=== PATIENT | female | born 1985 | race Caucasian/White ===

== ENCOUNTER 2023-04-11 11:58 | Outpatient (OUT) | payer MEDICAID, SELFPAY ==
[2023-04-11 13:29] LABS: Uric Acid 4.5 mg/dL (2.6-6.0)
[2023-04-12 11:08] LABS: PTH, Intact 21 pg/mL (15-65)
== END 2023-04-11 11:59 | disposition home or self-care (01) ==
LOC: LAB 12:01
PROVIDERS: PCP Family Medicine; Visit Provider Urology
DX: N20.0 Calculus of kidney (principal)
CPT/HCPCS: 36415; 83970; 84550

== ENCOUNTER 2023-04-11 12:04 | Outpatient (OUT) | payer MEDICAID, SELFPAY | END 2023-04-11 12:05 | disposition home or self-care (01) | LOC: LAB 12:05 | PROVIDERS: PCP Family Medicine; Visit Provider Family Medicine | DX: E55.9 Vitamin D deficiency, unspecified (principal); N20.0 Calculus of kidney | CPT/HCPCS: 36415; 82306; 83970; 84550 ==

== ENCOUNTER 2023-08-31 12:12 | Outpatient (OUT) | payer MEDICAID, SELFPAY ==
--- NOTE | 2023-08-31 12:53 | XR_ITS ---
[address] [address] Patient Name: AINSLEY JOHNS MRN: [id number] date: 1985 Sex: F Assigned Patient Location: [facility] Current Patient Location: LAB Accession/Order Number: [id number] Exam Date: 08/31/2023 13:02 Report Date: 08/31/2023 13:55 At the request of: MILY ACEVES Procedure: XR chest 2V EXAM: XR chest 2V HISTORY: Preop exam COMPARISON: None. TECHNIQUE: PA and lateral views of the chest. FINDINGS: The cardiomediastinal silhouette is normal. No focal consolidation is identified. There is no pneumothorax. No pleural effusion is noted. The osseous structures are intact. XR/XR chest 2V IMPRESSION: No acute cardiopulmonary process. Electronically authenticated by: HENRRY SALMERON Date: 08/31/2023 13:55
[2023-08-31 13:08] LABS: Basophils Absolute Auto 0.1 10^3/uL (0.0-0.1); Basophils Percent Auto 0.5 % (0.2-2.0); Eosinophils Absolute Auto 0.1 10^3/uL (0.0-0.7); Eosinophils Percent Auto 0.9 % (0.9-7.0); Hematocrit 42.8 % (36.0-48.0); Immature Granulocytes Abs Auto 0.03 10^3/uL (0.00-0.03); Immature Granulocytes Pct Auto 0.3 % (0.0-0.5); Lymphocytes Absolute Auto 1.8 10^3/uL (1.2-3.8); Lymphocytes Percent Auto 17.5 % (20.5-60.0); Mean Corpuscular HGB Conc 32.7 g/dL (29.9-35.2); Mean Corpuscular Hemoglobin 30.8 pg (26.7-34.0); Mean Corpuscular Volume 94.3 fL (81.0-99.0); Mean Platelet Volume 12.3 fL (9.5-13.5); Monocytes Absolute Auto 0.5 10^3/uL (0.3-0.8); Monocytes Percent Auto 5.2 % (1.7-12.0); Neutrophils Absolute Auto 7.6 10^3/uL (1.4-6.5); Neutrophils Percent Auto 75.6 % (43.0-75.0); Platelet Count 228 10^3/uL (150-450); Red Blood Count 4.54 10^6/uL (4.20-5.40); Red Cell Distribution Width 13.1 % (11.0-15.0)
[2023-08-31 14:28] LABS: INR 0.98; Prothrombin Time 10.4 sec (9.0-11.6)
[2023-08-31 14:30] LABS: Alanine Aminotransferase 14 U/L (14-59); Albumin Level 3.7 g/dL (3.4-5.0); Alkaline Phosphatase 68 U/L (46-116); Anion Gap 13.4; Aspartate Amino Transferase 9 U/L (15-37); BUN Creatinine Ratio 6.5; Bilirubin Direct 0.2 mg/dL (0.0-0.2); Bilirubin Total 0.9 mg/dL (0.2-1.0); Calcium 8.8 mg/dL (8.5-10.1); Carbon Dioxide 27.2 mmol/L (21.0-32.0); Chloride 105 mmol/L (98-107); Estimated GFR (African America >60 (>=60); Estimated GFR (Non-African Ame 57 (>=60); Globulin 3.8 g/dL; Glucose 79 mg/dL (74-106); Potassium 3.6 mmol/L (3.5-5.1); Sodium 142 mmol/L (136-145); Total Protein 7.5 g/dL (6.4-8.2)
== END 2023-08-31 12:13 | disposition home or self-care (01) ==
LOC: PST 12:13
PROVIDERS: PCP Family Medicine; Visit Provider Obstetrics & Gynecology
DX: Z01.812 Encounter for preprocedural laboratory examination (principal); N92.0 Excessive and frequent menstruation with regular cycle; R10.2 Pelvic and perineal pain; N94.6 Dysmenorrhea, unspecified
CPT/HCPCS: 36415; 71046; 80048; 80076; 85025; 85610; 85730

== ENCOUNTER 2023-09-12 11:45 | Outpatient (OUT) | payer MEDICAID, SELFPAY ==
--- OUTSIDE RECORDS SUMMARY | 2023-09-12 11:51 | XMS_ITS | CCD ---
Author Name Unknown Address [address] [place] [address] Organization [facility] Care Team Providers Care Paramedic Rn Name Role Phone Linda Leon Unavailable Rumschlag, Sania Unavailable Sherine Renee Unavailable RUMSCHLAG, SANIA K Primary Care Physician Rumschlag, Sania Unavailable MD Martina Stephenson Attending Provider DO Deirdre Sania Primary Care Provider Martina Stephenson Admitting Unavailable Rumschlag, Sania Primary Care Unavailable Lue, Martina M Attending Unavailable Linda Leon Attending Unavailable Linda Leon Admitting Unavailable NO FAMILY, PHYSICIAN Primary Care Unavailable JOANNA, DR EMILY Kohli Consulting Unavailable MISC, DR DOMINGUEZ Primary Care Unavailable LUE ., MARTINA M Attending Unavailable LUE ., MARTINA M Admitting Unavailable LUE ., MARTINA M Consulting Unavailable LUE ., MARTINA M Consulting Unavailable [facility] Primary Care Unava ilable LUE ., MARTINA M Attending Unavailable LUE ., MARTINA M Admitting Unavailable MISC, DR DOMINGUEZ Consulting Unavailable [facility] Primary Care Unava ilable MISC, DR DOMINGUEZ Attending Unavailable MISC, DR DOMINGUEZ Admitting Unavailable DR PASQUALE WILKES Consulting Unavailable RUMSCHLAG, SANIA Primary Care Unavailable LUE ., MARTINA M Attending Unavailable LUE ., MARTINA M Admitting Unavailable LUE ., MARTINA M Consulting Unavailable RUMSCHLAG, SANIA Consulting Unavailable RUMSCHLAG, SANIA Primary Care Unavailable IFTIKHARLAG, SANIA Attending Unavailable IFTIKHARLAG, SANIA Admitting Unavailable MISC, DR DOMINGUEZ Primary Care Unavailable KETAN ., DR MINOR Attending Unavailable KETAN ., DR MINOR Admitting Unavailable KETAN ., DR MINOR Consulting Unavailable RUMSCHLAG, SANIA Primary Care Unavailable KETAN ., DR MINOR Attending Unavailable KETAN ., DR MINOR Admitting Unavailable REGLA II, ESTRADA Consulting Unavailable FILUTZE, LEAH Consulting Unavailable RUMSCHLAG, SANIA Primary Care Unavailable KETAN ., DR MINOR Consulting Unavailable KETAN ., DR MINOR Attending Unavailable KETAN ., DR MINOR Admitting Unavailable HENRRY SALMERON Consulting Unavailable YAROSH ., RAMAN Consulting Unavailable GONZALEZ, DR HENRRY Castanon Attending Unavailable GONZALEZ, DR HENRRY Castanon Admitting Unavailable [facility] Primary Care Unava ilable RUMSCHLAG, SANIA Primary Care Unavailable KETAN ., DR MINOR Consulting Unavailable KETAN ., DR MINOR Attending Unavailable KETAN ., DR MINOR Admitting Unavailable EMILY CANDELARIA Consulting Unavailable JOANNA, DR EMILY Kohli Consulting Unavailable [facility] Primary Care Unava ilable [facility] Attending Unava ilable [facility] Admitting Unava ilable LUE ., MARTINA M Consulting Unavailable WEST, DR EMILY Kohli Consulting Unavailable [facility] Primary Care Unava ilable LUE ., MARTINA M Attending Unavailable LUE ., MARTINA M Admitting Unavailable LUE ., MARTINA M Consulting Unavailable WEST, DR EMILY Kohli Consulting Unavailable TRINAC, DR DOMINGUEZ Primary Care Unavailable LUE ., MARTINA M Attending Unavailable LUE ., MARTINA M Admitting Unavailable LUE ., MARTINA M Consulting Unavailable KETAN ., DR MINOR Consulting Unavailable MISC, DR DOMINGUEZ Primary Care Unavailable KETAN ., DR MINOR Attending Unavailable KETAN ., DR MINOR Admitting Unavailable Lue, Martina M. Attending Unavailable RUMSCHLAG, SANIA Primary Care Unavailable RUMSCHLAG, SANIA Primary Care Unavailable Lue, Martina M. Attending Unavailable Lue, Martina M. Referring Unavailable Lue, Martina M. Admitting Unavailable RUMSCHLAG, SANIA Primary Care Unavailable Lue, Martina M. Attending Unavailable Lue, Martina M. Attending Unavailable RUMSCHLAG, SANIA Primary Care Unavailable RUMSCHLAG, SANIA Primary Care Unavailable Lue, Martina M. Attending Unavailable RUMSCHLAG, SANIA Primary Care Unavailable Martina Stephenson Attending Unavailable Martina Stephenson Referring Unavailable RUMMERLINLAWhit SANIA Primary Care Unavailable Martina Stephenson Attending Unavailable Martina Stephenson Referring Unavailable RUMSCHLAG SANIA Primary Care Unavailable Martina Stephenson Attending Unavailable Martina Stephenson Referring Unavailable Martina Stephenson Admitting Unavailable Rumdebrawhit Sania Unavailable Rumbreonna KRUGER Sania Unavailable PATTI VENCES Attending Unavailable Allergies Allergy Classification Reported Allergen(s) Allergy Type Date of Onset Reaction(s) Facility (7 sources) Dust; Translations: [DUST] Allergy to substance 2 Hives, Itching, Rash [facility] (7 sources) Feather; Translations: [FEATHERS] Drug Allergy 2 Itching [facility] (15 sources) lamoTRIgine; Translations: [lamotrigine] Drug Allergy 2 Hives, Itching, Rash, Eruption of skin (disorder) [facility] (7 sources) Mold Spores; Translations: [MOLD SPORES] Allergy to substance 2 Hives [facility] (6 sources) Seasonal allergy; Translations: [Seasonal] Drug allergy Weal (disorder) [facility] (1 source) lamoTRIgine Drug Allergy 2 [facility] (1 source) lamoTRIgine Drug Allergy 2 [facility] Medications Current Medications Medication Drug Class(es) Dates Sig (Normalized) Sig (Original) 24 hr buPROPion hydrochloride 300 mg extended release oral tablet (15 sources) Aminoketone Start: 04-14-2022 buPROPion 300 mg XL /24 hrs Refills(s) 0 Start Date: 04/14/22 Status: Ordered Start: 01-27-2022 buPROPion XL ( WELLBUTRIN XL) 300 mg 24 hr tablet 300 mg once daily. 0 01/27/2022 Active buPROPion HCl Ac tive Comment on above: 300 mg once daily. cephalexin 500 mg oral capsule (8 sources) Cephalosporin Antibacterial Start: 06-03-2022 Keflex 500 mg Cap See Instructions, Take 1 tablet 1 day prior to procedure, and then 1 tab day of procedure, # 2 tab(s), Refills(s) 0, Pharmacy: [facility]/pharmacy #[id number], 154, cm, 06/03/22 15:43:00 EDT, Height/Length Dosing, 88, kg, 05/12/22 8:09:00 EDT, Weight Dosing Start Date: 06/03/22 Status: Ordered Start: 06-02-2022 End: 06-02-2022 [facility] June 02, 2022 11:46am Start: 04-14-2022 Keflex 500 mg Cap See Instructions, Take 1 tablet 1 day prior to procedure, and then 1 tab day of procedure, # 2 tab(s), Refills(s) 0, [id number] 154, cm, 04/14/22 11:36:00 EDT, Height/Length Dosing, 88, kg, 04/14/22 11:36:00 EDT, Weight Dosing Start Date: 04/14/22 Status: Ordered ciprofloxacin 500 mg oral tablet (1 source) Quinolone Antimicrobial Start: 12-04-2021 take 1 tablet by mouth every twelve hours Cipro 500 MG 1 tablet Orally BID for 5 days Dec, Active [facility] 55MCG/AC SPR (4 sources) Start: 04-14-2022 [facility] 55MCG/AC SPR [facility] 55MCG/AC SPR Start Date: 04/14/22 Status: Ordered levothyroxine sodium 0.15 mg oral tablet (18 sources) l-Thyroxine Start: 01-05-2023 End: 04-14-2024 take 1 tablet by mouth once daily levothyroxine (SYNTHROID) 150 mcg tablet Indications: 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 90 tablet 3 03/10/2022 04/15/2023 Discontinued Levothyroxine So dium 200 MCG Oral for 30 Active End: 03-10-2022 take 2 tablets by mouth once daily levothyroxine (SYNTHROID) 112 mcg tablet 112 mcg once daily. Take 2 tablets by mouth every day 0 03/10/2022 Discontinued Comment on above: 112 mcg once daily. Take 2 tablets by mouth every day Take 1 tablet by rox th once daily. Take 1 tablet by rox th once daily. Except on Sundays (so total 6 days per week) nitrofurantoin, macrocrystals 25 mg / nitrofurantoin, monohydrate 75 mg oral capsule (2 sources) Nitrofuran Antibacterial Start: 12-03-19 take 1 capsule by mouth every twelve hours Macrobid 100 MG 1 cap(s) Orally bid for 5 day(s) Nov, Active oxybutynin chloride 5 mg oral tablet (2 sources) Cholinergic Muscarinic Antagonist Start: 06-02-20 take 5 mg by mouth three times daily Ditropan Ditropan, 5 mg, Oral, TID Start Date: 06/03/22 Status: Ordered phenazopyridine hydrochloride 100 mg oral tablet (4 sources) Start: 06-02-20 Pyridium 100 mg, Oral, TIDPC, PRN Urinary discomfort, Refills(s) 0 Start Date: 06/03/22 Status: Ordered Start: 12-02-2021 take 1 tablet by rox th every eight hours Pyridium 200 MG 1 tablet after meals Orally Three times a day for 2 day(s) Nov, Active tamsulosin hydrochloride 0.4 mg oral capsule (1 source) alpha-Adrenergic Kaz Start: 06-02-2022 take 0.4 mg by mouth once daily Tamsulosin Active 0.4 MG PO Daily June 02, 2022 12:00am triamcinolone acetonide 0.055 mg/actuat metered dose nasal spray (4 sources) Corticosteroid Start: 06-02-2022 Triamcinolone Acetonide (Nasal Allergy) 55 mcg aerosol,spray Active 55 MCG INTRANASAL As Directed June 02, 2022 12:00am Start: 11-27-2020 JAILYN regan g Nov, 40 mg Completed/Discontinued Medications Medication Drug Class(es) Dates Sig (Normalized) Sig (Original) [id number] 200 actuat albuterol 0.09 mg/actuat metered dose inhaler (3 sources) beta2-Adrenergic Agonist Start: 09-30-2019 take 2 puff(s) by inhalation every six hours as needed Albuterol Sulfate HFA 108 (90 Base) MCG/ACT 2 puffs as needed Inhalation every 6 hrs for 30 days Sep, Not-Taking amitriptyline hydrochloride 25 mg oral tablet (3 sources) Tricyclic Antidepressant Amitriptyline HCl 25 MG Oral for 30 Not-Taking cetirizine hydrochloride 10 mg oral tablet (3 sources) Histamine-1 Receptor Antagonist Start: 09-30-2019 take 1 tablet by mouth every twenty-four hours Cetirizine HCl 10 MG 1 tablet Orally Once a day for 30 day(s) Sep, Not-Taking dextromethorphan hydrobromide 30 mg / pyrilamine maleate 30 mg oral tablet (3 sources) Uncompetitive I-rlxfbi-C-aspartat e Receptor Antagonist, Sigma-1 Agonist Start: 09-30-2019 [place] DMT 30-30 MG 1 tablet Orally every 6-8 hours for 7 days Sep, Not-Taking fluticasone propionate 0.05 mg/actuat metered dose nasal spray (3 sources) Corticosteroid Start: 09-30-2019 take 1 spray(s) nasal route once daily Fluticasone Propionate 50 MCG/ACT 1 spray in each nostril Nasally Once a day for 30 day(s) Sep, Not-Taking methylPREDNISolone 4 mg oral tablet (3 sources) Corticosteroid Start: 11-27-2020 Medrol 4 MG as directed Orally for 6 days Nov, Not-Taking rosuvastatin calcium 5 mg oral tablet (13 sources) HMG-CoA Reductase Inhibitor Start: 02-23-2022 take 1 tablet by mouth once daily rosuvastatin (CRESTOR) 5 mg tablet TAKE 1 TABLET BY MOUTH EVERY DAY FOR 90 DAYS 0 02/23/2022 Active Rosuvastatin Paul cium Active Comment on above: TAKE 1 TABLET BY ROX TH EVERY DAY FOR 90 DAYS Problems Active Problems Problem Classification Problem Date Documented Date Episodic/Chronic Abdominal pain (1 source) Pelvic and perineal pain; Translations: [PELVIC AND PERINEAL PAIN] Onset: 12-01-2022 Episodic Asthma (5 sources) Asthma 04-14-2022 Chronic Calculus of urinary tract (16 sources) Ureteric stone; Translations: [Calculus of ureter] Onset: 05-12-2022 Episodic Diabetes mellitus without complication (1 source) Impaired fasting glycemia; Translations: [Impaired fasting glucose] Episodic Disorders of lipid metabolism (6 sources) Hypercholesterolemia; Translations: [Hyperlipidemia, unspecified] Onset: 01-07-2023 04-14-2022 Chronic Epilepsy; convulsions (5 sources) Seizure 04-14-2022 Episodic Fracture of upper limb (1 source) Fracture at wrist and/or hand level; Translations: [Hydronephrosis with renal and ureteral calculous obstruction] Onset: 06-02-2022 Episodic Genitourinary symptoms and ill-defined conditions (18 sources) Dysuria; Translations: [Hematuria, unspecified] Onset: 12-02-2021 Resolved: 12-02-2021 Episodic Menstrual disorders (9 sources) Excessive and frequent menstruation with regular cycle; Translations: [Excessive and frequent menstruation with irregular cycle] Onset: 09-23-2022 Chronic Nutritional deficiencies (1 source) Vitamin D deficiency, unspecified; Translations: [VITAMIN D DEFICIENCY UNSPECIFIED] Onset: 12-01-2022 Chronic Other ear and sense organ disorders (5 sources) Hearing loss 04-14-2022 Chronic Other ear and sense organ disorders (1 source) Unspecified hearing loss, unspecified ear; Translations: [UNS HEARING LOSS UNSPECIFIED EAR] Onset: 12-01-2022 Chronic Other female genital disorders (1 source) Abnormal uterine and vaginal bleeding, unspecified; Translations: [ABNORMAL UTERINE VAGINAL BLEED UNS] Onset: 12-01-2022 Chronic Other nutritional; endocrine; and metabolic disorders (1 source) Body mass index (BMI) 38.0-38.9, adult; Translations: [BODY MASS INDEX BMI 38.0-38.9 ADULT] Onset: 01-22-2022 Chronic Other upper respiratory disease (3 sources) Allergic rhinitis; Translations: [Allergic rhinitis, unspecified] Chronic Screening and history of mental health and substance abuse codes (7 sources) H/O: Disorder; Translations: [Personal history of nicotine dependence] Onset: 03-29-2022 Episodic Substance-related disorders (1 source) Nicotine dependence, other tobacco product, uncomplicated; Translations: [NICOTINE DEPEND OTH TOB PROD UNCOMP] Onset: 11-16-2022 Chronic Thyroid disorders (15 sources) 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; Translations: [Other specified hypothyroidism] Onset: 01-18-2022 Chronic Unclassified (1 source) R30.0 - Dysuria; Translations: [R30.0 - Dysuria] Onset: 12-02-2021 Unclassified (1 source) CONTACT W/AND (SUSP) EXPOS COVID-19; Translations: [CONTACT W/AND (SUSP) EXPOS COVID-19] Onset: 06-02-2022 Viral infection (5 sources) Herpes simplex 04-14-2022 Episodic Past or Other Problems Problem Classification Problem Date Documented Date Episodic/Chronic Immunizations and screening for infectious disease (2 sources) Contact with and (suspected) exposure to other viral communicable diseases; Translations: [Encounter for screening for human papillomavirus (HPV)] Onset: 03-15-2022 Resolved: 03-15-2022 Episodic Other aftercare (1 source) Other buttermaker (current) drug therapy; Translations: [OTH [facility] CURRENT DRUG THERAPY] Onset: 03-29-2022 Episodic Other diseases of kidney and ureters (1 source) Hydronephrosis with renal and ureteral calculous obstruction; Translations: [HYDRONPHROS RENL AND URETRL CALCUL OBST] Onset: 05-11-2022 Episodic Other screening for suspected conditions (not mental disorders or infectious disease) (4 sources) Encounter for screening for malignant neoplasm of cervix; Translations: [ENC SCREENING MALIG NEOPLASM CERV] Onset: 09-01-2022 Episodic Urinary tract infections (1 source) Urinary tract infection, site not specified Onset: 12-02-2021 Resolved: 12-02-2021 Episodic Viral infection (1 source) COVID-19 Onset: 03-15-2022 Resolved: 03-15-2022 Results Test Name Value Interpretation Reference Range Facility T4 Free SerPl-ncon 023 Free T4 [Mass/Vol] 1.2 ng/dL Normal 0.9-1.7 [facility] Comment on above: Order Comment: Speci men Type: BLOOD SPECIMEN Ordering Facility: [facility] Address: [address] [place] [address] Performed By: #### 3 016-3, 7 #### [facility] CLIA [id number] [address] [place] [address] [place] TSH SerPl-aCncon 08-04-2023 TSH Qn 40.500 m[IU]/L High 0.270-4.200 [facility] Comment on above: Order Comment: Speci men Type: BLOOD SPECIMEN Ordering Facility: [facility] Address: [address] [place] [address] Result Comment: If t he patient is , TSH reference range varies by gestational period: First Trimester (weeks 9-12): 0.180-2.990 mIU/L Second Trimester: 0.110-3.980 mIU/L Third Trimester: 0.480-4.710 mIU/L Turner Junior et al. A Practical Approach for the Verifications and Determination of Site- and Trimester-Specific Reference Intervals for Thyroid Function tests in . Thyroid, 2019:29:3:412-420. Tereso Tran, et al. 2017 Guidelines of the [place] Thyroid Association for the Diagnosis and Management of Thyroid Disease during and the . Thyroid, 2017:27:3:315-389. Performed By: #### 3 016-3, 7 #### [facility] CLIA [id number] [address] [place] [address] [place] Lab Reportson 04-13-2023 Lab Reports [id number] .[id number]:127 Normal [facility] Lab Reportson 04-12-2023 Lab Reports [id number] .[id number]:127 Normal [facility] T4 Free SerPl-mCncon 023 Free T4 [Mass/Vol] 1.6 ng/dL Normal 0.9-1.7 [facility] Comment on above: Order Comment: Speci men Type: BLOOD SPECIMEN Ordering Facility: [facility] Address: [address] [place] [address] Performed By: #### 3 016-3, 3024-7 #### [facility] CLIA [id number] [address] [place] [address] [place] TSH SerPl-aCncon 04-11-2023 TSH Qn 0.177 m[IU]/L Low 0.270-4.200 [facility] Comment on above: Order Comment: Speci men Type: BLOOD SPECIMEN Ordering Facility: [facility] Address: [address] [place] [address] Result Comment: If t he patient is , TSH reference range varies by gestational period: First Trimester (weeks 9-12): 0.180-2.990 mIU/L Second Trimester: 0.110-3.980 mIU/L Third Trimester: 0.480-4.710 mIU/L Turner Junior et al. A Practical Approach for the Verifications and Determination of Site- and Trimester-Specific Reference Intervals for Thyroid Function tests in . Thyroid, 2019:29:3:412-420. Tereso Tran, et al. 2017 Guidelines of the [place] Thyroid Association for the Diagnosis and Management of Thyroid Disease during and the . Thyroid, 2017:27:3:315-389. Performed By: #### 3 016-3, 3024-7 #### [facility] CLIA [id number] [address] [place] [address] [place] RAD - MISCon 01-22-2023 RAD - MISC [id number] .[id number]:127 Normal [facility] RAD - Ultrasound Reporton RAD - Ultrasound Report [id number] .[id number]:127 Normal [facility] Ambulatory Visit Summaryon 0 01-12-2023 Ambulatory Visit Summary AINSLEY PARRA :1985 Visit Date:01/12/2023 Ambulatory Visit Instructions Your Diagnosis Kidney stone Gross hematuria Former smoker Tests Performed Urnls Dip Stick Auto w/o Microscopy POC 22429 Your Care Team Attending Physician - Sachin PANTOJA, Martina Martinez Primary Care Physician - SANIA GILMORE DO This Is Your Medications List Contact prescribing physician if questions or concerns buPROPion (buPROPion 300 mg XL /24 hrs) levothyroxine (levothyroxine 137 mcg (0.137 mg) Tab) rosuvastatin (rosuvastatin 5 mg Tab) Procedures Performed Endometrial ablation (2022), Cystoscopic removal of ureteric stent (06/07/2022), Cystoscopy (06/02/2022), Cystoscopy (04/26/2022), Tubal ligation done. Discharge Vitals Heart Rate (Peripheral) 68 Respiratory Rate 16 Blood Pressure 128/74 Height 154 cm Height 61 in Weight 94 kg Weight 206.8 lb BMI 39.64 What to do next Scheduled Follow-Up Appointments Tuesday 8:00 AM EDT With: Sachin PANTOJA, Martina Martinez Where: [facility] Formson 01-12-2023 Forms [id number] .[id number]:127 [facility] Patient Educationon 01-13-20 23 Patient Education Nephrology Dietary Guidelines to Help Prevent Kidney Stones Kidney stones are deposits of minerals and salts that form inside your kidneys. Your risk of developing kidney stones may be greater depending on your diet, your lifestyle, the medicines you take, and whether you have certain medical conditions. Most people can lower their chances of developing kidney stones by following the instructions below. Your dietitian may give you more specific instructions depending on your overall health and the type of kidney stones you tend to develop. What are tips for following this plan? Reading food labels ? Choose foods with no salt added or low-salt labels. Limit your salt (sodium) intake to less than 1,500 mg a day. ? Choose foods with calcium for each meal and snack. Try to eat about 300 mg of calcium at each meal. Foods that contain 200?500 mg of calcium a serving include: ? 8 oz (237 mL) of milk, calcium-fortifiednon- dairy milk, and calcium-fortifiedfrui t juice. Calcium-fortified means that calcium has been added to these drinks. ? 8 oz (237 mL) of kefir, yogurt, and soy yogurt. ? 4 oz (114 g) of tofu. ? 1 oz (28 g) of cheese. ? 1 cup (150 g) of dried figs. ? 1 cup (91 g) of cooked broccoli. ? One 3 oz (85 g) can of sardines or mackerel. Most people need 1,000?1,500 mg of calcium a day. Talk to your dietitian about how much calcium is recommended for you. Shopping ? Buy plenty of fresh fruits and vegetables. Most people do not need to avoid fruits and vegetables, even if these foods contain nutrients that may contribute to kidney stones. ? When shopping for convenience foods, choose: ? Whole pieces of fruit. ? Pre-made salads with dressing on the side. ? Low-fat fruit and yogurt smoothies. ? Avoid buying frozen meals or prepared deli foods. These can be high in sodium. ? Look for foods with live cultures, such as yogurt and kefir. ? Choose high-fiber grains, such as whole-wheat breads, oat bran, and wheat cereals. Cooking ? Do not add salt to food when cooking. Place a salt shaker on the table and allow each person to add his or her own salt to taste. ? Use vegetable protein, such as beans, textured vegetable protein (TVP), or tofu, instead of meat in pasta, casseroles, and soups. Meal planning ? Eat less salt, if told by your dietitian. To do this: ? Avoid eating processed or pre-made food. ? Avoid eating fast food. ? Eat less animal protein, including cheese, meat, poultry, or fish, if told by your dietitian. To do this: ? Limit the number of times you have meat, poultry, fish, or cheese each week. Eat a diet free of meat at least 2 days a week. ? Eat only one serving each day of meat, poultry, fish, or seafood. ? When you prepare animal protein, cut pieces into small portion sizes. For most meat and fish, one serving is about the size of the palm of your hand. ? Eat at least five servings of fresh fruits and vegetables each day. To do this: ? Keep fruits and vegetables on hand for snacks. ? Eat one piece of fruit or a handful of berries with breakfast. ? Have a salad and fruit at lunch. ? Have two kinds of vegetables at dinner. ? Limit foods that are high in a substance called oxalate. These include: ? Spinach (cooked), rhubarb, beets, sweet potatoes, and Argentine chard. ? Peanuts. ? Potato chips, macedonian fries, and baked potatoes with skin on. ? Nuts and nut products. ? Chocolate. ? If you regularly take a diuretic medicine, make sure to eat at least 1 or 2 servings of fruits or vegetables that are high in potassium each day. These include: ? Avocado. ? Banana. ? [place], prune, carrot, or tomato juice. ? Baked potato. ? Cabbage. ? Beans and split peas. Lifestyle ? Drink enough fluid to keep your urine pale yellow. This is the most important thing you can do. Spread your fluid intake throughout the day. ? If you drink alcohol: ? Limit how much you use to: ? 0?1 drink a day for women who are not . ? 0?2 drinks a day for men. ? Be aware of how much alcohol is in your drink. In the [place] one drink equals one 12 oz bottle of beer (355 mL), one 5 oz glass of wine (148 mL), or one 1? oz glass of hard liquor (44 mL). ? Lose weight if told by your health care provider. Work with your dietitian to find an eating plan and weight loss strategies that work best for you. General information ? Talk to your health care provider and dietitian about taking daily supplements. You may be told the following depending on your health and the cause of your kidney stones: ? Not to take supplements with vitamin C. ? To take a calcium supplement. ? To take a daily probiotic supplement. ? To take other supplements such as magnesium, fish oil, or vitamin B6. ? Take [id number] and prescription medicines only as told by your health care provider. These include supplements. What foods should I limit? Limit your in (more content not included)... Normal [facility] Urology Office/Clinic Noteon 01-12-2023 Urology Office/Clinic Note Chief Complaint 6m LESA & KUB HPI Staff 6m LESA & KUB due to Ureteral Stone, Gross Hematuria & Kidney Stone. LESA & KUB done 01/03/23 Denies flank pain. Has been trying to drink more lemonade. Denies visible blood in urine. Denies all urinary concerns at this time. History of Present Illness Tests reviewed: reviewed UA, LESA, KUB, external labs I have reviewed the previous health record information and history for this patient from Dr. Stephenson. I have reviewed and verified the staff HPI to be accurate for this encounter. There have been no associated fever, chills, flank pain, or blood in the urine. Denies any urinary infections since last encounter. Review of Systems PHQ Score Initial Depression Screen Score: 0 ROS - Provider Constitutional: denies weight loss, denies hot flashes. Eyes: denies eye problems. Gastrointestinal: denies nausea, denies vomiting. Cardiovascular: denies chest pain or angina. Integumentary: no dryness Musculoskeletal: denies musculoskeletal symptoms. ENMT: denies otolaryngeal symptoms. Respiratory: no shortness of breath. Heme/Lymph: denies easy bleeding tendency, denies easy bruising tendency. Psychiatric: no confusion, no anxiety. Genitourinary: See HPI. Physical Exam Vitals & Measurements HR: 68(Peripheral) RR: 16 BP: 128/74 HT: 61 in HT: 154 cm WT: 94 kg WT: 206.8 lb BMI: 39.64 General Appearance: alert , no acute distress, well nourished, well developed female. Genitourinary: bladder nonpalpable, no flank pain. Assessment/Plan 1. Kidney stone (N20.0: Calculus of kidney) Stone analysis 06/02/22 - 100% Ca Ox di. LESA 07/09/22 [facility] - Possible left nonobstructing 4 mm stone. KUB 01/03/23 [facility] - A stone w/in the L kidney seen on US study performed on the same day is not visible on this abdominal radiograph; likely obscured by dense overlying bowel content. LESA 01/03/23 [facility] - 4 mm nonobstructing stone in LLP. 01/03/23 ([facility] blood work PCP) - Ca 8.7. TSH 19.6 H (on replacements). K 4. Crea 0.92. UA today shows moderate blood (see #2), neg for infection. Reviewed imaging with pt. USs can overestimate stone size and not very visible by XR due to stool burden. Stone size passable. Could consider ESWL if stone becomes larger in size ( 5 mm)/visible by XR given difficulty with stent. Discussed dietary modifications. Stressed the importance of volume (has not been doing this). Discussed metabolic workup including 24 hour urine and blood work for stone prevention. She would like to proceed. Follow up 3 mos with metabolic workup or sooner if needed. Pt understands and agrees with plan. -Sip throughout the day, increase fluids/citrate -Metabolic stone work up: Serum uric acid, PTH, 24 hr urine litholink to be mailed. 2. Gross hematuria (R31.0: Gross hematuria) S/p Cysto 04/26/22 negative. Cytol 04/14/22 - Neg. CTU neg for filling defects, R ureteral stone found. -Recent hematuria workup neg, cont monitoring. 3. Former smoker (Z87.891: Personal history of nicotine dependence) x 14 yrs. Risk for malignancy. Workup negative. Follow-up With When Contact Information Sachin PANTOJA, Martina Martinez, URL, URO Additional Instructions: 3 mos with met workup Patient Education Dietary Guidelines to Help Prevent Kidney Stones ISandra, personally scribed for Dr. Stephenson on 01/12/2023 09:07:56. . Documentation recorded by the scribe, Sandra Carmen, accurately reflects the services(s) I performed and decisions made by me. Authenticated by Dr. Stephenson on 01/12/2023 09:15:28. Problem List/Past Medical History Ongoing Asthma Deafness Former smoker Gross hematuria Herpes High cholesterol Hypothyroid Kidney stone Seizures Ureteral stone Historical No qualifying data Procedure/Surgical History Endometrial ablation (2022), Cystoscopic removal of ureteric stent (06/07/2022), Cystoscopy (06/02/2022), Cystoscopy (04/26/2022), Tubal ligation done. Medications buPROPion 300 mg XL /24 hrs, 300 mg= 1 tab(s), Oral, Daily levothyroxine 137 mcg (0.137 mg) Tab, 137 mcg= 1 tab(s), Oral, Daily rosuvastatin 5 mg Tab, 5 mg= 1 tab(s), Oral, Daily Allergies Seasonal (Hives) lamoTRIgine (Rash) Social History Tobacco Former smoker, quit more than 30 days ago Tobacco Use:. Cigarettes, Yes, 01/12/2023 Family History Alcoholism: Father and Sister. Arthritis: Mother. COPD: Mother. Heart disease: Mother. High blood pressure: Father. High cholesterol: Father. Kidney disease: Mother. Immunizations Vaccine Date Status Comments SARS-CoV-2 mRNA (tozinameran 5y-11y) vac - Not Given Postpone due to refusal diphtheria/pertussis, acel/tetanus adult 10/26/2021 Recorded Lab Results Ambulatory Point of Care Results Bilirubin Urine Dipstick: Negative (01/12/23 08:45:00) Blood Urine Dipstick: 2+ Moderate (01/12/23 08:45:00) Glucose Urine Dipstick: Negative (01/12/23 08:45:00) Ketones Urine Dipstick: Negative (more content not included)... Normal [facility] Comment on above: Result Comment: Elec tronically Signed By: Martina Stephenson MD\.br\Date and Time Signed: 01/12/23 09:15 EDT\.br\Electronically Co-Signed By: Sandra Carmen\.br\Date and Time Co-Signed: 01/12/23 09:08 EDT\.br\Electronically Co-Signed By: Sandra Carmen\.br\Date and Time Co-Signed: 01/12/23 09:13 EDT XR KUB 1 VIEWon 01-04-2023 XR KUB 1 VIEW EXAMINATION: XR KUB 1 VIEW HISTORY: Ureteric stone COMPARISON: XR KUB 07/05/2022, ultrasound kidneys 01/03/2023 FINDINGS: KIDNEY/URETER - RIGHT: No visible renal or ureteral calcifications. KIDNEY/URETER - LEFT: No visible renal or ureteral calcifications. PELVIS: No visible ureteral stones. Bilateral fallopian tube clips. BOWEL: No abnormal dilation or deviation. BONES: No acute abnormality. OTHER: Negative. No abnormal gaseous collections. IMPRESSION: 1. A stone within the left kidney seen on an ultrasound study performed on the same day is not visible on this abdominal radiograph; likely obscured by dense overlying bowel content. Electronically authenticated by: PASQUALE WILKES Date: 2023-01-04 06:57 Normal [facility] FREE T4on 01-03-2023 Free T4 [Mass/Vol] 0.83 ng/dL Normal 0.76-1.46 [facility] Comment on above: Performed By: #### P REGQNT #### [facility] [address] [address] [address] Gabo Perez LIPID PROFILEon 01-03-2023 CHOL-HDL RATIO NORM SEE BELOW Normal [facility] Comment on above: Result Comment: 3.3 - 4.4 LOW RISK 4.4 - 7.1 AVERAGE RISK 7.1 - 11.0 MODERATE RISK >11.0 HIGH RISK Performed By: #### P REGQNT #### [facility] [address] [address] [address] Gabo Perez Cholesterol [Mass/Vol] 161 mg/dL Normal <=200 [facility] Comment on above: Performed By: #### P REGQNT #### [facility] [address] [address] [address] Gabo Perez Cholesterol in HDL [Mass/Vol] 57 mg/dL Normal 40-60 [facility] Comment on above: Performed By: #### P REGQNT #### [facility] [address] [address] [address] Gabo Perez Cholesterol in LDL [Mass/Vol] 85.6 mg/dL Normal [facility] Comment on above: Performed By: #### P REGQNT #### [facility] [address] [address] [address] Gabo Perez Cholesterol.total/Ch olesterol in HDL [Mass ratio] 2.8 {ratio} Normal [facility] Comment on above: Performed By: #### P REGQNT #### [facility] [address] [address] [address] Gabo Perez HDL NORMAL > or = 60 mg/dl - LO W CARDIOVASCULAR RISK <40 mg/dl - HIGH CARDIOVASCULAR RISK Normal [facility] Comment on above: Performed By: #### P REGQNT #### [facility] [address] [address] [address] Gabo Perez LDL CALC NORMAL SEE BELOW Normal [facility] Comment on above: Result Comment: <100 mg/dl OPTIMAL 100 - 129 mg/dl NEAR OR ABOVE OPTIMAL 130 - 159 mg/dl BORDERLINE HIGH 160 - 189 mg/dl HIGH >190 mg/dl VERY HIGH Performed By: #### P REGQNT #### [facility] [address] [address] [address] Gabo Perez Triglyceride [Mass/Vol] 92 mg/dL Normal <=150 [facility] Comment on above: Performed By: #### P REGQNT #### [facility] [address] [address] [address] Gabo Perez VLDL CALC 18.4 mg/dL Normal [facility] Comment on above: Performed By: #### P REGQNT #### [facility] [address] [address] [address] Gabo Perez PROF 14(COMP METB)on 023 Albumin [Mass/Vol] 3.6 g/dL Normal 3.4-5.0 [facility] Comment on above: Performed By: #### P REGQNT #### [facility] [address] [address] [address] Gabo Perez Albumin/Globulin [Mass ratio] 0.9 {ratio} Normal [facility] Comment on above: Performed By: #### P REGQNT #### [facility] [address] [address] [address] Gabo Perez ALP [Catalytic activity/Vol] 71 U/L Normal 46-116 [facility] Comment on above: Performed By: #### P REGQNT #### [facility] [address] [address] [address] Gabo Perez ALT [Catalytic activity/Vol] 21 U/L Normal 14-59 [facility] Comment on above: Performed By: #### P REGQNT #### [facility] [address] [address] [address] Gabo Perez Anion gap [Moles/Vol] 9.4 mmol/L Normal [facility] Comment on above: Performed By: #### P REGQNT #### [facility] [address] [address] [address] Gabo Perez AST [Catalytic activity/Vol] 14 U/L Critically low 15-37 [facility] Comment on above: Performed By: #### P REGQNT #### [facility] [address] [address] [address] Gabo Perez Bilirubin [Mass/Vol] 0.7 mg/dL Normal 0.2-1.0 [facility] Comment on above: Performed By: #### P REGQNT #### [facility] [address] [address] [address] Gabo Perez Calcium [Mass/Vol] 8.7 mg/dL Normal 8.5-10.1 [facility] Comment on above: Performed By: #### P REGQNT #### [facility] [address] [address] [address] Gabo Perez Chloride [Moles/Vol] 109 mmol/L Critically high 98-107 [facility] Comment on above: Performed By: #### P REGQNT #### [facility] [address] [address] [address] Gabo Perez CO2 [Moles/Vol] 27.6 mmol/L Normal 21.0-32.0 [facility] Comment on above: Performed By: #### P REGQNT #### [facility] [address] [address] [address] Gabo Perez Creatinine [Mass/Vol] 0.92 mg/dL Normal 0.55-1.02 [facility] Comment on above: Performed By: #### P REGQNT #### [facility] [address] [address] [address] Gabo Perez EGFR-AF THAI >60 Normal >=60 [facility] Comment on above: Performed By: #### P REGQNT #### [facility] [address] [address] [address] Gabo Perez EGFR-NON AF THAI >60 Normal >=60 [facility] Comment on above: Performed By: #### P REGQNT #### [facility] [address] [address] [address] Gabo Perez Globulin (S) [Mass/Vol] 4.0 g/dL Normal [facility] Comment on above: Performed By: #### P REGQNT #### [facility] [address] [address] [address] Gabo Perez Glucose [Mass/Vol] 92 mg/dL Normal 74-106 [facility] Comment on above: Performed By: #### P REGQNT #### [facility] [address] [address] [address] Gabo Perez Potassium [Moles/Vol] 4.0 mmol/L Normal 3.5-5.1 [facility] Comment on above: Performed By: #### P REGQNT #### [facility] [address] [address] [address] Gabo Perez Protein [Mass/Vol] 7.6 g/dL Normal 6.4-8.2 [facility] Comment on above: Performed By: #### P REGQNT #### [facility] [address] [address] [address] Gabo Perez Sodium [Moles/Vol] 142 mmol/L Normal 136-145 [facility] Comment on above: Performed By: #### P REGQNT #### [facility] [address] [address] [address] Gabo Perez Urea nitrogen [Mass/Vol] 6.0 mg/dL Critically low 7.0-18.0 [facility] Comment on above: Performed By: #### P REGQNT #### [facility] [address] [address] [address] Gabo Perez Urea nitrogen/Creatinine [Mass ratio] 6.5 mg/mg Normal [facility] Comment on above: Performed By: #### P REGQNT #### [facility] [address] [address] [address] Gabo Perez TSHon 01-03-2023 TSH 19.588 uIU/mL Critically high 0.358-3.740 [facility] Comment on above: Performed By: #### P REGQNT #### [facility] [address] [place] [address] Dr. Gabo Perez US KIDNEYSon 01-03-2023 US KIDNEYS EXAMINATION: US KIDNEYS HISTORY: Ureteric stone ; history of kidney stones COMPARISON: Ultrasound kidneys 07/09/2022 TECHNIQUE: Ultrasound examination was performed of the kidneys and urinary bladder. FINDINGS: RIGHT KIDNEY: No evidence of pelvocaliectasis, mass, or calculi. Normal renal cortical parenchymal echogenicity. Color Doppler demonstrates blood flow within the kidney. Kidney: 9.8 x 4.1 x 3.6 cm LEFT KIDNEY: 4 mm nonobstructing stone within inferior pole. No appreciable mass or cortical thinning. Color Doppler demonstrates blood flow within the kidney. Kidney: 9.9 x 3.7 x 4.2 cm BLADDER: No visible wall thickening, mass, or calculi. IMPRESSION: 1. Nonobstructing left nephrolithiasis; not significantly changed. Electronically authenticated by: PASQUALE WILKES Date: 2023-01-03 15:32 Normal [facility] CBC AUTO DIFFon 11-26-2022 BASO # 0.0 103/ul Normal 0.0-0.1 [facility] Comment on above: Performed By: #### C BC #### [facility] [address] [place] [address] Dr. Gabo Perez Basophils/100 WBC (Bld) 0.4 % Normal 0.2-2.0 [facility] Comment on above: Performed By: #### C BC #### [facility] [address] [place] [address] Dr. Gabo Perez EO # 0.1 103/ul Normal 0.0-0.7 [facility] Comment on above: Performed By: #### C BC #### [facility] [address] [place] [address] Dr. Gabo Perez Eosinophils/100 WBC (Bld) 1.7 % Normal 0.9-7.0 [facility] Comment on above: Performed By: #### C BC #### [facility] [address] [place] [address] Dr. Gabo Perez Erythrocyte distribution width (RBC) [Ratio] 12.7 % Normal 11.0-15.0 [facility] Comment on above: Performed By: #### C BC #### [facility] [address] [place] [address] Dr. Gabo Perez Hematocrit (Bld) [Volume fraction] 43.6 % Normal 36.0-48.0 [facility] Comment on above: Performed By: #### C BC #### [facility] [address] [place] [address] Dr. Gabo Perez Hemoglobin (Bld) [Mass/Vol] 14.4 g/dL Normal 12.0-16.0 [facility] Comment on above: Performed By: #### C BC #### [facility] [address] [place] [address] Dr. Gabo Perez IG # 0.01 10e3/ul Normal 0.00-0.03 [facility] Comment on above: Performed By: #### C BC #### [facility] [address] [place] [address] Dr. Gabo Perez IG % 0.1 % Normal 0.0-0.5 [facility] Comment on above: Performed By: #### C BC #### [facility] [address] [place] [address] Dr. Gabo Perez LYMPH # 1.7 103/ul Normal 1.2-3.8 [facility] Comment on above: Performed By: #### C BC #### [facility] [address] [place] [address] Dr. Gabo Perez Lymphocytes/100 WBC (Bld) 22.3 % Normal 20.5-60.0 [facility] Comment on above: Performed By: #### C BC #### [facility] [address] [place] [address] Dr. Gabo Perez MANUAL DIFF REQ NO Normal [facility] Comment on above: Performed By: #### C BC #### [facility] [address] [place] [address] Dr. Gabo Perez MCH (RBC) [Entitic mass] 30.1 pg Normal 26.7-34.0 [facility] Comment on above: Performed By: #### C BC #### [facility] [address] [place] [address] Dr. Gabo Perez MCHC (RBC) [Mass/Vol] 33.0 g/dL Normal 29.9-35.2 [facility] Comment on above: Performed By: #### C BC #### [facility] [address] [place] [address] Dr. Gabo Perez MCV (RBC) [Entitic vol] 91.0 fL Normal 81.0-99.0 [facility] Comment on above: Performed By: #### C BC #### [facility] [address] [place] [address] Dr. Gabo Perez MONO # 0.5 103/ul Normal 0.3-0.8 [facility] Comment on above: Performed By: #### C BC #### [facility] [address] [place] [address] Dr. Gabo Perez Monocytes/100 WBC (Bld) 7.1 % Normal 1.7-12.0 [facility] Comment on above: Performed By: #### C BC #### [facility] [address] [place] [address] Dr. Gabo Perez NEUT # 5.2 103/ul Normal 1.4-6.5 [facility] Comment on above: Performed By: #### C BC #### [facility] [address] [place] [address] Dr. Gabo Perez Neutrophils/100 WBC (Bld) 68.4 % Normal 43.0-75.0 [facility] Comment on above: Performed By: #### C BC #### [facility] [address] [place] [address] Dr. Gabo Perez Platelet mean volume (Bld) [Entitic vol] 11.6 fL Normal 9.5-13.5 [facility] Comment on above: Performed By: #### C BC #### [facility] [address] [address] [address] Gabo Perez PLT 253 103/ul Normal 150-450 [facility] Comment on above: Performed By: #### C BC #### [facility] [address] [address] [address] Gabo Perez RBC 4.79 106/ul Normal 4.20-5.40 [facility] Comment on above: Performed By: #### C BC #### [facility] [address] [address] [address] Gabo Perez WBC 7.6 103/ul Normal 4.0-11.0 [facility] Comment on above: Performed By: #### C BC #### [facility] [address] [place] [address] Dr. Gabo Perez PREG QUANT HCGon 11-26-2022 HCG QUANT <1 Normal [facility] Comment on above: Performed By: #### P REGQNT #### [facility] [address] [place] [address] Dr. Gabo Perez HCG RANGE SEE BELOW Normal [facility] Comment on above: Result Comment: 5-50 0.2-1 WEEK 50-500 1-2 WEEKS 100-5,000 2-3 WEEKS 500-10,000 3-4 WEEKS 1,000-50,000 4-5 WEEKS 10,000-100,000 5-6 WEEKS 15,000-200,000 6-8 WEEKS 10,000-100,000 2-3 MONTHS Performed By: #### P REGQNT #### [facility] [address] [place] [address] Dr. Gabo Perez XR CHEST 2 Von 11-12-2022 XR CHEST 2 V EXAM: XR CHEST 2 V HISTORY: Electronic cigarette user COMPARISON: None. TECHNIQUE: PA and lateral views of the chest. FINDINGS: The cardiomediastinal silhouette is normal. No focal consolidation is identified. There is no pneumothorax. No pleural effusion is noted. The osseous structures are intact. IMPRESSION: No acute cardiopulmonary process. Electronically authenticated by: EHNRRY SALMERON Date: 2022-11-12 13:23 Normal [facility] Pre-Certification Formon Pre-Certification Form [id number]:[id number] Normal [facility] Pre-Certification Formon Pre-Certification Form [id number]:127 Normal [facility] US PELVIS AND TRANSVAGon US PELVIS AND TRANSVAG EXAM: Pelvic ultrasound HISTORY: . Excessive menstruation with irregular cycle . COMPARISON: None. TECHNIQUE: Transabdominal and transvaginal scanning was performed. FINDINGS: Scanning of the pelvis demonstrates an anteverted uterus. The uterus measures 10.2 x 5.8 x 4.5 cm. Endometrial complex measures 9 mm. There is a 10 hypoechoic stripe within the endocervical canal with a maximal AP dimension of 2 mm. Right ovary measures 2.6 x 2.9 x 1.6 cm. Color-flow is noted. No masses are noted. Left ovary measures 2.9 x 1.7 x 1.6 cm. Color-flow is noted. No masses are noted. No free fluid is noted within the pelvis. IMPRESSION: 1. Normal-appearing anteverted uterus. 2. Normal-appearing ovaries. 3. There is a thin hypoechoic stripe within the endocervical canal measuring 2 mm. This could represent fluid and/or blood. Electronically authenticated by: EMILY CANDELARIA Date: 2022-09-24 07:44 Normal [facility] PAP ACOG PANEL 2: 30 to 65on 09-10-2022 . . Normal [facility] Comment on above: Result Comment: Perf ormed at: BA Performed By: #### [id number] #### [facility] [address] [address] [address] Gabo Perez Age Gdln ACOG Testing 30-65 Normal [facility] Comment on above: Performed By: #### [id number] #### [facility] [address] [address] [address] Gaob Perez DIAGNOSIS: Comment Normal [facility] Comment on above: Result Comment: NEGA TIVE FOR INTRAEPITHELIAL LESION OR MALIGNANCY. Performed at: [facility] Performed By: #### [id number] #### [facility] [address] [place] [address] Dr. Gabo Perez HPV Aptima Negative Normal Negative [facility] Comment on above: Result Comment: This nucleic acid amplification test detects fourteen high-risk HPV types (16,18,31,33,35,39,45,51,52,56,58,59,66,68) without differentiation. Performed at: =G Performed By: #### [id number] #### [facility] [address] [address] [address] Gabo Perez HPV Genotype Reflex Comment Normal [facility] Comment on above: Result Comment: Crit eria not met, HPV Genotype not performed. Performed at: BA Performed By: #### [id number] #### [facility] [address] [place] [address] Dr. Gabo Perez Methodology: Comment Normal [facility] Comment on above: Result Comment: This liquid based ThinPrep(R) pap test was screened with the use of an image guided system. Performed at: WB Performed By: #### [id number] #### [facility] [address] [place] [address] Dr. Gabo Perez Note: Comment Normal [facility] Comment on above: Result Comment: The Pap smear is a screening test designed to aid in the detection of premalignant and malignant conditions of the uterine cervix. It is not a diagnostic procedure and should not be used as the sole means of detecting cervical cancer. Both false-positive and false-negative reports do occur. . Performed at: WB Performed By: #### [id number] #### [facility] [address] [address] [address] Gabo Perez Performed by: Comment Normal [facility] Comment on above: Result Comment: Rekha Henderson, Architecture Faculty Member (ASCP) Performed at: BA Performed By: #### [id number] #### [facility] [address] [place] [address] Dr. Gabo Perez Specimen adequacy: Comment Normal [facility] Comment on above: Result Comment: Sati sfactory for evaluation. No endocervical component is identified. Performed at: Performed By: #### [id number] #### [facility] [address] [place] [address] Dr. Gabo Perez Screenson 07-15-2022 Screens [id number]:127 [facility] Ambulatory Visit Summaryon 1 09-13-2021 Ambulatory Visit Summary AINSLEY PARRA :1985 Visit Date:07/14/2022 Ambulatory Visit Instructions Your Diagnosis Ureteral stone Gross hematuria Former smoker Kidney stone Tests Performed Urnls Dip Stick Auto w/o Microscopy POC 19592 US Renal -- Results Pending -- XR Abdomen 1 View -- Results Pending -- Please visit your patient portal for your results or contact your primary care physician. Your Care Team Attending Physician - Martina Stephenson MD Primary Care Physician - SANIA GILMORE DO Referring Physician - Martina Stephenson MD This Is Your Medications List Contact prescribing physician if questions or concerns Misc Prescription ([employer] NASAL ALLERGY SPRAY 55MCG/AC SPR) Non-Formulary Medication (Ditropan) buPROPion (buPROPion 300 mg XL /24 hrs) levothyroxine (levothyroxine 137 mcg (0.137 mg) Tab) rosuvastatin (rosuvastatin 5 mg Tab) Procedures Performed Cystoscopic removal of ureteric stent (06/07/2022), Cystoscopy (06/02/2022), Cystoscopy (04/26/2022), Tubal ligation done. Discharge Vitals Heart Rate (Peripheral) 73 Blood Pressure 103/67 Height 154 cm Height 61 in Weight 88 kg Weight 193.6 lb BMI 37.11 What to do next Scheduled Follow-Up Appointments Tuesday. 2022 8:30 AM EDT With: Martina Stephenson MD Where: [facility] Patient Educationon 07-14-20 Patient Education Urology Kidney Stones Kidney stones are rock-like masses that form inside of the kidneys. Kidneys are organs that make pee (urine). A kidney stone may move into other parts of the urinary tract, including: ? The tubes that connect the kidneys to the bladder (ureters). ? The bladder. ? The tube that carries urine out of the body (urethra). Kidney stones can cause very bad pain and can block the flow of pee. The stone usually leaves your body (passes) through your pee. You may need to have a doctor take out the stone. What are the causes? Kidney stones may be caused by: ? A condition in which certain glands make too much parathyroid hormone (primary hyperparathyroidism). ? A buildup of a type of crystals in the bladder made of a chemical called uric acid. The body makes uric acid when you eat certain foods. ? Narrowing (stricture) of one or both of the ureters. ? A kidney blockage that you were born with. ? Past surgery on the kidney or the ureters, such as gastric bypass surgery. What increases the risk? You are more likely to develop this condition if: ? You have had a kidney stone in the past. ? You have a family history of kidney stones. ? You do not drink enough water. ? You eat a diet that is high in protein, salt (sodium), or sugar. ? You are overweight or very overweight (obese). What are the signs or symptoms? Symptoms of a kidney stone may include: ? Pain in the side of the belly, right below the ribs (flank pain). Pain usually spreads (radiates) to the groin. ? Needing to pee often or right away (urgently). ? Pain when going pee (urinating). ? Blood in your pee (hematuria). ? Feeling like you may vomit (nauseous). ? Vomiting. ? Fever and chills. How is this treated? Treatment depends on the size, location, and makeup of the kidney stones. The stones will often pass out of the body through peeing. You may need to: ? Drink more fluid to help pass the stone. In some cases, you may be given fluids through an IV tube put into one of your veins at the hospital. ? Take medicine for pain. ? Make changes in your diet to help keep kidney stones from coming back. Sometimes, medical procedures are needed to remove a kidney stone. This may involve: ? A procedure to break up kidney stones using a beam of light (laser) or shock waves. ? Surgery to remove the kidney stones. Follow these instructions at home: Medicines ? Take hinm-uas-tigqhqi and prescription medicines only as told by your doctor. ? Ask your doctor if the medicine prescribed to you requires you to avoid driving or using heavy machinery. Eating and drinking ? Drink enough fluid to keep your pee pale yellow. You may be told to drink at least 8?10 glasses of water each day. This will help you pass the stone. ? If told by your doctor, change your diet. This may include: ? Limiting how much salt you eat. ? Eating more fruits and vegetables. ? Limiting how much meat, poultry, fish, and eggs you eat. ? Follow instructions from your doctor about eating or drinking restrictions. General instructions ? Collect pee samples as told by your doctor. You may need to collect a pee sample: ? 24 hours after a stone comes out. ? 8?12 weeks after a stone comes out, and every 6?12 months after that. ? Strain your pee every time you pee (urinate), for as long as told. Use the strainer that your doctor recommends. ? Do not throw out the stone. Keep it so that it can be tested by your doctor. ? Keep all follow-up visits as told by your doctor. This is important. You may need follow-up tests. How is this prevented? To prevent another kidney stone: ? Drink enough fluid to keep your pee pale yellow. This is the best way to prevent kidney stones. ? Eat healthy foods. ? Avoid certain foods as told by your doctor. You may be told to eat less protein. ? Stay at a healthy weight. Where to find more information ? National Kidney Foundation (NKF): www.kidney.org ? [employer] (UCF): www.urologyhealth.org Contact a doctor if: ? You have pain that gets worse or does not get better with medicine. Get help right away if: ? You have a fever or chills. ? You get very bad pain. ? You get new pain in your belly (abdomen). ? You pass out (faint). ? You cannot pee. Summary ? Kidney stones are rock-like masses that form inside of the kidneys. ? Kidney stones can cause very bad pain and can block the flow of pee. ? The stones will often pass out of the body through peeing. ? Drink enough fluid to keep your pee pale yellow. This information is not intended to replace advice given to you by your health care provider. Make sure you discuss any questions you have with your health care provider. Document Released: 02/07/2009 Document Revised: 01/08/2020 Document Reviewed: 01/08/2020 [employer] Patient Education ? 2019 [employer]. [facility] Urology Office/Clinic Noteon 07-14-2022 Urology Office/Clinic Note Chief Complaint Pt is here for 1 month follow up HPI Staff Ainsley is a 37 y.o. female here for 1 month follow up. Previous Dx: gross hematuria, ureteral stone. S/P cystoscopy done on 04/26/22, cysto/RG/laser/basket /stent done on 06/02/22, cysto/stent removal done on 06/07/22. Stone analysis done on 06/02/22 showed 100% calcium oxalate dihydrate. KUB done on 07/05/22 showed no urinary tract calculi. No renal US performed. Dysuria: denies Incomplete bladder emptying: denies Hematuria: denies Frequency: yes w/ increased water intake Urgency: mild Nocturia: denies Stream: steady stream Leaking: yes Post void dripping: denies Wearing pads/ Depends: denies Urge incontinence: mild Stress incontinence: yes coughing and sneezing Incontinence without Sensory Awareness: denies Abdominal pain: denies Flank pain: denies Sexual complaints: _ History of Present Illness Tests reviewed: reviewed UA, stone analysis, KUB. I have reviewed the previous health record information and history for this patient from Dr. Stephenson. I have reviewed and verified the staff HPI to be accurate for this encounter. There have been no associated fever, chills, flank pain, or blood in the urine. Denies any urinary infections since last encounter. Review of Systems PHQ Score Initial Depression Screen Score: 0 ROS - Provider Constitutional: denies weight loss, denies hot flashes. Eyes: denies eye problems. Gastrointestinal: denies nausea, denies vomiting. Cardiovascular: denies chest pain or angina. Integumentary: no dryness Musculoskeletal: denies musculoskeletal symptoms. ENMT: denies otolaryngeal symptoms. Respiratory: no shortness of breath. Heme/Lymph: denies easy bleeding tendency, denies easy bruising tendency. Psychiatric: no confusion, no anxiety. Genitourinary: See HPI. Physical Exam Vitals & Measurements HR: 73(Peripheral) BP: 103/67 HT: 61 in HT: 154 cm WT: 88 kg WT: 193.6 lb BMI: 37.11 General Appearance: alert , no acute distress, well nourished, well developed female. Genitourinary: bladder nonpalpable, no flank pain. Assessment/Plan ICIQ-SF 6. Declined further workup/tx at this time, PFPT education provided 1. Ureteral stone (N20.1: Calculus of ureter) CTU done 05/07/22 shows a 6.6 mm proximal right ureterolith with mild associated hydronephrosis. S/P cysto/Right URS, laser/basket/stent done on 06/02/22, cysto/stent removal done on 06/07/22. Stone analysis done on 06/02/22 showed 100% calcium oxalate dihydrate. KUB done on 07/05/22 showed no urinary tract calculi. Renal US 07/09/22 - neg hydro. Suspected L stone #4 2. Gross hematuria (R31.0: Gross hematuria) S/p Cysto 04/26/22 negative. Cytology done 04/14/22 negative. UA today shows MODERATE blood and TRACE ketones. Pt denies gross blood. CTU neg for filling defects, R ureteral stone found #1 -Recent hematuria workup neg, cont monitoring 3. Former smoker (Z87.891: Personal history of nicotine dependence) x 14 yrs. Risk for malignancy. Workup negative. 4. Kidney stone (N20.0: Calculus of kidney) LESA done 07/09/22 at [place] shows possible left nonobstructing 4mm stone. Pt denies any pain. Will continue to monitor. Pt understands and agrees with this plan. Recommended pt. to increase fluid 90oz a day; preferably water, clear pop, and sugar free lemonade. Discussed dietary modification including fluids, less salt, more citrus, more meals at home. -Discussed met w/up for stone etiology. Pt does not wish to proceed with w/up at this time. Dietary educational pamphlet provided. Follow up in 6 mos w/KUB & LESA. Follow-up With When Contact Information Martina Stephenson MD, URL, URO Additional Instructions: F/u 6 mos w/KUB, LESA Patient Education Kidney Stones, [id number] I, Sandra Carmen, personally scribed for Dr. Stephenson on 07/14/2022 10:02:42. . Documentation recorded by the scribe, Sandra Carmen, accurately reflects the services(s) I performed and decisions made by me. Authenticated by Dr. Stephenson on 07/14/2022 10:07:00. Problem List/Past Medical History Ongoing Asthma Deafness Former smoker Gross hematuria Herpes High cholesterol Hypothyroid Kidney stone Seizures Ureteral stone Historical No qualifying data Procedure/Surgical History Cystoscopic removal of ureteric stent (06/07/2022), Cystoscopy (06/02/2022), Cystoscopy (04/26/2022), Tubal ligation done. Medications buPROPion 300 mg XL /24 hrs, 300 mg= 1 tab(s), Oral, Daily [employer]S NASAL ALLERGY SPRAY 55MCG/AC SPR, 0 Ditropan, 5 mg, Oral, TID levothyroxine 137 mcg (0.137 mg) Tab, 137 mcg= 1 tab(s), Oral, Daily rosuvastatin 5 mg Tab, 5 mg= 1 tab(s), Oral, Daily Allergies Seasonal (Hives) lamoTRIgine (Rash) Social History Tobacco Former smoker, quit more than 30 days ago Tobacco Use:., 05/12/2022 Family History Alcoholism: Father and Sister. Arthritis: Mother. COPD: Mother. Heart disease: (more content not included)... [facility] Comment on above: Result Comment: Elec tronically Signed By: Martina Stephenson MD\.br\Date and Time Signed: 07/14/22 10:07 EST\.br\Electronically Co-Signed By: Sandra Carmen\.br\Date and Time Co-Signed: 07/14/22 10:02 EST RAD - MISCon 07-10-2022 RAD - MIS [id number] .00CD:127 [facility] KIDNEYSon 07-09-2022 US KIDNEYS EXAMINATION: US KIDNEYS HISTORY: Ureteric stone COMPARISON: No relevant comparison available. TECHNIQUE: Ultrasound examination was performed of the bladder. FINDINGS: Right Kidney: Normal in size, contour and echotexture. No solid cortical mass, hydronephrosis or obstructing nephrolithiasis. The cortex measures 1.0 cm Height: 4.4 cm Length: 10.0 cm Width: 3.9 cm Left Kidney: Normal in size, contour and echotexture. No solid cortical mass, hydronephrosis or obstructing nephrolithiasis. 4 mm nonobstructing stone. The cortex measures 0.8 cm Height: 3.9 cm Length: 10.6 cm Width: 3.5 cm Urinary bladder is normal in appearance IMPRESSION: 4 mm nonobstructing left nephrolith Electronically authenticated by: EMILY MARSHALL Date: 2022-07-09 17:11 [facility] XR KUB 1 VIEWon 07-05-2022 XR KUB 1 VIEW EXAMINATION: XR KUB 1 VIEW HISTORY: Ureteric stone COMPARISON: 05/12/2022 FINDINGS: KIDNEY/URETER - RIGHT: No visible renal or ureteral calcifications. KIDNEY/URETER - LEFT: No visible renal or ureteral calcifications. PELVIS: No visible ureteral calcifications. Any visible calcifications favor phleboliths. BOWEL: No abnormal dilation or deviation. BONES: No acute abnormality. OTHER: Bilateral tubal ligation clips. No abnormal gaseous collections. IMPRESSION: No definite urinary tract calculi Electronically authenticated by: EMILY MARSHALL Date: 2022-07-05 13:12 [facility] Lab Reportson 06-09-2022 Lab Reports [id number] .00CD:127 [facility] Coding Summary.on 06-08-2022 Coding Summary. CD:[id number] G h0bWw+PGhlYWQ+RQ7TIEC iG55huWOenH9BJ7gDPI6I AWNVYFJKMY4CRS5ayNV2N KviK3ZloxGw JozpxTSbWB96TWu5GSY7h DnsAIcyhP2awLUpL0e0Nu LpHC01wB96EJfbIMHaTcE 3LjZpbjsgbWFy A8mtLbIfoLNnJdc+PHRhY mxlIHdpZHRoPScxMDAlJy RxvXxqSK2lVw8bBUNhDIR vbGxhcHNlOiBj x8deCIEgINnuDO4omUzjU 4WdfDA2EVSey5a9Ws52rC I+QPCnWDU2fShtUHlak72 4TzZxk5qyJBY9 uHNwFAzjEUN2L23qo7Y1G ONaBEOoYHH7fVF5sZ6mvO doyzhqN8QwbIYaYnL9UBN 6yJYbfN6bsJll ccyflW9oVru+S32GFH8ET SXXLI7AXsn0E0DhAqkwfU I+QQ68AJYvHP14iSQghPV tz0sliUt9IqCe SWEnYSR3bBmlYDgwm0UwE SKyF26rhYWuj3L0YJHlnP tvhCVtXzGpgCB6bC7qRTv pawzbx3dapivi Osbdc9unza69dB55J28qX TpgQOPtFRL4DNYfWBXqbJ cbwk4aiN2fMo1+DSntj4l vo3wskZw6YsWi NEKawcUarBeuNAM6u0ReT g73J8AyaFtnj1CxLoj1hx 11dLKyi2Y5sPQ3CQdvECC glJ8yIFogZrP0 BDLjZlPkjF92eDZpQDinJ l0oiDnbsQlzIN8sGYCxoa vdYTWxiV8aAFCbwCPzzHf pWA2rBJSdluse w674RxVqFLK0YQYpdEMrK 1ShlY3mPcRhMNDkABXbC5 GqgPEuPDdqG863CFwjPeO 7FLMawfDsX7Ts QDWegKazQxE0o2J5Gu7Im 6IyeieiLHY4ZVdmBGKoHh O2SkYkWhZ4M7HyWtt2PDR rhMfyZH0yG8Sq DNKsruyxynejbOD6LVQkF QEsbR05yRPxFTkjRk2qb0 C1f431HMQuDOCecI08Vm9 udDogMTBwdCBU cZ9wwsdpn9pledceIxBcX FQjUZh2HSm1OXGfbBguYl KbAQP5EyV9VPI9wMBfoB8 zxBaltheuuH8r Oyc+D43rlG5yACF1HTS7i wydOIQcdmYgCJ87UG24M0 RyPjwvdGFibGU+PGRpdiB juJyiGK0gTgPc d5kfp8KdTNuaE3TfSMDrZ RrgBsk1OYNwXCN5nMI1cQ 2cRTZfNGyvh6V8iBQ8G1S zqxOgdp5pn4jm MSXsRUtdC04jfRGbf0B1K ESzlKV9VHEikBivRmQbwT 93Oyc+RKEtiFuro3YzHyj jl2blv6bpiLl4 IxOzNWXrcoOgoOazBOE7p 1LnZn63V41uGQhnPTNvGB DwQBCoNBUmyLqljd5mjD3 wIi8+PGNvbCB3 pYV9bK0zNGGcPzF4FQarD 670ZyMjuFLfGthpb5bdq6 wrbRv6BeMbNPZtkyQtiVz zCUR0f9TqUe08 Y56sBUedPDJkGHKdTPMlK RHfiHgnsm3rwW5dRb3+PC 1dr5mysr78yR24uOL+PHR tTQZ0xZrgFBzu KPGhjR3jUSzwViM7CKCiI dTrcL51kZAsOAsyLp6ksZ bwuJkbPN9xHMDpkxbax17 7QsQoa8gpQVRc wNHyVIzyZCJ3A69wd5R7X HYyECBjIHG3zYA0kE9bgN lnbjogbGVmdDsgdmVydGl sQPsoQPstP337 IHRvcDsnPlBhdGllbnQgT jXhFHi0G7YfIbb1KOIcrD mwRE8bmOGsCVyxZl0ewGj psNhdPA8jUFEh vemtg017JfDcn9alWXIoo IQwJVijWYI7F98wt2R8QE PrUIYhEKT2bBA6tM9cdWq nbjogbGVmdDsg gqYpyBlyEBkmYYiuR928U HRvcDsnPkJpcnRoIERhdG R1VO60LP56aMFqr7O7xQN 4B0QpIYBlstda mvdenNY5XNUzPJRbkA01L k5muTajBy8kGPOhRBJ6DR WkwXRrJ8HbqK0wOkTdPEC aIGMpQ9WazNRw IUcbF564EGcyIdJ1NPWsg qUxM5KaSAEbhFbgVcA4x4 J3Tn0XE4M7EM04FH38hDF dl8Z1aVX3F5Ao XFEsnclpogopmQP9LELkD HAfbD55Qu8ysLimUp3nOS GcWMD8FFZdgBVnT4VuiR6 yOiAjMDAwMDAw X0HzwVElVVhqX615NTitD vC1HFWxpcYuI0YwNOPmwI tqHcD6h6F7Mf4AZCo8YU7 6CJ69kKCtp9W2 xVA4R7VzWJXduigdtplpn UM9CXEiDCUvjK42Wu5uqV cyLy0dPQVsUXY6WGNdbMR cJ5RmyF1wOgGu RKBpDLIhV4MyfWIwLTxsI 760HHimZmJ6THPdrhBbD1 IhTFRfyQvpIaV3s1O9Gv1 DKEWvZZ84MFW6 lCN5TV72QY64A9HzDlykb GFibGU+PHRhYmxlIHdpZH RoPScxMDAlJyBzdHlsZT0 hVx0fVFJvADWy xOushLWcKxDhh0abIKWrA XzdGR0ntPimY7GxiDH7NH Jvo5w8Rg10D87lM5FgvKB +WNLrrHE3gOW2 yZ5mShLwZhB2PWtmH365B oUurPCuWunaq3jye8uwtI h6LuN8GVRkynQorRvaGNL 9n0GbKa77R47g IHdpZHRoPSIxNSUiIHZhb Yeosx5tnH8hMy1+PGNvbC Q6dMZ8fD2gUjZaHnW9AZa zL020JlEedYDt Nontw0zph4ccpGh4XuNiW UFpxiJagRguGIP9g3HmFu 29E4MytOifs4IxCqu9yq4 5xZFuv7E2vAA4 U3DtODYutlqerUWwlAvtG T4lORAnskwbLHQoyS0jQQ QbP5b8TtGgRyA5IRiaC0E uvlH3KWRqoUDn KQgqYBP6V03vx2D6NAMjA CYfHAL1fKX7kR6oqVmelw ogbGVmdDsgdmVydGljYWw cGZwyW454YROs dFpmBLHwmY0qPAOpvWJpb MjlXP8oKANslzmaQhiIWE RILCBLRUFSQTwvdGQ+PHR jBLK8aDwxOXgh GWRvlC8cVXWhV4h5KpHbN eV7CTstR4LyMYQryeezCi 12aI9sAyGgLwG8WZgdX0R yfbJ6SDZlgFVn QYerTKF9V85gz5D4HJRnU XOwQYX5fOM3dW6gzPewxp ogbGVmdDsgdmVydGljYWw sQRbsX116OAUr kAplMmK1KkI4TuK8EZB4Z 6GaTdb8KWJynXylMB3pdG IcAKdgGy0wuNqihZqjWO3 wNTBpbjtwYWRk yX2iTLCgjYRlvDfuPU0tS NNjbgqyf958AwTiYZP3AG LshVFpT4YuqP7zQoTxRYF tHWCaV7CutGOg HPcsZ917RLfbEhW3SHKmh nQcW9WbJVCgjIghEoM2a0 B9Jz8xAGDBUYWkknunnCK +SWLnWBW3cEnx JVbxUIAxiW6qOPXfI9b5T gRkPbR9VFqrO5MnACAglp ppJj20dG4eYfZgGvY6FPy yM5VeukH5HIOl rXYeYVrcISY6L74xz3T3D WAdNUHkKOK6iCL3aB3akM lnbjogbGVmdDsgdmVydGl yXWliOUpuU154 IHRvcDsnPkZlbWFsZTwvd GQ+FDCbXNW4dCeqEAnoCC ThtZ5pSYIbN9r7RxYzQxX 6GNncO5FyVLLl mxrvMg81cH1mBfRpNvR1X FidE6UgmxV5KOEswPXxVE lsWRG0S87hy9K2XQBgMOC uCYJ0sUQ5jE1g bGlnbjogbGVmdDsgdmVyd EmbYGwqPPomO849NDZmtD rvMk94pNZcgTbtzbH2E9F kPjwvdHI+PC90 KVLwEQ22eJJieEFxa6rep Ep9WuQnABGbMKU8cYwtYC axl8GjASMwF04jbWSbh2P 6IGNvbGxhcHNl DhHdrNB3xC6fYRhewxrmf 5kosdfzDjhvs4jktm38cF 62Q19lODjzNULzGEWzXMC gZUXhaJizdg8g mR3rRg9+YEExaTH4oTN9x Q5tRsXlFtG8PUokK687Vs EvnOPyYoqcz8mpn2przKr 9IjIwJSIgdmFs iVnwZFP3z8LiSo21W03gS HdpZHRoPSIyMCUiIHZhbG dznj6ikB6jNn8+OC1fu2v qqm87sV52oTS+ BBGgXNB9zSvjZSwkVQBjt Z7kBBsoZhU9SXCrSqUxwE 04uQUsYGqyAb0ygWcmyYs lDK9oMOSunqjs k150XvXwi7mdKZStjKQeG OqfISJ6D93by5N7DALpKY QmHSN5pOE3dY8xxLyumcv gbGVmdDsgdmVy tVpuWScbLLvpE125MMBqu NrrQcFcwGMnB7tionHGTQ 1lOjwvdGQ+XSXkSZE6oTg kYSnuGEFgcP2a CGBrW9q5LlEiAmH7CCybE 8UxcbZ2YMSymLRzYHZdcR HCkU2zeewbc0dnkdguVrY xCBWmAVu1MFe7 TDRqzKqsIuJhOER0GyT2E OK5pYMaaK8spWvaqcypxQ 9wOyc+RklOOjwvdGQ+PHR yQHD3dRlkIIci VQQrrD3xBZFwF1m2QwJwB iP8UWocZ5AmwwM1KACncA LfVNYlxBOOrE4rutqlo6f vcjogIzAwMDAw LHo9ZTx7MEZbjWdpAzMdI LT9FoY7EDH8oONlhA2kuC ixyiwzmL9yWap+TVJOOjw vdGQ+PHRkIHN0 nTrnZKqnCINfxO5uHRSrC 1l3YiKzEhZ3UIwnS5Pcii K4WKJiyYAiXCDnlDZQpB9 uecgbz6ebqekj FcZaEPSxXGz2DEm7DDHet NbyIsMiKCG3KbG5XSM5wG YshQ4prYkuowntrK3sRhg +KBT0PTL6RB16 WF46E2HiGmgpcYRhhIL+P HRhYmxlIHdpZHRoPScxMD FcOvJsnYkmQY6xTs6gMPI yLWNvbGxhcHNl OiBj (more content not included)... [facility] Consent for Procedure/Surger yon 06-07-2022 Consent for Procedure/Surgery [id number] .00CD:127 [facility] Consent for Treatmenton Consent for Treatment [id number] .00CD:127 [facility] Inpatient Patient Summaryon 06-07-2022 Inpatient Patient Summary [address] [address] Clinical Summary Person Information Name: AINSLEY PARRA Age: 37 Years : 1985 Sex: Female PCP: SANIA GILMORE DO Marital Status: Single Race: White Ethnicity: Non- or Language: Macedonian Visit Id: Visit Reason: URETERAL STONE Speciality: Acuity: Enc Type: Outpatient Med Service: Surgery Arrival: 06/07/2022 08:48:08 Discharge: Dispo Type: Address: [address] [place] [address] DR MARIA TERESA Hines [facility] [id number] Provider Notes: Diagnosis: Ureteral stone Problems Active Former smoker Ureteral stone Gross hematuria Hypothyroid Herpes High cholesterol Seizures Deafness Asthma Smoking Status: Functional Status: Sensory Deficits: History of Falls: Mobility Assistance Prior to Admission: ADLs: Current Level of Assistance for Self-Care/Mobility: Cognitive Status: Allergies lamoTRIgine (Rash) Seasonal (Hives) Laboratory or Other Results This Visit (last charted value for your 06/07/2022 visit) No Laboratory or Other Results This Visit Measurements: Height: 154.0 cm Weight: Blood Pressure: Not Valued / Not Valued BMI: Procedures No Procedures Documented Immunizations No Immunizations Documented This Visit Final Med List: buPROPion (buPROPion 300 mg XL /24 hrs) 1 Tablets By Mouth every day. cephalexin (Keflex 500 mg Cap) Take 1 tablet 1 day prior to procedure, and then 1 tab day of procedure. Refills: 0. levothyroxine (levothyroxine 137 mcg (0.137 mg) Tab) 1 Tablets By Mouth every day. Misc Prescription ([employer] NASAL ALLERGY SPRAY 55MCG/AC SPR) 0. Non-Formulary Medication (Ditropan) 5 Milligram By Mouth 3 times a day. phenazopyridine (Pyridium) 100 Milligram By Mouth after meals as needed Urinary discomfort. rosuvastatin (rosuvastatin 5 mg Tab) 1 Tablets By Mouth every day. Care Team Members: Attending Physician: Martina Stephenson MD Consulting Physician: Referring Physician: Martina Stephenson MD Follow up: With: Address: When: Martina Stephenson [address], [place] [address], [address] [address] [phone] Business (1) Comments: Call for followup appointment in 1 month with renal US and KUB With: Address: When: Martina Stephenson Patient Education Information: EU - Cystoscopy with Stent Removal Discharge Instructions (CUSTOM) [facility] IntraOperative Documentson 1 IntraOperative Documents [id number] .[id number]:127 [facility] Main OR Intraoperative Recor don 06-07-2022 Main OR Intraoperative Record IntraOp Document Type FTURO Summary Primary Physician: Martina Stephenson MD Finalized Date/Time: 06/07/22 09:18:28 Pt. Name: AINSLEY PARRA/Sex: 1985 Female Med Rec #: [id number] Physician: Martina Stephenson MD Financial #: [id number] Pt. Type: O Room/Bed: / Admit/Disch: 06/07/22 08:48:08 - Institution: Case Times FTURO Entry 1 Patient Times In Room 06/07/22 09:05:00 Out Room 06/07/22 09:23:00 Procedure Times Start 06/07/22 09:13:00 Stop 06/07/22 09:18:00 Anesthesia Times Last Modified By: Shoaib TIRADO, Liliana ALVARADO 06/07/22 09:16:32 Case Attendance FTURO Entry 1 Entry 2 Entry 3 Case Attendee Martina Stephenson MD, RN, CARLOS MANUELOR, Val ACUÑA, Juliana Ford Role Performed Surgeon - Primary Lead Java Developer Architect - Primary Scrub - Primary Time In 06/07/22 09:05:00 06/07/22 09:05:00 06/07/22 09:05:00 Time Out 06/07/22 09:23:00 06/07/22 09:23:00 06/07/22 09:23:00 Procedure CYSTOSCOPY LOCAL WITH CYSTOSCOPY LOCAL WITH CYSTOSCOPY LOCAL WITH STENT REMOVAL(Right) STENT REMOVAL(Right) STENT REMOVAL(Right) Comments Last Modified By: Shoaib ITRADO, CARLOS MANUELOR, CHRISTIANO Cramer RN, Shoaib TIRADO, CHRISTIANO, Liliana 06/07/22 Liliana 06/07/22 Liliana 06/07/22 09:16:34 09:16:34 09:16:34 Surgical Procedures FTURO Entry 1 Procedure Description Procedure CYSTOSCOPY LOCAL WITH Modifiers Right STENT REMOVAL Surgeon Description CYSTO RIGHT STENT REMOVAL Primary Procedure Yes Primary Surgeon Martina Stephenson MD Start 06/07/22 09:13:00 Stop 06/07/22 09:18:00 Anesthesia Type Local Surgical Service Urology Wound Class 2 - Clean-Contaminated Last Modified By: CHRISTIANO Cramer RN, Ruthann 06/07/22 09:16:35 General Case Data FTURO Pre-Care Text: Classifies surgical wound, implements aseptic technique, initiates traffic control Entry 1 Case Information OR URO 1 FT Case Level None Wound Class 2 - Clean-Contaminated Specialty Urology Preop Diagnosis URETRAL STONE with Postop Same As Preop Yes stent insertion Postop Diagnosis URETRAL STONE with Outcomes Met? Yes stent insertion Last Modified By: CHRISTIANO Cramer RN, Liliana 06/07/22 09:10:12 Post-Care Text: The patient is free from signs and symptoms of infection EU IntraOp - FTURO Pre-Care Text: Implements protective measures prior to operative or invasive procedure, confirms identity before the operative or invasive procedure, verifies operative procedure, surgical site, and laterality Entry 1 EU Perioperative Protocols Procedure(s) CYSTOSCOPY LOCAL WITH Patient Identity Birthday, ID Band STENT REMOVAL(Right) Verified (select at Check, Patient least 2): Participation Consents / H and P HandP, Surgery/Procedure Operative Site N/A Verified Consent Marking Verified Surgical Site Yes Laterality Verified n/a Verified Procedure Verified Yes Correct Patient Yes Position Verified Availability Equipment, Medication Time Out Martina Stephenson MD, Verified (If Participants CHRISTIANO Cramer RN, Applicable) Val Ford CST Juliana A Time Out Complete 06/07/22 09:11:00 Allergies Reviewed? Yes Allergies Reviewed Self/Patient With Body Position Frog Legged Prep Area perineal area Prep Agents Betadine Solution Skin. Condition Unable to Visualize Additional None Specimens Collected Vitals - EU Blood Pressure 142/77 Pulse 70 bpm Respirations 16 br/min SPO2 EBL 0 IandO - EU Total Intake 0 mL Total Output 0 mL Outcomes Met? Yes Last Modified By: CHRISTIANO Cramer RN, Ruthann 06/07/22 09:14:59 Post-Care Text: The patient is free from signs and symptoms of injury caused by extraneous objects Sign Out FTURO Entry 1 Before Patient Leaves OR Nurse verbally Yes Nurse verbally n/a confirms with the confirms with the team the name of team that the procedure(s) instrument, sponge, recorded and needle counts are correct (or N/A) Nurse verbally n/a Nurse verbally n/a confirms with the confirms with the team how the team whether there specimen is labeled are any equipment (including patient problems to be name), if applicable addressed Sign Out Complete 06/07/22 09:19:00 Last Modified By: CHRISTIANO Cramer RN, Ruthann 06/07/22 09:16:44 Case Comments Finalized By: CHRISTIANO Cramer RN, Ruthann Document Signatures Signed By: CHRISTIANO Cramer RN, Ruthann 06/07/22 09:16 CHRISTIANO Cramer RN, Ruthann 06/07/22 09:18 Normal [facility] Main OR Preoperative Recordo n 06-07-2022 Main OR Preoperative Record Holding Area Document Type FTURO Summary Primary Physician: Martina Stephenson MD Finalized Date/Time: 06/07/22 09:13:10 Pt. Name: AINSLEY PARRA/Sex: 1985 Female Med Rec #: [id number] Physician: Martina Stephenson MD Financial #: [id number] Pt. Type: O Room/Bed: / Admit/Disch: 06/07/22 08:48:08 - Institution: Case Times Holding FTURO Pre-Care Text: Verifies consent for planned procedure, identifies individual values and wishes concerning care, includes family members in perioperative teaching Secures patient's records' belongings, and valuables, maintains patient's dignity and privacy, and maintains patient confidentiality Entry 1 In Holding 06/07/22 08:52:00 Outcomes Met? Yes Last Modified By: Savannah Priest LPN 06/07/22 08:52:11 Post-Care Text: The patient participates in decisions affecting his or her perioperative plan of care The patient's right to privacy is maintained Surgery Checklist FTURO Entry 1 Patient Birthday, Patient Procedure Surgical Consent, With Identification: Participation Verification: Patient NPO after Midnight: n/a Personal Items: Glasses Personal Items glasses, purse Limitations: none Comment: Complaints of Pain: Yes Pain Comment: 03/14 right flank, bladder area Skin Integrity Intact, [place], Warm, & Dry Vitals - EU Blood Pressure 142/77 Pulse 70 bpm Respirations 16 br/min SPO2 98 % RN Reviewed Yes Last Modified By: CHRISTIANO Cramer RN, Ruthann 06/07/22 09:13:09 General Comments: Temp 36.4 Temporal Finalized By: CHRISTIANO Cramer RN, Ruthann Document Signatures Signed By: Savannah Priest LPN 06/07/22 08:58 CHRISTIANO Cramer RN, Ruthann 06/07/22 09:13 Normal [facility] Operative Reporton Operative Report Patient: AWAIS PARRA Age: 37 years Sex: Female : 1985 Associated Diagnoses: None Author: Martina Stephenson MD Procedure Operative Information Details: Date/ Time: 06/07/2022 09:20:00. Pre-Op Dx: Ureteral stone (VHH19-UC N20.1, Discharge, Medical), Foreign Body in Bladder - T19.1XXA. Post-Op Dx: Same. Anesthesia Type: Local. Procedure: Local Cystoscopy with Stent Removal. Complications: None. Risks/Benefits/Inform ed Consent: Surgical risks, benefits, details of the procedure have been explained to the patient, Full informed consent has been obtained. Intraoperative Information Prepped: The patient was placed in supine position, The patient was prepped with the Betadine solution. Anesthesia: 2% Xylocaine Jelly per urethra. Procedure: Cystoscopy and Right Stent Removal, The flexible Cystoscope was passed in retrograde fashion into the bladder without difficulty, The bladder was viewed in entirety and found to be without tumors or stones, Mild inflammation was seen surrounding the orifice with the stent seen protruding from it, The stent was then grasped and removed in its entirety. Specimens Removed: None. Devices Implanted: None. Small blood clot around stent. Postoperative Information Discharge: The patient tolerated the procedure well and was subsequently discharged home. Follow up in 1 month with KUB, renal US and to review stone analysis. Normal [facility] Comment on above: Result Comment: Elec tronically Signed By: Martina Stephenson MD\.br\Date and Time Signed: 06/07/22 09:21 EDT Outpatient Surgery Discharge Instructionon 06-07-2022 Outpatient Surgery Discharge Instruction [id number] .[id number]:127 Normal [facility] Outpatient Surgery Discharge Instruction [place] [id number] Patient Discharge Instructions PERSON INFORMATION Name: AINSLEY PARRA Date of : 1985 Current Date: 06/07/2022 09:19:52 PHYSICIANS Admitting Physician: Martina Stephenson MD Comment: Discharge Diagnosis: Ureteral stone AINSLEY PARRA has been given the following list of follow-up instructions, prescriptions, and patient education materials: IF UNABLE TO CONTACT YOUR PHYSICIAN AND YOU FEEL IT IS AN EMERGENCY, GO TO THE NEAREST EMERGENCY ROOM OR CALL 911 Follow up: With: Address: When: Martina Stephenson [address] [place] [address] [phone] [facility] (1) Comments: Call for followup appointment in 1 month with renal US and KUB With: Address: When: Martina Stephenson Comment: PATIENT EDUCATION INFORMATION Instructions: Cystoscopy with Stent Removal ? Voiding after the procedure: there may be some pain, burning, urgency, frequency and blood tinged urine following the procedure. These symptoms usually resolve within 2-5 days. Drink the amount of fluid it takes to keep the urine pink to yellow or clear in color. Drinking enough water and fluids will help to ease any discomfort after your procedure. ? If you are having problems that seem out of the ordinary, please call. ? If unable to contact your physician and you feel it is an emergency, go to the nearest emergency room or call 911 ? Diet ? you may resume your normal diet. ? Activity ? you may resume your normal activities ? Call if you have a fever over 100 degrees. ANDREAS Mckeon KEARA, have received the attached patient education materials/instruction s and have verbalized understanding: May we do a follow up call? Yes No I was present when discharge instructions were given Patient Signature Date Clinican/Nurse Signature Date You may receive a survey from Felipe Newman asking you to rate your care experience. Your feedback is important and will help us understand what we do well and how we can improve the quality of care we provide to you, your loved ones and our community. It?s an honor to serve you. Thank you for choosing [facility] Normal [facility] Pathology Noteon 06-04-2022 Pathology Note [id number] .[id number]:127 Normal [facility] Operative Reporton 2 Operative Report [id number] .00CD:127 Normal [facility] RAD - MISCon 06-03-2022 RAD - MISC [id number] .00CD:127 Normal [facility] Calculi, Urinaryon 2 Ca Oxalate Dihydrate 100 % Normal . [facility] Comment on above: Performed By: #### C ALCULI #### [facility] , Color (U) Mathur Normal . [facility] Comment on above: Performed By: #### C ALCULI #### [facility] , Comment2 Normal . [facility] Comment on above: Result Comment: Calc ulus received in liquid. Wet calculi must be dried before analysis, which delays reporting of results. Leaving calculi in liquid (such as water, saline, blood, urine) may lead to changes in composition. Performed By: #### C ALCULI #### [facility] , Comment: Normal . [facility] Comment on above: Result Comment: Giuliano zayas questions regarding Calculi Analysis contact [facility] at: [phone]. Performed By: #### C ALCULI #### [facility] , Composition Normal . [facility] Comment on above: Result Comment: Perc entage (Represents the % composition) Performed By: #### C ALCULI #### [facility] , Disclaimer: Normal . [facility] Comment on above: Result Comment: This test was developed and its performance characteristics determined by [employer]. It has not been cleared or approved by the Food and Drug Administration. Performed at: [facility] Stone Analysis [address] [place] [address] Dr Quintana [place], [place] [id number] [employer] Hand: Jarett Reynoso PhD, Phone: [phone] Performed By: #### C ALCULI #### [facility] , Note Normal . [facility] Comment on above: Result Comment: Calc danae report will follow via computer, mail or buttermaker delivery. PERFORMED BY: [place] [address] PATHOLOGIST CHESTNUT TANNER BARAK ARRIAZA M.D. Performed By: #### C ALCULI #### [facility] , Photo Normal . [facility] Comment on above: Result Comment: Phot ograph will follow under a separate cover Performed By: #### C ALCULI #### [facility] , Size 4x3 Normal . [facility] Comment on above: Result Comment: Mult iple pieces received. Dimensions of the largest piece reported. Performed By: #### C ALCULI #### [facility] , Source Normal . [facility] Comment on above: Result Comment: Righ t Ureter Performed By: #### C ALCULI #### [facility] , Weight 21.0 Normal . [facility] Comment on above: Performed By: #### C ALCULI #### [facility] , [place] urethrocystogram retroon 06-02-2022 [place] urethrocystogram retro [facility] [place] [address] Fluoroscopy Report Signed Patient: Ainsley Parra MR#: [id number] 1 : 1985 Acct:[id number] Age/Sex: 37 / F ADM Date: 06/02/22 Loc: [place] Room: Type: [facility] Attending Dr: Martina Stephenson MD Copies to: Martina Stephenson MD Ordering Provider: Martina Stephenson MD Date of Service: 06/02/22 [place] urethrocystogram retro: RT RETROGRADE URETEROSCOPY Fluoroscopic retrograde urethrogram 10 images. Total time 40 seconds. Contrast opacifies the renal collecting system and ureter. Proximal ureteral stone present. Wire guidance utilized. FL/[place] urethrocystogram retro IMPRESSION: RIGHT retrograde pyelogram. RIGHT ureteral stent. wire guidance. Impression dictated by: Artemio Greene M.D.06/02/2022 4:43 PM Dictation Location: [place] [address] Transcribed By: [facility] 06/02/221642 Dictated By: Artemio Greene DO 06/02/221635 Signed By: 06/02/221642 Normal [facility] HCG ( test) IA.rapi d Ql (U)Ordered By: EMILY LYNN on 06-02-2022 HCG ( test) Ql (U) Negative [facility] HCG,Urineon 06-02-2022 Beta HCG ( test) Ql (U) Negative Normal [facility] Comment on above: Result Comment: PERF ORMED BY: [place] [address] PATHOLOGIST CHESTNUT TANNER BARAK ARRIAZA M.D. Performed By: #### U HCG #### [address] 06-02-2022 L - -------- Specimen: [id number] Received: 06/03/22 Status: AXEL Edwards Num: [id number] Spec Type: Surgical Subm Dr: Martina Stephenson MD Tissues: A Urinary Calculus (RT URETERAL STONE) Procedures: Level 1 Gross -------- Age/ Patient Sex Location Account Attending Physician -------- Ainsley Parra 37/F [place] [id number] Martina Stephenson MD -------- SPEC NUM: [id number] RECD: 06/03/22 STATUS: AXEL EDWARDS NUM: [id number] MARCIA: 06/02/[address] [facility] [address]: Martina Stephenson MD ENTERED: 06/03/[address]: BOBBY TYPE: Surgical DEPT: S ORDERED: Level 1 Gross ORDERED: Level 1 Gross Pathological Diagnosis Right ureteral stone, extraction: - Consistent with urinary calculus, see Gross Description Clinical Information Ureteral stone Gross Description Received fresh labeled with the patient's name, number and right ureteral stone is one stone measuring 0.6 cm. Entirely submitted for chemical analysis. Gross examination only. CPT Codes 12877 -------- -------- Specimen: [id number] Received: 06/03/22 Status: AXEL Edwards Num: [id number] Spec Type: Surgical Subm Dr: Martina Stephenson MD Tissues: A Urinary Calculus (RT URETERAL STONE) Procedures: Level 1 Gross -------- Patient: Ainsley Parra [id number] (Continued) -------- Signed (signature on file) Gogo Bailey MD 06/03/22 1515 [facility] Lab Reportson 06-02-2022 Lab Reports [id number] .00CD:127 Normal [facility] Covid-19 PCR (CVDTBH)on 05-07 SARS-CoV-2 (COVID-19) RNA ANDREW+probe Ql (Unsp spec) Not detected Normal NOT DETECTED [facility] Comment on above: Result Comment: This test is not yet approved or cleared by the [place] FDA. When there are no FDA-approved or cleared tests available, and other criteria are met, FDA can make tests available under an emergency access mechanism called an Emergency Use Authorization (EUA). The EUA for this test is supported by the [place] of Health and Human Service's (HHS's) declaration that circumstances exist to justify the emergency use of in vitro diagnostics for the detection and/or diagnosis of the virus that causes COVID-19. This EUA will remain in effect (meaning this test can be used) for the duration of the COVID-19 declaration justifying emergency of IVDs, unless it is terminated or revoked by FDA (after which the test may no longer be used). When diagnostic testing is negative, the possibility of a false negative should be considered in the context of a patient's recent exposures and the presence of clinical signs and symptoms consistent with SARS-CoV-2. Performed By: #### C [facility] #### [facility] [address] [place] [address] Dr. Gabo Perez Consent for COVID Vaccineon 05-20-2022 SARS-CoV-2 (COVID-19) RNA ANDREW+probe Ql (Unsp spec) [id number] .00CD:127 Normal [facility] RAD - MISCon 05-19-2022 RAD - MISC [id number] .00CD:127 Normal [facility] RAD - MISC [id number] .00CD:127 Normal [facility] RAD - CT Reporton 05-17-2022 RAD - CT Report [id number] .00CD:127 Normal [facility] RAD - CT Report [id number] .00CD:127 Normal [facility] Ambulatory Visit Summaryon 0 05-12-2022 Ambulatory Visit Summary AINSLEY PARRA :1985 Visit Date:05/12/2022 Ambulatory Visit Instructions Your Diagnosis Gross hematuria Ureteral stone Former smoker Tests Performed Urnls Dip Stick Auto w/o Microscopy POC 95476 XR Abdomen 1 View -- Results Pending -- Please visit your patient portal for your results or contact your primary care physician. Your Care Team Attending Physician - Martina Stephenson MD Primary Care Physician - SANIA GILMORE DO Referring Physician - Martina Stephenson MD This Is Your Medications List Contact prescribing physician if questions or concerns Misc Prescription ([employer]ER[employer] SPRAY 55MCG/AC SPR) buPROPion (buPROPion 300 mg XL /24 hrs) cephalexin (Keflex 500 mg Cap) cephalexin (Keflex 500 mg Cap) levothyroxine (levothyroxine 137 mcg (0.137 mg) Tab) rosuvastatin (rosuvastatin 5 mg Tab) Procedures Performed Tubal ligation done. Discharge Vitals Heart Rate (Peripheral) 71 Respiratory Rate 16 Blood Pressure 108/65 Height 154.0 cm Height 154 cm Weight 88.0 kg Weight 88 kg BMI 37.11 What to do next You Need to Schedule the Following Appointments Follow Up with Sachin PANTOJA, Martina Martinez, URL, URO When: Where: Medications What How Much When Instructions Unchanged buPROPion (buPROPion 300 mg XL / 24 hrs) Contact prescribing physician if questions or concerns Unchanged cephalexin (Keflex 500 mg Cap) See instructions Take 1 tablet 1 day prior to procedure, and then 1 tab day of procedure Contact prescribing physician if questions or concerns Unchanged cephalexin (Keflex 500 mg Cap) See instructions Take 1 tablet 1 day prior to procedure, and then 1 tab day of procedure after procedure Contact prescribing physician if questions or concerns Unchanged levothyroxine (levothyroxine 137 mcg (0.137 mg) Tab) Contact prescribing physician if questions or concerns Unchanged Misc Prescription ([employer] NAS[employer] ALLERGY SPRAY 55MCG/ AC SPR) 0 Contact prescribing physician if questions or concerns Unchanged rosuvastatin (rosuvastatin 5 mg Tab) Contact prescribing physician if questions or concerns Test Results Urnls Dip Stick Auto w/o Microscopy POC 82897 (05/12/2022) Bilirubin Urine Dipstick - Negative Blood Urine Dipstick - Trace-lysed Glucose Urine Dipstick - Negative Ketones Urine Dipstick - Negative Leukocytes Urine Dipstick - Trace Nitrite Urine Dipstick - Negative Protein Urine Dipstick - Negative Specific [place] Urine Dipstick - 1.020 Urine Appearance Urine Dipstick - Clear Urine Color Urine Dipstick - Yellow Urobilinogen Urine Dipstick - Normal 0.2-1 EU/dl pH Urine Dipstick - 6 Medications and Immunizations Administered Not Given SARS-CoV-2 mRNA (tozinameran 5y-11y) vac, Postpone due to refusal Allergies Seasonal (Hives) lamoTRIgine (Rash) Problems Ongoing - Any problem that you are currently receiving treatment for. Asthma Deafness Former smoker Gross hematuria Herpes High cholesterol Hypothyroid Seizures Ureteral stone Education Materials Kidney Stones Kidney stones are rock-like masses that form inside of the kidneys. Kidneys are organs that make pee (urine). A kidney stone may move into other parts of the urinary tract, including: ? The tubes that connect the kidneys to the bladder (ureters). ? The bladder. ? The tube that carries urine out of the body (urethra). Kidney stones can cause very bad pain and can block the flow of pee. The stone usually leaves your body (passes) through your pee. You may need to have a doctor take out the stone. What are the causes? Kidney stones may be caused by: ? A condition in which certain glands make too much parathyroid hormone (primary hyperparathyroidism). ? A buildup of a type of crystals in the bladder made of a chemical called uric acid. The body makes uric acid when you eat certain foods. ? Narrowing (stricture) of one or both of the ureters. ? A kidney blockage that you were born with. ? Past surgery on the kidney or the ureters, such as gastric bypass surgery. What increases the risk? You are more likely to develop this condition if: ? You have had a kidney stone in the past. ? You have a family history of kidney stones. ? You do not drink enough water. ? You eat a diet that is high in protein, salt (sodium), or sugar. ? You are overweight or very overweight (obese). What are the signs or symptoms? Symptoms of a kidney stone may include: ? Pain in the side of the belly, right below the ribs (flank pain). Pain usually spreads (radiates) to the groin. ? Needing to pee often or right away (urgently). ? Pain when going pee (urinating). ? Blood in your pee (hematuria). ? Feeling like you may vomit (nauseous). ? Vomiting. ? Fever and chills. How is this treated? Treatment depends on the size, location, and makeup of the kidney stones. The stones will often pass (more content not included)... Normal [facility] Patient Educationon 05-12-20 Patient Education Urology Kidney Stones Kidney stones are rock-like masses that form inside of the kidneys. Kidneys are organs that make pee (urine). A kidney stone may move into other parts of the urinary tract, including: ? The tubes that connect the kidneys to the bladder (ureters). ? The bladder. ? The tube that carries urine out of the body (urethra). Kidney stones can cause very bad pain and can block the flow of pee. The stone usually leaves your body (passes) through your pee. You may need to have a doctor take out the stone. What are the causes? Kidney stones may be caused by: ? A condition in which certain glands make too much parathyroid hormone (primary hyperparathyroidism). ? A buildup of a type of crystals in the bladder made of a chemical called uric acid. The body makes uric acid when you eat certain foods. ? Narrowing (stricture) of one or both of the ureters. ? A kidney blockage that you were born with. ? Past surgery on the kidney or the ureters, such as gastric bypass surgery. What increases the risk? You are more likely to develop this condition if: ? You have had a kidney stone in the past. ? You have a family history of kidney stones. ? You do not drink enough water. ? You eat a diet that is high in protein, salt (sodium), or sugar. ? You are overweight or very overweight (obese). What are the signs or symptoms? Symptoms of a kidney stone may include: ? Pain in the side of the belly, right below the ribs (flank pain). Pain usually spreads (radiates) to the groin. ? Needing to pee often or right away (urgently). ? Pain when going pee (urinating). ? Blood in your pee (hematuria). ? Feeling like you may vomit (nauseous). ? Vomiting. ? Fever and chills. How is this treated? Treatment depends on the size, location, and makeup of the kidney stones. The stones will often pass out of the body through peeing. You may need to: ? Drink more fluid to help pass the stone. In some cases, you may be given fluids through an IV tube put into one of your veins at the hospital. ? Take medicine for pain. ? Make changes in your diet to help keep kidney stones from coming back. Sometimes, medical procedures are needed to remove a kidney stone. This may involve: ? A procedure to break up kidney stones using a beam of light (laser) or shock waves. ? Surgery to remove the kidney stones. Follow these instructions at home: Medicines ? Take krei-vbs-bcabtyz and prescription medicines only as told by your doctor. ? Ask your doctor if the medicine prescribed to you requires you to avoid driving or using heavy machinery. Eating and drinking ? Drink enough fluid to keep your pee pale yellow. You may be told to drink at least 8?10 glasses of water each day. This will help you pass the stone. ? If told by your doctor, change your diet. This may include: ? Limiting how much salt you eat. ? Eating more fruits and vegetables. ? Limiting how much meat, poultry, fish, and eggs you eat. ? Follow instructions from your doctor about eating or drinking restrictions. General instructions ? Collect pee samples as told by your doctor. You may need to collect a pee sample: ? 24 hours after a stone comes out. ? 8?12 weeks after a stone comes out, and every 6?12 months after that. ? Strain your pee every time you pee (urinate), for as long as told. Use the strainer that your doctor recommends. ? Do not throw out the stone. Keep it so that it can be tested by your doctor. ? Keep all follow-up visits as told by your doctor. This is important. You may need follow-up tests. How is this prevented? To prevent another kidney stone: ? Drink enough fluid to keep your pee pale yellow. This is the best way to prevent kidney stones. ? Eat healthy foods. ? Avoid certain foods as told by your doctor. You may be told to eat less protein. ? Stay at a healthy weight. Where to find more information ? National Kidney Foundation (NKF): www.kidney.org ? [employer] (UCF): www.urologyhealth.org Contact a doctor if: ? You have pain that gets worse or does not get better with medicine. Get help right away if: ? You have a fever or chills. ? You get very bad pain. ? You get new pain in your belly (abdomen). ? You pass out (faint). ? You cannot pee. Summary ? Kidney stones are rock-like masses that form inside of the kidneys. ? Kidney stones can cause very bad pain and can block the flow of pee. ? The stones will often pass out of the body through peeing. ? Drink enough fluid to keep your pee pale yellow. This information is not intended to replace advice given to you by your health care provider. Make sure you discuss any questions you have with your health care provider. Document Released: 02/07/2009 Document Revised: 01/08/2020 Document Reviewed: 01/08/2020 [employer]un[employer] Patient Education ? 2019 [employer]. [facility] Provider Letteron 05-12-2022 Provider Letter May 12, 2022 DENISE PARRAARA [address] [place] [address] DENISE PARRAARA 1985 To Whom It May Concern, Please excuse above patient from work. Date of Illness: From: 05/12/2022 May Return to Work On: 05/12/2022 Restrictions: Comments: Patient was seen in office for appointment and had further testing at hospital. Sincerely, Dr Martina Stephenson MD [facility] [address], [place] [address] [facility] Urology Office/Clinic Noteon 05-12-2022 Urology Office/Clinic Note Chief Complaint Follow up from cysto and CT HPI Staff Ainsley is a 37 y/o female here for a f/u to CT done 05/07/2022. Cysto done 04/26/2022. CT showed 6.6 x 4.8 mm proximal right ureterolith as seen on precontrast axial with mild associated hydronephrosis. Additional punctate right nephrolith. Normal left. Pt unable to give a urine sample. Dysuria: _denies Incomplete bladder emptying: _denies Hematuria: _denies Frequency: _denies Urgency: _denies Nocturia: _rare Stream: _steady Leaking: _denies Post void dripping: _denies Wearing pads/ Depends: _denies Urge incontinence: _denies Stress incontinence: _denies Incontinence without Sensory Awareness: _denies Abdominal pain: _denies Flank pain: _denies Sexual complaints: _ History of Present Illness Tests reviewed: reviewed UA & CTU. I have reviewed the previous health record information and history for this patient from Dr. Stephenson. I have reviewed and verified the staff HPI to be accurate for this encounter. There have been no associated fever, chills, flank pain, or blood in the urine. Denies any urinary infections since last encounter. Review of Systems PHQ Score Initial Depression Screen Score: 0 ROS - Provider Constitutional: denies weight loss, denies hot flashes. Eyes: denies eye problems. Gastrointestinal: denies nausea, denies vomiting. Cardiovascular: denies chest pain or angina. Integumentary: no dryness Musculoskeletal: denies musculoskeletal symptoms. ENMT: denies otolaryngeal symptoms. Respiratory: no shortness of breath. Heme/Lymph: denies easy bleeding tendency, denies easy bruising tendency. Psychiatric: no confusion, no anxiety. Genitourinary: See HPI. Physical Exam Vitals & Measurements HR: 71(Peripheral) RR: 16 BP: 108/65 HT: 154.0 cm HT: 154 cm WT: 88.0 kg WT: 88 kg BMI: 37.11 General Appearance: alert , no acute distress, well nourished, well developed female. Genitourinary: bladder nonpalpable, no flank pain. Assessment/Plan 1. Gross hematuria (R31.0: Gross hematuria) S/p Cysto 04/26/22 negative Cytology negative Urine today shows trace-lysed blood Pt was seen at the [facility] ER on 03/25/22 after an onset of dark red blood w/o pain that afternoon, pt states she had a similar occurrences beginning of the month. 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 The ER did a Micro UA showing > 100 RBC's, no culture indicated. Discussed differential including dehydration vs true gross hematuria. Pt states was Dr. Carol padilla but also red. GFR- 52, Creat 1.16 Pt did state she has had urinary infections in the past, usually after sexual intercourse, or when she doesn't properly wipe after urinating. Overall not frequent. Likely from asymptomatic ureteral stone. 2. Ureteral stone (N20.1: Calculus of ureter) CTU done 05/07/22 shows a 6.6 mm proximal right ureterolith with mild associated hydronephrosis. Has not been experiencing pain. First stone event. Unknown family hx. Main issue is dehydration, which she has now been improving Discussed surgical options including ESWL (less invasive, higher chance for multiple procedures) or ureteroscopy, laser, stone basket, possible stent placement. All risks/benefits discussed. -Adequate hydration -KUB prior to ESWL. Will schedule R ESWL if able to see on KUB. If not, will proceed with right ureteroscopy, laser lithotripsy/stone basket extraction, possible stent. The procedure risks, benefits, details and treatment alternatives have been discussed with the patient. These include blood in the urine, infection, bleeding around the kidney, kidney bruising, inability to break up the stone, need for blood transfusion, blockage from stone fragments, and need for additional procedures, among others. Full informed consent has been obtained. Will order General anesthesia. 3. Former smoker (Z87.891: Personal history of nicotine dependence) x 14 yrs. Risk for malignancy. Workup neg Follow-up With When Contact Information Sachin PANTOJA, Martina Martinez, URL, URO Additional Instructions: Rt. ESWL Patient Education Kidney Stones, Lddb-hv-Vips I, Loreto Herman, personally scribed for Dr. Stephenson on 05/12/2022 08:26:06. . Documentation recorded by the scribe, Jessica Herman, accurately reflects the services(s) I performed and decisions made by me. Authenticated by Dr. Stephenson on 05/12/2022 08:38:07. Problem List/Past Medical History Ongoing Asthma Deafness Former smoker Gross hematuria Herpes High cholesterol Hypothyroid Seizures Ureteral stone Historical No qualifying data Procedure/Surgical History Tubal ligation done. Medications buPROPion 300 mg XL /24 hrs [facility]S NASAL ALLERGY SPRAY 55MCG/AC SPR, 0 Keflex 500 mg Cap, See Instructions, Not taking Keflex 500 mg Cap, See Instructions, Not taking levothyroxine 137 mcg (0.137 mg) Tab rosuvastatin 5 mg Tab Allergies Seasonal (Hives (more content not included)... Normal [facility] Comment on above: Result Comment: Elec tronically Signed By: Martina Stephenson MD\.br\Date and Time Signed: 05/12/22 08:38 EDT\.br\Electronically Co-Signed By: Loreto Herman.[email or web address]\Date and Time Co-Signed: 05/12/22 08:26 EDT XR KUB 1 VIEWon 05-12-2022 XR KUB 1 VIEW EXAMINATION: XR KUB 1 VIEW HISTORY: Kidney stone COMPARISON: No relevant comparison available. FINDINGS: KIDNEY/URETER - RIGHT: No visible renal or ureteral calcifications. KIDNEY/URETER - LEFT: No visible renal or ureteral calcifications. PELVIS: No visible ureteral calcifications. Any visible calcifications favor phleboliths. BOWEL: No abnormal dilation or deviation. BONES: No acute abnormality. OTHER: Bilateral tubal ligation clips. No abnormal gaseous collections. IMPRESSION: No definite urinary tract calculi Electronically authenticated by: EMILY MARSHALL Date: 2022-05-12 18:37 [address] [facility] [address] ABD/PELV WO W CONon 05-07 CT ABD/PELV WO W CON EXAMINATION: CT ABD/PELV WO W CON, 05/07/2022 8:06 AM EDT HISTORY: Danilo hematuria COMPARISON: None. TECHNIQUE: CT scan of the abdomen and pelvis was performed without and with IV contrast. CT dose reduction technique was used, including Automated Exposure Control. FINDINGS: LUNG BASES: No visible pulmonary or pleural disease. LIVER: No enlargement, atrophy, abnormal density, or significant focal lesion. BILIARY: No dilatation or calcification. PANCREAS: No lesion, fluid collection, ductal dilatation, or atrophy. SPLEEN: No enlargement or focal lesion. ADRENALS: No mass or enlargement. KIDNEYS: 6.6 x 4.8 mm proximal right ureterolith as seen on precontrast axial image #[id number] with mild associated hydronephrosis. Additional punctate right nephrolith. Normal left. BOWEL/MESENTERY: No visible mass, obstruction, or bowel wall thickening. Normal appendix AORTA/VASCULAR: No aneurysm or dissection. RETROPERITONEUM: No mass or adenopathy. LYMPH NODES: No adenopathy. URINARY BLADDER: No visible focal wall thickening, lesion, or calculus. PELVIC ORGANS: No visible mass. Pelvic organs appropriate for patient age. ABDOMINAL WALL: No mass or hernia. BONES: No bony lesion or fracture. OTHER: Negative. IMPRESSION: 6.6 mm proximal right ureterolith with mild associated hydronephrosis Electronically authenticated by: EMILY MARSHALL Date: 2022-05-07 09:17 Normal [facility] Coding Summary.on 04-27-2022 Coding Summary. CD:[id number] G h0bWw+PGhlYWQ+UQ1ICMH lG75coNXewY3YI2pUVC4R COFWCJOHBE3WUS2ptWC1Z MzrS0ZytdIn YspgxAWfUS49KSk0IDZ5q NtvACliaE5npRLyO5d3Ho SyWX13lV44WVrcSKAtVpT 3LjZpbjsgbWFy Q5gvWtUmxIXwGfl+PHRhY mxlIHdpZHRoPScxMDAlJy UdfQyjXU3fGh3eKZPgAYV vbGxhcHNlOiBj z3eqXAJoIFbqMM8qzDgiI 8NvwYW8SLKsm6x3Tp71eC I+QEMcJWK3eWkrXYbcd66 5YpHqg3vaVCA7 wQDgUBcpDNS3R68od3J6H GVwYTGqGFY6jIS8uZ0ykJ jummdvZ4WpcZOiCgP1USM 7qZFszC6qsKdg eziblF3eWtt+C67ZVO4WH VSDIL7DKok1P7MvWuirfD I+XH32JOAiDU11wISbePK tt4ekaGp0NvVk BTNnHKU8zMeuKKfcf5AxT WXxD05oiXKyt1A3SAExjO opuTYbWoLgkIE7cR2bFJu vahoat9ybwgoh Pilkw3zowa34nT10P50jV EfrBEPxFEH2DAKvQFQtrA pcvv1qkR2sSy8+TKfff1w nd2iagOj7ZeTm KPUroyQykPrvMUN2k6InJ p57H9HycApau0QnIzw1bj 45iEPco1U1eGG9QWwlPSA jzI2wDEjpNzZ2 SHTjWyNmoQ50bRXaRZdaW o0asVkzqRjsKU9pEGPeoh nnHRBtgG2lQEOfnCHvyDo xSA2wAGRcpoze v057XrHvHPR5LCBsgHHxG 5SmeW5rPuHhNFUqCXDpR7 FftLHoXGlaO247MXecAtN 9WNImegPhC4Af IMRazVxeHcS6u7C3Ns1Mo 3LyzezsNFD9GDfmQFR7Wd BzKsHaDiY1D3BnPwp7KWA gpSszDP1hU2Hz FKKyotytxtlkoCT9HHJkO UMomT13jBToUQzzLo0cy1 K6v394VPKqGAIwwU94Se8 udDogMTBwdCBU kT6otxwoy6iuqrqmWhRqW RPsVAm3ELg7VLVwmPvxOr QnHVH1RlY5FWF3kSAgsY7 odWmdnhgraH7p Oyc+C36fgG9zSFF4XIH8a gzjMWRnifMoEG42NT26L6 RyPjwvdGFibGU+PGRpdiB ooFvuJF2cGwEb b9val0ZxESjxV8SoBOUbW OzzFfa5DRNsWST8vLX1nN 5wNSVbBUkkq7A7aDU6Q7I vcqRmsv2ds0yb OFBlXKxbF92cgPShl3A7V YTlbNZ0GNLffAihDyUbiC 93Oyc+FWHdvTdmq7SfJsz hk9dbb6fgxLt4 YxExSCQtspCnkRjbJTV7i 3XrGk03D71yKWtpQYSxFN OxSJZcOKGycNeoks6amT7 wIi8+PGNvbCB3 rBN7vI2bFKZsOoK5TSphG 343KhRjhWItNuxxy5aai8 htyZh2YsXbJYVhgpRtnXu kMOH8a7JpDy30 H42oDKigBYFaLXWaQYAuT IXnfHxins2etM4qCx4+PC 7vk3nhkb31wB26kDO+PHR oRGX5wVwkEMgf VNImcR0nMEatVeT9CZQhB ySzyJ36dOXiQCchFz0jdV rhaRnlYC7yNWIysberw37 4CzMqv7lgHDZm nHZzSNzwSDX0Y26ak5I0V UZfPNAsSHJ9yQM8tV5leI lnbjogbGVmdDsgdmVydGl fZYguQQukL321 IHRvcDsnPlBhdGllbnQgT wWgTLe8N1RiMgu0WNJgjJ mfUU7xeYTxDGodVp6qpQs vpUknDL7qDSGr bygbz048IoSlj2cgDYTmj YHxOXoqSXM6R97fs6Y2FE KgQUCyVWN8rJM9vT0wfTm nbjogbGVmdDsg fpZukKupJNjaCPtzO371Y HRvcDsnPkJpcnRoIERhdG Z4VB17VG57hFWvk9L8zRX 7E3WpXTGxmtzh qnjztPS0XNDvBWWmmA17V r8yiZpoMb9gHLPwYLH8FK HkzBLmJ2FuvT4wPcIlUGS xBDBgE4SfhHGs OOdpP899GZwwByE5ETTgc gLoM6UyGFFtpFqbQwZ8o4 Q5Ul8PE2C1MA89ZM14iSV pr6B6pCV6A2Du HMQaahfkmzbjbSP0FVXfL YBmkW28Qa3mePnqQh8tZW WmRCN7SOZhlFWhC3MmgN4 yOiAjMDAwMDAw O2EogFCfSTlvH865QAbrD jM8FLPsezDfB1QwEXGftI uvSwO9u0N5My8VCIb8DB1 9KA72tQZho3T9 dRT7F2AbWBDsqxeehciha ED3BUHrFXVxgB77Mn6luO rjYx5kGFRdZTW7ICFknMW wM1WgqS4ePcPb KDYeKYIqX9MwoNHvYTvxS 793IBoaBgA3GYLfgyVfA4 WdXBMzqFidTpL1o8J4Uv7 ALYJcRK98ZMG7 bSU4AB63FL47L8XbRhmfc GFibGU+PHRhYmxlIHdpZH RoPScxMDAlJyBzdHlsZT0 lNf4yJLTfYEQh tDzfaVJwXsDop1aiRWCnB ZtsCM1evRfxC4RqqUJ5GR Ene2x9Ab19T05wQ8IziQO +EOXdjXR1wDN8 mB7gEsVnNyH8MVhmC651J kQglCJeZosye5jhb7qgmX o2CrQ1WKZfvpMioQayDEI 8e5GjLs52X39q IHdpZHRoPSIxNSUiIHZhb Vjbss5lpE3nKa2+PGNvbC U9hCR1dL0jOuChIvD0OEw qY458VhFolFUo Gzdic1xuu1rqzCl3DjPcD DGjeoYzwYynXNB5p9KtRw 82E6QlcOxqh8BcQjt8rh2 7oVCax1T6zER4 X8OkKLZyjzqiaDTwwElkS Q0pZORywxdqOSJtgX5aIA OcG2x9MwPcXjS1YQhnC9W vrzR3NEJpiRGk GTpmHQP1D70ue0T9IWTfJ OBaNZY9rJW1wB1yvIgksf ogbGVmdDsgdmVydGljYWw fLSvbI055NQOi jBwaJAKgpS0tNPKxxVZbl UxaVO5eAISnhuxoAhhXBU RILCBLRUFSQTwvdGQ+PHR sISO7eCqgVMrh YDIiiH1qRHXcT6e9XxSgI aB2WEwmM5WcMWCugbxbFq 97xL2iPtPxQqQ1QFjzC2B zwnF9NWYreISs ELfnWMP9I19xz6V4YHEpX DFiVYA6mXF9tI0ikWstqk ogbGVmdDsgdmVydGljYWw uHPlpG998MNZr mJhxPoT3FmB0TcW6PPI4D 4KlMxi9TSXrcKwuOD6adS SsYXhkXu1lbEwkcLwuQD1 wNTBpbjtwYWRk cB9iEWZnrWDakUlxMA9sA WApbwxce294HsBeEDI6VL GwbYAzY1CnbK6uZxGgOZM zBTQkR4UtsPSw DRhtY506ZKcqNpL2SXNsp oGeS3MtIBHelXmxSbJ7d4 L2Qt4vNKJBQHSpjmaykEO +YFToVRR6eHae YFcfSYMawE2jYNDwP3u6V oFjQjT9DIgbQ7XnNXOxdf miMt52uJ9gJwOfFeB7AHb zS3TihgG2MNFr vTOkNZfzJFI5U27rp9C2C KAsCJDcNLM8eOT0tG5znT lnbjogbGVmdDsgdmVydGl pXRxiKEseK036 IHRvcDsnPkZlbWFsZTwvd GQ+JVOgPJA1nCcjASquMS OxmG3jJQBxN7b3GpYnToC 3MMhpZ4HmIUNj zkkcDp03fM1xUcVpRdQ5V JqrX4VjagV1UULrxHXhNA gjTXP9N78at6C5VDYoHPS iWNZ9uIM3kP2z bGlnbjogbGVmdDsgdmVyd SbnFXqfZNsoO503SVZdwA vlXn52gIKqhVxwqwW3G8G kPjwvdHI+PC90 LOArPA65oYNofCRht7eqz Pj2CeBwACTaKWI0aMxiQQ hih2LnIJMaX14eqQDkb6H 6IGNvbGxhcHNl IhXfoKS0xF1fRUfwqwrsq 4rbarghPrwwe5wavv60eP 22Q08mEZnrLTJkXAYeHQF hIRFcbYpkkn4g yA8jYe6+YSPllJT4qIU0b M5fIhAnYhK2RMmxU746Ql DzrCSyVbdkt0gyb2hirLg 9IjIwJSIgdmFs nBvtGTE1k9BbAm12J54iI HdpZHRoPSIyMCUiIHZhbG aehm6prJ3kEv3+UL5lg4e uix29gT85kLZ+ YKKyBXJ4kCozSQqyNIPfr B4lYRnxQsX0CQCuTzUvjH 28yBSrFNqpMp2efDusnFw pXB3aJASbxjqa j580PeMoi4wxIZFmwMVkE HvmNHD8Y82km0A5VILxCO ZlXRV6nOF2lG7ukHsehpb gbGVmdDsgdmVy mVroOPibXYyjU321NQJfu ZucToZlpVZnH5utyuGIIK 1lOjwvdGQ+VKXiRUD2tDb hQGonDFNltL8s MFRjK0s8TvPjBxO1RSpfO 9WshqR1HVMzlVQbKCGywR RXmT1epmjad6mqsatsMkD iDOEqHCk0OOa1 YRKpdGyfLzPnJEI2FiG5D BT2vNCtnY1gmFgjswvkgJ 9wOyc+RklOOjwvdGQ+PHR pSAA5lPreNXmu RHPhzB7xZEUwO7l2DnCjQ nJ2PVzsL8PutwB7ZXFxfF EpEAPphYNQbV2mbupmy7x vcjogIzAwMDAw JBb7NAp9USEsdVgeKsCoD TD1QzT9TFM5uKIiaO7tyR iohmexqZ0sQvt+TVJOOjw vdGQ+PHRkIHN0 kFoiYKndYTYaoF4jSZPsM 0v9MrWyWyV7ZQcoV4Qdnt W5VRBgtNObRVWeoEJSdO7 qyxelo8hxsgzq AfZgKQExUZe4KNi1LABbz FvkKvQvZBR2IzI5LFK1hV OfnC9zjHdfdweooT2yYld +VXG8ONU5NX33 BT55B9ZhRugbkOPobVB+P HRhYmxlIHdpZHRoPScxMD MjQkBuoHkjVY9uYl8gFZO yLWNvbGxhcHNl OiBj (more content not included)... Normal [facility] Consent for Procedure/Surger yon 04-26-2022 Consent for Procedure/Surgery [id number]# 1.00CD:127 Normal [facility] Consent for Treatmenton 04-06 Consent for Treatment [id number] .[id number]:127 Normal [facility] Inpatient Patient Summaryon 04-26-2022 Inpatient Patient Summary [place] [id number] Clinical Summary Person Information Name: AINSLEY PARRA Age: 37 Years : 1985 Sex: Female PCP: SANIA GILMORE DO Marital Status: Single Race: White Ethnicity: Non- or Language: Macedonian Visit Id: Visit Reason: GROSS HEMATURIA Speciality: Acuity: Enc Type: Outpatient Med Service: Surgery Arrival: 04/26/2022 08:23:40 Discharge: Dispo Type: Address: [address] [place] [address] [address] [place] [place] [id number] Provider Notes: Diagnosis: Gross hematuria Problems Active Hypothyroid Herpes High cholesterol Seizures Deafness Asthma Smoking Status: Functional Status: Sensory Deficits: History of Falls: Mobility Assistance Prior to Admission: ADLs: Current Level of Assistance for Self-Care/Mobility: Cognitive Status: Allergies lamoTRIgine (Rash) Seasonal (Hives) Laboratory or Other Results This Visit (last charted value for your 04/26/2022 visit) No Laboratory or Other Results This Visit Measurements: Height: Weight: Blood Pressure: Not Valued / Not Valued BMI: Procedures No Procedures Documented Immunizations No Immunizations Documented This Visit Final Med List: buPROPion (buPROPion 300 mg XL /24 hrs) cephalexin (Keflex 500 mg Cap) Take 1 tablet 1 day prior to procedure, and then 1 tab day of procedure. Refills: 0. cephalexin (Keflex 500 mg Cap) Take 1 tablet 1 day prior to procedure, and then 1 tab day of procedure after procedure. Refills: 0. levothyroxine (levothyroxine 137 mcg (0.137 mg) Tab) Misc Prescription ([employer] NASAL ALLERGY SPRAY 55MCG/AC SPR) 0. rosuvastatin (rosuvastatin 5 mg Tab) Care Team Members: Attending Physician: Martina Stephenson MD Consulting Physician: Referring Physician: Martina Stephenson MD Follow up: With: Address: When: Martina Stephenson [address] [place] [address], [place] [address], [place] [phone] [facility] (1) Comments: Call for followup appointment in [address] scan With: Address: When: Martina Stephenson Patient Education Information: EU - Cystoscopy Discharge Instructions (CUSTOM) [facility] IntraOperative Documentson 0 04-26-2022 IntraOperative Documents [id number]# 1.00CD:127 [facility] Main OR Intraoperative Recor don 04-26-2022 Main OR Intraoperative Record IntraOp Document Type FTURO Summary Primary Physician: Martina Stephenson MD Finalized Date/Time: 04/26/22 09:29:52 Pt. Name: AINSLEY PARRA/Sex: 1985 Female Med Rec #: [id number] Physician: Martina Stephenson MD Financial #: [id number] Pt. Type: O Room/Bed: / Admit/Disch: 04/26/22 08:23:40 - Institution: Case Times FTURO Entry 1 Patient Times In Room 04/26/22 09:20:00 Out Room 04/26/22 09:29:00 Procedure Times Start 04/26/22 09:23:00 Stop 04/26/22 09:28:00 Anesthesia Times Last Modified By: Juliana Hills RN 04/26/22 09:29:47 Case Attendance FTURO Entry 1 Entry 2 Entry 3 Case Attendee Sachin PANTOJA, Martina Neal ASBESTOS PIPE SUPERVISOR, Juliana Hills RN, Juliana Corrales Role Performed Surgeon - Primary Scrub - Primary Lead Java Developer Architect - Primary Time In 04/26/22 09:20:00 04/26/22 09:20:00 04/26/22 09:20:00 Time Out 04/26/22 09:29:00 04/26/22 09:29:00 04/26/22 09:29:00 Procedure CYSTOSCOPY LOCAL(.) CYSTOSCOPY LOCAL(.) CYSTOSCOPY LOCAL(.) Comments Last Modified By: Juliana Hills RN, RN, Juliana Vizcaino RN 04/26/22 09:29:48 04/26/22 09:29:48 04/26/22 09:29:48 Surgical Procedures FTURO Entry 1 Procedure Description Procedure CYSTOSCOPY LOCAL Modifiers . Surgeon Description CYSTOSCOPY LOCAL Primary Procedure Yes Primary Surgeon Sachin PANTOJA, Martina Kimbrough 04/26/22 09:23:00 Stop 04/26/22 09:28:00 Anesthesia Type Local Surgical Service Urology Wound Class 2 - Clean-Contaminated Last Modified By: Juliana Hills RN 04/26/22 09:28:18 General Case Data FTURO Pre-Care Text: Classifies surgical wound, implements aseptic technique, initiates traffic control Entry 1 Case Information OR URO 1 FT Case Level None Wound Class 2 - Clean-Contaminated Specialty Urology Preop Diagnosis GROSS HEMATURIA Postop Same As Preop Yes Postop Diagnosis GROSS HEMATURIA Outcomes Met? Yes Last Modified By: Juliana Hills RN 04/26/22 08:31:42 Post-Care Text: The patient is free from signs and symptoms of infection EU IntraOp - FTURO Pre-Care Text: Implements protective measures prior to operative or invasive procedure, confirms identity before the operative or invasive procedure, verifies operative procedure, surgical site, and laterality Entry 1 EU Perioperative Protocols Procedure(s) CYSTOSCOPY LOCAL(.) Patient Identity Birthday, ID Band Verified (select at Check, Patient least 2): Participation Consents / H and P HandP, Surgery/Procedure Operative Site N/A Verified Consent Marking Verified Surgical Site Yes Laterality Verified Yes Verified Procedure Verified Yes Correct Patient Yes Position Verified Availability Equipment, Medication Time Out Martina Stephenson MD, Verified (If Participants Juliana Neal CST Applicable) Reinier Ahumada RN, Kimberly Y Time Out Complete 04/26/22 09:21:00 Allergies Reviewed? Yes Allergies Reviewed Self/Patient With Body Position Supine Prep Area PERINEUM Prep Agents Betadine Solution Skin. Condition Dry, Warm, Unable to Description UNABLE TO VISUALIZE DUE Visualize TO PATIENT PARTIALLY CLOTHED Additional None Specimens Collected Vitals - EU Blood Pressure 101/69 Pulse 76 bpm Respirations 16 br/min SPO2 98 % EBL 0 IandO - EU Total Intake 0 mL Total Output 0 mL Outcomes Met? Yes Last Modified By: Juliana Hills RN 04/26/22 09:21:53 Post-Care Text: The patient is free from signs and symptoms of injury caused by extraneous objects Sign Out FTURO Entry 1 Before Patient Leaves OR Nurse verbally Yes Nurse verbally Yes confirms with the confirms with the team the name of team that the procedure(s) instrument, sponge, recorded and needle counts are correct (or N/A) Nurse verbally n/a Nurse verbally Yes confirms with the confirms with the team how the team whether there specimen is labeled are any equipment (including patient problems to be name), if applicable addressed Sign Out Complete 04/26/22 09:28:00 Last Modified By: Juliana Hills RN 04/26/22 09:28:17 Case Comments Finalized By: Juliana Hills RN Document Signatures Signed By: Juliana Hills RN 04/26/22 09:29 Normal [facility] Main OR Preoperative Recordo n 04-26-2022 Main OR Preoperative Record Holding Area Document Type FTURO Summary Primary Physician: Martina Stephenson MD Finalized Date/Time: 04/26/22 08:49:24 Pt. Name: AINSLEY PARRA/Sex: 1985 Female Med Rec #: [id number] Physician: Martina Stephenson MD Financial #: [id number] Pt. Type: O Room/Bed: / Admit/Disch: 04/26/22 08:23:40 - Institution: Case Times Holding FTURO Pre-Care Text: Verifies consent for planned procedure, identifies individual values and wishes concerning care, includes family members in perioperative teaching Secures patient's records' belongings, and valuables, maintains patient's dignity and privacy, and maintains patient confidentiality Entry 1 In Holding 04/26/22 08:47:00 Outcomes Met? Yes Last Modified By: CHRISTIANO Cramer RN, Ruthann 04/26/22 08:47:52 Post-Care Text: The patient participates in decisions affecting his or her perioperative plan of care The patient's right to privacy is maintained Surgery Checklist FTURO Entry 1 Patient Birthday, ID Band Procedure History and Physical, Identification: Check, Patient Verification: Surgical Consent, With Participation Patient NPO after Midnight: n/a Personal Items: Glasses Personal Items glasses Limitations: none Comment: Complaints of Pain: No Skin Integrity Intact Vitals - EU Blood Pressure 101/69 Pulse 76 bpm Respirations 16 br/min SPO2 98 % Additional None RN Reviewed Yes Specimens Collected Last Modified By: CHRISTIANO Cramer RN, Ruthann 04/26/22 08:49:22 Finalized By: CHRISTIANO Cramer RN, Ruthann Document Signatures Signed By: CHRISTIANO Cramer RN, Ruthann 04/26/22 08:49 Normal [facility] Operative Reporton Operative Report Patient: AWAIS PARRA Age: 37 years Sex: Female : 1985 Associated Diagnoses: None Author: Martina Stephenson MD Procedure Operative Information Details: Date/ Time: 04/26/2022 09:32:00. Pre-Op Dx: Gross hematuria ([id number] R31.0, Discharge, Medical). Post-Op Dx: Same. Anesthesia Type: Local. Procedure: Local Cystoscopy. Complications: None. Risks/Benefits/Inform ed Consent: Surgical risks, benefits, details of the procedure have been explained to the patient, Full informed consent has been obtained. Intraoperative Information Prepped: Patient is brought back to the endoscopy suite, Patient is placed in modified dorso/lithotomy position, Patient prepped in the usual fashion with Betadine solution, 2% Xylocaine Jelly is placed per Urethra, After waiting several minutes the Cystoscope is introduced. The Urethra is: Normal. The Bladder is: Normal, Trabeculated None (0), No concerning bladder tumors, lesions or foreign bodies. External mass effect posterior bladder (history of angeled uterus). The ureteral orifices: Show efflux of clear urine. Devices Implanted: None. Removal: Cystoscope is removed, The patient tolerated it well. Vaginal examination: Vaginal mucosa: There is no vaginal atrophy The urethra is patent, orthotopic. There are no masses or lesions. There is no urethral hypermobility and MORRIS is not seen. She is unable to correctly identify her pelvic muscles. Stage 2 cystocele (-1) with valsalva, no apical or posterior prolapse. No masses, non tender . Postoperative Information Discharge: Patient is discharged home with antibiotic coverage, Follow up arranged. No evidence of malignancy on cystoscopy. Urine cytology negative. Will follow up after CTU completed (scheduled 05/07/22).. Normal [facility] Comment on above: Result Comment: Elec tronically Signed By: Martina Stephenson MD\.br\Date and Time Signed: 04/26/22 09:35 EDT Outpatient Surgery Discharge Instructionon 04-26-2022 Outpatient Surgery Discharge Instruction [place] [id number] Patient Discharge Instructions PERSON INFORMATION Name: AINSLEY PARRA Date of : 1985 Current Date: 04/26/2022 09:31:37 PHYSICIANS Admitting Physician: Martina Stephenson MD Comment: Discharge Diagnosis: Gross hematuria AINSLEY PARRA has been given the following list of follow-up instructions, prescriptions, and patient education materials: IF UNABLE TO CONTACT YOUR PHYSICIAN AND YOU FEEL IT IS AN EMERGENCY, GO TO THE NEAREST EMERGENCY ROOM OR CALL 911 Follow up: With: Address: When: Martina Stephenson [address] [place] [address] [phone] [facility] (1) Comments: Call for followup appointment in [address] scan With: Address: When: Martina Stephenson Comment: PATIENT EDUCATION INFORMATION Instructions: Cystoscopy ? Voiding after the procedure: there may be some pain, burning, urgency, frequency and blood tinged urine following the procedure. These symptoms usually resolve within 2-5 days. Drink the amount of fluid it takes to keep the urine pink to yellow or clear in color. Drinking enough water and fluids will help to ease any discomfort after your procedure. ? If you are having problems that seem out of the ordinary, please call. ? If unable to contact your physician and you feel it is an emergency, go to the nearest emergency room or call 911 ? Diet ? you may resume your normal diet. ? Activity ? you may resume your normal activities ? Call if you have a fever over 100 degrees. ANDREAS Mckeon KEARA, have received the attached patient education materials/instruction s and have verbalized understanding: May we do a follow up call? Yes No I was present when discharge instructions were given Patient Signature Date Clinican/Nurse Signature Date You may receive a survey from [employer] asking you to rate your care experience. Your feedback is important and will help us understand what we do well and how we can improve the quality of care we provide to you, your loved ones and our community. It?s an honor to serve you. Thank you for choosing [facility] Normal [facility] Formson 04-19-2022 Forms [phone] [id number] Normal [facility] Urine Cytology ([facility])on 0 04-19-2022 Urine Cytology Diagnosis Info Invalid Interpretation Code [facility] Comment on above: Result Comment: A:Ur ine,Urine:Voided Interpretation - Adequate cellularity for evaluation. MicroScopic Description - Adequacy - Adequate cellularity for evaluation. Gross Description Site ID:A color Yellow fixative Alcohol Specimen designated Urine received in alcohol preservative and labeled with the patient?s name, consists of 60ml slightly cloudy yellow fluid. One non-technical analyst cytology slide prepared. Electronically signed by : on: 04/19/2022 10:28:17 Performed By: #### 1 [id number] ####[facility] [id number] [place] [address] Patient Educationon 04-14-20 Patient Education Urology Hematuria, Adult Hematuria is blood in the urine. Blood may be visible in the urine, or it may be identified with a test. This condition can be caused by infections of the bladder, urethra, kidney, or prostate. Other possible causes include: ? Kidney stones. ? Cancer of the urinary tract. ? Too much calcium in the urine. ? Conditions that are passed from parent to child (inherited conditions). ? Exercise that requires a lot of energy. Infections can usually be treated with medicine, and a kidney stone usually will pass through your urine. If neither of these is the cause of your hematuria, more tests may be needed to identify the cause of your symptoms. It is very important to tell your health care provider about any blood in your urine, even if it is painless or the blood stops without treatment. Blood in the urine, when it happens and then stops and then happens again, can be a symptom of a very serious condition, including cancer. There is no pain in the initial stages of many urinary cancers. Follow these instructions at home: Medicines ? Take atnj-xyc-cxwxeuz and prescription medicines only as told by your health care provider. ? If you were prescribed an antibiotic medicine, take it as told by your health care provider. Do not stop taking the antibiotic even if you start to feel better. Eating and drinking ? Drink enough fluid to keep your urine clear or pale yellow. It is recommended that you drink 3?4 quarts (2.8?3.8 L) a day. If you have been diagnosed with an infection, it is recommended that you drink cranberry juice in addition to large amounts of water. ? Avoid caffeine, tea, and carbonated beverages. These tend to irritate the bladder. ? Avoid alcohol because it may irritate the prostate (men). General instructions ? If you have been diagnosed with a kidney stone, follow your health care provider's instructions about straining your urine to catch the stone. ? Empty your bladder often. Avoid holding urine for long periods of time. ? If you are female: ? After a bowel movement, wipe from front to back and use each piece of toilet paper only once. ? Empty your bladder before and after sex. ? Pay attention to any changes in your symptoms. Tell your health care provider about any changes or any new symptoms. ? It is your responsibility to get your test results. Ask your health care provider, or the department performing the test, when your results will be ready. ? Keep all follow-up visits as told by your health care provider. This is important. Contact a health care provider if: ? You develop back pain. ? You have a fever. ? You have nausea or vomiting. ? Your symptoms do not improve after 3 days. ? Your symptoms get worse. Get help right away if: ? You develop severe vomiting and are unable take medicine without vomiting. ? You develop severe pain in your back or abdomen even though you are taking medicine. ? You pass a large amount of blood in your urine. ? You pass blood clots in your urine. ? You feel very weak or like you might faint. ? You faint. Summary ? Hematuria is blood in the urine. It has many possible causes. ? It is very important that you tell your health care provider about any blood in your urine, even if it is painless or the blood stops without treatment. ? Take yfil-vdp-wwrwbrv and prescription medicines only as told by your health care provider. ? Drink enough fluid to keep your urine clear or pale yellow. This information is not intended to replace advice given to you by your health care provider. Make sure you discuss any questions you have with your health care provider. Document Released: 08/22/2006 Document Revised: 01/16/2020 Document Reviewed: 09/24/2017 Elsevier Patient Education ? 2019 [employer] Normal [facility] Urine Cytology ([facility])on 0 04-14-2022 Method of Extraction Voided Normal [facility] Comment on above: Performed By: #### 1 [id number] ####[facility] [id number] [address] Number of Jars 1 Invalid Interpretation Code [facility] Comment on above: Performed By: #### 1 [id number] ####[facility] [id number] [place] [address] Specimen Clean Catch Normal [facility] Comment on above: Performed By: #### 1 [id number] ####[facility] [id number] [place] [address] Type of Service Technical Only Normal [facility] Comment on above: Performed By: #### 1 [id number] ####[facility] [id number] [place] [address] Urology Office/Clinic Noteon 04-14-2022 Urology Office/Clinic Note Chief Complaint Follow up from [facility] ER HPI Staff Ainsley is here today as anew patient follow up from [facility] ER for hematuria. Pt was seen at the ER on 03/25/22 after an onset of dark blood that afternoon, pt states she had a similar occurrences beginning of the month. The ER did a Micro UA. Dysuria: _Denies Incomplete bladder emptying: _Denies Hematuria: _Denies visible blood, Frequency: _Denies Urgency: _varies Nocturia: _rare Stream: _steady Leaking: _Denies Post void dripping: _Denies Wearing pads/ Depends: _Denies Urge incontinence: _Denies Stress incontinence: _Denies Incontinence without Sensory Awareness: _Denies Abdominal pain: _Denies Flank pain: _Denies Sexual complaints: _ History of Present Illness Tests Reviewed: Reviewed UA, [facility] ER paperwork labs and external records I have reviewed and verified the staff HPI to be accurate for this encounter. There have been no associated fever, chills, flank pain, or blood in the urine. Denies any urinary infections since last encounter. Review of Systems PHQ Score Initial Depression Screen Score: 0 ROS - Provider Constitutional: denies weight loss, denies hot flashes. Eyes: denies eye problems. Gastrointestinal: denies nausea, denies vomiting. Cardiovascular: denies chest pain or angina. Integumentary: no dryness Musculoskeletal: denies musculoskeletal symptoms. ENMT: denies otolaryngeal symptoms. Respiratory: no shortness of breath. Heme/Lymph: denies easy bleeding tendency, denies easy bruising tendency. Psychiatric: no confusion, no anxiety. Genitourinary: see HPI Physical Exam Vitals & Measurements HR: 71(Peripheral) RR: 16 BP: 113/76 HT: 154.0 cm HT: 154 cm WT: 88.0 kg WT: 88 kg BMI: 37.11 General Appearance: alert , no acute distress, well nourished, well developed female. Head: normocephalic . Eyes: normal orbit and globe. ENMT: normal examination of external ears. Chest: symmetric chest rise, respirations non labored . Cardiovascular: regular rate and rhythm. Abdomen: soft, non distended, no tenderness Genitourinary: bladder nonpalpable, no flank tenderness. Skin: warm, dry, no bruising. Psychiatric: cooperative, affect appropriate for age, normal judgement, euthymic mood. Assessment/Plan 1. Gross hematuria (R31.0: Gross hematuria) Pt was seen at the [facility] ER on 03/25/22 after an onset of dark red blood w/o pain that afternoon, pt states she had a similar occurrences beginning of the month. 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 The ER did a Micro UA showing > 100 RBC's, no culture indicated. Discussed differential including dehydration vs true gross hematuria. Pt states was Dr. Carol padilla but also red. Pt did state she has had urinary infections in the past, usually after sexual intercourse, or when she doesn't properly wipe after urinating. Overall not frequent. GFR- 52, Creatinine 1.16 UA today shows trace intact blood today Discussed potential etiologies and implications of micro and gross hematuria including stones, infection, malignancy, renal dysfunction. 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 -Discussed appropriate hydration and behavioral modifications. - Discussed options. The patient is aware that a distinct etiology of the hematuria may not be clear upon conclusion of the workup. Will initiate hematuria workup to include upper urinary tract imaging, as well as evaluation of the urinary cells with urine cytology and possible a FISH test. A cystoscopy will be scheduled to rule out lower urinary tract pathology. The rationale for this workup has been discussed, and all questions have been answered. Informed consent will be obtained. -Schedule cystoscopy. Risks and benefits for cystoscopy have been discussed. The risks include bleeding, infection, and irritation of the bladder and urinary channel, among others. The patient, after being informed of procedural details and after questions have been answered, wishes to proceed. Full informed consent has been obtained. Will order Local anesthesia.Prophylact ic antibiotics will be given due to preDM, autoimmune disease hx -Urine cytology today -CT Urogram ordered for TBH 2. Former smoker (Z87.891: Personal history of nicotine dependence) x 14 yrs. The patient is aware of the higher incidence of bladder cancer because of being a former smoker. No contributory family hx. Recommend workup as above. Total time spent preparing the chart, conducting of the encounter with the patient and family and time spent documenting, reviewing, and ordering tests was 45 minutes Follow-up With When Contact Information Martina Stephenson MD, URL, URO Additional Instructions: Patient Education Hematuria, Adult I, Patsy Sheffield, personally scribed for Dr. Stephenson on 04/14/2022 12:08:48. . Documentation recorded by the scribe, Patsy Sheffield, accurately reflects the services(s) I performed and de (more content not included)... Normal [facility] Comment on above: Result Comment: Elec tronically Signed By: Martina Stephenson MD\.br\Date and Time Signed: 04/14/22 13:26 EDT\.br\Electronically Co-Signed By: Patsy Sheffield\.br\Date and Time Co-Signed: 04/14/22 12:09 EDT CBC AUTO DIFFon 03-25-2022 BASO # 0.0 103/ul Normal 0.0-0.1 [facility] Comment on above: Performed By: #### C #### [facility] [address] [place] [address] Dr. Gabo Perez Basophils/100 WBC (Bld) 0.4 % Normal 0.2-2.0 [facility] Comment on above: Performed By: #### C BC #### [facility] [address] [place] [address] Dr. Gabo Perez EO # 0.4 103/ul Normal 0.0-0.7 [facility] Comment on above: Performed By: #### C BC #### [facility] [address] [place] [address] Dr. Gabo Perez Eosinophils/100 WBC (Bld) 3.5 % Normal 0.9-7.0 [facility] Comment on above: Performed By: #### C BC #### [facility] [address] [place] [address] Dr. Gabo Perez Erythrocyte distribution width (RBC) [Ratio] 12.1 % Normal 11.0-15.0 [facility] Comment on above: Performed By: #### C BC #### [facility] [address] [place] [address] Dr. Gabo Perez Hematocrit (Bld) [Volume fraction] 39.0 % Normal 36.0-48.0 [facility] Comment on above: Performed By: #### C BC #### [facility] [address] [place] [address] Dr. Gabo Perez Hemoglobin (Bld) [Mass/Vol] 13.2 g/dL Normal 12.0-16.0 [facility] Comment on above: Performed By: #### C BC #### [facility] [address] [place] [address] Dr. Gabo Perez IG # 0.03 10e3/ul Normal 0.00-0.03 [facility] Comment on above: Performed By: #### C BC #### [facility] [address] [place] [address] Dr. Gabo Perez IG % 0.3 % Normal 0.0-0.5 [facility] Comment on above: Performed By: #### C BC #### [facility] [address] [place] [address] Dr. Gabo Perez LYMPH # 2.8 103/ul Normal 1.2-3.8 [facility] Comment on above: Performed By: #### C BC #### [facility] [address] [place] [address] Dr. Gabo Perez Lymphocytes/100 WBC (Bld) 24.3 % Normal 20.5-60.0 [facility] Comment on above: Performed By: #### C BC #### [facility] [address] [place] [address] Dr. Gabo Perez MANUAL DIFF REQ NO Normal [facility] Comment on above: Performed By: #### C BC #### [facility] [address] [place] [address] Dr. Gabo Perez MCH (RBC) [Entitic mass] 30.1 pg Normal 26.7-34.0 [facility] Comment on above: Performed By: #### C BC #### [facility] [address] [place] [address] Dr. Gabo Perez MCHC (RBC) [Mass/Vol] 33.8 g/dL Normal 29.9-35.2 [facility] Comment on above: Performed By: #### C BC #### [facility] [address] [place] [address] Dr. Gabo Perez MCV (RBC) [Entitic vol] 88.8 fL Normal 81.0-99.0 [facility] Comment on above: Performed By: #### C BC #### [facility] [address] [place] [address] Dr. Gabo Perez MONO # 0.8 103/ul Normal 0.3-0.8 [facility] Comment on above: Performed By: #### C BC #### [facility] [address] [place] [address] Dr. Gabo Perez Monocytes/100 WBC (Bld) 6.6 % Normal 1.7-12.0 [facility] Comment on above: Performed By: #### C BC #### [facility] [address] [place] [address] Dr. Gabo Perez NEUT # 7.4 103/ul Critically high 1.4-6.5 [facility] Comment on above: Performed By: #### C BC #### [facility] [address] [place] [address] Dr. Gabo Perez Neutrophils/100 WBC (Bld) 64.9 % Normal 43.0-75.0 [facility] Comment on above: Performed By: #### C BC #### [facility] [address] [place] [address] Dr. Gabo Perez Platelet mean volume (Bld) [Entitic vol] 12.0 fL Normal 9.5-13.5 [facility] Comment on above: Performed By: #### C BC #### [facility] [address] [place] [address] Dr. Gabo Perez PLT 229 103/ul Normal 150-450 [facility] Comment on above: Performed By: #### C BC #### [facility] [address] [place] [address] Dr. Gabo Perez RBC 4.39 106/ul Normal 4.20-5.40 [facility] Comment on above: Performed By: #### C BC #### [facility] [address] [place] [address] Dr. Gabo Perez WBC 11.4 103/ul Critically high 4.0-11.0 [facility] Comment on above: Performed By: #### C BC #### [facility] [address] [place] [address] Dr. Gabo Perez ER URINE PROFILEon 2 Bilirubin Ql (U) Negative Normal NEGATIVE [facility] Comment on above: Performed By: #### P REGQNT #### [facility] [address] [place] [address] Dr. Gabo Perez Clarity (U) CLEAR Normal CLEAR [facility] Comment on above: Performed By: #### P REGQNT #### [facility] [address] [place] [address] Dr. Gabo Perez Color (U) RED Abnormal YELLOW [facility] Comment on above: Performed By: #### P REGQNT #### [facility] [address] [address] [address] Gabo REED A micrscopic examination will be performed if indicated. Normal [facility] Comment on above: Performed By: #### P REGQNT #### [facility] [address] [address] [address] Gabo Perez Glucose Ql (U) Negative Normal NEGATIVE [facility] Comment on above: Performed By: #### P REGQNT #### [facility] [address] [address] [address] Gabo Perez Hemoglobin Ql (U) LARGE Abnormal NEGATIVE [facility] Comment on above: Performed By: #### P REGQNT #### [facility] [address] [place] [address] Dr. Gabo Perez Ketones Ql (U) TRACE Abnormal NEGATIVE [facility] Comment on above: Performed By: #### P REGQNT #### [facility] [address] [place] [address] Dr. Gabo Perez LEUKOCYTES TRACE Abnormal NEGATIVE [facility] Comment on above: Performed By: #### P REGQNT #### [facility] [address] [address] [address] Gabo Perez Nitrite Ql (U) Negative Normal NEGATIVE [facility] Comment on above: Performed By: #### P REGQNT #### [facility] [address] [address] [address] Gabo Perez pH (U) 8.0 [pH] Normal 5-9 [facility] Comment on above: Performed By: #### P REGQNT #### [facility] [address] [address] [address] Gabo Perez Protein (U) [Mass/Vol] 30 mg/dL Abnormal NEGATIVE/ TRACE [facility] Comment on above: Performed By: #### P REGQNT #### [facility] [address] [place] [address] Dr. Gabo Perez SPEC GRAVITY 1.015 Normal 1.005-<=1.02 5 [facility] Comment on above: Performed By: #### P REGQNT #### [facility] [address] [address] [address] Gabo Perez UR MICRO IND INDICATED Normal [facility] Comment on above: Performed By: #### P REGQNT #### [facility] [address] [address] [address] Gabo Perez Urobilinogen Qn (U) 1.0 {Lucas'U}/dL Normal 0.2 - 1. 0 [facility] Comment on above: Performed By: #### P REGQNT #### [facility] [address] [address] [address] Gabo Perez URon 03-25-2022 , QUAL Negative Normal NEGATIVE [facility] Comment on above: Performed By: #### P REGQNT #### [facility] [address] [place] [address] Dr. Gabo Perez PROF CHEM 8 (BAS METB)on Anion gap [Moles/Vol] 15.1 mmol/L Normal [facility] Comment on above: Performed By: #### B MP #### [facility] [address] [address] [address] Gabo Perez Calcium [Mass/Vol] 8.5 mg/dL Normal 8.5-10.1 [facility] Comment on above: Performed By: #### B MP #### [facility] [address] [address] [address] Gabo Perez Chloride [Moles/Vol] 106 mmol/L Normal 98-107 [facility] Comment on above: Performed By: #### B MP #### [facility] [address] [address] [address] Gabo Perez CO2 [Moles/Vol] 23.8 mmol/L Normal 21.0-32.0 [facility] Comment on above: Performed By: #### B MP #### [facility] [address] [address] [address] Gabo Perez Creatinine [Mass/Vol] 1.16 mg/dL Critically high 0.55-1.02 [facility] Comment on above: Performed By: #### B MP #### [facility] [address] [address] [address] Gabo Perez EGFR-AF THAI >60 Normal >=60 [facility] Comment on above: Performed By: #### B MP #### [facility] [address] [address] [address] Gabo Perez EGFR-NON AF THAI 52 mL/min/1.73m2 Critically low >=60 [facility] Comment on above: Performed By: #### B MP #### [facility] [address] [address] [address] Gabo Perez Glucose [Mass/Vol] 84 mg/dL Normal 74-106 [facility] Comment on above: Performed By: #### B MP #### [facility] [address] [address] [address] Gabo Perez Potassium [Moles/Vol] 3.9 mmol/L Normal 3.5-5.1 [facility] Comment on above: Performed By: #### B MP #### [facility] [address] [address] [address] Gabo Perez Sodium [Moles/Vol] 141 mmol/L Normal 136-145 [facility] Comment on above: Performed By: #### B MP #### [facility] [address] [address] [address] Gabo Perez Urea nitrogen [Mass/Vol] 15.0 mg/dL Normal 7.0-18.0 [facility] Comment on above: Performed By: #### B MP #### [facility] [address] [address] [address] Gabo Perez Urea nitrogen/Creatinine [Mass ratio] 12.9 mg/mg Normal [facility] Comment on above: Performed By: #### B MP #### [facility] [address] [address] [address] Gabo Perez URINE MICROSCOPIC ONLYon BACTERIA TRACE Abnormal NONE SEEN [facility] Comment on above: Performed By: #### P REGQNT #### [facility] [address] [place] [address] Dr. Gabo Perez Bacteria identified Cx Nom (U) NOT INDICATED Normal [facility] Comment on above: Performed By: #### P REGQNT #### [facility] [address] [place] [address] Dr. Gabo Perez CAST NONE SEEN Normal NONE SEEN [facility] Comment on above: Performed By: #### P REGQNT #### [facility] [address] [place] [address] Dr. Gabo Perez Crystals LM Nom (Urine sed) NONE SEEN Normal NONE SEEN [facility] Comment on above: Performed By: #### P REGQNT #### [facility] [address] [place] [address] Dr. Gabo Perez Epithelial cells LM Ql (Urine sed) RARE Normal NONE SEEN /RARE [facility] Comment on above: Performed By: #### P REGQNT #### [facility] [address] [place] [address] Dr. Gabo Perez MUCOUS NONE SEEN Normal NONE SEEN [facility] Comment on above: Performed By: #### P REGQNT #### [facility] [address] [place] [address] Dr. Gabo Perez RBC (U) [#/Vol] /uL Abnormal 0-2 [facility] Comment on above: Performed By: #### P REGQNT #### [facility] [address] [place] [address] Dr. Gabo Perez WBC 0-2 Abnormal NONE SEEN [facility] Comment on above: Performed By: #### P REGQNT #### [facility] [address] [place] [address] Dr. Gabo Perez COVID Quick Testingon 2021 Result Positive [facility] Other GLUCOSE, BLOOD (POC)on 03-09 Glucose [Mass/Vol] 108 mg/dL Abnormal 74 - 99 mg/dL [facility] FREE T4on 01-18-2022 Free T4 [Mass/Vol] 0.30 ng/dL Critically low 0.76-1.46 Th [facility] Comment on above: Performed By: #### P REGQNT #### [facility] [address] [address] [address] Gabo Perez LIPID PROFILEon 01-18-2022 CHOL-HDL RATIO NORM SEE BELOW Normal [facility] Comment on above: Result Comment: 3.3 - 4.4 LOW RISK 4.4 - 7.1 AVERAGE RISK 7.1 - 11.0 MODERATE RISK >11.0 HIGH RISK Performed By: #### C MP, LIPID, TSH #### [facility] [address] [address] [address] Gabo Perez Cholesterol [Mass/Vol] 238 mg/dL Critically high <=200 [facility] Comment on above: Performed By: #### C MP, LIPID, TSH #### [facility] [address] [address] [address] Gabo Perez Cholesterol in HDL [Mass/Vol] 61 mg/dL Critically high 40-60 [facility] Comment on above: Performed By: #### C MP, LIPID, TSH #### [facility] [address] [address] [address] Gabo Perez Cholesterol in LDL [Mass/Vol] 161.4 mg/dL Normal [facility] Comment on above: Performed By: #### C MP, LIPID, TSH #### [facility] [address] [address] [address] Gabo Perez Cholesterol.total/Ch olesterol in HDL [Mass ratio] 3.9 {ratio} Normal [facility] Comment on above: Performed By: #### C MP, LIPID, TSH #### [facility] [address] [address] [address] Gabo Perez HDL NORMAL > or = 60 mg/dl - LO W CARDIOVASCULAR RISK <40 mg/dl - HIGH CARDIOVASCULAR RISK Normal [facility] Comment on above: Performed By: #### C MP, LIPID, TSH #### [facility] [address] [address] [address] Gabo Perez LDL CALC NORMAL SEE BELOW Normal [facility] Comment on above: Result Comment: <100 mg/dl OPTIMAL 100 - 129 mg/dl NEAR OR ABOVE OPTIMAL 130 - 159 mg/dl BORDERLINE HIGH 160 - 189 mg/dl HIGH >190 mg/dl VERY HIGH Performed By: #### C MP, LIPID, TSH #### [facility] [address] [place] [address] Dr. Gabo Perez Triglyceride [Mass/Vol] 78 mg/dL Normal <=150 [facility] Comment on above: Performed By: #### C MP, LIPID, TSH #### [facility] [address] [place] [address] Dr. Gabo Perez VLDL CALC 15.6 mg/dL Normal [facility] Comment on above: Performed By: #### C MP, LIPID, TSH #### [facility] [address] [place] [address] Dr. Gabo Perez PROF 14(COMP METB)on 022 Albumin [Mass/Vol] 3.6 g/dL Normal 3.4-5.0 [facility] Comment on above: Performed By: #### C MP, LIPID, TSH #### [facility] [address] [place] [address] Dr. Gabo Perez Albumin/Globulin [Mass ratio] 1.0 {ratio} Normal [facility] Comment on above: Performed By: #### C MP, LIPID, TSH #### [facility] [address] [place] [address] Dr. Gabo Perez ALP [Catalytic activity/Vol] 56 U/L Normal 46-116 [facility] Comment on above: Performed By: #### C MP, LIPID, TSH #### [facility] [address] [place] [address] Dr. Gabo Perez ALT [Catalytic activity/Vol] 25 U/L Normal 14-59 [facility] Comment on above: Performed By: #### C MP, LIPID, TSH #### [facility] [address] [place] [address] Dr. Gabo Perez Anion gap [Moles/Vol] 11.3 mmol/L Normal [facility] Comment on above: Performed By: #### C MP, LIPID, TSH #### [facility] [address] [address] [address] Gabo Perez AST [Catalytic activity/Vol] 13 U/L Critically low 15-37 [facility] Comment on above: Performed By: #### C MP, LIPID, TSH #### [facility] [address] [address] [address] Gabo Perez Bilirubin [Mass/Vol] 0.5 mg/dL Normal 0.2-1.0 [facility] Comment on above: Performed By: #### C MP, LIPID, TSH #### [facility] [address] [address] [address] Gabo Perez Calcium [Mass/Vol] 8.7 mg/dL Normal 8.5-10.1 [facility] Comment on above: Performed By: #### C MP, LIPID, TSH #### [facility] [address] [address] [address] Gabo Perez Chloride [Moles/Vol] 103 mmol/L Normal 98-107 [facility] Comment on above: Performed By: #### C MP, LIPID, TSH #### [facility] [address] [address] [address] Gabo Perez CO2 [Moles/Vol] 28.8 mmol/L Normal 21.0-32.0 [facility] Comment on above: Performed By: #### C MP, LIPID, TSH #### [facility] [address] [address] [address] Gabo Perez Creatinine [Mass/Vol] 0.83 mg/dL Normal 0.55-1.02 [facility] Comment on above: Performed By: #### C MP, LIPID, TSH #### [facility] [address] [address] [address] Gabo Perez EGFR-AF THAI >60 Normal >=60 [facility] Comment on above: Performed By: #### C MP, LIPID, TSH #### [facility] [address] [address] [address] Gabo Perez EGFR-NON AF THAI >60 Normal >=60 [facility] Comment on above: Performed By: #### C MP, LIPID, TSH #### [facility] [address] [address] [address] Gabo Perez Globulin (S) [Mass/Vol] 3.6 g/dL Normal [facility] Comment on above: Performed By: #### C MP, LIPID, TSH #### [facility] [address] [address] [address] Gabo Perez Glucose [Mass/Vol] 95 mg/dL Normal 74-106 [facility] Comment on above: Performed By: #### C MP, LIPID, TSH #### [facility] [address] [place] [address] Dr. Gabo Perez Potassium [Moles/Vol] 4.1 mmol/L Normal 3.5-5.1 [facility] Comment on above: Performed By: #### C MP, LIPID, TSH #### [facility] [address] [place] [address] Dr. Gabo Perez Protein [Mass/Vol] 7.2 g/dL Normal 6.4-8.2 [facility] Comment on above: Performed By: #### C MP, LIPID, TSH #### [facility] [address] [address] [address] Gabo Perez Sodium [Moles/Vol] 139 mmol/L Normal 136-145 [facility] Comment on above: Performed By: #### C MP, LIPID, TSH #### [facility] [address] [place] [address] Dr. Gabo Perez Urea nitrogen [Mass/Vol] 9.0 mg/dL Normal 7.0-18.0 [facility] Comment on above: Performed By: #### C MP, LIPID, TSH #### [facility] [address] [place] [address] Dr. Gabo Perez Urea nitrogen/Creatinine [Mass ratio] 10.8 mg/mg Normal [facility] Comment on above: Performed By: #### C MP, LIPID, TSH #### [facility] [address] [place] [address] Dr. Gabo Perez TSHon 01-18-2022 TSH 111.464 uIU/mL Critically high 0.358-3.740 [facility] Comment on above: Result Comment: REPE ATED FOR VERIFICATION Performed By: #### C MP, LIPID, TSH #### [facility] [address] [place], [place] [address] Dr. Gabo ePrez TSH RANGE SEE BELOW Normal [facility] Comment on above: Result Comment: <0.3 4 UIU/ml HYPERTHYROID 0.34-5.60 UIU/ml EUTHYROID >5.60 UIU/ml HYPOTHYROID Performed By: #### C MP, LIPID, TSH #### [facility] [address] [place], [place] [address] Dr. Gabo Perez Urinalysis - AUTOMATEDon Appearance (U) cloudy [employer] Other Bilirubin Ql (U) Negative [employer] Other Color (U) dark yellow [facility] Other Glucose Ql (U) Negative [employer] Other Hemoglobin Ql (U) large [employer] Other Ketones Ql (U) trace [employer] Other Leukocyte esterase Test strip Ql (U) [employer] Other Nitrite Ql (U) Positive [employer] Other pH (U) 6.5 [pH] [facility] Other Protein Ql (U) 100 [employer] Other Specific gravity (U) [Rel density] >1.030 [facility] Other Urobilinogen (U) [Mass/Vol] 1.0 mg/dL [facility] Other Urinalysis - AUTOMATED [facility] Other Urine Cultureon 12-02-2021 Bacteria identified Cx Nom (U) Reason for Exam Dysuria Urine ORGANISM: Escherichia coli (O:ESCCOL) Michie Count >100,000 Aerobic CECE Charge (NUC86) ---- SUSCEPTIBILITY --- ORGANISM: O:ESCCOL ANTIBIOTIC INTERPRETATION CECE Amikacin S <16 Ampicillin R >16 Ampicillin/Sulbactam I 1616/8 Aztreonam S <4 Cefazolin S 4 Cefepime S <2 Ceftazidime S <1 Ceftazidime/Avibactam S <8 Ceftriaxone S <1 Ciprofloxacin S <1 Ertapenem S <0.5 Gentamicin S <4 Levofloxacin S <2 Meropenem S <1 Nitrofurantoin R >64 Piperacillin/Tazobact am S <16 Tetracycline S <4 Tigecycline S <2 Tobramycin S <4 Trimethoprim/Sulfamet hoxazole S <2/38 S = SUSCEPTIBLE I = INTERMEDIATE R = RESISTANT BLANK = DATA NOT AVAILABLE, OR DRUG NOT ADVISABLE OR TESTED R* = RESISTANCE DUE TO EXTENDED SPECTRUM BETA-LACTAMASES ESBL = EXTENDED SPECTRUM BETA-LACTAMASE TFG = THYMIDINE-DEPENDENT STRAIN GHISLAINE = BETA-LACTAMASE POSITIVE IB = INDUCIBLE BETA-LACTAMASE. APPEARS IN PLACE OF 'S' WITH SPECIES KNOWN TO POSSESS INDUCIBLE BETA-LACTAMASES. POTENTIALLY THEY MAY BECOME RESISTANT TO ALL B-LACTAM DRUGS. PERFORMED BY: [place] [address] PATHOLOGIST CHESTNUT TANNER BARAK ARRIAZA M.D. [facility] Comment on above: Performed By: #### C UU #### [address] Vital Signs Date Time Vital Sign Value Performing Clinician Facility 01-12-2023 08:46-0400 Blood Pressure Location Martina Stephenson [facility] 01-12-2023 08:46-0400 Diastolic blood pressure 74 mm[Hg] Martina Stephenson [facility] 01-12-2023 08:46-0400 Heart rate 68 /min Martina Lue [facility] 01-12-2023 08:46-0400 Respiratory rate 16 /min Martina Lue [facility] 01-12-2023 08:46-0400 Systolic blood pressure 128 mm[Hg] Martina Lue [facility] 06-02-2022 16:55-0400 Diastolic blood pressure 86 mm[Hg] DO Sania Rumschlag Work Phone: [facility] 06-02-2022 16:55-0400 Heart rate 73 /min DO Sania Rumschlag Work Phone: [facility] 06-02-2022 16:55-0400 Respiratory rate 16 /min DO Sania Rumschlag Work Phone: [facility] 06-02-2022 16:55-0400 SaO2% (BldA) [Mass fraction] 100 % DO Sania Rumschlag Work Phone: [facility] 06-02-2022 16:55-0400 Systolic blood pressure 114 mm[Hg] DO Sania Rumschlag Work Phone: [facility] 06-02-2022 16:10-0400 Inhaled oxygen flow rate 6 L/min DO Sania Rumschlag Work Phone: [facility] 06-02-2022 15:16-0400 Body mass index (BMI) [Ratio] 37.3 kg/m2 DO Sania Rumschlag Work Phone: [facility] 06-02-2022 13:55-0400 Body height 153.67 cm DO Sania Rumschlag Work Phone: [facility] 06-02-2022 13:55-0400 Body weight 87.99 kg DO Sania Rumschlag Work Phone: [facility] 06-02-2022 12:12-0400 Body temperature 97.9 [degF] DO Sania Rumschlag Work Phone: [facility] 05-12-2022 08:06-0400 Blood Pressure Location Martina Lue [facility] 05-12-2022 08:06-0400 Diastolic blood pressure 65 mm[Hg] Martina Lue [facility] 05-12-2022 08:06-0400 Heart rate 71 /min Martina Lue [facility] 05-12-2022 08:06-0400 Respiratory rate 16 /min Martina Lue [facility] 05-12-2022 08:06-0400 Systolic blood pressure 108 mm[Hg] Martina Lue [facility] 04-14-2022 11:31-0400 Blood Pressure Location Martina Lue [facility] 04-14-2022 11:31-0400 Diastolic blood pressure 76 mm[Hg] Martina Lue [facility] 04-14-2022 11:31-0400 Heart rate 71 /min Martina Lue [facility] 04-14-2022 11:31-0400 Respiratory rate 16 /min [facility]ue [facility] 04-14-2022 11:31-0400 Systolic blood pressure 113 mm[Hg] [facility] Stephen[facility] 03-15-2022 11:10-0400 Body height 153.67 cm Sherine Barrientosault Other [facility] Other 03-15-2022 11:10-0400 Body mass index (BMI) [Ratio] 37.26 kg/m2 Sherine Barrientosault Other [facility] Other 03-15-2022 11:10-0400 Body temperature 98 [degF] Sherine Barrientosault Other [facility] Other 03-15-2022 11:10-0400 Body weight 88 kg Sherine Barrientosault Other [facility] Other 03-15-2022 11:10-0400 Respiratory rate 18 /min Sherine Renee Other [facility] Other 03-15-2022 11:10-0400 SaO2% (BldA) [Mass fraction] 98 % Sherine Barrientosault Other [facility] Other 03-09-2022 10:49-0400 Body weight 88 kg Patti Vences MD Work Phone: [facility] 03-09-2022 10:49-0400 Diastolic blood pressure 68 mm[Hg] Patti Vences MD Work Phone: [facility] 03-09-2022 10:49-0400 Heart rate 76 /min Patti Vences MD Work Phone: [facility] 03-09-2022 10:49-0400 Systolic blood pressure 100 mm[Hg] Patti Vences MD Work Phone: [facility] 12-02-2021 17:00-0400 Body height 153.67 cm Linda Leon Other [facility] Other 12-02-2021 17:00-0400 Body mass index (BMI) [Ratio] 37.64 kg/m2 Linda Leon Other [facility] Other 12-02-2021 17:00-0400 Body temperature 97.9 [degF] Linda Leon Other [facility] Other 12-02-2021 17:00-0400 Body weight 88.91 kg Linda Leon Other [facility] Other 12-02-2021 17:00-0400 Diastolic blood pressure 85 mm[Hg] Linda Leon Other [facility] Other 12-02-2021 17:00-0400 Respiratory rate 18 /min Linda Leon Other [facility] Other 12-02-2021 17:00-0400 SaO2% (BldA) [Mass fraction] 99 % Linda Leon Other [facility] Other 12-02-2021 17:00-0400 Systolic blood pressure 120 mm[Hg] Linda Carolyn Other [facility] Other Encounters Encounter Date Encounter Type Care Provider Facility Start: 08-05-2023 ambulatory Patti clark MD Work Phone: Endocrinology Comment on above: labs Start: 08-05-2023 E-mail encounter fro m caregiver Patti Vences MD Work Phone: [facility] Start: 08-04-2023 End: 08-04-2023 ambulatory PATTI VENCES Facility: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 Start: 01-12-2023 End: 01-13-2023 ambulatory Martina Stephenson Facility:[facility] Start: 01-12-2023 End: 01-12-2023 Patient encounter procedure Martina Stephenson [facility] Start: 01-03-2023 End: 01-04-[address] PASQUALE WILKES Facility:[facility] Start: 01-03-2023 End: 01-04-2023 ambulatory SANIA GILMORE Facility:[facility] Start: 11-26-2022 End: 11-26-[address] VLADIMIR JOHNSON . Facility:[facility] Start: 11-16-2022 Encounter for preprocedural cardiovascular examination DR VLADIMIR JOHNSON . [facility] Start: 11-16-2022 Encounter for preprocedural respiratory examination DR VLADIMIR JOHNSON . [facility] Start: 11-12-2022 End: 11-13-2022 ambulatory SANIA GILMORE Facility:[facility] Start: 11-12-2022 End: 11-13-2022 Encounter for preprocedural cardiovascular examination SANIA GILMORE Facility:[facility] Start: 09-23-2022 End: 09-24-2022 ambulatory SANIA RUMSCHLAG Facility: Start: 09-20-[address] DOCTOR VILLAFUERTE Facility :[facility] Start: 09-01-2022 End: 09-01-[address] VLADIMIR JOHNSON . Facility:[facility] Start: 07-14-2022 End: 07-15-2022 ambulatory SANIA DEIRDRE Facility:[facility] Start: 07-09-2022 End: 07-10-[address] EMILY MARSHALL Facility:[facility] Start: 07-05-2022 End: 07-06-[address] EMILY MARSHALL Facility: Start: 06-07-2022 End: 06-08-2022 ambulatory SANIA RUMSCHBONG Facility:[facility] Start: 06-07-2022 End: 06-07-2022 Patient encounter procedure Martina Stephenson [facility] Start: 06-02-2022 Encounter for preprocedural laboratory examination MARTINA STEPHENSON . [facility] Start: 06-02-2022 End: 06-02-2022 ambulatory Martina Stephenson Facility:[facility] Start: 06-02-2022 End: 06-02-2022 Admission to same day surgery center DO Sania Rumschlag Work Phone: [facility] [place] Start: 06-02-2022 End: 06-03-2022 ambulatory DO Sania Rumschlag Work Phone: [facility] Work Phone: Start: 05-31-2022 End: 06-01-2022 ambulatory MARTINA STEPHENSON . Facility:[facility] Start: 05-31-2022 End: 06-01-2022 Encounter for preprocedural laboratory examination MARTINA STEPHENSON . Facility:[facility] Start: 05-12-2022 End: 05-13-[address] EMILY MARSHALL Facility:[facility] Start: 05-12-2022 End: 05-12-2022 Patient encounter procedure Martina Stephenson [facility] Start: 05-07-2022 End: 05-08-2022 ambulatory Patti Vences MD Work Phone: Endocrinology Comment on above: Labs Start: 04-26-2022 End: 04-27-2022 ambulatory SANIA RUMSCHLAG Facility:[facility] Start: 04-26-2022 End: 04-26-2022 Patient encounter procedure Martina MDemario Medelchelsea [facility] Start: 04-14-2022 End: 04-15-2022 ambulatory SANIA RUMSCHLAG Facility:[facility] Start: 04-14-2022 End: 04-14-2022 Patient encounter procedure Martina ReganDemario Medel[place] [facility] Start: 03-25-2022 End: 03-25-2022 ambulatory RAMAN DARLING . Facility: Start: 03-15-2022 End: 03-15-2022 ambulatory Sherine Renee Other [facility] Other Start: 03-15-2022 Office outpatient vi sit 15 minutes Sherine Renee [facility] Start: 03-10-2022 ambulatory Patti clark MD Work Phone: Endocrinology Comment on above: labs Start: 03-10-2022 E-mail encounter fro m caregiver Patti Vences MD Work Phone: [facility] Start: 03-09-2022 Telephone encounter Patti Vences MD Work Phone: Endocrinology Comment on above: Patient Update Start: 03-09-2022 End: 03-09-2022 Patient encounter procedure Patti Vences MD Work Phone: Endocrinology Comment on above: 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); Impaired fasting glucose Start: 01-18-2022 End: 01-19-[address] DOCTOR VILLAFUERTE Facility:[facility] Start: 12-04-2021 End: 12-04-2021 ambulatory Linda Leon Other [facility] Other Start: 12-04-2021 Telephone encounter Linda MARQUEZ [facility] Start: 12-02-2021 End: 12-02-2021 ambulatory Linda Leon [employer] Other Start: 12-02-2021 Office outpatient vi sit 25 minutes Linda Leon [facility] Procedures Date Procedure Procedure Detail Performing Clinician Start: 09-05-2022 Endometrial ablation Ka thy Lue Start: 06-07-2022 Cystoscopic removal of ureteric stent Martina Lue Start: 06-02-2022 Cystoscopy DO Snaia reynolds Work Phone: Start: 06-02-2022 Cystoscopy Martina Lue Start: 04-26-2022 Cystoscopy Martina Lue Start: 03-09-2022 Gluc bld gluc mntr d ev cleared fda spec home use Patti Vences MD Work Phone: Tubal ligation done Martina Lizy e Plan of Treatment Date Care Activity Detail Author Start: 10-26-2031 Urine microalbumin profile DTa P,Tdap,Td Vaccine (2 - Td or Tdap) [facility] Start: 09-16-2023 End: 02-01-2024 Thyrotropin [Units/volume] in Serum or Plasma TSH BLD Lab Routine 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 Expected: 09/16/2023, Expires: 02/01/2024 [facility] Work Phone: Comment on above: Expected: 09/16/2023 , Expires: 02/01/2024 Start: 09-16-2023 End: 12-16-2023 Thyroxine (T4) free [Mass/volume] in Serum or Plasma T4 FREE/FREE THYROX Lab Routine 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 Expected: 09/16/2023, Expires: 12/16/2023 [facility] Work Phone: Comment on above: Expected: 09/16/2023 , Expires: 12/16/2023 Start: 06-15-2023 End: 10-12-2023 Thyrotropin [Units/volume] in Serum or Plasma TSH BLD Lab Routine 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 Expected: 06/15/2023, Expires: 10/12/2023 [facility] Work Phone: Comment on above: Expected: 06/15/2023 , Expires: 10/12/2023 Start: 06-15-2023 End: 08-15-2023 Thyroxine (T4) free [Mass/volume] in Serum or Plasma T4 FREE/FREE THYROX Lab Routine 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 Expected: 06/15/2023, Expires: 08/15/2023 [facility] Work Phone: Comment on above: Expected: 06/15/2023 , Expires: 08/15/2023 Start: 05-06-2023 Influenza vaccination [facility] Start: 09-05-2022 DEPRESSION ASSESSMENT DEPRESSION ASS ESSMENT [facility] Start: 06-10-2022 End: 08-10-2022 Thyrotropin [Units/volume] in Serum or Plasma TSH BLD Lab Routine 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 Expected: 06/10/2022, Expires: 08/10/2022 [facility] Work Phone: Comment on above: Expected: 06/10/2022 , Expires: 08/10/2022 Start: 06-10-2022 End: 08-10-2022 Thyroxine (T4) free [Mass/volume] in Serum or Plasma T4 FREE/FREE THYROX Lab Routine 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 Expected: 06/10/2022, Expires: 08/10/2022 [facility] Work Phone: Comment on above: Expected: 06/10/2022 , Expires: 08/10/2022 Start: 06-02-2022 End: 06-02-2022 [facility] Start: 05-11-2022 End: 07-11-2022 Thyrotropin [Units/volume] in Serum or Plasma TSH BLD Lab Routine 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 Expected: 05/11/2022, Expires: 07/11/2022 [facility] Work Phone: Comment on above: Expected: 05/11/2022 , Expires: 07/11/2022 Start: 05-11-2022 End: 07-11-2022 Thyroxine (T4) free [Mass/volume] in Serum or Plasma T4 FREE/FREE THYROX Lab Routine 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 Expected: 05/11/2022, Expires: 07/11/2022 [facility] Work Phone: Comment on above: Expected: 05/11/2022 , Expires: 07/11/2022 Start: 05-06-2022 Influenza vaccination INFLUENZA (#1) [facility] Start: 03-09-2022 End: 05-09-2022 Thyrotropin [Units/volume] in Serum or Plasma [facility] Work Phone: Comment on above: Expected: 03/09/2022 , Expires: 05/09/2022 Start: 03-09-2022 End: 05-09-2022 Thyroxine (T4) free [Mass/volume] in Serum or Plasma [facility] Work Phone: Comment on above: Expected: 03/09/2022 , Expires: 05/09/2022 Start: 03-09-2022 End: 05-09-2022 Triiodothyronine (T3) Free [Mass/volume] in Serum or Plasma [facility] Work Phone: Comment on above: Expected: 03/09/2022 , Expires: 05/09/2022 Start: 02-08-2014 HPV TESTING HPV TESTING [facility] Start: 02-08-2005 PAP TESTING PAP TESTING [facility] Start: 02-08-2003 Urine microalbumin profile DTAP,TDAP ,TD (1 - Tdap) [facility] Start: 02-08-2002 ANNUAL PCP TEAM GUITAR REPAIRER JOSE MIGUEL DISEASE VISIT ANNUAL PCP TEAM CHRONIC DISEASE VISIT [facility] Start: 02-08-2002 HEPATITIS C SCREENING HEPATITIS C SC [facility] Start: 02-08-2002 HIV SCREENING HIV SCREENING [facility] Start: 1996 Adult depression scr eening assessment DEPRESSION SCREENING [facility] Start: 1984 COVID-19 VACCINE (#1) COVID-19 VACCI NE (#1) [facility] Start: 1984 HEPATITIS B (1 of 3 - 3-dose series) HEPATITIS B (1 of 3 - 3-dose series) [facility] Start: 1984 Hepatitis B Vaccine (1 of 3 - 3-dose series) Hepatitis B Vaccine (1 of 3 - 3-dose series) [facility] Patient Education Ureteroscopy U reteral Stent (DC) Kidney Stone Diet [facility] Work Phone: Patient referral [facility] Work Phone: Immunizations Immunization Date Immunization Notes Care Provider Marisol joyner 10-26-2021 tetanus toxoid, reduced diphtheria toxoid, and acellular pertussis vaccine, adsorbed Martina Stephenson [facility] NEGATED: Highlighted row has not occurred!05-12-2022 SARS-CoV-2 mRNA (tozinameran 5y-11y) vaccine Martina Stephenson [facility] Payers Date Payer Category Payer Medicaid [id number] 2022 Unknown [id number] 2021 Medicaid [employer]ICA[employer] [id number] 2021-Present [phone] [address] [place] [address] Medicaid [id number] 2021 Medicaid [id number] [id number] 1984 Unknown [id number] 2.16.840.1.571615.3.579.2.593 1984 Unknown [id number] 2.16.840.1.244089.3.579.2.593 1984 Unknown [id number] 2.16.840.1.682962.3.579.2.593 1984 Unknown [id number] 2.16.840.1.715217.3.579.2.593 1984 Unknown [id number] 2.16.840.1.642213.3.579.2.593 1984 Unknown [id number] 2.16.840.1.244660.3.579.2.593 1984 Unknown [id number] 2.16.840.1.240360.3.579.2.593 1984 Unknown [id number] 2.16.840.1.991923.3.579.2.593 1984 Unknown [id number] 2.16.840.1.333148.3.579.2.593 1984 Unknown [id number] 2.16.840.1.476877.3.579.2.593 1984 Unknown [id number] 2.16.840.1.520491.3.579.2.593 1984 Unknown [id number] 2.16.840.1.615878.3.579.2.593 1984 Unknown [id number] 2.16.840.1.479645.3.579.2.593 1984 Unknown [id number] 2.16.840.1.753907.3.579.2.593 1984 Unknown [id number] 2.16.840.1.931527.3.579.2.727 1984 Unknown [id number] 2.16.840.1.752437.3.579.2.727 1984 Unknown [id number] 2.16.840.1.702256.3.579.2.727 1984 Unknown [id number] 2.16.840.1.476702.3.579.2.727 1984 Unknown [id number] 2.16.840.1.604380.3.579.2.727 1984 Unknown [id number] 2.16.840.1.294314.3.579.2.727 1984 Unknown [id number] 2.16.840.1.933234.3.579.2.7 1984 Unknown [id number] 2.16.840.1.125303.3.579.2.727 1959 Self-pay [id number] 1959 Unknown [id number] 2.16.840.1.602888.19 Unknown [id number] 2.16.840.1.281909.3.579.2.531 Unknown [id number] 2.16.840.1.074212.3.579.2.531 Social History Date Type Detail Facility Unknown if ever smoked [facility] [employer] Other Start: 03-09-2022 End: 04-15-2023 Sex Assigned At [facility] Start: 03-09-2022 End: 01-12-2023 Tobacco smoking status NHIS Ex-smoker [facility] Start: 03-09-2022 Tobacco use and exposure Former smokeless tobacco user [facility] Start: 1984 Sex Assigned At Female [facility] Start: 02-27-2022 End: 05-07-2022 Exposure to SARS-CoV-2 (event) Not sure [facility] History of tobacco use Current smoker [facility] Start: 03-09-2022 End: 04-15-2023 History of Social function [facility] National Score (1-10 0), lower number is lower risk 74 [facility] Start: 03-02-2022 Gender identity Identifies as female gender (finding) [facility] Start: 03-02-2022 Sexual orientation Heterosexual (finding) [facility] Goals Date Patient Goal Desired Activity /State Functional Status Date Assessment Result Facility 01-12-2023 Functional Status N/A [facility] 06-03-2022 Functional Status N/A [facility] 05-12-2022 Functional Status N/A [facility] 04-14-2022 Functional Status N/A [facility] Clinical Notes 12-02-2021 to 08-05-2023 Addendum Note - Patti Vences MD - 08/05/2023 1:37 PM Patti Cook MD - 04/15/2023 11:53 AM EDTTelephone Encounter - Mohini Soto RN - 05/11/2022 8:06 AM EDT Note Date & Type Note Facility 08-05-2023 Miscellaneous Notes Addended by: PATTI VENCES on: 08/05/2023 01:37 PM Modules accepted: Orders documented in this encounter [facility] 04-15-2023 Note HNO ID: [id number] Author: Patti Vences MD Service: ? Author Type: Physician Type: Progress Notes Filed: 04/15/2023 12:08 PM Note Text: I have communicated my name and active licensure. The patient's identity and physical location were verified at the time of this visit. Either the patient or their legal ambulatory service representative has been informed of the risks and benefits of -- and alternatives to -- treatment through a remote evaluation and consents to proceed with the evaluation remotely. 38yo WF with hypothyroidism here for f/u On 01/04/23 increased LT4 to 150mcg daily (from 137mcg daily) Notes she is always tired, but PCP did just show her Vitamin D was slightly low. Also seeing psychiatrist who recently increased Wellbutrin. Takes LT4 inappropriately/inconsistently : maybe missed 2 doses this month, but takes 2 tablets the next morning Energy loss: Yes Wt change: No BM irregularities: No Temp intolerance:No Sweats: No Menses irregular: No Tremor: No Palpitations: No Exposure to contrast, kelp, supplements, MVI, Biotin: No All other Review of Systems reviewed and are negative. No past medical history on file. No family history on file. Social History Tobacco Use Smoking status: Former Smokeless tobacco: Former No outpatient medications have been marked as taking for the 04/15/23 encounter (Appointment) with Patti Vences MD. PE: LMP 03/05/2022 (Exact Date) Last 3 Encounter Wt Readings: Date: Wt: 03/09/2022 88 kg (194 lb) Gen - NAD, comfortable, pleasant Eyes - No exophthalmos, No renetta-orbital edema Neck - No visible goiter or nodules Skin - No visible skin dryness, no thinning or loss of lateral eyebrow hair Neuro - No visible hand tremor, alert/oriented and answering questions appropriately Component Latest Ref Rng AND Units 03/09/2022 05/07/2022 04/11/2023 Free T3 2.3 - 4.1 pg/mL 5.1 (H) TSH 0.270 - 4.200 mIU/L 0.054 (L) 0.010 (L) 0.177 (L) Free T4 0.9 - 1.7 ng/dL 3.3 (H) 1.4 1.6 OSH Labs 01/03/23 - TSH 19.588, FT4 0.83 01/18/22 - TSH 111.464, FT4 0.30 06/09/21 - TSH 2.67, FT4 0.67, FT3 1.79 04/15/21 - TSH 21.614, FT4 1.62, FT3 1.79 US Thyroid 04/21/21: RIGHT LOBE: Small lobe with heterogeneous echotexture. No nodules. Lobe size: 3.8 x 0.7 x 1.0 cm LEFT LOBE: Small lobe with heterogeneous echotexture. No nodules. Lobe size: 3.7 x 0.7 x 1.0 cm ISTHMUS: Heterogeneous echotexture. No nodules. Thickness: 3.5 mm IMPRESSION: 1. Small thyroid gland with heterogeneous echotexture; nonspecific. No nodules or increased vascularity. 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 Except on Sundays (so total 6 days per week) F/u 1 year The assessment and benefits/risks of the plan were discussed with the patient who expressed understanding and was agreeable to that which is noted above. All documentation from previous visit was copied and pasted, documentation has been reviewed and edited as necessary for today's visit. [facility] 04-15-2023 History of Presen t illness Narrative I have communicated my name and active licensure. The patient's identity and physical location were verified at the time of this visit. Either the patient or their legal ambulatory service representative has been informed of the risks and benefits of -- and alternatives to -- treatment through a remote evaluation and consents to proceed with the evaluation remotely. 38yo WF with hypothyroidism here for f/u On 01/04/23 increased LT4 to 150mcg daily (from 137mcg daily) Notes she is always tired, but PCP did just show her Vitamin D was slightly low. Also seeing psychiatrist who recently increased Wellbutrin. Takes LT4 inappropriately/inconsistently : maybe missed 2 doses this month, but takes 2 tablets the next morning Energy loss: Yes Wt change: No BM irregularities: No Temp intolerance:No Sweats: No Menses irregular: No Tremor: No Palpitations: No Exposure to contrast, kelp, supplements, MVI, Biotin: No All other Review of Systems reviewed and are negative. No past medical history on file. No family history on file. Social History Tobacco Use Smoking status: Former Smokeless tobacco: Former No outpatient medications have been marked as taking for the 04/15/23 encounter (Appointment) with Patti Vences MD. PE: LMP 03/05/2022 (Exact Date) Last 3 Encounter Wt Readings: Date: Wt: 03/09/2022 88 kg (194 lb) Gen - NAD, comfortable, pleasant Eyes - No exophthalmos, No renetta-orbital edema Neck - No visible goiter or nodules Skin - No visible skin dryness, no thinning or loss of lateral eyebrow hair Neuro - No visible hand tremor, alert/oriented and answering questions appropriately Component Latest Ref Rng & Units 03/09/2022 05/07/2022 04/11/2023 Free T3 2.3 - 4.1 pg/mL 5.1 (H) TSH 0.270 - 4.200 mIU/L 0.054 (L) 0.010 (L) 0.177 (L) Free T4 0.9 - 1.7 ng/dL 3.3 (H) 1.4 1.6 OSH Labs 01/03/23 - TSH 19.588, FT4 0.83 01/18/22 - TSH 111.464, FT4 0.30 06/09/21 - TSH 2.67, FT4 0.67, FT3 1.79 04/15/21 - TSH 21.614, FT4 1.62, FT3 1.79 US Thyroid 04/21/21: RIGHT LOBE: Small lobe with heterogeneous echotexture. No nodules. Lobe size: 3.8 x 0.7 x 1.0 cm LEFT LOBE: Small lobe with heterogeneous echotexture. No nodules. Lobe size: 3.7 x 0.7 x 1.0 cm ISTHMUS: Heterogeneous echotexture. No nodules. Thickness: 3.5 mm IMPRESSION: 1. Small thyroid gland with heterogeneous echotexture; nonspecific. No nodules or increased vascularity. 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 Except on Sundays (so total 6 days per week) F/u 1 year The assessment and benefits/risks of the plan were discussed with the patient who expressed understanding and was agreeable to that which is noted above. All documentation from previous visit was copied and pasted, documentation has been reviewed and edited as necessary for today's visit. documented in this encounter [facility] 01-12-2023 Hospital Discharg e instructions Patient Education 01/12/2023 08:54:05 Dietary Guidelines to Help Prevent Kidney Stones Dietary Guidelines to Help Prevent Kidney Stones Kidney stones are deposits of minerals and salts that form inside your kidneys. Your risk of developing kidney stones may be greater depending on your diet, your lifestyle, the medicines you take, and whether you have certain medical conditions. Most people can lower their chances of developing kidney stones by following the instructions below. Your dietitian may give you more specific instructions depending on your overall health and the type of kidney stones you tend to develop. What are tips for following this plan? Reading food labels Choose foods with no salt added or low-salt labels. Limit your salt (sodium) intake to less than 1,500 mg a day. Choose foods with calcium for each meal and snack. Try to eat about 300 mg of calcium at each meal. Foods that contain 200 500 mg of calcium a serving include: ?8 oz (237 mL) of milk, ljzdowr-hobtmllovdzu-pjoyq milk, and calcium-fortifiedfruit juice. Calcium-fortified means that calcium has been added to these drinks. ?8 oz (237 mL) of kefir, yogurt, and soy yogurt. ?4 oz (114 g) of tofu. ?1 oz (28 g) of cheese. ?1 cup (150 g) of dried figs. ?1 cup (91 g) of cooked broccoli. ?One 3 oz (85 g) can of sardines or mackerel. Most people need 1,000 1,500 mg of calcium a day. Talk to your dietitian about how much calcium is recommended for you. Shopping Buy plenty of fresh fruits and vegetables. Most people do not need to avoid fruits and vegetables, even if these foods contain nutrients that may contribute to kidney stones. When shopping for convenience foods, choose: ?Whole pieces of fruit. ?Pre-made salads with dressing on the side. ?Low-fat fruit and yogurt smoothies. Avoid buying frozen meals or prepared deli foods. These can be high in sodium. Look for foods with live cultures, such as yogurt and kefir. Choose high-fiber grains, such as whole-wheat breads, oat bran, and wheat cereals. Cooking Do not add salt to food when cooking. Place a salt shaker on the table and allow each person to add his or her own salt to taste. Use vegetable protein, such as beans, textured vegetable protein (TVP), or tofu, instead of meat in pasta, casseroles, and soups. Meal planning Eat less salt, if told by your dietitian. To do this: ?Avoid eating processed or pre-made food. ?Avoid eating fast food. Eat less animal protein, including cheese, meat, poultry, or fish, if told by your dietitian. To do this: ?Limit the number of times you have meat, poultry, fish, or cheese each week. Eat a diet free of meat at least 2 days a week. ?Eat only one serving each day of meat, poultry, fish, or seafood. ?When you prepare animal protein, cut pieces into small portion sizes. For most meat and fish, one serving is about the size of the palm of your hand. Eat at least five servings of fresh fruits and vegetables each day. To do this: ?Keep fruits and vegetables on hand for snacks. ?Eat one piece of fruit or a handful of berries with breakfast. ?Have a salad and fruit at lunch. ?Have two kinds of vegetables at dinner. Limit foods that are high in a substance called oxalate. These include: ?Spinach (cooked), rhubarb, beets, sweet potatoes, and Argentine chard. ?Peanuts. ?Potato chips, macedonian fries, and baked potatoes with skin on. ?Nuts and nut products. ?Chocolate. If you regularly take a diuretic medicine, make sure to eat at least 1 or 2 servings of fruits or vegetables that are high in potassium each day. These include: ?Avocado. ?Banana. ?[place], prune, carrot, or tomato juice. ?Baked potato. ?Cabbage. ?Beans and split peas. Lifestyle Drink enough fluid to keep your urine pale yellow. This is the most important thing you can do. Spread your fluid intake throughout the day. If you drink alcohol: ?Limit how much you use to: ?0 1 drink a day for women who are not . ?0 2 drinks a day for men. ?Be aware of how much alcohol is in your drink. In the [place] one drink equals one 12 oz bottle of beer (355 mL), one 5 oz glass of wine (148 mL), or one 1 oz glass of hard liquor (44 mL). Lose weight if told by your health care provider. Work with your dietitian to find an eating plan and weight loss strategies that work best for you. General information Talk to your health care provider and dietitian about taking daily supplements. You may be told the following depending on your health and the cause of your kidney stones: ?Not to take supplements with vitamin C. ?To take a calcium supplement. ?To take a daily probiotic supplement. ?To take other supplements such as magnesium, fish oil, or vitamin B6. Take urrk-vki-shftmmw and prescription medicines only as told by your health care provider. These include supplements. What foods should I limit? Limit your intake of the following foods, or eat them as told by your dietitian. Vegetables Spinach. Rhubarb. Beets. Canned vegetables. Pickles. Olives. Baked potatoes with skin. Grains Wheat bran. Baked goods. Salted crackers. Cereals high in sugar. Meats and other proteins Nuts. Nut butters. Large portions of meat, poultry, or fish. Salted, precooked, or cured meats, such as sausages, meat loaves, and hot dogs. Dairy Cheese. Beverages Regular soft drinks. Regular vegetable juice. Seasonings and condiments Seasoning blends with salt. Salad dressings. Soy sauce. Ketchup. Barbecue sauce. Other foods Canned soups. Canned pasta sauce. Casseroles. Pizza. Lasagna. Frozen meals. Potato chips. [place] Sor[place] fries. The items listed above may not be a complete list of foods and beverages you should limit. Contact a dietitian for more information. What foods should I avoid? Talk to your dietitian about specific foods you should avoid based on the type of kidney stones you have and your overall health. Fruits Grapefruit. The item listed above may not be a complete list of foods and beverages you should avoid. Contact a dietitian for more information. Summary Kidney stones are deposits of minerals and salts that form inside your kidneys. You can lower your risk of kidney stones by making changes to your diet. The most important thing you can do is drink enough fluid. Drink enough fluid to keep your urine pale yellow. Talk to your dietitian about how much calcium you should have each day, and eat less salt and animal protein as told by your dietitian. This information is not intended to replace advice given to you by your health care provider. Make sure you discuss any questions you have with your health care provider. Document Revised: 05/03/2022 Document Reviewed: 05/03/2022 [employer] Patient Education 2022 [employer]. Follow Up Care 07/14/2022 10:05:42 With:Sachin PANTOJA, MELLISSA Anand, URO Address: When: Unknown [facility] 11-26-2022 Note OPERATIVE NOTE OPERATION DATE: 11/26/2022 PROCEDURE: Yamileth endometrial ablation with hysteroscopy with endometrial biopsy. PREOPERATIVE DIAGNOSIS: Menorrhagia. POSTOPERATIVE DIAGNOSIS: Menorrhagia. ANESTHESIA: General. SURGEON: Vladimir Johnson D.O. WAREHOUSE RECEIVING SUPERVISOR: None. BLOOD LOSS: 5 mL URINE OUTPUT: Yellow and clear. FINDINGS: Both ostia seen. No gross evidence of polyps, fibroids or malignancy. SPECIMEN: Endometrial curettings. PROCEDURE: The patient was taken back to the OR where she was prepped and draped in the normal sterile fashion after being placed in the dorsal lithotomy position, after being placed under general anesthesia without difficulty. A weighted speculum was placed into the vagina. The anterior lip was grasped with a single tooth tenaculum. The patient was then sounded to approximated 10 cm. The patient's cervix was gently dilated using Hegar dilators. The hysteroscope was passed through the cervix into the uterus where both ostia were seen. No gross evidence of polyps, fibroids or malignancy. The cervical length was noted to be 5 cm. The total cavity length is 5 cm. The Yamileth ablation apparatus was set to approximately 5 cm in length. This was placed through the cervix and into the uterus. After the seal was tested, at that time the total ablation of 120 seconds was performed with the Yamileth without difficulty. All instruments were removed from the vagina. Excellent hemostasis noted. Sponge and lap count correct times 2. Patient taken to recovery in stable condition. Please note that prior to the procedure an endometrial pipette was used, after the cervix was identified, and endometrial curettings were obtained. [facility] 11-26-2022 Note OP Note OPERATION DATE: 11/26/2022 ADDENDUM: Please note that prior to the ablation that the endometrial pipette was used and endometrial biopsy was performed. [facility] 06-07-2022 Note [id number] [facility] 06-07-2022 Note Cystoscopy with Sten t Removal ? Voiding after the procedure: there may be some pain, burning, urgency, frequency and blood tinged urine following the procedure. These symptoms usually resolve within 2-5 days. Drink the amount of fluid it takes to keep the urine pink to yellow or clear in color. Drinking enough water and fluids will help to ease any discomfort after your procedure. ? If you are having problems that seem out of the ordinary, please call. ? If unable to contact your physician and you feel it is an emergency, go to the nearest emergency room or call 911 ? Diet ? you may resume your normal diet. ? Activity ? you may resume your normal activities ? Call if you have a fever over 100 degrees. [facility] 06-07-2022 Hospital Discharg e instructions Patient Education 06/07/2022 09:19:51 EU - Cystoscopy with Stent Removal Discharge Instructions (CUSTOM) Cystoscopy with Stent Removal Voiding after the procedure: there may be some pain, burning, urgency, frequency and blood tinged urine following the procedure. These symptoms usually resolve within 2-5 days. Drink the amount of fluid it takes to keep the urine pink to yellow or clear in color. Drinking enough water and fluids will help to ease any discomfort after your procedure. If you are having problems that seem out of the ordinary, please call. If unable to contact your physician and you feel it is an emergency, go to the nearest emergency room or call 911 Diet you may resume your normal diet. Activity you may resume your normal activities Call if you have a fever over 100 degrees. Follow Up Care 06/03/2022 14:45:09 With:Martina Stephenson Address: [address] [address]- [phone] Business (1) When: Unknown Comments:Call for followup appointment in 1 month with renal US and KUB With:Martina Stephenson Address:Unknown When: Unknown [facility] 05-12-2022 Hospital Discharg e instructions Patient Education 05/12/2022 08:19:09 Kidney Stones, Guba-km-Qyyp Kidney Stones Kidney stones are rock-like masses that form inside of the kidneys. Kidneys are organs that make pee (urine). A kidney stone may move into other parts of the urinary tract, including: The tubes that connect the kidneys to the bladder (ureters). The bladder. The tube that carries urine out of the body (urethra). Kidney stones can cause very bad pain and can block the flow of pee. The stone usually leaves your body (passes) through your pee. You may need to have a doctor take out the stone. What are the causes? Kidney stones may be caused by: A condition in which certain glands make too much parathyroid hormone (primary hyperparathyroidism). A buildup of a type of crystals in the bladder made of a chemical called uric acid. The body makes uric acid when you eat certain foods. Narrowing (stricture) of one or both of the ureters. A kidney blockage that you were born with. Past surgery on the kidney or the ureters, such as gastric bypass surgery. What increases the risk? You are more likely to develop this condition if: You have had a kidney stone in the past. You have a family history of kidney stones. You do not drink enough water. You eat a diet that is high in protein, salt (sodium), or sugar. You are overweight or very overweight (obese). What are the signs or symptoms? Symptoms of a kidney stone may include: Pain in the side of the belly, right below the ribs (flank pain). Pain usually spreads (radiates) to the groin. Needing to pee often or right away (urgently). Pain when going pee (urinating). Blood in your pee (hematuria). Feeling like you may vomit (nauseous). Vomiting. Fever and chills. How is this treated? Treatment depends on the size, location, and makeup of the kidney stones. The stones will often pass out of the body through peeing. You may need to: Drink more fluid to help pass the stone. In some cases, you may be given fluids through an IV tube put into one of your veins at the hospital. Take medicine for pain. Make changes in your diet to help keep kidney stones from coming back. Sometimes, medical procedures are needed to remove a kidney stone. This may involve: A procedure to break up kidney stones using a beam of light (laser) or shock waves. Surgery to remove the kidney stones. Follow these instructions at home: Medicines Take xgjs-bwj-swhlypf and prescription medicines only as told by your doctor. Ask your doctor if the medicine prescribed to you requires you to avoid driving or using heavy machinery. Eating and drinking Drink enough fluid to keep your pee pale yellow. You may be told to drink at least 8 10 glasses of water each day. This will help you pass the stone. If told by your doctor, change your diet. This may include: ?Limiting how much salt you eat. ?Eating more fruits and vegetables. ?Limiting how much meat, poultry, fish, and eggs you eat. Follow instructions from your doctor about eating or drinking restrictions. General instructions Collect pee samples as told by your doctor. You may need to collect a pee sample: ?24 hours after a stone comes out. ?8 12 weeks after a stone comes out, and every 6 12 months after that. Strain your pee every time you pee (urinate), for as long as told. Use the strainer that your doctor recommends. Do not throw out the stone. Keep it so that it can be tested by your doctor. Keep all follow-up visits as told by your doctor. This is important. You may need follow-up tests. How is this prevented? To prevent another kidney stone: Drink enough fluid to keep your pee pale yellow. This is the best way to prevent kidney stones. Eat healthy foods. Avoid certain foods as told by your doctor. You may be told to eat less protein. Stay at a healthy weight. Where to find more information National Kidney Foundation (NKF): www.kidney.org U[employer] Care Foundation (UCF): www.urologyhealth.org Contact a doctor if: You have pain that gets worse or does not get better with medicine. Get help right away if: You have a fever or chills. You get very bad pain. You get new pain in your belly (abdomen). You pass out (faint). You cannot pee. Summary Kidney stones are rock-like masses that form inside of the kidneys. Kidney stones can cause very bad pain and can block the flow of pee. The stones will often pass out of the body through peeing. Drink enough fluid to keep your pee pale yellow. This information is not intended to replace advice given to you by your health care provider. Make sure you discuss any questions you have with your health care provider. Document Released: 02/07/2009 Document Revised: 01/08/2020 Document Reviewed: 01/08/2020 [employer] Patient Education 2019 [employer]. Follow Up Care 04/26/2022 09:37:55 With:Sachin PANTOJA, MELLISSA Anand, URO Address: When: Unknown [facility] 05-11-2022 Miscellaneous Notes Formattin g of this note might be different from the original. Please see message and advise. documented in this encounter [facility] 04-26-2022 Note [id number]:[id number] [facility] 04-26-2022 Note Cystoscopy ? Voiding after the procedure: there may be some pain, burning, urgency, frequency and blood tinged urine following the procedure. These symptoms usually resolve within 2-5 days. Drink the amount of fluid it takes to keep the urine pink to yellow or clear in color. Drinking enough water and fluids will help to ease any discomfort after your procedure. ? If you are having problems that seem out of the ordinary, please call. ? If unable to contact your physician and you feel it is an emergency, go to the nearest emergency room or call 911 ? Diet ? you may resume your normal diet. ? Activity ? you may resume your normal activities ? Call if you have a fever over 100 degrees. [facility] 04-26-2022 Hospital Discharg e instructions Patient Education 04/26/2022 09:31:36 EU - Cystoscopy Discharge Instructions (CUSTOM) Cystoscopy Voiding after the procedure: there may be some pain, burning, urgency, frequency and blood tinged urine following the procedure. These symptoms usually resolve within 2-5 days. Drink the amount of fluid it takes to keep the urine pink to yellow or clear in color. Drinking enough water and fluids will help to ease any discomfort after your procedure. If you are having problems that seem out of the ordinary, please call. If unable to contact your physician and you feel it is an emergency, go to the nearest emergency room or call 911 Diet you may resume your normal diet. Activity you may resume your normal activities Call if you have a fever over 100 degrees. Follow Up Care 04/14/2022 14:07:08 With:Martina Stephenson Address: [address] [address] [phone] Business (1) When: Unknown Comments:Call for followup appointment in [address] scan With:Martina Stephenson Address:Unknown When: Unknown [facility] 04-14-2022 Hospital Discharg e instructions Patient Education 04/14/2022 11:51:31 Hematuria, Adult Hematuria, Adult Hematuria is blood in the urine. Blood may be visible in the urine, or it may be identified with a test. This condition can be caused by infections of the bladder, urethra, kidney, or prostate. Other possible causes include: Kidney stones. Cancer of the urinary tract. Too much calcium in the urine. Conditions that are passed from parent to child (inherited conditions). Exercise that requires a lot of energy. Infections can usually be treated with medicine, and a kidney stone usually will pass through your urine. If neither of these is the cause of your hematuria, more tests may be needed to identify the cause of your symptoms. It is very important to tell your health care provider about any blood in your urine, even if it is painless or the blood stops without treatment. Blood in the urine, when it happens and then stops and then happens again, can be a symptom of a very serious condition, including cancer. There is no pain in the initial stages of many urinary cancers. Follow these instructions at home: Medicines Take nxlv-fde-vqqdjad and prescription medicines only as told by your health care provider. If you were prescribed an antibiotic medicine, take it as told by your health care provider. Do not stop taking the antibiotic even if you start to feel better. Eating and drinking Drink enough fluid to keep your urine clear or pale yellow. It is recommended that you drink 3 4 quarts (2.8 3.8 L) a day. If you have been diagnosed with an infection, it is recommended that you drink cranberry juice in addition to large amounts of water. Avoid caffeine, tea, and carbonated beverages. These tend to irritate the bladder. Avoid alcohol because it may irritate the prostate (men). General instructions If you have been diagnosed with a kidney stone, follow your health care provider's instructions about straining your urine to catch the stone. Empty your bladder often. Avoid holding urine for long periods of time. If you are female: ?After a bowel movement, wipe from front to back and use each piece of toilet paper only once. ?Empty your bladder before and after sex. Pay attention to any changes in your symptoms. Tell your health care provider about any changes or any new symptoms. It is your responsibility to get your test results. Ask your health care provider, or the department performing the test, when your results will be ready. Keep all follow-up visits as told by your health care provider. This is important. Contact a health care provider if: You develop back pain. You have a fever. You have nausea or vomiting. Your symptoms do not improve after 3 days. Your symptoms get worse. Get help right away if: You develop severe vomiting and are unable take medicine without vomiting. You develop severe pain in your back or abdomen even though you are taking medicine. You pass a large amount of blood in your urine. You pass blood clots in your urine. You feel very weak or like you might faint. You faint. Summary Hematuria is blood in the urine. It has many possible causes. It is very important that you tell your health care provider about any blood in your urine, even if it is painless or the blood stops without treatment. Take rzhd-tsm-ipmmqro and prescription medicines only as told by your health care provider. Drink enough fluid to keep your urine clear or pale yellow. This information is not intended to replace advice given to you by your health care provider. Make sure you discuss any questions you have with your health care provider. Document Released: 08/22/2006 Document Revised: 01/16/2020 Document Reviewed: 09/24/2017 Elsevier Patient Education 2020 Elsevier Inc. Follow Up Care 03/29/2022 15:23:33 With:Sachin PANTOJA, MELLISSA Anand, URO Address: When: Unknown [facility] Evaluation note Encounter Date Diagnosis Assessment Notes Mar, Contact with and (suspected) exposure to other viral communicable diseases (ICD-10 - Z20.828) Mar, COVID-19 (ICD-10 - U07.1) Discharge Instructions for COVID-19 (Suspected or Confirmed ) material was printedsb Today you tested positive for the COVID virus. This mean you need to follow all CDC quarantine guidelines found at coronavirus.[place].gov. It is important to rest, increase fluids, and stay at home. Contact PCP and inform them of results. Medications like Mucinex, Cepacol, Tylenol, saline nasal spray are over the counter medications that can help with the symptoms. Current guidelines include staying home, having no fever above 100.4 for 24 hours without medication and having significant improvement of symptoms before you are allowed to stop your quarantine.. For full guidelines go to CDC. GOV. Contact primary care and ask for guidance is essential to follow up * EDUCATION HANDOUT GIVEN ON OTC TREATMENTS, FOLLOW UP AND WHEN TO SEEK EMERGENCY TREATMENT [place] Other [phone] Miscellaneous Notes* Telephone Encounter - Patti Vences MD - 03/10/2022 2:59 PM EDT TFTs hyperthyroid, will have her skip LT4 completely for 4 days and then resume at 137mcg daily, repeat labs in 2 months, sent Callystro message [facility] Miscellaneous Notes* Telephone Encounter - Aleksandar Sanders MA - 03/09/2022 11:39 AM EDT Referral notes from 03/09/[address] Sania Gilmore office at [phone]. Confirmation received. documented in [facility] Instructions* Patient Instructions* Patti Vences MD - 03/09/2022 11:11 AM EDT Try to avoid or limit carbohydrates such as bread, rice, pasta, potatoes, corn, crackers, chips, pretzels, popcorn, cookies, etc. Try to eat more protein like meat, fish, cheese, yogurt, nuts, beans,eggs, and veggies. If you eat fruit, avoid watermelon and grapes, eat berries which are lowest in carbs. If you eat an apple or pear, eat half with peanut butter or cheese Try low carb bread (will not say it s low carb usually, will typically say Light bread or 35-45 calories per slice Claire Mundo Delightful or Nature's Own Sugar- Free are some examples of low carb/light bread), or try low carb tortilla/wraps (such as [place] Carb Balance) Do not drink juice or regular pop or Gatorade. Stick to 0 calorie drinks like water, diet pop, Crystal Lite, Powerade Zero or Gatorade Zero, or [place] or Bubbly (or other brands of flavored carbonated water with 0 calories). For coffee, do not use regular sugar or flavored creamers use 0 calorie sweeteners like Stevia, Splenda, Equal, or Sweet-N-Low, use plain uacz-qn-iacb or a sugar- free flavored creamer, or just drink it black if you like it that way Please get blood test today documented in [facility]Gu[facility] History of Present illness Narrative* Patti Vences MD - 03/09/2022 10:43 AM EDT 37yo WF with hypothyroidism referred by Dr Sania Gilmore for hypothyroidism On LT4 224mcg daily (on this dose for the last year or so), PCP noted on 01/04/22 she was off it for a week prior. Notes she was only taking her LT4 maybe 3x/week but since 01/27/22 she has been taking it consistently, just missed yesterday. Takes LT4 inappropriately/inconsistently: Yes, also takes LT4 with her other pills, no food/coffee though for at least 45 minutes Energy loss: Yes but works all the time Sleep disturbances: No Appetite change: some days low, some days wants to eat a lot, recently craving sugar and had been drinking a lot of water. Had unsweetened green tea today, maybe 2oz, about 45 minutes ago, did also have a ayers Coke last night. POC BG in clinic today (fingerstick) = 108; has 2-3 regular pop per week, also eats a lot of candy but cut down Wt change: No BM irregularities: for the last 2 years has been constipated, can go a week without having a BM Temp intolerance: always cold, not new, but improved since taking her LT4 consistently Sweats: No Skin changes: No Hair changes: Yes, breaks horribly, not new but worse recently Menses irregular: No, has it monthly, usually lasts 3-4 days, but for last year just lasts a day ortwo Tremor: has h/o myclonic jerks where her whole body can twitch Palpitations: has anxiety at times Exposure to contrast, kelp, supplements, MVI, Biotin: was on Hair/Nail gummies for a month, ran outa month ago Neck pain/swelling: No Dysphagia: sometimes randomly chokes on air Dyspnea: No Voice change: No Radiation exposure to head/neck: No FamHx of thyroid disease: No All other Review of Systems reviewed and are negative. No past medical history on file. No family history on file. Social History Tobacco Use Smoking status: Former Smoker Smokeless tobacco: Former User Substance Use Topics Alcohol use: Not on file Drug use: Not on file levothyroxine (SYNTHROID) 112 mcg tablet, 112 mcg once daily. Take 2 tablets by mouth every day , Disp: , Rfl: buPROPion XL (WELLBUTRIN XL) 300 mg 24 hr tablet, 300 mg once daily. 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, quit smoking 5 years ago, rare EtOH PE: BP 100/68 Pulse 76 Wt 88 kg (194 lb) LMP 03/05/2022 (Exact Date) Last 3 Encounter Wt Readings: Date: Wt: 03/09/2022 88 kg (194 lb) Gen - NAD, comfortable, pleasant Eyes - No exophthalmos Neck - No visible goiter, No nodular, 20g CVS - RRR no murmurs Lung - CTAB, no rales Skin - normal texture, normal temperature MSK - 01/07 UE proximal muscle strength bilaterally Neuro - normal relaxation phase of bilateral UE reflexes, No hand tremor OSH Labs 01/18/22 - TSH 111.464, FT4 0.30 06/09/21 - TSH 2.67, FT4 0.67, FT3 1.79 04/15/21 - TSH 21.614, FT4 1.62, FT3 1.79 US Thyroid 04/21/21: RIGHT LOBE: Small lobe with heterogeneous echotexture. No nodules. Lobe size: 3.8 x 0.7 x 1.0 cm LEFT LOBE: Small lobe with heterogeneous echotexture. No nodules. Lobe size: 3.7 x 0.7 x 1.0 cm ISTHMUS: Heterogeneous echotexture. No nodules. Thickness: 3.5 mm IMPRESSION: 1. Small thyroid gland with heterogeneous echotexture; nonspecific. No nodules or increased vascularity. Ainsley was seen today for new patient. 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 -prior severe hypothyroidism due to LT4 non-compliance -clinically euthyroid vs mildly hyperthyroid, has been taking LT4 consistently for 6 weeks (though did miss dose yesterday) -check TFTs today to monitor control -given weight her LT4 dose is estimated to be at 137mcg or 150mcg daily, so will see if dose needs lowered given her newfound compliance -once TSH normal and stable, can have TSH monitored once yearly which can be done by PCP, along with future LT4 refills - TSH BLD; Future - T4 FREE/FREE THYROX; Future - T3 FREE BLD; Future Impaired fasting glucose -recommended she improve diet (cut out sugary drinks, decrease carb intake) and start regular exercise Other orders - GLUCOSE, BLOOD (POC) F/u prn The assessment and benefits/risks of the plan were discussed with the patient who expressed understanding and was agreeable to that which is noted above. This consult note is being shared with the referring provider via fax Medical Decision Making: Level: 4 - Moderate documented in this [facility]Gu[facility] Evaluation note* Encounter Date Diagnosis Assessment Notes Treatment Notes Treatment Clinical Notes Nov, Dysuria (ICD-10 - R30.0) Nov, Urinary tract infection, site not specified (ICD-10 - N39.0) Drink plenty fluids, get plenty of rest. Take the Pyridium and Macrobid as prescribed until gone. Follow-up with your family physician if no improvement in 2 to 3 days. Nov, Hematuria, unspecified (ICD-10 - R31.9) [facility] Other Evaluation + Plan note Future Appointments Appointment Date:04/19/2022 08:15:00 AM Scheduled Provider: Location:[facility] Appointment Type:Urology CALL PAT Appointment Date:04/26/2022 09:00:00 AM Scheduled Provider: Location:[facility] Appointment Type:Urology FT Diagnostic Tests Pending * Urine Cytology ([facility]) 04/14/22 [facility] evaluation + Plan note Future Appointments Appointment Date:05/12/2022 08:00:00 AM Scheduled Provider:Martina Stephenson MD Location:[facility] Future Appointments Appointment Date:07/14/2022 08:00:00 AM Scheduled Provider:Martina Stephenson MD Location:[facility] Future Appointments Appointment Date:04/20/2023 08:00:00 AM Scheduled Provider:Martina Stephenson MD Location:[facility] Appointment Type:URO Office Visit Diagnostic Tests Pending * PTH Intact 01/12/23 * Uric Acid 01/12/23 [facility] evaluation noteNo InformationNort Mochila Other Evaluation note* Diagnosis 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 Impaired fasting glucose [facility] Diagnosis 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 [facility] noteNo assessment information availableOur [facility] Work Phone: Evaluation note* Diagnosis 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 [facility]* Diagnosis 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 documented in this encounter [facility] general Narrative - Reported* Type Description Date Medical History Depression with anxiety Medical History Meniere disease Medical History Darrell's thyroiditis Surgical History tubal ligation Surgical History D&C Surgical History bone spur on left foot, 5th met atarsal Surgical History D&C with leep Hospitalization History see above [facility] Other Hospital course Narrative No data available for this section [facility] Hospital Discharge instructions Additional Instructions Take tylenol 650-1000 mg every 6 hours, alternate with ibuprofen 400-600mg every 6 hours in between for pain relief. Tamsulosin daily for stent discomfort. Take at night if you get dizzy or lightheaded, stop if unable to tolerate. Oxybutynin as needed for bladder spasms/stent pain. May cause dry mouth/eyes and constipation. Take stool softeners. You can buy AZO hgll-jze-bkdprxi (pyridium) and use as needed for burning with urination. This will make your urine orange. Drink plenty of water and fluids You must follow up to ensure your stent is removed. Failure to do so may result in recurrent infections and renal failure. Activity as tolerated. Limit heavy lifting > 15 lbs if you are developing hematuria or flank pain.[facility] Work Phone: Progress note No data available for this section [facility] Chief Complaint and Reason for Visit Chief Complaint Ureteral Stone Family History No Family History Records Found Relationship Condition Age at Onset Recorded Date/T libia father Alcohol abuse Unknown Not Specified Arthritis Unknown Advance Directives No Advanced Directives Records Found Advance Directive Response Recorded Date/ Time Advance Directives No July 8:54am Summary Purpose Additional Source Comments REASON FOR VISIT (unrecogniz ed section and content) Reason Comments New Patient Reason Comments Patient Update Reason Comments Thyroid Problem Source Comments (unrecognize d section and content) In the event this informatio n is protected by the Federal Confidentiality of Alcohol and Drug Abuse Patient Records regulations: The Federal rules restrict any use of the information to criminally investigate or prosecute any alcohol or drug abuse patient.[facility] Hospital[facility] the event this information is protected by the Federal Confidentiality of Alcohol and Drug Abuse Patient Records regulations: The Federal rules restrict any use of the information to criminally investigate or prosecute any alcohol or drug abuse patient.[facility] HospitalIn the event this information is protected by the Federal Confidentiality of Alcohol and Drug Abuse Patient Records regulations: The Federal rules restrict any use of the information to criminally investigate or prosecute any alcohol or drug abuse patient.[facility] HospitalIn the event this information is protected by the Federal Confidentiality of Alcohol and Drug Abuse Patient Records regulations: The Federal rules restrict any use of the information to criminally investigate or prosecute any alcohol or drug abuse patient.[facility] HospitalIn the event this information is protected by the Federal Confidentiality of Alcohol and Drug Abuse Patient Records regulations: The Federal rules restrict any use of the information to criminally investigate or prosecute any alcohol or drug abuse patient.[facility] HospitalIn the event this information is protected by the Federal Confidentiality of Alcohol and Drug Abuse Patient Records regulations: The Federal rules restrict any use of the information to criminally investigate or prosecute any alcohol or drug abuse patient.[facility] Care Teams (unrecognized sec tion and content) Paramedic Rn Relationship Specialty Start Date End Date Sania Gilmore [address] [place] [address] Referring Family Practice 01/06/22 Paramedic Rn Relationship Specialty Start Date End Date Sania Gilmore [address] [place] [address] Referring [facility] 01/06/22 Paramedic Rn Relationship Specialty Start Date End Date Sania Gilmore [address] [place] [address] Referring [facility] 01/06/22 Team Status: Inactive Member Role Status Dates Martina Stephenson MD Attending Provider Active Sania Gilmore , Primary Care Provider Active Team Status: Active Member Role Status Dates Sania Gilmore , Primary Care Provider Active Paramedic Rn Relationship Specialty Start Date End Date Sania Gilmore [address] [place] [address] Referring Family Medicine 01/06/22 Paramedic Rn Relationship Specialty Start Date End Date Sania Gilmore DO [address] [place] [address] Referring [facility] 01/06/22 INFORMATION SOURCE (unrecogn ized section and content) DATE CREATED AUTHOR 06/10/2022 [facility] DATE CREATED AUTHOR AUTHOR'S ORGANIZ ATION 01/08/2023 [facility] DATE CREATED AUTHOR AUTHOR'S ORGANIZ ATION 04/13/2023 [facility] DATE CREATED AUTHOR AUTHOR'S ORGANIZ ATION 08/07/2023 [facility] FOR RECORDS PERTAINING TO PATIENTS WHO ARE OR HAVE BEEN ENROLLED IN A CHEMICAL DEPENDENCY/SUBSTANCEABUSE PROGRAM, SOME INFORMATION MAY BE OMITTED. This clinical summary was aggregated from multiple sources. Caution should be exercised in using it in the provision of clinical care. This summary normalizes information from multiple sources, and as a consequence, information in this document may materially change the coding, format and clinical context of patient data. In addition, data may be omitted in some cases. CLINICAL DECISIONS SHOULD BE BASED ON THE PRIMARY CLINICAL RECORDS. [facility]. provides no warranty or guarantee of the accuracy or completeness of information in this document.
== END 2023-09-12 11:46 | disposition home or self-care (01) ==
LOC: LAB 11:46
PROVIDERS: PCP Family Medicine; Visit Provider Obstetrics & Gynecology
DX: Z01.419 Encounter for gynecological examination (general) (routine) without abnormal findings (principal); Z01.812 Encounter for preprocedural laboratory examination; N92.0 Excessive and frequent menstruation with regular cycle; R10.2 Pelvic and perineal pain; N94.6 Dysmenorrhea, unspecified
CPT/HCPCS: 36415; 86850; 86900; 86901; 87624; G0145

== ENCOUNTER 2023-09-12 22:09 | Outpatient (REF) | payer MEDICAID, SELFPAY ==
--- OUTSIDE RECORDS SUMMARY | 2023-09-12 22:15 | XMS_ITS | CCD ---
Author Name Unknown Address [address] [place] [address] Organization [facility] Care Team Providers Care Bridge Carpenter Name Role Phone Linda Leon Unavailable Rumschlag, [...] ., MARTINA M Consulting Unavailable [facility] Primary Care Unava ilable LUE ., MARTINA M Attending Unavailable LUE ., MARTINA M Admitting Unavailable MISC, DR DOMINGUEZ Consulting Unavailable [facility] Primary Care Unava ilable MISC, [...] DR HENRRY Castanon Admitting Unavailable [facility] Primary Care Unava ilable RUMSCHLAG, SANIA Primary Care Unavailable KETAN ., DR MINOR Consulting Unavailable KETAN ., DR MINOR Attending Unavailable KETAN ., DR MINOR Admitting Unavailable EMILY CANDELARIA Consulting Unavailable JOANNA, DR EMILY Kohli Consulting Unavailable [facility] Primary Care Unava ilable [facility] Attending Unava ilable [facility] Admitting Unava ilable LUE ., MARTINA M Consulting Unavailable WEST, DR EMILY Kohli Consulting Unavailable [facility] Primary Care Unava ilable LUE [...] Rumdebrawhit Sania Unavailable Rumbreonna KRUGER Sania Unavailable [phone] PATTI VENCES Attending Unavailable Allergies Allergy Classification Reported Allergen(s) Allergy Type Date of Onset Reaction(s) Facility (7 sources) Dust; Translations: [DUST] Allergy to substance 2 Hives, Itching, Rash [facility] (7 sources) Feather; Translations: [FEATHERS] Drug Allergy 2 Itching [facility] (15 sources) lamoTRIgine; Translations: [lamotrigine] Drug Allergy 2 Hives, Itching, Rash, Eruption of skin (disorder) [facility] (7 sources) Mold Spores; Translations: [MOLD SPORES] Allergy to substance 2 Hives [facility] (6 sources) Seasonal allergy; Translations: [Seasonal] Drug allergy Weal (disorder) [facility] (1 source) lamoTRIgine Drug Allergy 2 [facility] (1 source) lamoTRIgine Drug Allergy 2 [facility] Medications Current Medications Medication Drug Class(es) [...] procedure, # 2 tab(s), Refills(s) 0, Pharmacy: [facility]/pharmacy #[id number], 154, cm, 06/03/22 15:43:00 EDT, Height/Length Dosing, 88, kg, 05/12/22 8:09:00 EDT, Weight Dosing Start Date: 06/03/22 Status: Ordered Start: 06-02-2022 End: 06-02-2022 Cephalexin Discontinued [facility] 2021 12:00am June 02, 2022 11:46am Start: 04-14-2022 Keflex 500 mg Cap See Instructions, Take 1 tablet 1 day prior to procedure, and then 1 tab day of procedure, # 2 tab(s), Refills(s) 0, [id number] 154, cm, 04/14/22 11:36:00 EDT, Height/Length [...] Drug Class(es) Dates Sig (Normalized) Sig (Original) [id number] 200 actuat albuterol 0.09 mg/actuat metered dose [...] 30 mg oral tablet (3 sources) Uncompetitive E-odmgti-J-aspartat e Receptor Antagonist, Sigma-1 Agonist Start: 09-30-2019 [place] DMT 30-30 MG 1 tablet Orally every [...] 03-15-2022 Episodic Other aftercare (1 source) Other long term care phlebotomist (current) drug therapy; Translations: [OTH RETIREMENT CURRENT DRUG THERAPY] Onset: 03-29-2022 Episodic Other [...] Free T4 [Mass/Vol] 1.2 ng/dL Normal 0.9-1.7 [facility] Comment on above: Order Comment: Speci men Type: BLOOD SPECIMEN Ordering Facility: [facility] Address: [address] [place] [address] Performed By: #### 3 016-3, 7 #### [facility] CLIA [id number] [address] [place] [address] [place] TSH SerPl-aCncon 08-04-2023 TSH Qn 40.500 m[IU]/L High 0.270-4.200 [facility] Comment on above: Order Comment: Speci men Type: BLOOD SPECIMEN Ordering Facility: [facility] Address: [address] [place] [address] Result Comment: If t he patient is , TSH reference range varies by gestational period: First Trimester (weeks 9-12): 0.180-2.990 mIU/L Second Trimester: 0.110-3.980 mIU/L Third Trimester: 0.480-4.710 mIU/L Turner Junior et al. A Practical Approach for the Verifications and Determination of Site- and Trimester-Specific Reference Intervals for Thyroid Function tests in . Thyroid, 2019:29:3:412-420. Tereso Tran, et al. 2017 Guidelines of the [place] Thyroid Association for the Diagnosis and Management of Thyroid Disease during and the . Thyroid, 2017:27:3:315-389. Performed By: #### 3 016-3, 7 #### [facility] CLIA [id number] [address] [place] [address] [place] Lab Reportson 04-13-2023 Lab Reports [id number] .[id number]:127 Normal [facility] Reportson 04-12-2023 Lab Reports [id number] .00CD:127 Normal [facility] T4 Free SerPl-mCncon 023 Free T4 [Mass/Vol] 1.6 ng/dL Normal 0.9-1.7 [facility] Comment on above: Order Comment: Speci men Type: BLOOD SPECIMEN Ordering Facility: [facility] Address: [address] [place] [address] Performed By: #### 3 016-3, 3024-7 #### [facility] CLIA [id number] [address] [place] [address] [place] TSH SerPl-aCncon 04-11-2023 TSH Qn 0.177 m[IU]/L Low 0.270-4.200 [facility] Comment on above: Order Comment: Speci men Type: BLOOD SPECIMEN Ordering Facility: [facility] Address: [address] [place] [address] Result Comment: If t he patient is , TSH reference range varies by gestational period: First Trimester (weeks 9-12): 0.180-2.990 mIU/L Second Trimester: 0.110-3.980 mIU/L Third Trimester: 0.480-4.710 mIU/L Turner Junior et al. A Practical Approach for the Verifications and Determination of Site- and Trimester-Specific Reference Intervals for Thyroid Function tests in . Thyroid, 2019:29:3:412-420. Tereso Tran, et al. 2017 Guidelines of the [employer] Thyroid Association for the Diagnosis and Management of Thyroid Disease during and the . Thyroid, 2017:27:3:315-389. Performed By: #### 3 016-3, 3024-7 #### [facility] CLIA [id number] [address] [place] [address] [place] RAD - MISCon 01-22-2023 RAD - MISC [id number] .00CD:127 Normal [facility] RAD - Ultrasound Reporton RAD - Ultrasound Report [id number] .00CD:127 Normal [facility] Ambulatory Visit Summaryon 0 01-12-2023 Ambulatory Visit Summary AINSLEY PARRA :1985 Visit Date:01/12/2023 Ambulatory Visit Instructions Your Diagnosis Kidney stone Gross hematuria Former smoker Tests Performed Urnls Dip Stick Auto w/o Microscopy POC 30972 Your Care Team Attending Physician - Sachin [...] PANTOJA, Martina Martinez Where: [facility] Formson 01-12-2023 Forms [id number] .[id number]:127 [facility] Patient Educationon 01-13-20 23 Patient Education Nephrology [...] Spinach (cooked), rhubarb, beets, sweet potatoes, and Taiwanese chard. ? Peanuts. ? Potato chips, macanese fries, and baked potatoes with skin on. ? Nuts and nut products. ? Chocolate. ? If you regularly take a diuretic medicine, make sure to eat at least 1 or 2 servings of fruits or vegetables that are high in potassium each day. These include: ? Avocado. ? Banana. ? [place], prune, carrot, or tomato juice. ? Baked [...] fish oil, or vitamin B6. ? Take npjc-npu-gotcmgp and prescription medicines only as told by your health care provider. These include supplements. What foods should I limit? Limit your in (more content not included)... Normal [facility] Urology Office/Clinic Noteon 01-12-2023 Urology Office/Clinic [...] 4 mm nonobstructing stone in LLP. 01/03/23 ([facility] blood work PCP) - Ca 8.7. [...] Dipstick: Negative (more content not included)... Normal [facility] Comment on above: Result Comment: Elec tronically [...] by: PASQUALE WILKES Date: 2023-01-04 06:57 Normal [facility] FREE T4on 01-03-2023 Free T4 [Mass/Vol] 0.83 ng/dL Normal 0.76-1.46 [facility] Comment on above: Performed By: #### P REGQNT #### [facility] [address] [address] [address] Gabo Perez LIPID PROFILEon 01-03-2023 CHOL-HDL RATIO NORM SEE BELOW Normal [facility] Comment on above: Result Comment: 3.3 - 4.4 LOW RISK 4.4 - 7.1 AVERAGE RISK 7.1 - 11.0 MODERATE RISK >11.0 HIGH RISK Performed By: #### P REGQNT #### [facility] [address] [address] [address] Gabo Perez Cholesterol [Mass/Vol] 161 mg/dL Normal <=200 [facility] Comment on above: Performed By: #### P REGQNT #### [facility] [address] [address] [address] Gabo Perez Cholesterol in HDL [Mass/Vol] 57 mg/dL Normal 40-60 [facility] Comment on above: Performed By: #### P REGQNT #### [facility] [address] [address] [address] Gabo Perez Cholesterol in LDL [Mass/Vol] 85.6 mg/dL Normal [facility] Comment on above: Performed By: #### P REGQNT #### [facility] [address] [address] [address] Gabo Perez Cholesterol.total/Ch olesterol in HDL [Mass ratio] 2.8 {ratio} Normal [facility] Comment on above: Performed By: #### P REGQNT #### [facility] [address] [address] [address] Gabo Perez HDL NORMAL > or = 60 mg/dl - LO W CARDIOVASCULAR RISK <40 mg/dl - HIGH CARDIOVASCULAR RISK Normal [facility] Comment on above: Performed By: #### P REGQNT #### [facility] [address] [address] [address] Gabo Perez LDL CALC NORMAL SEE BELOW Normal [facility] Comment on above: Result Comment: <100 mg/dl OPTIMAL 100 - 129 mg/dl NEAR OR ABOVE OPTIMAL 130 - 159 mg/dl BORDERLINE HIGH 160 - 189 mg/dl HIGH >190 mg/dl VERY HIGH Performed By: #### P REGQNT #### [facility] [address] [address] [address] Gabo Perez Triglyceride [Mass/Vol] 92 mg/dL Normal <=150 [facility] Comment on above: Performed By: #### P REGQNT #### [facility] [address] [address] [address] Gabo Perez VLDL CALC 18.4 mg/dL Normal [facility] Comment on above: Performed By: #### P REGQNT #### [facility] [address] [address] [address] Gabo Perez PROF 14(COMP METB)on 023 Albumin [Mass/Vol] 3.6 g/dL Normal 3.4-5.0 [facility] Comment on above: Performed By: #### P REGQNT #### [facility] [address] [address] [address] Gabo Perez Albumin/Globulin [Mass ratio] 0.9 {ratio} Normal [facility] Comment on above: Performed By: #### P REGQNT #### [facility] [address] [address] [address] Gabo Perez ALP [Catalytic activity/Vol] 71 U/L Normal 46-116 [facility] Comment on above: Performed By: #### P REGQNT #### [facility] [address] [address] [address] Gabo Perez ALT [Catalytic activity/Vol] 21 U/L Normal 14-59 [facility] Comment on above: Performed By: #### P REGQNT #### [facility] [address] [address] [address] Gabo Perez Anion gap [Moles/Vol] 9.4 mmol/L Normal [facility] Comment on above: Performed By: #### P REGQNT #### [facility] [address] [address] [address] Gabo Perez AST [Catalytic activity/Vol] 14 U/L Critically low 15-37 [facility] Comment on above: Performed By: #### P REGQNT #### [facility] [address] [address] [address] Gabo Perez Bilirubin [Mass/Vol] 0.7 mg/dL Normal 0.2-1.0 [facility] Comment on above: Performed By: #### P REGQNT #### [facility] [address] [address] [address] Gabo Perez Calcium [Mass/Vol] 8.7 mg/dL Normal 8.5-10.1 [facility] Comment on above: Performed By: #### P REGQNT #### [facility] [address] [address] [address] Gabo Perez Chloride [Moles/Vol] 109 mmol/L Critically high 98-107 [facility] Comment on above: Performed By: #### P REGQNT #### [facility] [address] [address] [address] Gabo Perez CO2 [Moles/Vol] 27.6 mmol/L Normal 21.0-32.0 [facility] Comment on above: Performed By: #### P REGQNT #### [facility] [address] [address] [address] Gabo Perez Creatinine [Mass/Vol] 0.92 mg/dL Normal 0.55-1.02 [facility] Comment on above: Performed By: #### P REGQNT #### [facility] [address] [address] [address] Gabo Perez EGFR-AF NORTHER[place] IRISH >60 Normal >=60 [facility] Comment on above: Performed By: #### P REGQNT #### [facility] [address] [address] [address] Gabo Perez EGFR-NON AF NORTHER[place] IRISH >60 Normal >=60 [facility] Comment on above: Performed By: #### P REGQNT #### [facility] [address] [address] [address] Gabo Perez Globulin (S) [Mass/Vol] 4.0 g/dL Normal [facility] Comment on above: Performed By: #### P REGQNT #### [facility] [address] [address] [address] Gabo Perez Glucose [Mass/Vol] 92 mg/dL Normal 74-106 [facility] Comment on above: Performed By: #### P REGQNT #### [facility] [address] [address] [address] Gabo Perez Potassium [Moles/Vol] 4.0 mmol/L Normal 3.5-5.1 [facility] Comment on above: Performed By: #### P REGQNT #### [facility] [address] [address] [address] Gabo Perez Protein [Mass/Vol] 7.6 g/dL Normal 6.4-8.[address] [facility] Comment on above: Performed By: #### P REGQNT #### [facility] [address] [address] [address] Gabo Perez Sodium [Moles/Vol] 142 mmol/L Normal 136-[address] [facility] Comment on above: Performed By: #### P REGQNT #### [facility] [address] [address] [address] Gabo Perez Urea nitrogen [Mass/Vol] 6.0 mg/dL Critically low 7.0-18.0 [facility] Comment on above: Performed By: #### P REGQNT #### [facility] [address] [address] [address] Gabo Perez Urea nitrogen/Creatinine [Mass ratio] 6.5 mg/mg Normal [facility] Comment on above: Performed By: #### P REGQNT #### [facility] [address] [address] [address] Gabo Perez TSHon 01-03-2023 TSH 19.588 uIU/mL Critically high 0.358-3.740 [facility] Comment on above: Performed By: #### P REGQNT #### [facility] [address] [place] [address] Dr. Gabo Perez US KIDNEYSon 01-03-2023 US [...] by: PASQUALE WILKES Date: 2023-01-03 15:32 Normal [facility] CBC AUTO DIFFon 11-26-2022 BASO # 0.0 103/ul Normal 0.0-0.1 [facility] Comment on above: Performed By: #### C BC #### [facility] [address] [place] [address] Dr. Gabo Perez Basophils/100 WBC (Bld) 0.4 % Normal 0.2-2.0 [facility] Comment on above: Performed By: #### C BC #### [facility] [address] [place] [address] Dr. Gabo Perez EO # 0.1 103/ul Normal 0.0-0.7 [facility] Comment on above: Performed By: #### C BC #### [facility] [address] [place] [address] Dr. Gabo Perez Eosinophils/100 WBC (Bld) 1.7 % Normal 0.9-7.0 [facility] Comment on above: Performed By: #### C BC #### [facility] [address] [place] [address] Dr. Gabo Perez Erythrocyte distribution width (RBC) [Ratio] 12.7 % Normal 11.0-15.0 [facility] Comment on above: Performed By: #### C BC #### [facility] [address] [place] [address] Dr. Gabo Perez Hematocrit (Bld) [Volume fraction] 43.6 % Normal 36.0-48.0 [facility] Comment on above: Performed By: #### C BC #### [facility] [address] [place] [address] Dr. Gabo Perez Hemoglobin (Bld) [Mass/Vol] 14.4 g/dL Normal 12.0-16.0 [facility] Comment on above: Performed By: #### C BC #### [facility] [address] [place] [address] Dr. Gabo Perez IG # 0.01 10e3/ul Normal 0.00-0.03 [facility] Comment on above: Performed By: #### C BC #### [facility] [address] [place] [address] Dr. Gabo Perez IG % 0.1 % Normal 0.0-0.5 [facility] Comment on above: Performed By: #### C BC #### [facility] [address] [place] [address] Dr. Gabo Perez LYMPH # 1.7 103/ul Normal 1.2-3.8 [facility] Comment on above: Performed By: #### C BC #### [facility] [address] [place] [address] Dr. Gabo Perez Lymphocytes/100 WBC (Bld) 22.3 % Normal 20.5-60.0 [facility] Comment on above: Performed By: #### C BC #### [facility] [address] [place] [address] Dr. Gabo Perez MANUAL DIFF REQ NO Normal [facility] Comment on above: Performed By: #### C BC #### [facility] [address] [place] [address] Dr. Gabo Perez MCH (RBC) [Entitic mass] 30.1 pg Normal 26.7-34.0 [facility] Comment on above: Performed By: #### C BC #### [facility] [address] [place] [address] Dr. Gabo Perez MCHC (RBC) [Mass/Vol] 33.0 g/dL Normal 29.9-35.2 [facility] Comment on above: Performed By: #### C BC #### [facility] [address] [place] [address] Dr. Gabo Perez MCV (RBC) [Entitic vol] 91.0 fL Normal 81.0-99.0 [facility] Comment on above: Performed By: #### C BC #### [facility] [address] [place] [address] Dr. Gabo Perez MONO # 0.5 103/ul Normal 0.3-0.8 [facility] Comment on above: Performed By: #### C BC #### [facility] [address] [place] [address] Dr. Gabo Perez Monocytes/100 WBC (Bld) 7.1 % Normal 1.7-12.0 [facility] Comment on above: Performed By: #### C BC #### [facility] [address] [place] [address] Dr. Gabo Perez NEUT # 5.2 103/ul Normal 1.4-6.5 [facility] Comment on above: Performed By: #### C BC #### [facility] [address] [place] [address] Dr. Gabo Perez Neutrophils/100 WBC (Bld) 68.4 % Normal 43.0-75.0 [facility] Comment on above: Performed By: #### C BC #### [facility] [address] [place] [address] Dr. Gabo Perez Platelet mean volume (Bld) [Entitic vol] 11.6 fL Normal 9.5-13.5 [facility] Comment on above: Performed By: #### C BC #### [facility] [address] [address] [address] Gabo Perez PLT 253 103/ul Normal 150-450 [facility] Comment on above: Performed By: #### C BC #### [facility] [address] [address] [address] Gabo Perez RBC 4.79 106/ul Normal 4.20-5.40 [facility] Comment on above: Performed By: #### C BC #### [facility] [address] [address] [address] Gabo Perez WBC 7.6 103/ul Normal 4.0-11.0 [facility] Comment on above: Performed By: #### C BC #### [facility] [address] [place] [address] Dr. Gabo Perez PREG QUANT HCGon 11-26-2022 HCG QUANT <1 Normal [facility] Comment on above: Performed By: #### P REGQNT #### [facility] [address] [place] [address] Dr. Gabo Perez HCG RANGE SEE BELOW Normal [facility] Comment on above: Result Comment: 5-50 0.2-1 WEEK 50-500 1-2 WEEKS 100-5,000 2-3 WEEKS 500-10,000 3-4 WEEKS 1,000-50,000 4-5 WEEKS 10,000-100,000 5-6 WEEKS 15,000-200,000 6-8 WEEKS 10,000-100,000 2-3 MONTHS Performed By: #### P REGQNT #### [facility] [address] [place] [address] Dr. Gabo Perez XR CHEST 2 Von [...] No acute cardiopulmonary process. Electronically authenticated by: HENRRY SALMERON Date: 2022-11-12 13:23 Normal [facility] Pre-Certification Formon Pre-Certification Form [id number] .[id number]:127 Normal [facility] Pre-Certification Formon Pre-Certification Form [id number] #[id number]:127 Normal [facility] US PELVIS AND TRANSVAGon US PELVIS AND [...] by: EMILY CANDELARIA Date: 2022-09-24 07:44 Normal [facility] PAP ACOG PANEL 2: 30 to 65on 09-10-2022 . . Normal [facility] Comment on above: Result Comment: Perf ormed at: BA Performed By: #### 4 [id number] #### [facility] [address] [address] [address] Gabo Perez Age Gdln ACOG Testing 30-65 Normal [facility] Comment on above: Performed By: #### 4 [id number] #### [facility] [address] [address] [address] Gabo Perez DIAGNOSIS: Comment Normal [facility] Comment on above: Result Comment: NEGA TIVE FOR INTRAEPITHELIAL LESION OR MALIGNANCY. Performed at: BA Performed By: #### 4 [id number] #### [facility] [address] [place] [address] Dr. Gabo Perez HPV Aptima Negative Normal Negative [facility] Comment on above: Result Comment: This nucleic acid amplification test detects fourteen high-risk HPV types (16,18,31,33,35,39,45,51,52,56,58,59,66,68) without differentiation. Performed at: =G Performed By: #### 4 [id number] #### [facility] [address] [address] [address] Gabo Perez HPV Genotype Reflex Comment Normal [facility] Comment on above: Result Comment: Crit eria not met, HPV Genotype not performed. Performed at: BA Performed By: #### 4 [id number] #### [facility] [address] [place] [address] Dr. Gabo Perez Methodology: Comment Normal [facility] Comment on above: Result Comment: This liquid based ThinPrep(R) pap test was screened with the use of an image guided system. Performed at: WB Performed By: #### 4 [id number] #### [facility] [address] [place] [address] Dr. Gabo Perez Note: Comment Normal [facility] Comment on above: Result Comment: The Pap smear is a screening test designed to aid in the detection of premalignant and malignant conditions of the uterine cervix. It is not a diagnostic procedure and should not be used as the sole means of detecting cervical cancer. Both false-positive and false-negative reports do occur. . Performed at: WB Performed By: #### 4 [id number] #### [facility] [address] [address] [address] Gabo Perez Performed by: Comment Normal [facility] Comment on above: Result Comment: Rekha Henderson, Salad Chef (ASCP) Performed at: BA Performed By: #### 4 [id number] #### [facility] [address] [place] [address] Dr. Gabo Perez Specimen adequacy: Comment Normal [facility] Comment on above: Result Comment: Sati sfactory for evaluation. No endocervical component is identified. Performed at: Performed By: #### 4 [id number] #### [facility] [address] [place] [address] Dr. Gabo Perez Screenson 07-15-2022 Screens [id number] .[id number]:127 Normal [facility] Ambulatory Visit Summaryon 1 09-13-2021 Ambulatory Visit Summary AINSLEY PARRA :1985 Visit Date:07/14/2022 Ambulatory Visit Instructions Your Diagnosis Ureteral stone Gross hematuria Former smoker Kidney stone Tests Performed Urnls Dip Stick Auto w/o Microscopy POC 67588 US Renal -- Results Pending -- XR [...] Martina Stephenson MD Where: [facility] Normal [facility] Patient Educationon 07-14-20 Patient Education Urology Kidney [...] these instructions at home: Medicines ? Take qcsk-wqq-jiryxjl and prescription medicines only as told by [...] 02/07/2009 Document Revised: 01/08/2020 Document Reviewed: 01/08/2020 [email or web address] Patient Education ? 2019 [employer]. Normal [facility] Urology Office/Clinic Noteon 07-14-2022 Urology Office/Clinic [...] Calculus of kidney) LESA done 07/09/22 at [place] shows possible left nonobstructing 4mm stone. Pt [...] mos w/KUB, LESA Patient Education Kidney Stones, Kcdu-nl-Tqvw I, Sandra Carmen, personally scribed for Dr. [...] Heart disease: (more content not included)... Normal [facility] Comment on above: Result Comment: Elec tronically Signed By: Martina Stephenson MD\.br\Date and Time Signed: 07/14/22 10:07 EST\.br\Electronically Co-Signed By: Sandra Carmen\.br\Date and Time Co-Signed: 07/14/22 10:02 EST RAD - MISCon 07-10-2022 RAD - MIS [id number]#1 .00CD:127 Normal [facility] KIDNEYSon 07-09-2022 US KIDNEYS EXAMINATION: US KIDNEYS [...] by: EMILY MARSHALL Date: 2022-07-09 17:11 Normal [facility] XR KUB 1 VIEWon 07-05-2022 XR KUB [...] by: EMILY MARSHALL Date: 2022-07-05 13:12 Normal [facility] Lab Reportson 06-09-2022 Lab Reports [id number] .00CD:127 Normal [facility] Coding Summary.on 06-08-2022 Coding Summary. CD:[id number] G h0bWw+PGhlYWQ+GM1QBQV sV67rmRVafZ6HF3hNUS7Y VYCZALIKAY3BBF6jvJT9V EitB1SkelMy IvtbbJEiNP15WTm4PYM0t AvuGZrpwM1iuDEhB5w9Vz HyIL31eJ03XEstIWQtZxH 3LjZpbjsgbWFy Y6fjIqUrhKOfSfa+PHRhY mxlIHdpZHRoPScxMDAlJy KosMwaGH1yBp9wQVJvEXB vbGxhcHNlOiBj y2xuNRIjOJvxWB6ivUniW 9WquTS8JVWbc2f5Lo56bG I+JWEiGBV0dAoqCHkzj31 5PcVib3yaFJQ7 xXIbNGfgGTH8F79tv0A8K FUmZDYiOHJ2xNC8zD5gmC jluxdqW0SeqJXfUyM6FAE 2kCSnvA9wqYbx hffgjR1cXwf+V61PSD5BW FTKET9FLix5N3FiIozxzB I+WZ18WQOkYH45pVQlpEQ mg9ejyLf8QfMv GKKeAOU5tJdyHYhyy1PvJ MVnJ27pbTEad4Q5QILooR ockCRhSvYosMU1bR6yBUz pzanxv3bjzlnx Fuods2rcqt21cJ57T43wZ QaaLBRuJTW0SMAiFMKceK bfvi8xyR7hTl3+ERfyb1u ks1hauJp4AkFo KDEdiyMdrMrtBXA4e4CsR o45M6AwiMzls9YjDtg7ws 56uDYmr1D4rPE3CHzrLIA wuO9xZQuuEjS3 WWOqUvYbzE25mWAgNYwsL t3rmMdsvDbgUP3zAOUtgv wwDENidL4oCSGhdYKweQk lGM8wRRXebzvl o109HuCeRNJ9KASyrJElB 9DenC0cZaZrFEUmGSJzA1 DhhXPhIAkiN070YNrpXsA 1KLPvgvVeB2Ep CBVugYtqJjP9b3L0Zl8Zp 1LkjehdXCP9QGxyKILzSa S5QhWhKgZ3B1IuRre6UGL xxZrpZV4fD5Ad XXKwfwsqeryoqJH1MFVlO WGqgB03xKDkHKtgSm9nx8 J2l368LXEoFEZerN22Dr0 udDogMTBwdCBU cW5piwnan9kckihaOyIsB GOvXLg1BTi0MCMfyUscPz QbWWP4AfK4FJA5tGRsuF3 nhNsxtoqmdY5o Oyc+O56khX4nMPL2LLL3z cixYZYxxbZwLO66HV01E4 RyPjwvdGFibGU+PGRpdiB gwMzoGY0oQkXj w3qek0PdYMvkF9XoLDTrE IizGho2ZMHmFDO6pFM4iP 0oKJRzKDqnp9C6xZW5N3F kguYvox1su9ts BSFmHUbwV12qlBAll3B3A VTjeTD3PKFuwMkiOoOwaF 93Oyc+BYDggUhlk2WmYxa ha6ckf1hqxGm8 TtArVRKfvbSynAlgGML3h 7XeRg49X31rEHhbPXAmGR EjHWMkCLMwsFuxdn4sdZ7 wIi8+PGNvbCB3 cHS2wK6wHZPbQyS9YIseU 276RhLmpSRuGvjhk6bff3 bvoGd0RwAjNFGjhwXdwEn kMHS4c8UtLj77 D46hXAwrIYUjHPJcVIEuG WQmyXkzlo5ksZ8hVr6+PC 9gb0enjk26uZ92fIM+PHR xYOV1oByvQPef YPVllA6uETxfLaF0GJZrE qWedU88xRXqEQpvGa4phK phvXaeTU4tNWMzkzgrn08 3SiZjg8nhQMMt jZSvYTssPZE3C11ex9S7M ECpZVWpYFK9lMS6jW9kzY lnbjogbGVmdDsgdmVydGl fPUagGEkpF369 IHRvcDsnPlBhdGllbnQgT cUqZDf0W0FyVva2ZXUluE avYE0isULiYVleUv2dxDq aqJgmNT1rLYLd kitso777KvVwq6paKKIqc GOkTUxiHKS4S62pn4R6MQ JwYADsODA0pBT3xZ4ukQe nbjogbGVmdDsg vgTylZljUJomZOnpN868H HRvcDsnPkJpcnRoIERhdG M7IE71BI84pISzj1V2nET 1L5IlCDFbquzn xwowuLN1OIObBXNauY79J y7xgYrhJa2kDKVxALK1SX GuuDNyW5ZjlB8jPyQxMEA tYCNmU6CwkMUy BZudJ170XOxyOkH3LWLuq qAlO0XdJMVelUhaYcC4p4 Q6Nk9HV0K7PD52ZG90kWN yq6S3iQB3S3Bw ODJepzrqaimmgNX1UIKgA RWmpK07Za1lcVdvXx7oUH ZmHKF0ZSLlgWFdL4TynX6 yOiAjMDAwMDAw B0FvsBOiHYqzS647LYgdW sJ6XWMldqFoP3MwEHZjmU iwHuG7f6S2Tr8ZXRn1LO6 5YO49vQPlf7G0 vDZ4Y3FwKGWwukxsiplyl NW6LMBhILFtmO82Gr5jtD zgHd9zDAOyHQA2WKTcaJK oI1YwwH0jCeCp CEIrJQVpO0TwsPAkNZagZ 174UWovOqI5RDBanvKtJ9 TcFBUibRcjHrG6a4Q2Oi6 AAPKqYT52VYG0 lCG4ML42FC74W6XzHgfok GFibGU+PHRhYmxlIHdpZH RoPScxMDAlJyBzdHlsZT0 gKl2hZWQyZHBb rFqjzBDsTiOup5niYCKeT NrtLW7ypHovY1AnpBT9UK Qxg2g5Vf64K28vY7RfaQB +JIDvcKV0hSU3 rD6dMuBsFgV8ZIlzN531F dAuvXYzOxzbj4ijl0txlW c6CfH8ZVVftzZyxThtUHJ 1z1GzUa96D81o IHdpZHRoPSIxNSUiIHZhb Esgze5noR4kIb0+PGNvbC E2tCU7zR4dEpJiNjH9MWq zJ015EdWboCLs Iztkq7dnv6scwBb8KaFeJ CUmebXntCtxUWH9r0FwAz 65U8TesVuci6JhLfd6hn7 3bOMxg1O5kWB0 E4KtOVAwloucbOYisHjbO K8dFQJcktoyWVAueA4rGX PgF4y3AdMwXkP2ESwdZ4R payM5ZZYxnDTb OHqvKUQ7R72on5Y4BCUeJ SHaUMG5hZT9zB0coWkpzd ogbGVmdDsgdmVydGljYWw aJWpzX944OYOm yGrcIOVfmO6aSVCsfUShe NwaKM1pXKIpsuvcOqmFCN RILCBLRUFSQTwvdGQ+PHR kXFU7wFknKKys QRQjcZ2fMZFgD1x3XeSkX nC5YEvpN2FrMRFwgrwiDe 65bM8yHiWvWzO3BTiyV8T sepF0DFBrzWLs LXrkRXI4B23dc8D1OJWrM VWqBJJ9wMR2pE9osDjhzo ogbGVmdDsgdmVydGljYWw dUVvjU331TBLf yTqlYbS1WtW9ZaY7DFN9L 3FuBge7UFQmnQipVJ4miI JtCKrpOn5ooAhjiKpfWF4 wNTBpbjtwYWRk zS2nTIRrhVUzfEquWQ3eM UVjuezhk383KnSyPUP3VV RxdCSqO9SzkY0oCrEvDXY kMKHoJ7EspGEb HBtpO007EWbwBpN5BGFal bSyF4EfEERqtYobJbD4i3 U6Pi1zLCREVKWhpwlqdVF +DJOzQAY6tNlc UQyzKLZyiF1mVOQdS0k7O tQdYxD5LJzjK5NbSENjgf tbTa03cQ0cHyXrGnH5BFl nM7PsmxX1JTCh sOGwDLpeRRE2M31yk2D0W FObOWIyVOG7lPO1dL3gvY lnbjogbGVmdDsgdmVydGl qAEkhBFgnS973 IHRvcDsnPkZlbWFsZTwvd GQ+VPXrMDX8jOxoAZimPD UwgS8rYQLuO8s6KoYzJiJ 3EXlqL6AxODSv dmggCp52nA8bMjWmBeN9O XmnF9GenaE4VMAaqQMdUT orNRZ4B79uc7V3NXFzVJB tJBT1jOQ0uE7d bGlnbjogbGVmdDsgdmVyd IwxABwsEUwjA750CVBnbT ydDw50fQPdzJdicyB9M6R kPjwvdHI+PC90 FSBfXG59zCTusQMuu7sxy Kt1XaUjWRTwUIA2mJrlUY mki1AgLDVdA82wuSRjb3Y 6IGNvbGxhcHNl TnXwhON7hP2oYMeclntbf 2mythumFqnfg6jgbn74iI 06Y64jSLkePPQlHYNhQTD zOOUucTeqpw1e rJ3tTi4+EACiwMT6jTE4f Y8kLlVwUfT2YNzxP720Dg OokTFyAfqvt0foh5ojaVz 9IjIwJSIgdmFs nAiaHWN7x5GfIi28W23kP HdpZHRoPSIyMCUiIHZhbG epkb3emP1yXm0+QY4fg7l udl38eL85oIT+ ALViEAO9eAjaLKgqOZRre U5qGTshYpS1GCIoPfMkkJ 37mINqKVtePd3zzVetqDb eVS8wJLUospxw r670TqXme9voADIhsTYaW NgcMHR7V95sb3E9STScOJ NnDLK7cUQ7bF6gqLymjgh gbGVmdDsgdmVy uHdfPNssEYbrP230EVLdt TviEwSkdXGlY0pqsnPFLJ 1lOjwvdGQ+TPMuPQS7nZz dIVirPEFbsE2c NKNlF7b6FlLfQzU2JQygS 5PhlpA6INMvwGGtEGApcD YLuN1mgpayw7iqwcuhBrO xSHNpZUq5NFp7 SOLolNhwQeBaEYV2HmO8Y TW2pNKsfK6qnGygggtzvI 9wOyc+RklOOjwvdGQ+PHR xJOV2sSmxNMcs UJBkgT6iWKQrG8c0LaZpV oI3NFxxW4LkqgX0FWVylT LhONGokSOBpF5qjoubr8u vcjogIzAwMDAw CVx2MBh5EGWhqFbsMgMrP ZT5AwK7OUL3mUMvdB7jsQ yznsrhyM5vCaw+TVJOOjw vdGQ+PHRkIHN0 qXqeOFccMHCsaL3pLJPxU 6g9WeDoVrY3QEnxP0Iamu O9IDQajKYaRZCtgWBIqA7 iymslh7axkjyb KqBgDFRhBJg3PYu3JQLwo OpaPzFlBBV1HiS2SRJ5aG BawA8fvAgreecfyC3qCph +LRJ9SXS3DB91 YW25E5DpDxwfsGWlaOF+P HRhYmxlIHdpZHRoPScxMD ZmVlYrpXneQE3gSy9qMQX yLWNvbGxhcHNl OiBj (more content not included)... Normal [facility] Consent for Procedure/Surger yon 06-07-2022 Consent for Procedure/Surgery [id number]#1 .00CD:127 Normal [facility] Consent for Treatmenton Consent for Treatment [id number]#1 .00CD:127 Normal [facility] Inpatient Patient Summaryon 06-07-2022 Inpatient Patient Summary [address] [address] Clinical Summary Person Information Name: AINSLEY PARRA Age: 37 Years : 1985 Sex: Female PCP: SANIA GILMORE DO Marital Status: Single Race: White Ethnicity: Non- or Language: Paraguayan Visit Id: Visit Reason: URETERAL STONE Speciality: Acuity: Enc Type: Outpatient Med Service: Surgery Arrival: 06/07/2022 08:48:08 Discharge: Dispo Type: Address: [address] [place] [address] DR MARIA TERESA Hines [facility] [phone] Provider Notes: Diagnosis: Ureteral stone Problems Active [...] up: With: Address: When: Martina Stephenson [address], [place] [address], [address] [address] [phone] Business (1) Comments: Call for followup appointment in 1 month with renal US and KUB With: Address: When: Martina Stephenson Patient Education Information: EU - Cystoscopy with Stent Removal Discharge Instructions (CUSTOM) [facility] IntraOperative Documentson 1 IntraOperative Documents [id number] .00CD:127 [facility] Main OR Intraoperative Recor don 06-07-2022 Main OR Intraoperative Record IntraOp Document Type FTURO Summary Primary Physician: Martina Stephenson MD Finalized Date/Time: 06/07/22 09:18:28 Pt. Name: AINSLEY PARRA/Sex: 1985 Female Med Rec #: [id number] Physician: Martina Stephenson MD Financial #: [id number] Pt. Type: O Room/Bed: / Admit/Disch: 06/07/22 [...] Juliana Ford Role Performed Surgeon - Primary City Administrator - Primary Scrub - Primary Time In 06/07/22 09:05:00 06/07/22 09:05:00 06/07/22 09:05:00 Time Out 06/07/22 09:23:00 06/07/22 09:23:00 06/07/22 09:23:00 Procedure CYSTOSCOPY LOCAL WITH CYSTOSCOPY LOCAL WITH CYSTOSCOPY LOCAL WITH STENT REMOVAL(Right) STENT REMOVAL(Right) STENT REMOVAL(Right) Comments Last Modified By: Shoaib TIRADO, CARLOS MANUELOR, CHRISTIANO Cramer RN, Shoaib TIRADO, [...] CHRISTIANO Cramer RN, Ruthann 06/07/22 09:18 Normal [facility] Main OR Preoperative Recordo n 06-07-2022 Main OR Preoperative Record Holding Area Document Type FTURO Summary Primary Physician: Martina Stephenson MD Finalized Date/Time: 06/07/22 09:13:10 Pt. Name: AINSLEY PARRA/Sex: 1985 Female Med Rec #: [id number] Physician: Martina Stephenson MD Financial #: [id number] Pt. Type: O Room/Bed: / Admit/Disch: 06/07/22 [...] right flank, bladder area Skin Integrity Intact, [place], Warm, & Dry Vitals - EU Blood Pressure 142/77 Pulse 70 bpm Respirations 16 br/min SPO2 98 % RN Reviewed Yes Last Modified By: CHRISTIANO Cramer RN, Ruthann 06/07/22 09:13:09 General Comments: Temp 36.4 Temporal Finalized By: CHRISTIANO Cramer RN, Ruthann Document Signatures Signed By: Savannah Priest LPN 06/07/22 08:58 CHRISTIANO Craemr RN, Ruthann 06/07/22 09:13 Normal [facility] Operative Reporton Operative Report Patient: AWAIS PARRA Age: 37 years Sex: Female : 1985 Associated Diagnoses: None Author: Martina Stephenson MD Procedure Operative Information Details: Date/ Time: 06/07/2022 09:20:00. Pre-Op Dx: Ureteral stone (RYQ78-SO N20.1, Discharge, Medical), Foreign Body in Bladder [...] US and to review stone analysis. Normal [facility] Comment on above: Result Comment: Elec tronically Signed By: Martina Stephenson MD\.br\Date and Time Signed: 06/07/22 09:21 EDT Outpatient Surgery Discharge Instructionon 06-07-2022 Outpatient Surgery Discharge Instruction [id number] .00CD:127 Normal [facility] Outpatient Surgery Discharge Instruction [place] [id number] Patient Discharge Instructions PERSON INFORMATION Name: AINSELY PARRA Date of : 1985 Current Date: [...] 911 Follow up: With: Address: When: Martina Stepehnson [address] [place] [address] [phone] [facility] (1) Comments: Call for followup appointment in [...] to serve you. Thank you for choosing [facility] Normal [facility] Pathology Noteon 06-04-2022 Pathology Note [id number]#1 .00CD:127 Normal [facility] Operative Reporton 2 Operative Report [id number] .00CD:127 Normal [facility] RAD - MISCon 06-03-2022 RAD - MISC [id number]#1 .00CD:127 Normal [facility] Calculi, Urinaryon 2 Ca Oxalate Dihydrate 100 % Normal . [facility] Comment on above: Performed By: #### C ALCULI #### [facility] , Color (U) Mathur Normal . [facility] Comment on above: Performed By: #### C ALCULI #### [facility] , Comment2 Normal . [facility] Comment on above: Result Comment: Calc ulus received in liquid. Wet calculi must be dried before analysis, which delays reporting of results. Leaving calculi in liquid (such as water, saline, blood, urine) may lead to changes in composition. Performed By: #### C ALCULI #### [facility] , Comment: Normal . [facility] Comment on above: Result Comment: Giuliano zayas questions regarding Calculi Analysis contact [facility] at: [phone]. Performed By: #### C ALCULI #### [facility] , Composition Normal . [facility] Comment on above: Result Comment: Perc entage (Represents the % composition) Performed By: #### C ALCULI #### [facility] , Disclaimer: Normal . [facility] Comment on above: Result Comment: This test was developed and its performance characteristics determined by [employer]. It has not been cleared or approved by the Food and Drug Administration. Performed at: [facility] Stone Analysis [address] [place] [address] Dr [place], [place] [id number] [employer] Team Leader: Jarett Reynoso PhD, Phone: [phone] Performed By: #### C ALCULI #### [facility] , Note Normal . [facility] Comment on above: Result Comment: Calc danae report will follow via computer, mail or extrusion manager delivery. PERFORMED BY: [place] [address] PATHOLOGIST LOT BOSS BARAK ARRIAZA M.D. Performed By: #### C ALCULI #### [facility] , Photo Normal . [facility] Comment on above: Result Comment: Phot ograph will follow under a separate cover Performed By: #### C ALCULI #### [facility] , Size 4x3 Normal . [facility] Comment on above: Result Comment: Mult iple pieces received. Dimensions of the largest piece reported. Performed By: #### C ALCULI #### [facility] , Source Normal . [facility] Comment on above: Result Comment: Righ t Ureter Performed By: #### C ALCULI #### [facility] , Weight 21.0 Normal . [facility] Comment on above: Performed By: #### C ALCULI #### [facility] , [place] urethrocystogram retroon 06-02-2022 [place] urethrocystogram retro [facility] [place] [address] Fluoroscopy Report Signed Patient: Ainsley Parra MR#: [id number] 1 : 1985 Acct:[id number] Age/Sex: 37 / F ADM Date: 06/02/22 Loc: [place] Room: Type: [facility] Attending Dr: Martina Stephenson MD Copies to: [...] Artemio Greene M.D.06/02/2022 4:43 PM Dictation Location: [place] [address] Transcribed By: [facility] 06/02/221642 Dictated By: Artemio Greene DO 06/02/221635 Signed By: 06/02/221642 Normal [facility] HCG ( test) IA.rapi d Ql (U)Ordered By: EMILY LYNN on 06-02-2022 HCG ( test) Ql (U) Negative [facility] HCG,Urineon 06-02-2022 Beta HCG ( test) Ql (U) Negative Normal [facility] Comment on above: Result Comment: PERF ORMED BY: [place] [address] PATHOLOGIST LOT BOSS BARAK ARRIAZA M.D. Performed By: #### U HCG #### [address] 06-02-2022 L - -------- Specimen: [id number] Received: 06/03/22 Status: AXEL Edwards Num: [id number] Spec Type: Surgical Subm Dr: Martina Stephenson MD Tissues: A Urinary Calculus (RT URETERAL STONE) Procedures: Level 1 Gross -------- Age/ Patient Sex Location Account Attending Physician -------- Ainsley Parra 37/F [place] [id number] Martina Stephenson MD -------- SPEC NUM: [id number] RECD: 06/03/22 STATUS: AXEL EDWARDS NUM: [id number] MARCIA: 06/02/[address] [facility] [address]: Martina Stephenson MD ENTERED: 06/03/22 SEGUNDO [...] chemical analysis. Gross examination only. CPT Codes 60467 -------- -------- Specimen: [id number] Received: 06/03/22 Status: AXEL Edwards Num: [id number] Spec Type: Surgical Subm Dr: Martina Stephenson MD Tissues: A Urinary Calculus (RT URETERAL STONE) Procedures: Level 1 Gross -------- Patient: Ainsley Parra [id number] (Continued) -------- Signed (signature on file) Gogo Bailey MD 06/03/22 1515 [facility] Lab Reportson 06-02-2022 Lab Reports [id number]#1 .00CD:127 Normal [facility] Covid-19 PCR (CVDTBH)on 05-07 SARS-CoV-2 (COVID-19) RNA ANDREW+probe Ql (Unsp spec) Not detected Normal NOT DETECTED [facility] Comment on above: Result Comment: This test is not yet approved or cleared by the [place] FDA. When there are no FDA-approved or cleared tests available, and other criteria are met, FDA can make tests available under an emergency access mechanism called an Emergency Use Authorization (EUA). The EUA for this test is supported by the [place] of Health and Human Service's (HHS's) declaration [...] consistent with SARS-CoV-2. Performed By: #### C [facility] #### [facility] [address] [place] [address] Dr. Gabo Perez Consent for COVID Vaccineon 05-20-2022 SARS-CoV-2 (COVID-19) RNA ANDREW+probe Ql (Unsp spec) [id number] .00CD:127 Normal [facility] RAD - MISCon 05-19-2022 RAD - MISC [id number]#1 .00CD:127 Normal [facility] RAD - MISC [id number]#1 .00CD:127 Normal [facility] RAD - CT Reporton 05-17-2022 RAD - CT Report [id number]#1 .00CD:127 Normal [facility] RAD - CT Report [id number]#1 .00CD:127 Normal [facility] Ambulatory Visit Summaryon 0 05-12-2022 Ambulatory Visit Summary AINSLEY PARRA :1985 Visit Date:05/12/2022 Ambulatory Visit Instructions Your Diagnosis Gross hematuria Ureteral stone Former smoker Tests Performed Urnls Dip Stick Auto w/o Microscopy POC 46427 XR Abdomen 1 View -- Results Pending [...] Urnls Dip Stick Auto w/o Microscopy POC 12499 (05/12/2022) Bilirubin Urine Dipstick - Negative Blood Urine Dipstick - Trace-lysed Glucose Urine Dipstick - Negative Ketones Urine Dipstick - Negative Leukocytes Urine Dipstick - Trace Nitrite Urine Dipstick - Negative Protein Urine Dipstick - Negative Specific [place] Urine Dipstick - 1.020 Urine Appearance Urine [...] pass (more content not included)... Normal [facility] Patient Educationon 05-12-20 Patient Education Urology [...] these instructions at home: Medicines ? Take vbzq-qcm-tjeemlz and prescription medicines only as told by [...] 02/07/2009 Document Revised: 01/08/2020 Document Reviewed: 01/08/2020 [email or web address] Patient Education ? 2019 [employer]. [facility] Provider Letteron 05-12-2022 Provider Letter May 12, 2022 [address] [facility] [place] [address] DENISE PARRAARA 1985 To Whom It May Concern, Please excuse above patient from work. Date of Illness: From: 05/12/2022 May Return to Work On: 05/12/2022 Restrictions: Comments: Patient was seen in office for appointment and had further testing at hospital. Sincerely, Dr Martina Stephenson MD [facility] [address], [place] [address] [facility] Urology Office/Clinic Noteon 05-12-2022 Urology Office/Clinic Note [...] trace-lysed blood Pt was seen at the [facility] ER on 03/25/22 after an onset [...] Instructions: Rt. ESWL Patient Education Kidney Stones, Igpe-tk-Iaff I, Loreto Herman, personally scribed for Dr. [...] Seasonal (Hives (more content not included)... Normal [facility] Comment on above: Result Comment: Elec tronically [...] by: EMILY MARSHALL Date: 2022-05-12 18:37 Normal [facility] CT ABD/PELV WO W CONon 05-07 CT [...] EMILY MARSHALL Date: 2022-05-07 09:17 Normal [facility] Coding Summary.on 04-27-2022 Coding Summary. CD:[id number]:[id number] G h0bWw+PGhlYWQ+UZ6NFPR kQ59psJJyrB1XF0sFMX2G XMWZIEWQIS5URA6niYK8Q YzfJ4ResjSm ViqlgVZtUC09PLy5JWP3f MgaXZyooE3aaVEpW2o7Wn ZlXS36rY15ORyrHZLtYeK 3LjZpbjsgbWFy R3soYmPtzMHpGgm+PHRhY mxlIHdpZHRoPScxMDAlJy TqwLqaLC3nQk9tLYJlBHU vbGxhcHNlOiBj o5yxBSGfQYmbQO0eiYxfZ 5VucLK1TKUui5h7Bp03iV I+PFOxIZE0pYlcBQdvo62 0ElKin8btBBX4 zFRyYJkrJCQ1W73kp8B0Q HCfSTOmHEM8sMJ2iG0tpF asrmsbI9EmyGEkFlB9CJO 5vIUhvT4wmHkb fctaqV1lJsa+X34PGF0MV MXLHP8XWak4T7WiKbqlaI I+LK77MCQvOC28yVDwxSK oe7xupYc2SyBb XLUqZYK9jZhiOEotx1OcL VWhH40odMHbk3F5KKTpxT pvmMGkCnBhvXO3qE3ePFu nvafop0rcorji Amrhv8bwbc93fY25G80fM PvxHAKmLAM2OPWoIKQesC mhcr3zbN5rWj9+HVpqb0r bg7pljSf9PuPr UFLgeuPodXfyPAC5o8SwM t32P0FcdWipz9PhJuq9nh 70kUGrh7W9qHT1GLpnQVA ffD2xPNhaGeR7 KXEqGhEjcM24yBBvBOliX u4ngAgfvXysFP2nWEVozs bqQQDtiU3jYTOiiGEpwEu rCR1qDCWkvjbf v272ClAlZOY2LCFcuPVgY 1ZvcH9xHnQgQBYjONKtH4 WklMKgNGknN186QCslEuI 7UZVtnaZaM0Tk XRPwfOrrWfE9h9V1Zm7Ks 1BjlutrZLZ0QBkoYFA1Ma UhUsLkQvA3L9HgPdr5ORX msGfpFH8wJ5Ma EMFarmsvdcqovEU9PAEzL YNkrR11jJThBIubSb3da9 C8z648DNNfDQSfxR97Jx9 udDogMTBwdCBU wO5mshfou6dwsplkAsOzG GSkYGx9FJq8IGHbuQweSt EdUIO0NtQ5MXX5fTSqeQ7 qyJkvhqzjpW2c Oyc+J72zwF3zPJA9DWQ6z kahPFPbtsYqPA45RP18O2 RyPjwvdGFibGU+PGRpdiB pwRrxBY7hHpRq n5ozo8WwIGknI9UkKNIeX YxfSqc4ZEJmRCU5aDW8gU 5nYSNzXBixy0T3sDV8F9K ayqHner4fi7qr VEUyIMstE36ezINxq3V5M IJlrBE1BKFylEhuLaWfjA 93Oyc+ZAHpfJamr0IjOsu jm9yre0arvTy7 NjKjYTKzjxRzrManQST2l 0KlIh16H42wIFcuSYDqLP PwTGZsMNHveMysal4uzW2 wIi8+PGNvbCB3 nWP0wZ1yNTOvFnG5JPokC 597XjOmbPCrJwhqf5abd7 awgGk7SbRlGHLfgmGufDk xFFI7e2DvCx71 O01fYTlrYRZjGSQjNEGxG SUpfQwtnv5goJ4eAm3+PC 8fg0rqae53gN60bGB+PHR lFPE9bOnnOLsy BNKhsA8xXCbeSmZ1FMQgE cHrmR09uTXgVFgfBw1qiU yubJyiYU8hJDXugjenm08 8EaDhp8tzVDVu nECsXGqnKJW2B74uj2V5N CBsKJZvKRI1pGC5xQ3dyW lnbjogbGVmdDsgdmVydGl gPZcwUKpgZ016 IHRvcDsnPlBhdGllbnQgT nMeGVx9O4EvXjw6PXLyvW eqKZ5rvMIyADivDb8qzGy fjCasED4hHYDz sflmv358QeNrh4qgRFNoq EHmXUquUEK6C78ph0M2EH DeTILgJPV6mXP8yY2sdMy nbjogbGVmdDsg hxNlaLxiSIebCWfyQ175S HRvcDsnPkJpcnRoIERhdG S0RN50XX83pSDut0B1tFZ 4T8CbKRKvlnod cqvjiIS6OPAgIXEbbZ33P m4ztSniEn7gEPXjNGZ5BZ ZemGUiK2WoiC3rEkHoCEB qFVNuO8TvvTVa XAhjQ402JThlQwY8VZEcc cWqE6HfEJKppSeaArJ8c5 C8Ze5RI5Y1RO83SB67vEM gs6W9tRK6P5Jm YPFsanvftqnjkIR1VNJlU TBycP78Gk3juSslVc5hWD PmXPP5AYOmyUWeK9GreP8 yOiAjMDAwMDAw F5VbkSZuHLogX061EJmqN uL3YCCgylVoG7JxHCImcM cxIsT4u0F7Zb8CMZh3QH1 9QV02vQGoj9S9 kWD8T0RdYSQklvjunaubc TW8NDSgKPSrwS81Ec9viO npEv3lFGSeMKT3XAKphJL hJ3EfiU0xRxBm LFEyPKUgS6FmjHRxVBrjD 558WCscCuA7GURxlcHfA2 LaPOJmjJiqNjU1u6W8Sc9 NQKOyLO17LGO8 sLX1YL25RN83J2TzWbiiu GFibGU+PHRhYmxlIHdpZH RoPScxMDAlJyBzdHlsZT0 hDu8mAMGxLHZr aLowcTBmDyTxn7zrDYOmD YjeFJ1kmJpzO3RpcRU2ID Aqx1l2Pv49J46fQ9DzmSJ +PTBjwJN9dYY8 zZ3hDoCqBrO3HTkuF750K uEnpTCbUnivq1hhr4mrwK a7BvF1EKHlsfApcFinFFR 6y5QrWd17U66c IHdpZHRoPSIxNSUiIHZhb Bhsnb9bgV7qIy6+PGNvbC C0bRJ1xD1dMmNyOlN6ZCb pJ417ZpDvrFWm Ilpnq2mif8nlrGh5FkQjL FNosaKnmHkvEJZ4u7EiVn 15A7DoqVyee6RpYai1sf0 0tMCdg1L9oIQ1 E2UvZQExzgzspXKufMpxN F1kIFSaspalZBScxX1dGV WxJ7h8QsSgKzA2WNhqV0T rncE5MXKvzVMn AVagUXH6D90dr6B9GTExO LWfFZC0gMJ9vI3qdXcuql ogbGVmdDsgdmVydGljYWw nWXapE265YUZq wJxkJSXazL1sNSGqhVXth FcoDU8eNSWgpopvLkpIWB RILCBLRUFSQTwvdGQ+PHR eNWV0xGhnGLwl LBCaoY2tKVPsQ8r9AnRvN aZ2OCknS8MsCKHpzrbsUu 01bG2qHoZrNvO0GQpkO1L gkkY4LIDdqCJi BYutHFG9Q54xc7X3AJUxH RLiLXV7iLX6gE8uoKurmx ogbGVmdDsgdmVydGljYWw iXRhfL064JEPp mYbmGjH0LlE3GiS7BQP2N 2FxEzq5BWOivYcpTV6eqQ RbEKfeHj4ocNarzZniRQ2 wNTBpbjtwYWRk kO0cYSYwyMRuhJvoKR7kT SRramrvp169KgOoMUM2AN PhoBNxR4ZhzM1eAuAaGAA gMEOhP3XrbIJn ADtjD829RNhvPaV6FHRre uSkF6VlMHSpcVqjCsB3y3 K9Dx0rBKGZWYKncfhfdRQ +TYJoDYW8uSzd CIhzNZPgkL8dVMCyR7x9S nQzFoE0HGegS3AwWXFwvm ujWv95bA7oDoQmQaW4JVr uA0MusgE6AUOt iBYgZTgsRGX6T38ez9D6U SVuKKPrJNN8vEU0sT5msI lnbjogbGVmdDsgdmVydGl vODkgSOmqG697 IHRvcDsnPkZlbWFsZTwvd GQ+YLPqUFF8pMyxCVxiJP TohH3oXHLfM7r4VnIbJlS 2DNqbJ2KdHKXf nyilZw98mM8nSiBdGkK5D OmgQ3DljiZ2TMEwlHGsLG xmVBF1N36ug4R5VYLeHBL kNFK6wRE0hX0s bGlnbjogbGVmdDsgdmVyd VwaVClbQIryG947SCZjzP uuJq19hHWvxAmojlT9D2V kPjwvdHI+PC90 HZBqXG81tXDisETka0fab Ky9TfQrCQYkHJP9gYxeIE ttq6RfQOHeH67hgBJkw2V 6IGNvbGxhcHNl ErIsaEW1iV9xRKfznfwzv 6urcagkRstao7idri99tQ 96K45xGPepPGZhNRIgFQU sMWFldLkkzb7z uS8rAs7+ARFssLY1ePA4o P0xPtUrSoV4FZxbM452Hi YgmERyYagdy4hkv3uiyIq 9IjIwJSIgdmFs wGdmPFM9i2IbXl22N01sH HdpZHRoPSIyMCUiIHZhbG nndf8yoD1eRt2+ID8oh9q oiq06qD35fMN+ UGBsJAN0bSdzKJcqPJLhd R3wMPcqIjW5DJWyYoJenN 49oSPaNPlvBs7foWhcvUz wKM5gYDFrafqv m441AkCyl1ntTCLmxUIgQ MpgFUR2B17qq6E4IYNlNH YfWBR8lWG4fL7vkBsonqn gbGVmdDsgdmVy vFflXKzfOFxmZ392CHXbv ArwTzIuhQVhJ1pwawIUXO 1lOjwvdGQ+BTLjSNM3fFr qSIizJVAynY2t QCTqI0i8PbVxRzW3YUswS 9JfhtB1IQGmpEArOHDobV VVcI8bywlug3iczzlrHeG pCNXoIEg7ENs5 GITdrOzmFxJyWLO8KeG5H VC2yRBwdP7eaEzyfbwjuT 9wOyc+RklOOjwvdGQ+PHR oWRJ5gBahEHac DUPjeY2gBQXlQ0r6ZjAwY jI3ERgxY6SimtS0UJWwfV PeSAWrtGARyJ6tcwmhc1x vcjogIzAwMDAw CJw2LHv7VQPqgBlsVyZkN JD0AxH7WRI6vYNqdJ3kfB ibvbhfyC1mZjw+TVJOOjw vdGQ+PHRkIHN0 rKvqAIkyTCZnyX6nCBRxK 9f5ZyVfFmJ4ZMpsC6Onyx M6AZVccMRhHRHpbUZEiJ0 ylnudo7slbqkg XiSfWUIyMAj7UKd4EQXyw RrxSoJoNDU4VyM2IFN8iK SnkL4ihOycwxudhQ7uSww +HCF7TZP6SM15 LK33Y9AoUiqjhPAktIF+P HRhYmxlIHdpZHRoPScxMD FeVoVbyBtsMH0oQk3vZSU yLWNvbGxhcHNl OiBj (more content not included)... Normal [facility] Consent for Procedure/Surger yon 04-26-2022 Consent for Procedure/Surgery [id number]# 1.00CD:127 Normal [facility] Consent for Treatmenton 04-06 Consent for Treatment [id number]#1 .00CD:127 Normal [facility] Inpatient Patient Summaryon 04-26-2022 Inpatient Patient Summary [place] [id number] Clinical Summary Person Information Name: AINSLEY PARRA Age: 37 Years : 1985 Sex: Female PCP: SANIA GILMORE DO Marital Status: Single Race: White Ethnicity: Non- or Language: Paraguayan Visit Id: Visit Reason: GROSS HEMATURIA Speciality: Acuity: Enc Type: Outpatient Med Service: Surgery Arrival: 04/26/2022 08:23:40 Discharge: Dispo Type: Address: [address] [place] [address] DR MARIA TERESA KATZ [place] [id number] Provider Notes: Diagnosis: Gross hematuria Problems Active [...] Follow up: With: Address: When: Martina Stephenson [address] [place] [address], [place] [address], [place] [phone] [facility] (1) Comments: Call for followup appointment in [address] scan With: Address: When: Martina Stephenson Patient Education Information: EU - Cystoscopy Discharge Instructions (CUSTOM) [facility] IntraOperative Documentson 0 04-26-2022 IntraOperative Documents [id number]# 1.00CD:127 [facility] Main OR Intraoperative Recor don 04-26-2022 Main OR Intraoperative Record IntraOp Document Type FTURO Summary Primary Physician: Martina Stephenson MD Finalized Date/Time: 04/26/22 09:29:52 Pt. Name: AINSLEY PARRA/Sex: 1985 Female Med Rec #: [id number] Physician: Martina Stephenson MD Financial #: [id number] Pt. Type: O Room/Bed: / Admit/Disch: 04/26/22 08:23:40 - Institution: Case Times FTURO Entry 1 Patient Times In Room 04/26/22 09:20:00 Out Room 04/26/22 09:29:00 Procedure Times Start 04/26/22 09:23:00 Stop 04/26/22 09:28:00 Anesthesia Times Last Modified By: Juliana Hills RN 04/26/22 09:29:47 Case Attendance FTURO Entry 1 Entry 2 Entry 3 Case Attendee Sachin PANTOJA, Martina Neal LIMOUSINE RENTAL CLERK, Juliana Hills RN, Juliana Corrales Role Performed Surgeon - Primary Scrub - Primary City Administrator - Primary Time In 04/26/22 09:20:00 04/26/22 [...] By: Juliana Hills RN 04/26/22 09:29 Normal [facility] Main OR Preoperative Recordo n 04-26-2022 Main OR Preoperative Record Holding Area Document Type FTURO Summary Primary Physician: Martina Stephenson MD Finalized Date/Time: 04/26/22 08:49:24 Pt. Name: AINSLEY PARRA/Sex: 1985 Female Med Rec #: [id number] Physician: Martina Stephenson MD Financial #: [id number] Pt. Type: O Room/Bed: / Admit/Disch: 04/26/22 [...] CHRISTIANO Cramer RN, Ruthann 04/26/22 08:49 Normal [facility] Operative Reporton Operative Report Patient: AWAIS PARRA Age: 37 years Sex: Female : 1985 Associated Diagnoses: None Author: Martina Stephenson MD Procedure Operative Information Details: Date/ Time: 04/26/2022 09:32:00. Pre-Op Dx: Gross hematuria (OBF70-CZ R31.0, Discharge, Medical). Post-Op Dx: Same. Anesthesia [...] up after CTU completed (scheduled 05/07/22).. Normal [facility] Comment on above: Result Comment: Elec tronically Signed By: Martina Stephenson MD\.br\Date and Time Signed: 04/26/22 09:35 EDT Outpatient Surgery Discharge Instructionon 04-26-2022 Outpatient Surgery Discharge Instruction [place] [id number] Patient Discharge Instructions PERSON INFORMATION Name: AINSLEY [...] Follow up: With: Address: When: Martina Stephenson [address] [place] [phone] [facility] (1) Comments: Call for followup appointment in [...] Date You may receive a survey from [employer] asking you to rate your care experience. Your feedback is important and will help us understand what we do well and how we can improve the quality of care we provide to you, your loved ones and our community. It?s an honor to serve you. Thank you for choosing [facility] Normal [facility] Formson 04-19-2022 Forms [id number] .00CD:127 Normal [facility] Urine Cytology ([facility])on 0 04-19-2022 Urine Cytology Diagnosis Info Invalid Interpretation Code [facility] Comment on above: Result Comment: A:Ur ine,Urine:Voided Interpretation - Adequate cellularity for evaluation. MicroScopic Description - Adequacy - Adequate cellularity for evaluation. Gross Description Site ID:A color Yellow fixative Alcohol Specimen designated Urine received in alcohol preservative and labeled with the patient?s name, consists of 60ml slightly cloudy yellow fluid. One non-soda dispenser cytology slide prepared. Electronically signed by : on: 04/19/2022 10:28:17 Performed By: #### 1 [id number] ####[facility] [address] [place] [address] Patient Educationon 04-14-20 Patient Education Urology Hematuria, [...] these instructions at home: Medicines ? Take whzr-qip-mmfduvy and prescription medicines only as told by [...] the blood stops without treatment. ? Take zcff-ufp-nblntkq and prescription medicines only as told by [...] Reviewed: 09/24/2017 Elsevier Patient Education ? 2019 [employer] Normal [facility] Urine Cytology ([facility])on 0 04-14-2022 Method of Extraction Voided Normal [facility] Comment on above: Performed By: #### 1 [id number] ####[facility] [address] [facility] [place] [address] Number of Jars 1 Invalid Interpretation Code [facility] Comment on above: Performed By: #### 1 [id number] ####[facility] [address] [place] [address] Specimen Clean Catch Normal [facility] Comment on above: Performed By: #### 1 [id number] ####[facility] [address] [place] [address] Type of Service Technical Only Normal [facility] Comment on above: Performed By: #### 1 [id number] ####[facility] [address] [place] [address] Urology Office/Clinic Noteon 04-14-2022 Urology Office/Clinic Note Chief Complaint Follow up from [facility] HPI Staff Ainsley is here today as anew patient follow up from [facility] for hematuria. Pt was seen [...] of Present Illness Tests Reviewed: Reviewed UA, [facility] paperwork labs and external records [...] Gross hematuria) Pt was seen at the [facility] on 03/25/22 after an onset [...] infection, malignancy, renal dysfunction. 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 -Discussed appropriate hydration and behavioral modifications. [...] and de (more content not included)... Normal [facility] Comment on above: Result Comment: Elec tronically Signed By: Martina Stephenson MD\.br\Date and Time Signed: 04/14/22 13:26 EDT\.br\Electronically Co-Signed By: Patsy Sheffield\.br\Date and Time Co-Signed: 04/14/22 12:09 EDT CBC AUTO DIFFon 03-25-2022 BASO # 0.0 103/ul Normal 0.0-0.1 [facility] Comment on above: Performed By: #### C #### [facility] [address] [place] [address] Dr. Gabo Perez Basophils/100 WBC (Bld) 0.4 % Normal 0.2-2.0 [facility] Comment on above: Performed By: #### C BC #### [facility] [address] [place] [address] Dr. Gabo Perez EO # 0.4 103/ul Normal 0.0-0.7 [facility] Comment on above: Performed By: #### C BC #### [facility] [address] [place] [address] Dr. Gabo Perez Eosinophils/100 WBC (Bld) 3.5 % Normal 0.9-7.0 [facility] Comment on above: Performed By: #### C BC #### [facility] [address] [place] [address] Dr. Gabo Perez Erythrocyte distribution width (RBC) [Ratio] 12.1 % Normal 11.0-15.0 [facility] Comment on above: Performed By: #### C BC #### [facility] [address] [place] [address] Dr. Gabo Perez Hematocrit (Bld) [Volume fraction] 39.0 % Normal 36.0-48.0 [facility] Comment on above: Performed By: #### C BC #### [facility] [address] [place] [address] Dr. Gabo Perez Hemoglobin (Bld) [Mass/Vol] 13.2 g/dL Normal 12.0-16.0 [facility] Comment on above: Performed By: #### C BC #### [facility] [address] [place] [address] Dr. Gabo Perez IG # 0.03 10e3/ul Normal 0.00-0.03 [facility] Comment on above: Performed By: #### C BC #### [facility] [address] [place] [address] Dr. Gabo Perez IG % 0.3 % Normal 0.0-0.5 [facility] Comment on above: Performed By: #### C BC #### [facility] [address] [place] [address] Dr. Gabo Perez LYMPH # 2.8 103/ul Normal 1.2-3.8 [facility] Comment on above: Performed By: #### C BC #### [facility] [address] [place] [address] Dr. Gabo Perez Lymphocytes/100 WBC (Bld) 24.3 % Normal 20.5-60.0 [facility] Comment on above: Performed By: #### C BC #### [facility] [address] [place] [address] Dr. Gabo Perez MANUAL DIFF REQ NO Normal [facility] Comment on above: Performed By: #### C BC #### [facility] [address] [place] [address] Dr. Gabo Perez MCH (RBC) [Entitic mass] 30.1 pg Normal 26.7-34.0 [facility] Comment on above: Performed By: #### C BC #### [facility] [address] [place] [address] Dr. Gabo Perez MCHC (RBC) [Mass/Vol] 33.8 g/dL Normal 29.9-35.2 [facility] Comment on above: Performed By: #### C BC #### [facility] [address] [place] [address] Dr. Gabo Perez MCV (RBC) [Entitic vol] 88.8 fL Normal 81.0-99.0 [facility] Comment on above: Performed By: #### C BC #### [facility] [address] [place] [address] Dr. Gabo Perez MONO # 0.8 103/ul Normal 0.3-0.8 [facility] Comment on above: Performed By: #### C BC #### [facility] [address] [place] [address] Dr. Gabo Perez Monocytes/100 WBC (Bld) 6.6 % Normal 1.7-12.0 [facility] Comment on above: Performed By: #### C BC #### [facility] [address] [place] [address] Dr. Gabo Perez NEUT # 7.4 103/ul Critically high 1.4-6.5 [facility] Comment on above: Performed By: #### C BC #### [facility] [address] [place] [address] Dr. Gabo Perez Neutrophils/100 WBC (Bld) 64.9 % Normal 43.0-75.0 [facility] Comment on above: Performed By: #### C BC #### [facility] [address] [place] [address] Dr. Gabo Perez Platelet mean volume (Bld) [Entitic vol] 12.0 fL Normal 9.5-13.5 [facility] Comment on above: Performed By: #### C BC #### [facility] [address] [place] [address] Dr. Gabo Perez PLT 229 103/ul Normal 150-450 [facility] Comment on above: Performed By: #### C BC #### [facility] [address] [place] [address] Dr. Gabo Perez RBC 4.39 106/ul Normal 4.20-5.40 [facility] Comment on above: Performed By: #### C BC #### [facility] [address] [place] [address] Dr. Gabo Perez WBC 11.4 103/ul Critically high 4.0-11.0 [facility] Comment on above: Performed By: #### C BC #### [facility] [address] [place] [address] Dr. aGbo Perez ER URINE PROFILEon 2 Bilirubin Ql (U) Negative Normal NEGATIVE [facility] Comment on above: Performed By: #### P REGQNT #### [facility] [address] [place] [address] Dr. Gabo Perez Clarity (U) CLEAR Normal CLEAR [facility] Comment on above: Performed By: #### P REGQNT #### [facility] [address] [place] [address] Dr. Gabo Perez Color (U) RED Abnormal YELLOW [facility] Comment on above: Performed By: #### P REGQNT #### [facility] [address] [place] [address] [address] Gabo REED A micrscopic examination will be performed if indicated. Normal [facility] Comment on above: Performed By: #### P REGQNT #### [facility] [address] [place] [address] [address] Gabo Perez Glucose Ql (U) Negative Normal NEGATIVE [facility] Comment on above: Performed By: #### P REGQNT #### [facility] [address] [place] [address] [address] Gabo Perez Hemoglobin Ql (U) LARGE Abnormal NEGATIVE [facility] Comment on above: Performed By: #### P REGQNT #### [facility] [address] [place] [address] Dr. Gabo Perez Ketones Ql (U) TRACE Abnormal NEGATIVE [facility] Comment on above: Performed By: #### P REGQNT #### [facility] [address] [place] [address] Dr. Gabo Perez LEUKOCYTES TRACE Abnormal NEGATIVE [facility] Comment on above: Performed By: #### P REGQNT #### [facility] [address] [place] [address] [address] Gabo Perez Nitrite Ql (U) Negative Normal NEGATIVE [facility] Comment on above: Performed By: #### P REGQNT #### [facility] [address] [place] [address] [address] Gabo Perez pH (U) 8.0 [pH] Normal 5-9 [facility] Comment on above: Performed By: #### P REGQNT #### [facility] [address] [place] [address] [address] Gabo Perez Protein (U) [Mass/Vol] 30 mg/dL Abnormal NEGATIVE/ TRACE [facility] Comment on above: Performed By: #### P REGQNT #### [facility] [address] [place] [address] Dr. Gabo Perez SPEC GRAVITY 1.015 Normal 1.005-<=1.02 5 [facility] Comment on above: Performed By: #### P REGQNT #### [facility] [address] [place] [address] [address] Gabo Perez UR MICRO IND INDICATED Normal [facility] Comment on above: Performed By: #### P REGQNT #### [facility] [address] [place] [address] [address] Gabo Perez Urobilinogen Qn (U) 1.0 {Lucas'U}/dL Normal 0.2 - 1. 0 [facility] Comment on above: Performed By: #### P REGQNT #### [facility] [address] [place] [address] [address] Gabo Perez URon 03-25-2022 , QUAL Negative Normal NEGATIVE [facility] Comment on above: Performed By: #### P REGQNT #### [facility] [address] [place] [address] Dr. Gabo Perez PROF CHEM 8 (BAS METB)on Anion gap [Moles/Vol] 15.1 mmol/L Normal [facility] Comment on above: Performed By: #### B MP #### [facility] [address] [place] [address] [address] Gabo Perez Calcium [Mass/Vol] 8.5 mg/dL Normal 8.5-10.1 [facility] Comment on above: Performed By: #### B MP #### [facility] [address] [place] [address] [address] Gabo Perez Chloride [Moles/Vol] 106 mmol/L Normal 98-107 [facility] Comment on above: Performed By: #### B MP #### [facility] [address] [place] [address] [address] Gabo Perez CO2 [Moles/Vol] 23.8 mmol/L Normal 21.0-32.0 [facility] Comment on above: Performed By: #### B MP #### [facility] [address] [place] [address] [address] Gabo Perez Creatinine [Mass/Vol] 1.16 mg/dL Critically high 0.55-1.02 [facility] Comment on above: Performed By: #### B MP #### [facility] [address] [place] [address] [address] Gabo Perez EGFR-AF [place] >60 Normal >=60 [facility] Comment on above: Performed By: #### B MP #### [facility] [address] [place] [address] [address] Gabo Perez EGFR-NON AF [place] 52 mL/min/1.73m2 Critically low >=60 [facility] Comment on above: Performed By: #### B MP #### [facility] [address] [place] [address] [address] Gabo Perez Glucose [Mass/Vol] 84 mg/dL Normal 74-106 [facility] Comment on above: Performed By: #### B MP #### [facility] [address] [place] [address] [address] Gabo Perez Potassium [Moles/Vol] 3.9 mmol/L Normal 3.5-5.1 [facility] Comment on above: Performed By: #### B MP #### [facility] [address] [place] [address] [address] Gabo Perez Sodium [Moles/Vol] 141 mmol/L Normal 136-[address] [facility] Comment on above: Performed By: #### B MP #### [facility] [address] [place] [address] [address] Gabo Perez Urea nitrogen [Mass/Vol] 15.0 mg/dL Normal 7.0-18.0 [facility] Comment on above: Performed By: #### B MP #### [facility] [address] [place] [address] [address] Gabo Perez Urea nitrogen/Creatinine [Mass ratio] 12.9 mg/mg Normal [facility] Comment on above: Performed By: #### B MP #### [facility] [address] [place] [address] [address] Gabo Perez URINE MICROSCOPIC ONLYon BACTERIA TRACE Abnormal NONE SEEN [facility] Comment on above: Performed By: #### P REGQNT #### [facility] [address] [place] [address] Dr. Gabo Perez Bacteria identified Cx Nom (U) NOT INDICATED Normal [facility] Comment on above: Performed By: #### P REGQNT #### [facility] [address] [place] [address] Dr. Gabo Perez CAST NONE SEEN Normal NONE SEEN [facility] Comment on above: Performed By: #### P REGQNT #### [facility] [address] [place] [address] Dr. Gabo Perez Crystals LM Nom (Urine sed) NONE SEEN Normal NONE SEEN [facility] Comment on above: Performed By: #### P REGQNT #### [facility] [address] [place] [address] Dr. Gabo Perez Epithelial cells LM Ql (Urine sed) RARE Normal NONE SEEN /RARE [facility] Comment on above: Performed By: #### P REGQNT #### [facility] [address] [place] [address] Dr. Gabo Perez MUCOUS NONE SEEN Normal NONE SEEN [facility] Comment on above: Performed By: #### P REGQNT #### [facility] [address] [place] [address] Dr. Gabo Perez RBC (U) [#/Vol] /uL Abnormal 0-2 [facility] Comment on above: Performed By: #### P REGQNT #### [facility] [address] [place] [address] Dr. Gabo Perez WBC 0-2 Abnormal NONE SEEN [facility] Comment on above: Performed By: #### P REGQNT #### [facility] [address] [place] [address] Dr. Gabo Perez COVID Quick Testingon 2021 Result Positive Disconnect Other GLUCOSE, BLOOD (POC)on 03-09 Glucose [Mass/Vol] 108 mg/dL Abnormal 74 - 99 mg/dL [facility] FREE T4on 01-18-2022 Free T4 [Mass/Vol] 0.30 ng/dL Critically low 0.76-1.46 [facility] Comment on above: Performed By: #### P REGQNT #### [facility] [address] [place] [address] [address] Gabo Perez LIPID PROFILEon 01-18-2022 CHOL-HDL RATIO NORM SEE BELOW Normal [facility] Comment on above: Result Comment: 3.3 - 4.4 LOW RISK 4.4 - 7.1 AVERAGE RISK 7.1 - 11.0 MODERATE RISK >11.0 HIGH RISK Performed By: #### C MP, LIPID, TSH #### [facility] [address] [place] [address] [address] Gabo Perez Cholesterol [Mass/Vol] 238 mg/dL Critically high <=200 [facility] Comment on above: Performed By: #### C MP, LIPID, TSH #### [facility] [address] [place] [address] [address] Gabo Perez Cholesterol in HDL [Mass/Vol] 61 mg/dL Critically high 40-60 [facility] Comment on above: Performed By: #### C MP, LIPID, TSH #### [facility] [address] [place] [address] [address] Gabo Perez Cholesterol in LDL [Mass/Vol] 161.4 mg/dL Normal [facility] Comment on above: Performed By: #### C MP, LIPID, TSH #### [facility] [address] [place] [address] [address] Gabo Perez Cholesterol.total/Ch olesterol in HDL [Mass ratio] 3.9 {ratio} Normal [facility] Comment on above: Performed By: #### C MP, LIPID, TSH #### [facility] [address] [place] [address] [address] Gabo Perez HDL NORMAL > or = 60 mg/dl - LO W CARDIOVASCULAR RISK <40 mg/dl - HIGH CARDIOVASCULAR RISK Normal [facility] Comment on above: Performed By: #### C MP, LIPID, TSH #### [facility] [address] [place] [address] [address] Gabo Perez LDL CALC NORMAL SEE BELOW Normal [facility] Comment on above: Result Comment: <100 mg/dl OPTIMAL 100 - 129 mg/dl NEAR OR ABOVE OPTIMAL 130 - 159 mg/dl BORDERLINE HIGH 160 - 189 mg/dl HIGH >190 mg/dl VERY HIGH Performed By: #### C MP, LIPID, TSH #### [facility] [address] [place] [address] Dr. Gabo Perez Triglyceride [Mass/Vol] 78 mg/dL Normal <=150 [facility] Comment on above: Performed By: #### C MP, LIPID, TSH #### [facility] [address] [place] [address] Dr. Gabo Perez VLDL CALC 15.6 mg/dL Normal [facility] Comment on above: Performed By: #### C MP, LIPID, TSH #### [facility] [address] [place] [address] Dr. Gabo Perez PROF 14(COMP METB)on 022 Albumin [Mass/Vol] 3.6 g/dL Normal 3.4-5.0 [facility] Comment on above: Performed By: #### C MP, LIPID, TSH #### [facility] [address] [place] [address] Dr. Gabo Perez Albumin/Globulin [Mass ratio] 1.0 {ratio} Normal [facility] Comment on above: Performed By: #### C MP, LIPID, TSH #### [facility] [address] [place] [address] Dr. Gabo Perez ALP [Catalytic activity/Vol] 56 U/L Normal 46-116 [facility] Comment on above: Performed By: #### C MP, LIPID, TSH #### [facility] [address] [place] [address] Dr. Gabo Perez ALT [Catalytic activity/Vol] 25 U/L Normal 14-59 [facility] Comment on above: Performed By: #### C MP, LIPID, TSH #### [facility] [address] [place] [address] Dr. Gabo Perez Anion gap [Moles/Vol] 11.3 mmol/L Normal [facility] Comment on above: Performed By: #### C MP, LIPID, TSH #### [facility] [address] [address] [address] Gabo Perez AST [Catalytic activity/Vol] 13 U/L Critically low 15-37 [facility] Comment on above: Performed By: #### C MP, LIPID, TSH #### [facility] [address] [address] [address] Gabo Perez Bilirubin [Mass/Vol] 0.5 mg/dL Normal 0.2-1.0 [facility] Comment on above: Performed By: #### C MP, LIPID, TSH #### [facility] [address] [address] [address] Gabo Perez Calcium [Mass/Vol] 8.7 mg/dL Normal 8.5-10.1 [facility] Comment on above: Performed By: #### C MP, LIPID, TSH #### [facility] [address] [address] [address] Gabo Perez Chloride [Moles/Vol] 103 mmol/L Normal 98-107 [facility] Comment on above: Performed By: #### C MP, LIPID, TSH #### [facility] [address] [address] [address] Gabo Perez CO2 [Moles/Vol] 28.8 mmol/L Normal 21.0-32.0 [facility] Comment on above: Performed By: #### C MP, LIPID, TSH #### [facility] [address] [address] [address] Gabo Perez Creatinine [Mass/Vol] 0.83 mg/dL Normal 0.55-1.02 [facility] Comment on above: Performed By: #### C MP, LIPID, TSH #### [facility] [address] [address] [address] Gabo Perez EGFR-AF NORTHERN IRISH >60 Normal >=60 [facility] Comment on above: Performed By: #### C MP, LIPID, TSH #### [facility] [address] [address] [address] Gabo Perez EGFR-NON AF NORTHERN IRISH >60 Normal >=60 [facility] Comment on above: Performed By: #### C MP, LIPID, TSH #### [facility] [address] [address] [address] Gabo Perez Globulin (S) [Mass/Vol] 3.6 g/dL Normal [facility] Comment on above: Performed By: #### C MP, LIPID, TSH #### [facility] [address] [address] [address] Gabo Perez Glucose [Mass/Vol] 95 mg/dL Normal 74-[address] [facility] Comment on above: Performed By: #### C MP, LIPID, TSH #### [facility] [address] [place] [address] Dr. Gabo Perez Potassium [Moles/Vol] 4.1 mmol/L Normal 3.5-5.1 [facility] Comment on above: Performed By: #### C MP, LIPID, TSH #### [facility] [address] [place] [address] Dr. Gabo Perez Protein [Mass/Vol] 7.2 g/dL Normal 6.4-8.[address] [facility] Comment on above: Performed By: #### C MP, LIPID, TSH #### [facility] [address] [address] [address] Gabo Perez Sodium [Moles/Vol] 139 mmol/L Normal 136-145 [facility] Comment on above: Performed By: #### C MP, LIPID, TSH #### [facility] [address] [place] [address] Dr. Gabo Perez Urea nitrogen [Mass/Vol] 9.0 mg/dL Normal 7.0-18.0 [facility] Comment on above: Performed By: #### C MP, LIPID, TSH #### [facility] [address] [place] [address] Dr. Gabo Perez Urea nitrogen/Creatinine [Mass ratio] 10.8 mg/mg Normal [facility] Comment on above: Performed By: #### C MP, LIPID, TSH #### [facility] [address] [place] [address] Dr. Gabo Perez TSHon 01-18-2022 TSH 111.464 uIU/mL Critically high 0.358-3.740 [facility] Comment on above: Result Comment: REPE ATED FOR VERIFICATION Performed By: #### C MP, LIPID, TSH #### [facility] [address] [place], [place] [address] Dr. Gabo Perez TSH RANGE SEE BELOW Normal [facility] Comment on above: Result Comment: <0.3 4 UIU/ml HYPERTHYROID 0.34-5.60 UIU/ml EUTHYROID >5.60 UIU/ml HYPOTHYROID Performed By: #### C MP, LIPID, TSH #### [facility] [address] [place], [place] [address] Dr. Gabo Perez Urinalysis - AUTOMATEDon Appearance (U) cloudy [employer] Other Bilirubin Ql (U) Negative 20/20 [employer] Other Color (U) dark yellow [facility] Other Glucose Ql (U) Negative [employer] Other Hemoglobin Ql (U) large Streak Other Ketones Ql (U) trace [employer] Other Leukocyte esterase Test strip Ql (U) [employer] Other Nitrite Ql (U) Positive [employer] Other pH (U) 6.5 [pH] [facility] Other Protein Ql (U) 100 [employer] Other Specific gravity (U) [Rel density] >1.030 [facility] Other Urobilinogen (U) [Mass/Vol] 1.0 mg/dL [facility] Other Urinalysis - AUTOMATED [facility] Other Urine Cultureon 12-02-2021 Bacteria identified Cx Nom (U) Reason for Exam Dysuria Urine ORGANISM: Escherichia coli (O:ESCCOL) [place] Count >100,000 Aerobic CECE Charge (NUC86) ---- [...] RESISTANT TO ALL B-LACTAM DRUGS. PERFORMED BY: [place] [address] PATHOLOGIST LOT BOSS BARAK ARRIAZA M.D. [facility] Comment on above: Performed By: #### C UU #### [address] Vital Signs Date Time Vital Sign Value Performing Clinician Facility 01-12-2023 08:46-0400 Blood Pressure Location Martina Stephenson [facility] 01-12-2023 08:46-0400 Diastolic blood pressure 74 mm[Hg] Martina Stephenson [facility] 01-12-2023 08:46-0400 Heart rate 68 /min Martina Lue [facility] 01-12-2023 08:46-0400 Respiratory rate 16 /min Martina Lue [facility] 01-12-2023 08:46-0400 Systolic blood pressure 128 mm[Hg] Martina Lue [facility] 06-02-2022 16:55-0400 Diastolic blood pressure 86 mm[Hg] DO Sania Rumschlag Work Phone: [facility] 06-02-2022 16:55-0400 Heart rate 73 /min DO Sania Rumschlag Work Phone: [facility] 06-02-2022 16:55-0400 Respiratory rate 16 /min DO Sania Rumschlag Work Phone: [facility] 06-02-2022 16:55-0400 SaO2% (BldA) [Mass fraction] 100 % DO Sania Rumschlag Work Phone: [facility] 06-02-2022 16:55-0400 Systolic blood pressure 114 mm[Hg] DO Sania Rumschlag Work Phone: [facility] 06-02-2022 16:10-0400 Inhaled oxygen flow rate 6 L/min DO Sania Rumschlag Work Phone: [facility] 06-02-2022 15:16-0400 Body mass index (BMI) [Ratio] 37.3 kg/m2 DO Sania Rumschlag Work Phone: [facility] 06-02-2022 13:55-0400 Body height 153.67 cm DO Sania Rumschlag Work Phone: [facility] 06-02-2022 13:55-0400 Body weight 87.99 kg DO Sania Rumschlag Work Phone: [facility] 06-02-2022 12:12-0400 Body temperature 97.9 [degF] DO Sania Rumschlag Work Phone: [facility] 05-12-2022 08:06-0400 Blood Pressure Location Martina Lue [facility] 05-12-2022 08:06-0400 Diastolic blood pressure 65 mm[Hg] Martina Lue [facility] 05-12-2022 08:06-0400 Heart rate 71 /min Martina Lue [facility] 05-12-2022 08:06-0400 Respiratory rate 16 /min Martina Lue [facility] 05-12-2022 08:06-0400 Systolic blood pressure 108 mm[Hg] Martina Lue [facility] 04-14-2022 11:31-0400 Blood Pressure Location Martina Lue [facility] 04-14-2022 11:31-0400 Diastolic blood pressure 76 mm[Hg] Martina Lue [facility] 04-14-2022 11:31-0400 Heart rate 71 /min Martina Lue [facility] 04-14-2022 11:31-0400 Respiratory rate 16 /min Mart[facility] Lue [facility] 04-14-2022 11:31-0400 Systolic blood pressure 113 mm[Hg] Martina Stephenson [facility] 03-15-2022 11:10-0400 Body height 153.67 cm Sherine Barrientosault Other [facility] Other 03-15-2022 11:10-0400 Body mass index (BMI) [Ratio] 37.26 kg/m2 Sherine Barrientosault Other [facility] Other 03-15-2022 11:10-0400 Body temperature 98 [degF] Sherine Barrientosault Other [facility] Other 03-15-2022 11:10-0400 Body weight 88 kg Sherine Barrientosault Other [facility] Other 03-15-2022 11:10-0400 Respiratory rate 18 /min Sherine Renee Other [facility] Other 03-15-2022 11:10-0400 SaO2% (BldA) [Mass fraction] 98 % Sherine Barrientosault Other [facility] Other 03-09-2022 10:49-0400 Body weight 88 kg Patti Vences MD Work Phone: [facility] 03-09-2022 10:49-0400 Diastolic blood pressure 68 mm[Hg] Patti Vences MD Work Phone: [facility] 03-09-2022 10:49-0400 Heart rate 76 /min Patti Vences MD Work Phone: [facility] 03-09-2022 10:49-0400 Systolic blood pressure 100 mm[Hg] Patti Vences MD Work Phone: [facility] 12-02-2021 17:00-0400 Body height 153.67 cm Linda Leon Other [facility] Other 12-02-2021 17:00-0400 Body mass index (BMI) [Ratio] 37.64 kg/m2 Linda Leon Other [facility] Other 12-02-2021 17:00-0400 Body temperature 97.9 [degF] Linda Leon Other [facility] Other 12-02-2021 17:00-0400 Body weight 88.91 kg Linda Leon Other [facility] Other 12-02-2021 17:00-0400 Diastolic blood pressure 85 mm[Hg] Linda Leon Other [facility] Other 12-02-2021 17:00-0400 Respiratory rate 18 /min Linda Leon Other [facility] Other 12-02-2021 17:00-0400 SaO2% (BldA) [Mass fraction] 99 % Linda Leon Other [facility] Other 12-02-2021 17:00-0400 Systolic blood pressure 120 mm[Hg] Linda Carolyn Other [facility] Other Encounters Encounter Date Encounter Type Care Provider Facility Start: 08-05-2023 ambulatory Patti calrk MD Work Phone: Endocrinology Comment on above: labs Start: 08-05-2023 E-mail encounter fro m caregiver Patti Vences MD Work Phone: [facility] Start: 08-04-2023 End: 08-04-2023 ambulatory PATTI VENCES Facility:[facility] Start: 04-20-2023 ambulatory Martina Stephenson Facility:[facility] [place] Start: 04-15-2023 End: 04-15-2023 ambulatory Patti Vences MD Work Phone: Endocrinology Comment on above: 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) Start: 04-15-2023 End: 04-15-2023 Telemedicine consultation with patient Patti Vences MD Work Phone: [facility] Start: 04-11-2023 End: 04-11-2023 ambulatory PATTI VENCES Facility:[facility] Start: 01-12-2023 End: 01-13-2023 ambulatory Martina Stephenson Facility:[facility] [place] Start: 01-12-2023 End: 01-12-2023 Patient encounter procedure Martina Stephenson [facility] Start: 01-03-2023 End: 01-04-[address] PASQUALE WILKES Facility:[facility] Start: 01-03-2023 End: 01-04-2023 ambulatory SANIA GILMORE Facility:[facility] Start: 11-26-2022 End: 11-26-[address] VLADIMIR JOHNSON . Facility:[facility] Start: 11-16-2022 Encounter for preprocedural cardiovascular examination DR VLADIMIR JOHNSON . [facility] Start: 11-16-2022 Encounter for preprocedural respiratory examination DR VLADIMIR JOHNSON . [facility] Start: 11-12-2022 End: 11-13-2022 ambulatory SANIA GILMORE Facility:[facility] Start: 11-12-2022 End: 11-13-2022 Encounter for preprocedural cardiovascular examination SANIA GILMORE Facility:[facility] Start: 09-23-2022 End: 09-24-2022 ambulatory SANIA RUMSCHLAG Facility: Start: 09-20-[address] DOCTOR VILLAFUERTE Facility :[facility] Start: 09-01-2022 End: 09-01-[address] VLADIMIR JOHNSON . Facility:[facility] Start: 07-14-2022 End: 07-15-2022 ambulatory SANIA DEIRDRE Facility:[facility] Start: 07-09-2022 End: 07-10-[address] EMILY MARSHALL Facility:[facility] Start: 07-05-2022 End: 07-06-[address] EMILY MARSHALL Facility: Start: 06-07-2022 End: 06-08-2022 ambulatory SANIA RUMSCHBONG [facility] Start: 06-07-2022 End: 06-07-2022 Patient encounter procedure Martina Stephenson [facility] Start: 06-02-2022 Encounter for preprocedural laboratory examination MARTINA STEPHENSON . [facility] Start: 06-02-2022 End: 06-02-2022 ambulatory Martina Stephenson Facility:[facility] Start: 06-02-2022 End: 06-02-2022 Admission to same day surgery center DO Sania Rumschlag Work Phone: [facility] Start: 06-02-2022 End: 06-03-2022 ambulatory DO Sania Rumschlag Work Phone: [facility] Work Phone: Start: 05-31-2022 End: 06-01-2022 ambulatory MARTINA STEPHENSON . Facility:[facility] Start: 05-31-2022 End: 06-01-2022 Encounter for preprocedural laboratory examination MARTINA STEPHENSON . Facility:[facility] Start: 05-12-2022 End: 05-13-[address] EMILY MARSHALL Facility:[facility] Start: 05-12-2022 End: 05-12-2022 Patient encounter procedure Martina Stephenson [facility] Start: 05-07-2022 End: 05-08-2022 ambulatory Patti Vences MD Work Phone: Endocrinology Comment on above: Labs Start: 04-26-2022 End: 04-27-2022 ambulatory SANIA RUMSCHLAG [place] Start: 04-26-2022 End: 04-26-2022 Patient encounter procedure Martina MDemario Medelchelsea [facility] Start: 04-14-2022 End: 04-15-2022 ambulatory SANIA RUMSCHLAG Facility:[facility] Start: 04-14-2022 End: 04-14-2022 Patient encounter procedure Martina ReganDemario [place]el[place] [facility] Start: 03-25-2022 End: 03-25-2022 ambulatory RAMAN DARLING . Facility: Start: 03-15-2022 End: 03-15-2022 ambulatory Sherine Renee Other [facility] Other Start: 03-15-2022 Office outpatient vi sit 15 minutes Sherine Renee [facility] Start: 03-10-2022 ambulatory Patti clark MD Work Phone: Endocrinology Comment on above: labs Start: 03-10-2022 E-mail encounter fro m caregiver Patti Vences MD Work Phone: [facility] Start: 03-09-2022 Telephone encounter Patti Vences MD Work Phone: Endocrinology Comment on above: Patient Update Start: 03-09-2022 End: 03-09-2022 Patient encounter procedure Patti Vences MD Work Phone: Endocrinology Comment on above: 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); Impaired fasting glucose Start: 01-18-2022 End: 01-19-[address] DOCTOR VILLAFUERTE Facility:[facility] Start: 12-04-2021 End: 12-04-2021 ambulatory Linda Leon Other [facility] Other Start: 12-04-2021 Telephone encounter Linda MAR[facility] Start: 12-02-2021 End: 12-02-2021 ambulatory Linda Leon [employer] Other Start: 12-02-2021 Office outpatient vi sit 25 minutes Linda Leon [facility] Procedures Date Procedure Procedure Detail Performing Clinician Start: 09-05-2022 Endometrial ablation Ka thy Lue Start: 06-07-2022 Cystoscopic removal of ureteric stent Martina Lue Start: 06-02-2022 Cystoscopy DO Sania reynolds Work Phone: Start: 06-02-2022 Cystoscopy Martina Lue Start: 04-26-2022 Cystoscopy Martina Lue Start: 03-09-2022 Gluc bld gluc mntr d ev cleared fda spec home use Patti Vences MD Work Phone: Tubal ligation done Martina Lizy e Plan of Treatment Date Care Activity Detail Author Start: 10-26-2031 Urine microalbumin profile DTa P,Tdap,Td Vaccine (2 - Td or Tdap) [facility] Start: 09-16-2023 End: 02-01-2024 Thyrotropin [Units/volume] in Serum or Plasma TSH BLD Lab Routine 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 Expected: 09/16/2023, Expires: 02/01/2024 [facility] Work Phone: Comment on above: Expected: 09/16/2023 , Expires: 02/01/2024 Start: 09-16-2023 End: 12-16-2023 Thyroxine (T4) free [Mass/volume] in Serum or Plasma T4 FREE/FREE THYROX Lab Routine 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 Expected: 09/16/2023, Expires: 12/16/2023 [facility] Work Phone: Comment on above: Expected: 09/16/2023 , Expires: 12/16/2023 Start: 06-15-2023 End: 10-12-2023 Thyrotropin [Units/volume] in Serum or Plasma TSH BLD Lab Routine 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 Expected: 06/15/2023, Expires: 10/12/2023 [facility] Work Phone: Comment on above: Expected: 06/15/2023 , Expires: 10/12/2023 Start: 06-15-2023 End: 08-15-2023 Thyroxine (T4) free [Mass/volume] in Serum or Plasma T4 FREE/FREE THYROX Lab Routine 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 Expected: 06/15/2023, Expires: 08/15/2023 [facility] Work Phone: Comment on above: Expected: 06/15/2023 , Expires: 08/15/2023 Start: 05-06-2023 Influenza vaccination [facility] Start: 09-05-2022 DEPRESSION ASSESSMENT DEPRESSION ASS ESSMENT [facility] Start: 06-10-2022 End: 08-10-2022 Thyrotropin [Units/volume] in Serum or Plasma TSH BLD Lab Routine 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 Expected: 06/10/2022, Expires: 08/10/2022 [facility] Work Phone: Comment on above: Expected: 06/10/2022 , Expires: 08/10/2022 Start: 06-10-2022 End: 08-10-2022 Thyroxine (T4) free [Mass/volume] in Serum or Plasma T4 FREE/FREE THYROX Lab Routine 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 Expected: 06/10/2022, Expires: 08/10/2022 [facility] Work Phone: Comment on above: Expected: 06/10/2022 , Expires: 08/10/2022 Start: 06-02-2022 End: 06-02-2022 [facility] Start: 05-11-2022 End: 07-11-2022 Thyrotropin [Units/volume] in Serum or Plasma TSH BLD Lab Routine 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 Expected: 05/11/2022, Expires: 07/11/2022 [facility] Work Phone: Comment on above: Expected: 05/11/2022 , Expires: 07/11/2022 Start: 05-11-2022 End: 07-11-2022 Thyroxine (T4) free [Mass/volume] in Serum or Plasma T4 FREE/FREE THYROX Lab Routine 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 Expected: 05/11/2022, Expires: 07/11/2022 [facility] Work Phone: Comment on above: Expected: 05/11/2022 , Expires: 07/11/2022 Start: 05-06-2022 Influenza vaccination INFLUENZA (#1) [facility] Start: 03-09-2022 End: 05-09-2022 Thyrotropin [Units/volume] in Serum or Plasma [facility] Work Phone: Comment on above: Expected: 03/09/2022 , Expires: 05/09/2022 Start: 03-09-2022 End: 05-09-2022 Thyroxine (T4) free [Mass/volume] in Serum or Plasma [facility] Work Phone: Comment on above: Expected: 03/09/2022 , Expires: 05/09/2022 Start: 03-09-2022 End: 05-09-2022 Triiodothyronine (T3) Free [Mass/volume] in Serum or Plasma [facility] Work Phone: Comment on above: Expected: 03/09/2022 , Expires: 05/09/2022 Start: 02-08-2014 HPV TESTING HPV TESTING [facility] Start: 02-08-2005 PAP TESTING PAP TESTING [facility] Start: 02-08-2003 Urine microalbumin profile DTAP,TDAP ,TD (1 - Tdap) [facility] Start: 02-08-2002 ANNUAL PCP 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 Start: 1996 Adult depression scr eening assessment DEPRESSION SCREENING [facility] Start: 1984 COVID-19 VACCINE (#1) COVID-19 VACCI NE (#1) [facility] Start: 1984 HEPATITIS B (1 of 3 - 3-dose series) HEPATITIS B (1 of 3 - 3-dose series) [facility] Start: 1984 Hepatitis B Vaccine (1 of 3 - 3-dose series) Hepatitis B Vaccine (1 of 3 - 3-dose series) [facility] Patient Education Ureteroscopy U reteral Stent (DC) Kidney Stone Diet [facility] Work Phone: Patient referral [facility] Work Phone: Immunizations Immunization Date Immunization Notes Care Provider Marisol joyner 10-26-2021 tetanus toxoid, reduced diphtheria toxoid, and acellular pertussis vaccine, adsorbed Martina Stephenson [facility] NEGATED: Highlighted row has not occurred!05-12-2022 SARS-CoV-2 mRNA (tozinameran 5y-11y) vaccine Martina Stephenson [facility] Payers Date Payer Category Payer Medicaid [id number] 2022 Unknown [id number] 2021 Medicaid [employer] [id number] 2021-Present [phone] [address] [place] [address] Medicaid [id number] 2021 Medicaid [id number] [id number] 1984 Unknown [id number] 2.16.840.1.761463.3.579.2.593 1984 Unknown [id number] 2.16.840.1.598429.3.579.2.593 1984 Unknown [id number] 2.16.840.1.544084.3.579.2.593 1984 Unknown [id number] 2.16.840.1.320326.3.579.2.593 1984 Unknown [id number] 2.16.840.1.780373.3.579.2.593 1984 Unknown [id number] 2.16.840.1.350762.3.579.2.593 1984 Unknown [id number] 2.16.840.1.982246.3.579.2.593 1984 Unknown [id number] 2.16.840.1.914860.3.579.2.593 1984 Unknown [id number] 2.16.840.1.824343.3.579.2.593 1984 Unknown [id number] 2.16.840.1.467918.3.579.2.593 1984 Unknown [id number] 2.16.840.1.183533.3.579.2.593 1984 Unknown [id number] 2.16.840.1.471319.3.579.2.593 1984 Unknown [id number] 2.16.840.1.483856.3.579.2.593 1984 Unknown [id number] 2.16.840.1.396623.3.579.2.593 1984 Unknown [id number] 2.16.840.1.900174.3.579.2.727 1984 Unknown [id number] 2.16.840.1.723696.3.579.2.727 1984 Unknown [id number] 2.16.840.1.694728.3.579.2.727 1984 Unknown [id number] 2.16.840.1.592463.3.579.2.727 1984 Unknown [id number] 2.16.840.1.008037.3.579.2.727 1984 Unknown [id number] 2.16.840.1.671112.3.579.2.727 1984 Unknown [id number] 2.16.840.1.733256.3.579.2.7 1984 Unknown [id number] 2.16.840.1.423003.3.579.2.727 1959 Self-pay [id number] 1959 Unknown [id number] [id number] Unknown [id number] 2.16.840.1.972937.3.579.2.531 Unknown [id number] 2.16.840.1.307169.3.579.2.531 Social History Date Type Detail Facility Unknown if ever smoked [facility] Other Start: 03-09-2022 End: 04-15-2023 Sex Assigned At [facility] Other Start: 03-09-2022 End: 01-12-2023 Tobacco smoking status NHIS Ex-smoker [facility] Start: 03-09-2022 Tobacco use and exposure Former smokeless tobacco user [facility] Start: 1985 Sex Assigned At Female [facility] Start: 02-27-2022 End: 05-07-2022 Exposure to SARS-CoV-2 (event) Not sure [facility] History of tobacco use Current smoker [facility] Start: 03-09-2022 End: 04-15-2023 History of Social function [facility] National Score (1-10 0), lower number is lower risk 74 [facility] Start: 03-02-2022 Gender identity Identifies as female gender (finding) [facility] Start: 03-02-2022 Sexual orientation Heterosexual (finding) [facility] Goals Date Patient Goal Desired Activity /State Functional Status Date Assessment Result Facility 01-12-2023 Functional Status N/A [facility] 06-03-2022 Functional Status N/A [facility] 05-12-2022 Functional Status N/A [facility] 04-14-2022 Functional Status N/A [facility] Clinical Notes 12-02-2021 to 08-05-2023 Addendum Note - Patti Vences MD - 08/05/2023 1:37 PM Patti Cook MD - 04/15/2023 11:53 AM EDTTelephone Encounter - Mohini Soto RN - 05/11/2022 8:06 AM EDT Note Date & Type Note Facility 08-05-2023 Miscellaneous Notes Addended by: PATTI VENCES on: 08/05/2023 01:37 PM Modules accepted: Orders documented in this encounter [facility] 04-15-2023 Note HNO ID: [id number] Author: Patti Vences MD Service: ? Author Type: Physician Type: Progress Notes Filed: 04/15/2023 12:08 PM Note Text: I have communicated my name and active licensure. The patient's identity and physical location were verified at the time of this visit. Either the patient or their legal dairy supplies sales representative has been informed of the risks [...] and edited as necessary for today's visit. [facility] 04-15-2023 History of Presen t illness Narrative I have communicated my name and active licensure. The patient's identity and physical location were verified at the time of this visit. 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 documented in this encounter [facility] 01-12-2023 Hospital Discharg e instructions Patient [...] include: ?8 oz (237 mL) of milk, wqlcphu-ivnznarcjuzz-asbdg milk, and calcium-fortifiedfruit juice. Calcium-fortified means that [...] ?Spinach (cooked), rhubarb, beets, sweet potatoes, and Taiwanese chard. ?Peanuts. ?Potato chips, macanese fries, and baked potatoes with skin on. ?Nuts and nut products. ?Chocolate. If you regularly take a diuretic medicine, make sure to eat at least 1 or 2 servings of fruits or vegetables that are high in potassium each day. These include: ?Avocado. ?Banana. ?[place], prune, carrot, or tomato juice. ?Baked potato. [...] magnesium, fish oil, or vitamin B6. Take [id number] and prescription medicines only as told by [...] Casseroles. Pizza. Lasagna. Frozen meals. Potato chips. Belarusian fries. The items listed above may not [...] provider. Document Revised: 05/03/2022 Document Reviewed: 05/03/2022 [employer] Patient Education 2022 [employer]. Follow Up Care 07/14/2022 10:05:42 With:Sachin PANTOJA, MELLISSA Anand, URO Address: When: Unknown [facility] 11-26-2022 Note OPERATIVE NOTE OPERATION DATE: 11/26/2022 PROCEDURE: Yamileth endometrial ablation with hysteroscopy with endometrial biopsy. PREOPERATIVE DIAGNOSIS: Menorrhagia. POSTOPERATIVE DIAGNOSIS: Menorrhagia. ANESTHESIA: General. SURGEON: Vladimir Johnson D.O. BARREL CAP SETTER: None. BLOOD LOSS: 5 mL URINE OUTPUT: [...] identified, and endometrial curettings were obtained. [facility] 11-26-2022 Note OP Note OPERATION DATE: 11/26/2022 ADDENDUM: Please note that prior to the ablation that the endometrial pipette was used and endometrial biopsy was performed. [facility] 06-07-2022 Note [id number]:127 [facility] 06-07-2022 Note Cystoscopy with Sten t Removal [...] you have a fever over 100 degrees. [facility] 06-07-2022 Hospital Discharg e instructions Patient Education [...] 14:45:09 With:Martina Stephenson Address: [address] [address]- [phone] Business (1) When: Unknown Comments:Call for followup appointment in 1 month with renal US and KUB With:Martina Stephenson Address:Unknown When: Unknown [facility] 05-12-2022 Hospital Discharg e instructions Patient Education 05/12/2022 08:19:09 Kidney Stones, Wtov-fd-Zohg Kidney Stones Kidney stones are rock-like masses [...] Follow these instructions at home: Medicines Take qflo-ivp-stxolsd and prescription medicines only as told by [...] 02/07/2009 Document Revised: 01/08/2020 Document Reviewed: 01/08/2020 [employer] Patient Education 2019 [employer]. Follow Up Care 04/26/2022 09:37:55 With:Sachin PANTOJA, MELLISSA Anand, URO Address: When: Unknown [facility] 05-11-2022 Miscellaneous Notes Formattin g of this note might be different from the original. Please see message and advise. documented in this encounter [facility] 04-26-2022 Note [id number]:127 [facility] 04-26-2022 Note Cystoscopy ? Voiding after the [...] you have a fever over 100 degrees. [facility] 04-26-2022 Hospital Discharg e instructions Patient Education [...] 04/14/2022 14:07:08 With:Martina Stephenson Address: [address] [address] [phone] Business (1) When: Unknown Comments:Call for followup appointment in [address] scan With:Martina Stephenson Address:Unknown When: Unknown [facility] 04-14-2022 Hospital Discharg e instructions Patient Education [...] Follow these instructions at home: Medicines Take jyvi-dxu-vwzwggk and prescription medicines only as told by [...] or the blood stops without treatment. Take ahym-ljy-jqavtsg and prescription medicines only as told by [...] URO Address: When: Unknown [facility] Evaluation note Encounter Date Diagnosis [...] UP AND WHEN TO SEEK EMERGENCY TREATMENT [employer] Other [id number] Miscellaneous Notes* Telephone Encounter - Patti Vences MD - 03/10/2022 2:59 PM EDT TFTs hyperthyroid, will have her skip LT4 completely for 4 days and then resume at 137mcg daily, repeat labs in 2 months, sent [employer] message [facility] Miscellaneous Notes* Telephone Encounter - Aleksandar Sanders MA - 03/09/2022 11:39 AM EDT Referral notes from 03/09/[address] Sania Gilmore office at [phone]. Confirmation received. [facility] Instructions* Patient Instructions* Patti Vences MD [...] or try low carb tortilla/wraps (such as [place] [employer] Balance) Do not drink juice or [...] Stevia, Splenda, Equal, or Sweet-N-Low, use plain xize-tc-edxo or a sugar- free flavored creamer, or just drink it black if you like it that way Please get blood test today [facility] History of Present illness Narrative* Patti [...] Level: 4 - Moderate [facility] note* Encounter Date Diagnosis Assessment Notes Treatment Notes Treatment Clinical Notes Nov, Dysuria (ICD-10 - R30.0) Nov, Urinary tract infection, site not specified (ICD-10 - N39.0) Drink plenty fluids, get plenty of rest. Take the Pyridium and Macrobid as prescribed until gone. Follow-up with your family physician if no improvement in 2 to 3 days. Nov, Hematuria, unspecified (ICD-10 - R31.9) Disconnect Other Evaluation + Plan note Future Appointments Appointment Date:04/19/2022 08:15:00 AM Scheduled Provider: Location:[facility] Appointment Type:Urology CALL PAT Appointment Date:04/26/2022 09:00:00 AM Scheduled Provider: Location:[facility] Appointment Type:Urology FT Diagnostic Tests Pending * Urine Cytology ([facility]) 04/14/22 [facility] evaluation + Plan note Future Appointments Appointment Date:05/12/2022 08:00:00 AM Scheduled Provider:Martina Stephenson MD Location:[facility] Future Appointments Appointment Date:07/14/2022 08:00:00 AM Scheduled Provider:Martina Stephenson MD Location:[facility] Future App[facility]ments Appointment Date:04/20/2023 08:00:00 AM Scheduled Provider:Martina Stephenson MD Location:[facility] Appointment Type:URO Office Visit Diagnostic Tests Pending * PTH Intact 01/12/23 * Uric Acid 01/12/23 [facility] evaluation noteNo InformationNort [employer] Other Evaluation note* Diagnosis 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 Impaired fasting glucose [facility]* Diagnosis 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 documented [facility] [place] noteNo assessment information availableMiddletown [facility] Work Phone: Evaluation note* Diagnosis 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 [facility]* Diagnosis 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 documented in this encounter [facility] general Narrative - Reported* Type Description Date Medical History Depression with anxiety Medical History Meniere disease Medical History Darrell's thyroiditis Surgical History tubal ligation Surgical History D&C Surgical History bone spur on left foot, 5th met atarsal Surgical History D&C with leep Hospitalization History see above Disconnect Other Hospital course Narrative No data available for this section [facility] Hospital Discharge instructions Additional Instructions Take [...] Take stool softeners. You can buy AZO pxix-omh-fazdktr (pyridium) and use as needed for burning with urination. This will make your urine orange. Drink plenty of water and fluids You must follow up to ensure your stent is removed. Failure to do so may result in recurrent infections and renal failure. Activity as tolerated. Limit heavy lifting > 15 lbs if you are developing hematuria or flank pain.[facility] Work Phone: Progress note No data available for this section [facility] Chief Complaint and Reason for Visit [...] or prosecute any alcohol or drug abuse patient.[facility] Hospital[facility] the event this information is protected by the Federal Confidentiality of Alcohol and Drug Abuse Patient Records regulations: The Federal rules restrict any use of the information to criminally investigate or prosecute any alcohol or drug abuse patient.[facility] HospitalIn the event this information is protected by the Federal Confidentiality of Alcohol and Drug Abuse Patient Records regulations: The Federal rules restrict any use of the information to criminally investigate or prosecute any alcohol or drug abuse patient.[facility] HospitalIn the event this information is protected by the Federal Confidentiality of Alcohol and Drug Abuse Patient Records regulations: The Federal rules restrict any use of the information to criminally investigate or prosecute any alcohol or drug abuse patient.[facility] HospitalIn the event this information is protected by the Federal Confidentiality of Alcohol and Drug Abuse Patient Records regulations: The Federal rules restrict any use of the information to criminally investigate or prosecute any alcohol or drug abuse patient.[facility] HospitalIn the event this information is protected by the Federal Confidentiality of Alcohol and Drug Abuse Patient Records regulations: The Federal rules restrict any use of the information to criminally investigate or prosecute any alcohol or drug abuse patient.[facility] Care Teams (unrecognized sec tion and content) Bridge Carpenter Relationship Specialty Start Date End Date Sania Gilmore [address] [place] [address] Referring Family Practice 01/06/22 Bridge Carpenter Relationship Specialty Start Date End Date Sania Gilmore [address] [place] [address] Referring [facility] 01/06/22 Bridge Carpenter Relationship Specialty Start Date End Date Sania Gilmore [address] [place] [address] Referring [facility] 01/06/22 Team Status: Inactive Member Role Status Dates Martina Stephenson MD Attending Provider Active Sania Gilmore , Primary Care Provider Active Team Status: Active Member Role Status Dates Sania Gilmore , Primary Care Provider Active Bridge Carpenter Relationship Specialty Start Date End Date Sania Gilmore [address] [place] [address] Referring Family Medicine 01/06/22 Bridge Carpenter Relationship Specialty Start Date End Date Sania Gilmore DO [address] [place] [address] Referring [facility] 01/06/22 INFORMATION SOURCE (unrecogn ized section and content) DATE CREATED AUTHOR 06/10/2022 [facility] DATE CREATED AUTHOR AUTHOR'S ORGANIZ ATION 01/08/2023 [facility] DATE CREATED AUTHOR AUTHOR'S ORGANIZ ATION 04/13/2023 [facility] DATE CREATED AUTHOR AUTHOR'S ORGANIZ ATION 08/07/2023 [facility] FOR RECORDS PERTAINING TO PATIENTS WHO ARE [...] BE BASED ON THE PRIMARY CLINICAL RECORDS. [facility] [employer] [facility]. provides no warranty or guarantee of the accuracy or completeness of information in this document.
[2023-09-16 05:07] LABS: Age Gdln ACOG Testing Note (.); HPV Aptima Negative (Negative); IGP, Aptima HPV, rfx 16/18,45 Note (.)
== END 2023-09-12 22:10 | disposition home or self-care (01) ==
LOC: LAB 22:09
PROVIDERS: PCP Family Medicine; Visit Provider Obstetrics & Gynecology
DX: Z01.419 Encounter for gynecological examination (general) (routine) without abnormal findings (principal)
CPT/HCPCS: 87624; G0145

== ENCOUNTER 2023-09-15 11:06 | Day surgery (SDC) | payer MEDICAID, SELFPAY ==
[2023-08-31 12:57] VITALS: BP 129/79; PULSE 64; RESP 20; TEMP 36.3; O2SAT 99; BMI 40.6
[2023-09-15] VITALS (19 sets, daily range): BP systolic 112–142; BP diastolic 65–95; PULSE 53–79; RESP 10–19; TEMP 36.1–36.6; O2SAT 82–100; BMI 40.0
--- OUTSIDE RECORDS SUMMARY | 2023-09-15 11:11 | XMS_ITS | CCD ---
Author Name Unknown Address 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 Name Role Phone Linda Leon Unavailable Deirdre Sania Unavailable Sherine Renee Unavailable SANIA GILMORE Primary Care Physician [phone] Deirdre Sania Unavailable MD Martina Stephenson Attending Provider [phone] DO Sania Gilmore Primary Care Provider Martina Stephenson Admitting Unavailable Rumschlag, Sania Primary Care Unavailable Lue, Martina Obdulia Attending Unavailable Linda Leon Attending Unavailable Linda Leon Admitting Unavailable NO FAMILY, PHYSICIAN Primary Care Unavailable DR EMILY MARSHALL V Consulting Unavailable MISC, DR DOMINGUEZ Primary Care Unavailable LUE ., MARTINA M Attending Unavailable LUE ., MARTINA M Admitting Unavailable LUE ., MARTINA M Consulting Unavailable LUE ., MARTINA M Consulting Unavailable [facility] Primary Care Unava ilable LUE ., MARTINA M Attending Unavailable LUE ., MARTINA M Admitting Unavailable MISC, DR DOMINGUEZ Consulting Unavailable [facility] Primary Care Unava ilable MISC, DR DOMINGUEZ Attending Unavailable MISC, DR DOMINGUEZ Admitting Unavailable DR PASQUALE WILKES Consulting Unavailable RUMSCHLAG, SANIA Primary Care Unavailable LUE ., MARTINA M Attending Unavailable LUE ., MARTINA M Admitting Unavailable LUE ., MARTINA M Consulting Unavailable RUMSCHLAGSANIA Consulting Unavailable RUMSCHLAG, SANIA Primary Care Unavailable RUMSCHLAG, SANIA Attending Unavailable RUMSCHLAG, SANIA Admitting Unavailable MISC, DR DOMINGUEZ Primary Care Unavailable KETAN ., DR MINOR Attending Unavailable KETAN ., DR MINOR Admitting Unavailable KETAN ., DR MINOR Consulting Unavailable RUMSCHLAG, SANIA Primary Care Unavailable KETAN ., DR MINOR Attending Unavailable KETAN ., DR MINOR Admitting Unavailable REGLA II, ESTRADA Consulting Unavailable FILUTZELEAH Consulting Unavailable RUMSCHLAG, SANIA Primary Care Unavailable KETAN ., DR MINOR Consulting Unavailable KETAN ., DR MINOR Attending Unavailable KETAN ., DR MINOR Admitting Unavailable HENRRY SALMERON Consulting Unavailable YAROSH ., RAMAN Consulting Unavailable LISA, DR HENRRY Castanon Attending Unavailable LISA, DR HENRRY Castanon Admitting Unavailable [facility] Primary Care Unava ilable RUMSCHLAG, [facility] Primary Care Unavailable KETAN ., DR MINOR Consulting Unavailable KETAN ., DR MINOR Attending Unavailable KETAN ., DR MINOR Admitting Unavailable EMILY CANDELARIA Consulting Unavailable JOANNA, DR EMILY Kohli Consulting Unavailable [facility] Primary Care Unava ilable [facility] Attending Unava ilable [facility] Admitting Unava ilable LUE ., MARTINA M Consulting Unavailable JOANNA, DR EMILY Kohli Consulting Unavailable [facility] Primary Care Unava ilable LUE ., MARTINA M Attending Unavailable LUE ., MARTINA M Admitting Unavailable LUE ., MARTINA M Consulting Unavailable JOANNA, DR EMILY Kohli Consulting [...] Stephenson Attending Unavailable Martina Stephenson Referring Unavailable [facility] Primary Care Unavailable Martina Stephenson Attending Unavailable Martina Stephenson Referring Unavailable RUMSCHLAG, SANIA Primary Care Unavailable Martina Stephenson Attending Unavailable Martina Stephenson Referring Unavailable Martina Stephenson Admitting Unavailable Rumschlag, Sania Unavailable Rumschneto DO Sania Unavailable PATTI VENCES Attending Unavailable VLADIMIR JOHNSON Attending Unavailable VLADIMIR JOHNSON Attending Unavailable Allergies Allergy Classification Reported Allergen(s) Allergy Type Date of Onset Reaction(s) Facility (7 sources) Dust; Translations: [DUST] Allergy to substance 2 Hives, Itching, Rash [facility] (7 sources) Feather; Translations: [FEATHERS] Drug Allergy 2 Itching [facility] (15 sources) lamoTRIgine; Translations: [lamotrigine] Drug Allergy 2 Hives, Itching, Rash, Eruption of skin (disorder) [facility] (7 sources) Mold Spores; Translations: [MOLD SPORES] Allergy to substance 2 Hives [facility] (6 sources) Seasonal allergy; Translations: [Seasonal] Drug allergy Weal (disorder) [facility] (1 source) lamoTRIgine Drug Allergy 2 [facility] (1 source) lamoTRIgine Drug Allergy 2 [facility] Rep[facility] Medications Current Medications Medication Drug Class(es) [...] procedure, # 2 tab(s), Refills(s) 0, Pharmacy: [facility]/pharmacy #[id number], 154, cm, 06/03/22 15:43:00 EDT, Height/Length Dosing, 88, kg, 05/12/22 8:09:00 EDT, Weight Dosing Start Date: 06/03/22 Status: Ordered Start: 06-02-2022 End: 06-02-2022 Cephalexin Discontinued MG [facility] 2021 12:00am June 02, 2022 11:46am Start: 04-14-2022 Keflex 500 mg Cap See Instructions, Take 1 tablet 1 day prior to procedure, and then 1 tab day of procedure, # 2 tab(s), Refills(s) 0, [id number], 154, cm, 04/14/22 11:36:00 EDT, Height/Length [...] Directed June 02, 2022 12:00am Start: 11-27-2020 KENALOG - 10 m g Nov, 40 mg Completed/Discontinued Medications Medication Drug Class(es) Dates Sig (Normalized) Sig (Original) [id number] 200 actuat albuterol 0.09 mg/actuat metered dose [...] 30 mg oral tablet (3 sources) Uncompetitive H-lkfqxg-H-aspartat e Receptor Antagonist, Sigma-1 Agonist Start: 09-30-2019 [place] DMT 30-30 MG 1 tablet Orally every [...] 03-15-2022 Episodic Other aftercare (1 source) Other salvage determiner (current) drug therapy; Translations: [OTH RESIDENTIAL CURRENT DRUG THERAPY] Onset: 03-29-2022 Episodic Other [...] Value Interpretation Reference Range Facility T4 Free SerPl-mCncon 023 Free T4 [Mass/Vol] 1.2 ng/dL Normal 0.9-1.7 [facility] Comment on above: Order Comment: Speci men Type: BLOOD SPECIMEN Ordering Facility: [facility] Address: [address] [place] [address] Performed By: #### 3 016-3, 3024-7 #### [facility] CLIA [id number] [address] [place] [address] [place] TSH SerPl-aCncon 08-04-2023 TSH Qn 40.500 m[IU]/L High 0.270-4.200 [facility] Comment on above: Order Comment: Speci aditya Type: BLOOD SPECIMEN Ordering Facility: [facility] Address: [address] [place] [address] Result Comment: If t he patient is , TSH reference range varies by gestational period: First Trimester (weeks 9-12): 0.180-2.990 mIU/L Second Trimester: 0.110-3.980 mIU/L Third Trimester: 0.480-4.710 mIU/L Turner Junior et al. A Practical Approach for the Verifications and Determination of Site- and Trimester-Specific Reference Intervals for Thyroid Function tests in . Thyroid, 2019:29:3:412-420. Tereso E, et al. 2017 Guidelines of the [place] Thyroid Association for the Diagnosis and Management of Thyroid Disease during and the . Thyroid, 2017:27:3:315-389. Performed By: #### 3 016-3, 3024-7 #### [facility] CLIA [id number] [address] [place] [address] [place] Lab Reportson 04-13-2023 Lab Reports [id number] .[id number]:127 Normal [facility] Reportson 04-12-2023 Lab Reports [id number] .[id number]:127 Normal [facility] T4 Free SerPl-mCncon 023 Free T4 [Mass/Vol] 1.6 ng/dL Normal 0.9-1.7 [facility] Comment on above: Order Comment: Speci men Type: BLOOD SPECIMEN Ordering Facility: [facility] Address: [address] [place] [address] Performed By: #### 3 016-3, 3023-7 #### [facility] CLIA [id number] [address] [place] [address] [place] TSH SerPl-aCncon 04-11-2023 TSH Qn 0.177 m[IU]/L Low 0.270-4.200 [facility] Comment on above: Order Comment: Speci men Type: BLOOD SPECIMEN Ordering Facility: [facility] Address: [address] [place] [address] Result Comment: If t he patient is , TSH reference range varies by gestational period: First Trimester (weeks 9-12): 0.180-2.990 mIU/L Second Trimester: 0.110-3.980 mIU/L Third Trimester: 0.480-4.710 mIU/L Turner Junior et al. A Practical Approach for the Verifications and Determination of Site- and Trimester-Specific Reference Intervals for Thyroid Function tests in . Thyroid, 2019:29:3:412-420. Tereso E, et al. 2017 Guidelines of the [place] Thyroid Association for the Diagnosis and Management of Thyroid Disease during and the . Thyroid, 2017:27:3:315-389. Performed By: #### 3 016-3, 7 #### [facility] CLIA [id number] [address] [place] [address] [place] RAD - MISCon 01-22-2023 RAD - MISC [id number] .00CD:127 Normal [facility] RAD - Ultrasound Reporton RAD - Ultrasound Report [id number] .00CD:127 [facility] Ambulatory Visit Summaryon 0 01-12-2023 Ambulatory Visit Summary AINSLEY PARRA :1985 Visit Date:01/12/2023 Ambulatory Visit Instructions Your Diagnosis Kidney stone Gross hematuria Former smoker Tests Performed Urnls Dip Stick Auto w/o Microscopy POC [id number] Your Care Team Attending Physician - Martina [...] PANTOJA, Martina Martinez Where: [facility] Formson 01-12-2023 Forms [id number] .00CD:127 [facility] Patient Educationon 01-13-20 Patient Education Nephrology Dietary Guidelines to Help [...] Spinach (cooked), rhubarb, beets, sweet potatoes, and Eritrean chard. ? Peanuts. ? Potato chips, central african fries, and baked potatoes with skin on. ? Nuts and nut products. ? Chocolate. ? If you regularly take a diuretic medicine, make sure to eat at least 1 or 2 servings of fruits or vegetables that are high in potassium each day. These include: ? Avocado. ? Banana. ? [place], prune, carrot, or tomato juice. ? Baked [...] fish oil, or vitamin B6. ? Take xmfg-qwd-ijtvayf and prescription medicines only as told by your health care provider. These include supplements. What foods should I limit? Limit your in (more content not included)... Normal [facility] Urology Office/Clinic Noteon 01-12-2023 Urology Office/Clinic Note [...] 4 mm nonobstructing stone in LLP. 01/03/23 ([facility] blood work PCP) - Ca 8.7. TSH [...] Dietary Guidelines to Help Prevent Kidney Stones I, Sandra Carmen, personally scribed for Dr. Stephenson on 01/12/2023 [...] Dipstick: Negative (more content not included)... Normal [facility] Comment on above: Result Comment: [...] by: PASQUALE WILKES Date: 2023-01-04 06:57 Normal [facility] FREE T4on 01-03-2023 Free T4 [Mass/Vol] 0.83 ng/dL Normal 0.76-1.[address] [facility] Comment on above: Performed By: #### P REGQNT #### [facility] [address] [address] [address] Gabo Perez LIPID PROFILEon 01-03-2023 CHOL-HDL RATIO NORM SEE BELOW Normal [facility] Comment on above: Result Comment: 3.3 - 4.4 LOW RISK 4.4 - 7.1 AVERAGE RISK 7.1 - 11.0 MODERATE RISK >11.0 HIGH RISK Performed By: #### P REGQNT #### [facility] [address] [address] [address] Gabo Perez Cholesterol [Mass/Vol] 161 mg/dL Normal <=200 [facility] Comment on above: Performed By: #### P REGQNT #### [facility] [address] [address] [address] Gabo Perez Cholesterol in HDL [Mass/Vol] 57 mg/dL Normal 40-60 [facility] Comment on above: Performed By: #### P REGQNT #### [facility] [address] [address] [address] Gabo Perez Cholesterol in LDL [Mass/Vol] 85.6 mg/dL Normal [facility] Comment on above: Performed By: #### P REGQNT #### [facility] [address] [address] [address] Gabo Perez Cholesterol.total/Ch olesterol in HDL [Mass ratio] 2.8 {ratio} Normal [facility] Comment on above: Performed By: #### P REGQNT #### [facility] [address] [address] [address] Gabo Perez HDL NORMAL > or = 60 mg/dl - LO W CARDIOVASCULAR RISK <40 mg/dl - HIGH CARDIOVASCULAR RISK Normal [facility] Comment on above: Performed By: #### P REGQNT #### [facility] [address] [address] [address] Gabo Perez LDL CALC NORMAL SEE BELOW Normal [facility] Comment on above: Result Comment: <100 mg/dl OPTIMAL 100 - 129 mg/dl NEAR OR ABOVE OPTIMAL 130 - 159 mg/dl BORDERLINE HIGH 160 - 189 mg/dl HIGH >190 mg/dl VERY HIGH Performed By: #### P REGQNT #### [facility] [address] [place] [address] Dr. Gabo Perez Triglyceride [Mass/Vol] 92 mg/dL Normal <=150 [facility] Comment on above: Performed By: #### P REGQNT #### [facility] [address] [address] [address] Gabo Perez VLDL CALC 18.4 mg/dL Normal [facility] Comment on above: Performed By: #### P REGQNT #### [facility] [address] [place] [address] Dr. Gabo Perez PROF 14(COMP METB)on 023 Albumin [Mass/Vol] 3.6 g/dL Normal 3.4-5.[address] [facility] Comment on above: Performed By: #### P REGQNT #### [facility] [address] [place] [address] Dr. Gabo Perez Albumin/Globulin [Mass ratio] 0.9 {ratio} Normal [facility] Comment on above: Performed By: #### P REGQNT #### [facility] [address] [place] [address] Dr. Gabo Perez ALP [Catalytic activity/Vol] 71 U/L Normal 46-116 [facility] Comment on above: Performed By: #### P REGQNT #### [facility] [address] [place] [address] Dr. Gabo Perez ALT [Catalytic activity/Vol] 21 U/L Normal 14-59 [facility] Comment on above: Performed By: #### P REGQNT #### [facility] [address] [place] [address] Dr. Gabo Perez Anion gap [Moles/Vol] 9.4 mmol/L Normal [facility] Comment on above: Performed By: #### P REGQNT #### [facility] [address] [address] [address] Gabo Perez AST [Catalytic activity/Vol] 14 U/L Critically low 15-37 [facility] Comment on above: Performed By: #### P REGQNT #### [facility] [address] [place] [address] Dr. Gabo Perez Bilirubin [Mass/Vol] 0.7 mg/dL Normal 0.2-1.0 [facility] Comment on above: Performed By: #### P REGQNT #### [facility] [address] [place] [address] Dr. Gabo Perez Calcium [Mass/Vol] 8.7 mg/dL Normal 8.5-10.[address] [facility] Comment on above: Performed By: #### P REGQNT #### [facility] [address] [place] [address] Dr. Gabo Perez Chloride [Moles/Vol] 109 mmol/L Critically high 98-107 [facility] Comment on above: Performed By: #### P REGQNT #### [facility] [address] [place] [address] Dr. Gabo Perez CO2 [Moles/Vol] 27.6 mmol/L Normal 21.0-32.0 [facility] Comment on above: Performed By: #### P REGQNT #### [facility] [address] [place] [address] Dr. Gabo Perez Creatinine [Mass/Vol] 0.92 mg/dL Normal 0.55-1.02 [facility] Comment on above: Performed By: #### P REGQNT #### [facility] [address] [place] [address] Dr. Gabo Perez EGFR-AF PAKISTANI >60 Normal >=60 [facility] Comment on above: Performed By: #### P REGQNT #### [facility] [address] [place] [address] Dr. Gabo Perez EGFR-NON AF PAKISTANI >60 Normal >=60 [facility] Comment on above: Performed By: #### P REGQNT #### [facility] [address] [place] [address] Dr. Gabo Perez Globulin (S) [Mass/Vol] 4.0 g/dL Normal [facility] Comment on above: Performed By: #### P REGQNT #### [facility] [address] [place] [address] Dr. Gabo Perez Glucose [Mass/Vol] 92 mg/dL Normal 74-[address] [facility] Comment on above: Performed By: #### P REGQNT #### [facility] [address] [place] [address] Dr. Gabo Perez Potassium [Moles/Vol] 4.0 mmol/L Normal 3.5-5.1 [facility] Comment on above: Performed By: #### P REGQNT #### [facility] [address] [place] [address] Dr. Gabo Perez Protein [Mass/Vol] 7.6 g/dL Normal 6.4-8.2 [facility] Comment on above: Performed By: #### P REGQNT #### [facility] [address] [place] [address] Dr. Gabo Perez Sodium [Moles/Vol] 142 mmol/L Normal 136-145 [facility] Comment on above: Performed By: #### P REGQNT #### [facility] [address] [place] [address] Dr. Gabo Perez Urea nitrogen [Mass/Vol] 6.0 mg/dL Critically low 7.0-18.0 [facility] Comment on above: Performed By: #### P REGQNT #### [facility] [address] [place] [address] Dr. Gabo Perez Urea nitrogen/Creatinine [Mass ratio] 6.5 mg/mg Normal [facility] Comment on above: Performed By: #### P REGQNT #### [facility] [address] [place] [address] Dr. Gabo Perez TSHon 01-03-2023 TSH 19.588 uIU/mL Critically high 0.358-3.740 [facility] Comment on above: Performed By: #### P REGQNT #### [facility] [address] [place] [address] Dr. Gabo Perez US KIDNEYSon 01-03-2023 US [...] by: PASQUALE WILKES Date: 2023-01-03 15:32 Normal [facility] CBC AUTO DIFFon 11-26-2022 BASO # 0.0 103/ul Normal 0.0-0.1 [facility] Comment on above: Performed By: #### C BC #### [facility] [address] [place] [address] Dr. Gabo Perez Basophils/100 WBC (Bld) 0.4 % Normal 0.2-2.0 [facility] Comment on above: Performed By: #### C BC #### [facility] [address] [place] [address] Dr. Gabo Perez EO # 0.1 103/ul Normal 0.0-0.7 [facility] Comment on above: Performed By: #### C BC #### [facility] [address] [place] [address] Dr. Gabo Perez Eosinophils/100 WBC (Bld) 1.7 % Normal 0.9-7.0 [facility] Comment on above: Performed By: #### C BC #### [facility] [address] [place] [address] Dr. Gabo Perez Erythrocyte distribution width (RBC) [Ratio] 12.7 % Normal 11.0-15.0 [facility] Comment on above: Performed By: #### C BC #### [facility] [address] [place] [address] Dr. Gabo Perez Hematocrit (Bld) [Volume fraction] 43.6 % Normal 36.0-48.0 [facility] Comment on above: Performed By: #### C BC #### [facility] [address] [place] [address] Dr. Gabo Perez Hemoglobin (Bld) [Mass/Vol] 14.4 g/dL Normal 12.0-16.0 [facility] Comment on above: Performed By: #### C BC #### [facility] [address] [place] [address] Dr. Gabo Perez IG # 0.01 10e3/ul Normal 0.00-0.03 [facility] Comment on above: Performed By: #### C BC #### [facility] [address] [place] [address] Dr. Gabo Perez IG % 0.1 % Normal 0.0-0.5 [facility] Comment on above: Performed By: #### C BC #### [facility] [address] [place] [address] Dr. Gabo Perez LYMPH # 1.7 103/ul Normal 1.2-3.8 [facility] Comment on above: Performed By: #### C BC #### [facility] [address] [place] [address] Dr. Gabo Perez Lymphocytes/100 WBC (Bld) 22.3 % Normal 20.5-60.0 [facility] Comment on above: Performed By: #### C BC #### [facility] [address] [place] [address] Dr. Gabo Perez MANUAL DIFF REQ NO Normal [facility] Comment on above: Performed By: #### C BC #### [facility] [address] [place] [address] Dr. Gabo Perez MCH (RBC) [Entitic mass] 30.1 pg Normal 26.7-34.0 [facility] Comment on above: Performed By: #### C BC #### [facility] [address] [place] [address] Dr. Gabo Perez MCHC (RBC) [Mass/Vol] 33.0 g/dL Normal 29.9-35.2 [facility] Comment on above: Performed By: #### C BC #### [facility] [address] [place] [address] Dr. Gabo Perez MCV (RBC) [Entitic vol] 91.0 fL Normal 81.0-99.0 [facility] Comment on above: Performed By: #### C BC #### [facility] [address] [place] [address] Dr. Gabo Perez MONO # 0.5 103/ul Normal 0.3-0.8 [facility] Comment on above: Performed By: #### C BC #### [facility] [address] [place] [address] Dr. Gabo Perez Monocytes/100 WBC (Bld) 7.1 % Normal 1.7-12.0 [facility] Comment on above: Performed By: #### C BC #### [facility] [address] [place] [address] Dr. Gabo Perez NEUT # 5.2 103/ul Normal 1.4-6.5 [facility] Comment on above: Performed By: #### C BC #### [facility] [address] [place] [address] Dr. Gabo Perez Neutrophils/100 WBC (Bld) 68.4 % Normal 43.0-75.0 [facility] Comment on above: Performed By: #### C BC #### [facility] [address] [place] [address] Dr. Gabo Perez Platelet mean volume (Bld) [Entitic vol] 11.6 fL Normal 9.5-13.5 [facility] Comment on above: Performed By: #### C BC #### [facility] [address] [place] [address] Dr. Gabo Perez PLT 253 103/ul Normal 150-450 [facility] Comment on above: Performed By: #### C BC #### [facility] [address] [place] [address] Dr. Gabo Perez RBC 4.79 106/ul Normal 4.20-5.40 [facility] Comment on above: Performed By: #### C BC #### [facility] [address] [place] [address] Dr. Gabo Perez WBC 7.6 103/ul Normal 4.0-11.0 [facility] Comment on above: Performed By: #### C BC #### [facility] [address] [place] [address] Dr. Gabo Perez PREG QUANT HCGon 11-26-2022 HCG QUANT <1 Normal [facility] Comment on above: Performed By: #### P REGQNT #### [facility] [address] [place] [address] Dr. Gabo Perez HCG RANGE SEE BELOW Normal [facility] Comment on above: Result Comment: 5-50 0.2-1 WEEK 50-500 1-2 WEEKS 100-5,000 2-3 WEEKS 500-10,000 3-4 WEEKS 1,000-50,000 4-5 WEEKS 10,000-100,000 5-6 WEEKS 15,000-200,000 6-8 WEEKS 10,000-100,000 2-3 MONTHS Performed By: #### P REGQNT #### [facility] [address] [place] [address] Dr. Gabo Perez XR CHEST 2 Von [...] by: HENRRY SALMERON Date: 2022-11-12 13:23 Normal [facility] Pre-Certification Formon Pre-Certification Form [id number]#1 .00CD:127 Normal [facility] Pre-Certification Formon Pre-Certification Form [id number] #1.00CD:127 Normal [facility] US PELVIS AND TRANSVAGon US [...] by: EMILY CANDELARIA Date: 2022-09-24 07:44 Normal [facility] PAP ACOG PANEL 2: 30 to 65on 09-10-2022 . . Normal [facility] Comment on above: Result Comment: Perf ormed at: BA Performed By: #### 4 [id number] #### [facility] [address] [place], [place] [address] Dr. Gabo Perez Age Gdln ACOG Testing 30-65 Normal [facility] Comment on above: Performed By: #### 4 [id number] #### [facility] [address] [place] [address] Dr. Gabo Perez DIAGNOSIS: Comment Normal [facility] Comment on above: Result Comment: NEGA TIVE FOR INTRAEPITHELIAL LESION OR MALIGNANCY. Performed at: BA Performed By: #### 4 [id number] #### [facility] [address] [place] [address] Dr. Gabo Perez HPV Aptima Negative Normal Negative [facility] Comment on above: Result Comment: This nucleic acid amplification test detects fourteen high-risk HPV types (16,18,31,33,35,39,45,51,52,56,58,59,66,68) without differentiation. Performed at: =G Performed By: #### 4 [id number] #### [facility] [address] [place] [address] Dr. Gabo Perez HPV Genotype Reflex Comment Normal [facility] Comment on above: Result Comment: Crit eria not met, HPV Genotype not performed. Performed at: BA Performed By: #### 4 [id number] #### [facility] [address] [place] [address] Dr. Gabo Perez Methodology: Comment Normal [facility] Comment on above: Result Comment: This liquid based ThinPrep(R) pap test was screened with the use of an image guided system. Performed at: WB Performed By: #### 4 [id number] #### [facility] [address] [place] [address] Dr. Gabo Perez Note: Comment Normal [facility] Comment on above: Result Comment: The Pap smear is a screening test designed to aid in the detection of premalignant and malignant conditions of the uterine cervix. It is not a diagnostic procedure and should not be used as the sole means of detecting cervical cancer. Both false-positive and false-negative reports do occur. . Performed at: WB Performed By: #### 4 [id number] #### [facility] [address] [place] [address] Dr. Gabo Perez Performed by: Comment Normal [facility] Comment on above: Result Comment: Rekha Henderson Pastoral Assistant (ASCP) Performed at: BA Performed By: #### 4 [id number] #### [facility] [address] [place], [place] [address] Dr. Gabo Perez Specimen adequacy: Comment Normal [facility] Comment on above: Result Comment: Sati sfactory for evaluation. No endocervical component is identified. Performed at: Performed By: #### 4 [id number] #### [facility] [address] [place] [address] [address] Gabo Perez Screenson 07-15-2022 Screens [id number] .00CD:127 Normal [facility] Ambulatory Visit Summaryon 1 09-13-2021 Ambulatory Visit Summary AINSLEY PARRA :1985 Visit Date:07/14/2022 Ambulatory Visit Instructions Your Diagnosis Ureteral stone Gross hematuria Former smoker Kidney stone Tests Performed Urnls Dip Stick Auto w/o Microscopy POC 27255 US Renal -- Results Pending -- XR [...] Martina Stephenson MD Where: [facility] Patient Educationon 07-14-20 Patient Education [...] these instructions at home: Medicines ? Take ycem-sft-gwgmhmx and prescription medicines only as told by [...] 02/07/2009 Document Revised: 01/08/2020 Document Reviewed: 01/08/2020 [employer] Patient Education ? 2019 [employer]. Normal [facility] Urology Office/Clinic Noteon 07-14-2022 Urology Office/Clinic Note [...] Calculus of kidney) LESA done 07/09/22 at [place] shows possible left nonobstructing 4mm stone. Pt [...] & LESA. Follow-up With When Contact Information Sachin PANTOJA, Martina Martinez, URL, URO Additional Instructions: F/u 6 mos w/KUB, LESA Patient Education Kidney Stones, Qpnw-qa-Lsdh I, Sandra Carmen, personally scribed for Dr. [...] Heart disease: (more content not included)... Normal [facility] Comment on above: Result Comment: Elec tronically Signed By: Martina Stephenson MD\.br\Date and Time Signed: 07/14/22 10:07 EST\.br\Electronically Co-Signed By: Sandra Carmen\.br\Date and Time Co-Signed: 07/14/22 10:02 EST RAD - MISCon 07-10-2022 RAD - MIS [id number] .00CD:127 Normal [facility] US KIDNEYSon 07-09-2022 US KIDNEYS EXAMINATION: US KIDNEYS [...] by: EMILY MARSHALL Date: 2022-07-09 17:11 Normal [facility] XR KUB 1 VIEWon 07-05-2022 XR KUB [...] by: EMILY MARSHALL Date: 2022-07-05 13:12 Normal [facility] Lab Reportson 06-09-2022 Lab Reports [id number] .00CD:127 Normal [facility] Coding Summary.on 06-08-2022 Coding Summary. CD:[id number] G h0bWw+PGhlYWQ+AC2BWQL fL84tzLYebG3AF7wDRE1A VNOVPNXPQP2HHQ1hkTS8Q JqaT8EzfpQy AyberMWjFN83UGx6QIH0x OkiCRexfK5ibVKnX8w7Nw AcQB03gV36JHfxUEEnXoS 3LjZpbjsgbWFy I1cmJoPdqDCdGob+PHRhY mxlIHdpZHRoPScxMDAlJy IraGhaBM0gQp2lVJPlYWE vbGxhcHNlOiBj p3jyXLQaUXueKL7rmMpuW 1CivIX4SJHxi5z5Vb91tY I+WREiNLX3jTwsAMthh78 5DaPiy1hhLAY0 aUQsKJteEQX0I27it8N3T JYmMTZqUJH7oIJ0pU1hrS xhqcbyD4RmoSHoBzW5UVT 1rSCivX5iiZfh hofxoF0kRey+U49TBR6YJ LQLKN0BFuf1R1ZhWtbjcE I+GV52SYIdXY48gYRcvES pw1qjmMw0ThTs SUYsUGM2vJisHVlea8GyK HTcB44wiPHvx9P1ZNPffA gxwKYjJlCkeEC0gE0xOCu iqigbw7dpkkln Egwjj9xast99kZ11J14wG YonYQOhKVQ4BWFkMPEqdZ wwdn6eqC6iOq1+MCnyr5v vk7xckOj9BqXz VVLmprStzYeoZBD7e6EgF i73F9DckEqji8ZySsk2el 96jWVpu5H9dWC6BMjlFQA buG6hYXtmWxI1 GFXqPyEtqC65pDYuCRxhA a1puOmkkUesEC4qTCGdrg gyDTEbpJ3uBSPaoQUpqEo wUT3tKFRauwfo r966JlSuIRJ5HTKblJVjP 1LydO2jFwPmYKVwIVIqM5 TpgWSvSOdxP594RExhZyI 9VBOjtaYkO9Kk PMEojJokCsB6z2V1Iz8Wv 3BmpkerTRG0JNpkPBPjZq M1BqAgPrL6U4KaUyb4YPJ seGqcYX6nE2Zm RXOyvfmlwwmzgJZ4JYQxH UWygO19yQAyTSlhPv1ri5 D5n644BGXpJBQcqB72Fq1 udDogMTBwdCBU wR7vzjhlo0bxpvobUkQnK GCoMKu7PNt8TPDlqCmpQz ZxPVF6YpJ3UQG0qHGitR4 tnOerhylkrY4e Oyc+Z90fkY9hIQU1TPF2w yerUFYsomSiCT57LX54M1 RyPjwvdGFibGU+PGRpdiB cwIjqNM4tPnJz r4qrm9XyPTsbU8IcGHZmC MubQqi8IIHoUIW6sBD7wP 3pBDBrYQzqd6L1kPM2C8W snmKody5bt7xt PJEdLHacV63zzRGld5R2L QFsjTY3ROYpvJppPeHbqT 93Oyc+RFXsmLodf2ClFaz ii6zwt0jhpPw9 AuDuQTMvjbSleCjeLVX9e 8AmLm91G25zLZqiBRSqEC LiICUpKXFutVynpb4yzC8 wIi8+PGNvbCB3 dMF3fF5wLBDlUiM0IAjzR 574HsEuxFZoIlgbd5aki2 bzpBc4DvJuZEKfaaYvbHi kJIE6q4AnNh94 O29eTJkuIZLnYMNcJZQbE REpiNidgu7tyK4nVw2+PC 5je4vziv13rZ11kZQ+PHR hITW4iUnsQJsi UPCjcL4hGOsiElP3MOKmR nCcrL42qSOsUNezLa4ceM dypLxmSL2lFVUmowvno07 3YfQxw8lsNBYz pETpCJymATT1K86hl5W2S TZpQIPvNSX1fXF0hM2eeJ lnbjogbGVmdDsgdmVydGl cXCerBFohB432 IHRvcDsnPlBhdGllbnQgT tNnVNj5I3VkRds4LTIdhN vwEP6mnIDyJUdfKx2iwUs stZrwGB0wSAZq kzjzd778WhXxn0pcXKCrb GEkMJgpBXW6L92ll8U6GK CaXUIeLUJ0tFZ3pL5xbFh nbjogbGVmdDsg faGkoCwgKFbwEQyeG849Q HRvcDsnPkJpcnRoIERhdG C4UL42RZ35iJCcz7N7lJE 7A0BvXMZmlvyx bkctgTV3THLlIDUurM47U u5epYibEt4xWPKnYDU1KI ZxdTWqC1VbwW0qZqFfGQW cSQXgA3LssKCv ZCyvG136YLkyXbI2ZWEhh qKiQ4QlOEUckPjsAuL5r2 U3Nv3DE4Z6US07TZ65bTH vi3S2aNY3H6Qx MADuxunxxnszuIZ7PHKvT BRjeJ90Ct3gcCgrOi2lUD HmNOV3WOIdbMQxM3ZbgS5 yOiAjMDAwMDAw Y1UziBIsAXqqD915MDfxB lQ2MIUnkpRoE0PnFUAfmT ulWsA7d0U3Ra8FRTa0QD3 5NH37pATmn9S6 lQJ7J2FiYZQpblkzhqccx JH9TVDdFKRpdX82Gx8xfV koKf3bQIWyUHQ1HDHnzAR jW0KplP7xViVm LRLxZFDaJ7BirVOfHMekN 815QSnzDtX3VJOmnvPrK7 HyTPQfmFugOfJ0w0U7Vy9 NMWEpRF40NLE4 dHS9GI78QQ27H3HgUulin GFibGU+PHRhYmxlIHdpZH RoPScxMDAlJyBzdHlsZT0 yHs8hUUOdJCOs rFiszNNkUxKwr5htWMDdT HyfBC7xlMehQ3TluNL8FT Qao0x0Td03J06cZ4RtzEQ +LKKapHI0dXE1 nI3rUtZgKhD7JVasL274U fKtwFQqCdldv3awy6spoZ v7PxU9OKChctFonDhqTCU 6r7DkDj17K07v IHdpZHRoPSIxNSUiIHZhb Bvdut8xvH3gBr2+PGNvbC P5jMF4pU9zPcZqVdK4MMe yF281JeSxuYSb Ekanb0aza2cozQe6UeLtK WIhiwPbxTkrTNA3v0GrJo 71Q2CjqLqhq1KaJko2bj5 1cNWyz6F9zFB1 W8HzTRLulaylxEHmmWkmI Y5hLORejenuGKYsrR2kML NkR0i9ZaKaYqQ0WDkrB8G qgpD1RFLjaYUt MGxlQKD1I43vp0C3RMGgI TEvXNO7lMB4kT6zdNhhlu ogbGVmdDsgdmVydGljYWw nYMneP133SSPg zCclZTKveS8cELPvwGMbg KfuKK1dDGNhydtwMggYQR RILCBLRUFSQTwvdGQ+PHR kRIR4iQumFMhn JIRjcN1dSXNaO4i4UwPpH nK0TBcrN6ZbMVIzzdeeHa 12rX3mQsXyPmF3KWqrZ6G zwrY4XVBpgFOg VZcxNFZ5J78kh7X7CIMmS UNpCVH6fCJ9xE4vzBrwie ogbGVmdDsgdmVydGljYWw pANyaH024KJUc tYztMnW1CsK3WrB6TTR4H 1LbUzd0NGPpuMrnXD3beC TsNVgpQc1mlZmuzHdvGF3 wNTBpbjtwYWRk rW2bGNUaoUNtoQofLL2aM NXyanktr111MzNzLZV4DJ ModZWkE7TvqY4yEfQrWXS bQQXgB7ByuWVw MSjwQ028ZCukAiG0ILYgw fLsQ1AkEEJflEeuBqI1d6 X5Qv1jYDEYEDYazlsfdCE +FZNdMQD1gEny LBceDNZxpQ8pNCIyP4s8R oFgTqU7VXgwJ8ZkIIUpby uuIs73kB6bVxKvWmH0JMd gV7OqixK2WPMh oYIrXVwpPRA6U91yo2E0R BHmXXMyJAA9oRZ3lJ2xoG lnbjogbGVmdDsgdmVydGl bVAlxPZyeI364 IHRvcDsnPkZlbWFsZTwvd GQ+TTIvVEO7iRxhAFxcAZ OheL6xLQHwD4j8RbHzWzO 0DSjhM8JjNWOd neiuPs38mL7iNdXoKwT5E QigR4HqxgA0UBOfwZZgKJ tkBMM4I56je9C9LSDpWTH iUCB1kYW3jZ8o bGlnbjogbGVmdDsgdmVyd AlbOKosRNkaN959JVMgeR drMz55kUZxpYxblxS6D4P kPjwvdHI+PC90 MOKuVI99pZMurEKvz9uxq Bo2KmKiSCMlXXK6iEufOK pxf2IhCLOsG78hiOIap2D 6IGNvbGxhcHNl QhEbbGH9eS2cOQsquzpwz 9vfhenrVpxmc0jbmu66mI 85Q36hMVmgWQCkDMQdWUT cOLIhyDpomm7m hG5zVk3+JHNyxGC1nRU7h U7sLyCaKjX1ZQkpO273Cq KxiQAeAicjr5vgw3gctGj 9IjIwJSIgdmFs fIkpQCX2j4PdMn92A45hN HdpZHRoPSIyMCUiIHZhbG rdll1cdI9bMt3+LQ2ok2x aqx98jE16pUH+ HODyRAA1pXdsDPfzTQVtw M8iYAwhCjO6GNKwBgNjgF 86gMZuWLmuKq1wuUnlzLa kEQ2fTDMrwkxm b423MvFht3qfZYAsuGHuJ VplDBB7H02ic0Y0ZHNxAZ AgPHC4cDH4cX1cnWmawus gbGVmdDsgdmVy lNotNWhhVBjlI761WEIrb DisLmEvzPIuA9xgnxJPVA 1lOjwvdGQ+NACbHWR2iDt tMGzqKGSbjR3p OERiN0u9FzHiJvD0QNgjV 4DomxN4XAMshHEuRFKysP JXrV4hwgvof7somwexNnX jLJLjWNt0BEe3 ZRApeYkiHgEfDWN3OjY9A AX9uISftW7ipQheherewJ 9wOyc+RklOOjwvdGQ+PHR jNDG5vTttHHbi CLDqtF1gOYVsY4f9JlFjA sW7VQzeG0EnaeG6RRLlfY YmZJDlpXBGgT1qjduqd9v vcjogIzAwMDAw RYp9ZIk5PDPxjOqgEoZlK KU9NlY3BQJ2bITvvJ0xdS vbcrfnsK1lEme+TVJOOjw vdGQ+PHRkIHN0 sEwbSSbgWIWquO8qHEKkP 0u2KcIvQuC6VPhjD4Zmxn T2IYDbbWMzFKKuwENYwU8 tunklp8ddkmoh VoJbZDDbEVf4OSv6XLBxc CwyYgBmQNJ1VdY2WEU8lH AteD4xkVekqjykxU9yFib +DWZ1YKX1OW21 WF86L9DzOkjptPTvtZB+P HRhYmxlIHdpZHRoPScxMD MoFsDutMxjWX0nUq4gVCM yLWNvbGxhcHNl OiBj (more content not included)... Normal [facility] Consent for Procedure/Surger yon 06-07-2022 Consent for Procedure/Surgery [id number] .00CD:127 Normal [facility] Consent for Treatmenton Consent for Treatment [id number] .00CD:127 Normal [facility] Inpatient Patient Summaryon 06-07-2022 Inpatient Patient Summary [address] [address] Clinical Summary Person Information Name: AINSLEY PARRA Age: 37 Years : 1985 Sex: Female PCP: SANIA GILMORE DO Marital Status: Single Race: White Ethnicity: Non- or Language: Japanese Visit Id: Visit Reason: URETERAL STONE Speciality: Acuity: Enc Type: Outpatient Med Service: Surgery Arrival: 06/07/2022 08:48:08 Discharge: Dispo Type: Address: [address] [place] [address] DR KAITY Hines [facility] [phone] Provider Notes: Diagnosis: Ureteral stone Problems Active [...] up: With: Address: When: Martina Stephenson [address], [address], [employer] [address] [place] [address] [phone] Business (1) Comments: Call for followup appointment in 1 month with renal US and KUB With: Address: When: Martina Stephenson Patient Education Information: EU - Cystoscopy with Stent Removal Discharge Instructions (CUSTOM) [facility] IntraOperative Documentson 1 IntraOperative Documents [id number] .00CD:127 [facility] Main OR Intraoperative Recor don 06-07-2022 Main OR Intraoperative Record IntraOp Document Type FTURO Summary Primary Physician: Martina Stephenson MD Finalized Date/Time: 06/07/22 09:18:28 Pt. Name: ANDREASAINSLEY/Sex: 1985 Female Med Rec #: [id number] Physician: Martina Stephenson MD Financial #: [id number] Pt. Type: O Room/Bed: / Admit/Disch: 06/07/22 [...] Juliana Ford Role Performed Surgeon - Primary Stage Electrician - Primary Scrub - Primary Time In 06/07/22 09:05:00 06/07/22 09:05:00 06/07/22 09:05:00 Time Out 06/07/22 09:23:00 06/07/22 09:23:00 06/07/22 09:23:00 Procedure CYSTOSCOPY LOCAL WITH CYSTOSCOPY LOCAL WITH CYSTOSCOPY LOCAL WITH STENT REMOVAL(Right) STENT REMOVAL(Right) STENT REMOVAL(Right) Comments Last Modified By: Shoaib TIRADO, CNOR, Shoaib TIRADO, CARLOS MANUELOR, Shoaib TIRADO, CARLOS MANUELOR, Liliana 06/07/22 Liliana 06/07/22 Liliana 06/07/22 09:16:34 09:16:34 09:16:34 Surgical Procedures FTURO Entry 1 Procedure Description Procedure CYSTOSCOPY LOCAL WITH Modifiers Right STENT REMOVAL Surgeon Description CYSTO RIGHT STENT REMOVAL Primary Procedure Yes Primary Surgeon Martina Stephenson MD 06/07/22 09:13:00 Stop 06/07/22 09:18:00 Anesthesia Type Local Surgical Service Urology Wound Class 2 - Clean-Contaminated Last Modified By: Shoaib TIRADO, Liliana ALVARADO 06/07/22 09:16:35 General Case Data FTURO Pre-Care Text: Classifies surgical wound, implements aseptic technique, initiates traffic control Entry 1 Case Information OR URO 1 FT Case Level None Wound Class 2 - Clean-Contaminated Specialty Urology Preop Diagnosis URETRAL STONE with Postop Same As Preop Yes stent insertion Postop Diagnosis URETRAL STONE with Outcomes Met? Yes stent insertion Last Modified By: Shoaib TIRADO, CHRISTIANO, Liliana 06/07/22 09:10:12 Post-Care Text: The patient [...] Participants CHRISTIANO Cramer RN, Applicable) Val Ford CST, Juliana Ahumada Time Out Complete 06/07/22 09:11:00 Allergies Reviewed? [...] CHRISTIANO Cramer RN, Ruthann 06/07/22 09:18 Normal [facility] Main OR Preoperative Recordo n 06-07-2022 Main OR Preoperative Record Holding Area Document Type FTURO Summary Primary Physician: Martina Stephenson MD Finalized Date/Time: 06/07/22 09:13:10 Pt. Name: AINSLEY PARRA/Sex: 1985 Female Med Rec #: [id number] Physician: Martina Stephenson MD Financial #: [id number] Pt. Type: O Room/Bed: / Admit/Disch: 06/07/22 [...] right flank, bladder area Skin Integrity Intact, [place], Warm, & Dry Vitals - EU Blood Pressure 142/77 Pulse 70 bpm Respirations 16 br/min SPO2 98 % RN Reviewed Yes Last Modified By: CHRISTIANO Cramer RN, Ruthann 06/07/22 09:13:09 General Comments: Temp 36.4 Temporal Finalized By: CHRISTIANO Cramer RN, Ruthann Document Signatures Signed By: Savannah Priest LPN 06/07/22 08:58 CHRISTIANO Cramer RN, Ruthann 06/07/22 09:13 Normal [facility] Operative Reporton Operative Report Patient: AWAIS PARRA Age: 37 years Sex: Female : 1985 Associated Diagnoses: None Author: Martina Stephenson MD Procedure Operative Information Details: Date/ Time: 06/07/2022 09:20:00. Pre-Op Dx: Ureteral stone (SVL66-XW N20.1, Discharge, Medical), Foreign Body in Bladder [...] US and to review stone analysis. Normal [facility] Comment on above: Result Comment: Elec tronically Signed By: Martina Stephenson MD\.br\Date and Time Signed: 06/07/22 09:21 EDT Outpatient Surgery Discharge Instructionon 06-07-2022 Outpatient Surgery Discharge Instruction [id number] .00CD:127 Normal [facility] Outpatient Surgery Discharge Instruction [place] [id number] Patient Discharge Instructions PERSON INFORMATION Name: AINSLEY [...] up: With: Address: When: Martina Stephenson [address] [place], [place] [address] [phone] [facility] (1) Comments: Call for followup [...] you have a fever over 100 degrees. IANDREAS KEARA, have received the attached patient education [...] to serve you. Thank you for choosing [facility] Normal [facility] Pathology Noteon 06-04-2022 Pathology Note [id number]#1 .00CD:127 Normal [facility] Operative Reporton 2 Operative Report [id number]#1 .00CD:127 Normal [facility] RAD - MISCon 06-03-2022 RAD - MISC [id number]#1 .00CD:127 Normal [facility] Calculi, Urinaryon 2 Ca Oxalate Dihydrate 100 % Normal . [facility] Comment on above: Performed By: #### C ALCULI #### [facility] , Color (U) Mathur Normal . [facility] Comment on above: Performed By: #### C ALCULI #### [facility] , Comment2 Normal . [facility] Comment on above: Result Comment: Calc ulus received in liquid. Wet calculi must be dried before analysis, which delays reporting of results. Leaving calculi in liquid (such as water, saline, blood, urine) may lead to changes in composition. Performed By: #### C ALCULI #### [facility] , Comment: Normal . [facility] Comment on above: Result Comment: Giuliano zayas questions regarding Calculi Analysis contact [facility] at: [phone]. Performed By: #### C ALCULI #### [facility] , Composition Normal . [facility] Comment on above: Result Comment: Perc entage (Represents the % composition) Performed By: #### C ALCULI #### [facility] , Disclaimer: Normal . [facility] Comment on above: Result Comment: This test was developed and its performance characteristics determined by [facility]. It has not been cleared or approved by the Food and Drug Administration. Performed at: [facility] Stone Analysis [address] [place] [address] Dr [address] [place], [place] [id number] Tax Compliance Representative: Jarett Reynoso PhD, Phone: [phone] Performed By: #### C ALCULI #### [facility] , Note Normal . [facility] Comment on above: Result Comment: Calc danae report will follow via computer, mail or retail commission sales associate delivery. PERFORMED BY: [place] [address] PATHOLOGIST FISCAL SPECIALIST BARAK ARRIAZA M.D. Performed By: #### C ALCULI #### [facility] , Photo Normal . [facility] Comment on above: Result Comment: Phot ograph will follow under a separate cover Performed By: #### C ALCULI #### [facility] , Size 4x3 Normal . [facility] Comment on above: Result Comment: Mult iple pieces received. Dimensions of the largest piece reported. Performed By: #### C ALCULI #### [facility] , Source Normal . [facility] Comment on above: Result Comment: Righ t Ureter Performed By: #### C ALCULI #### [facility] , Weight 21.0 Normal . [facility] Comment on above: Performed By: #### C ALCULI #### [facility] , [place] urethrocystogram retroon 06-02-2022 [place] urethrocystogram retro [facility] Main [place] [id number] Fluoroscopy Report Signed Patient: Ainsley Parra MR#: [id number] 1 : 1985 Acct:[id number] Age/Sex: 37 / F ADM Date: 06/02/22 Loc: [place] Room: Type: [facility] Attending Dr: Martina Stephenson MD Copies to: [...] Artemio Greene M.D.06/02/2022 4:43 PM Dictation Location: [place] [address] Transcribed By: [facility] 06/02/221642 Dictated By: Artemio Greene DO 06/02/221635 Signed By: 06/02/221642 Normal [facility] HCG ( test) IA.rapi d Ql (U)Ordered By: EMILY LYNN on 06-02-2022 HCG ( test) Ql (U) Negative [facility] HCG,Urineon 06-02-2022 Beta HCG ( test) Ql (U) Negative Normal [facility] Comment on above: Result Comment: PERF ORMED BY: [place] [address] PATHOLOGIST FISCAL SPECIALIST BARAK ARRIAZA M.D. Performed By: #### U HCG #### [address] 06-02-2022 L - -------- Specimen: [id number] Received: 06/03/22 Status: AXEL Edwards Num: [id number] Spec Type: Surgical Subm Dr: Martina Stephenson MD Tissues: A Urinary Calculus (RT URETERAL STONE) Procedures: Level 1 Gross -------- Age/ Patient Sex Location Account Attending Physician -------- Ainsley Parra Obdulia 37/F [place] [id number] Martina Stephenson MD -------- SPEC NUM: [id number] RECD: 06/03/22 STATUS: AXEL EDWARDS NUM: [id number] MARCIA: 06/02/221530 [facility] DR: Martina Stephenson MD ENTERED: 06/03/22 [...] chemical analysis. Gross examination only. CPT Codes 40580 -------- -------- Specimen: [id number] Received: 06/03/22 Status: AXEL Edwards Num: [id number] Spec Type: Surgical Subm Dr: Martian Stephenson MD Tissues: A Urinary Calculus (RT URETERAL STONE) Procedures: Level 1 Gross -------- Patient: Ainsley Parra [id number] (Continued) -------- Signed (signature on file) Gogo Bailey MD 06/03/22 1515 [facility] Lab Reportson 06-02-2022 Lab Reports [id number] .00CD:127 Normal [facility] Covid-19 PCR (CVDTBH)on 05-07 SARS-CoV-2 (COVID-19) RNA ANDREW+probe Ql (Unsp spec) Not detected Normal NOT DETECTED [facility] Comment on above: Result Comment: This test is not yet approved or cleared by the [place] FDA. When there are no FDA-approved or cleared tests available, and other criteria are met, FDA can make tests available under an emergency access mechanism called an Emergency Use Authorization (EUA). The EUA for this test is supported by the [employer] of Health and Human Service's (HHS's) declaration [...] consistent with SARS-CoV-2. Performed By: #### C [facility] #### [facility] [address] [place] [address] Dr. Gabo Perez Consent for COVID Vaccineon 05-20-2022 SARS-CoV-2 (COVID-19) RNA ANDREW+probe Ql (Unsp spec) [id number] .00CD:127 Normal [facility] RAD - MISCon 05-19-2022 RAD - MISC [id number] .00CD:127 Normal [facility] RAD - MISC [id number] .00CD:127 Normal [facility] RAD - CT Reporton 05-17-2022 RAD - CT Report [id number] .00CD:127 Normal [facility] RAD - CT Report [id number] .00CD:127 Normal [facility] Ambulatory Visit Summaryon 0 05-12-2022 Ambulatory Visit Summary DENISE PARRAARA :1985 Visit Date:05/12/2022 Ambulatory Visit Instructions Your Diagnosis Gross hematuria Ureteral stone Former smoker Tests Performed Urnls Dip Stick Auto w/o Microscopy POC 52511 XR Abdomen 1 View -- Results Pending [...] Urnls Dip Stick Auto w/o Microscopy POC 45109 (05/12/2022) Bilirubin Urine Dipstick - Negative Blood Urine Dipstick - Trace-lysed Glucose Urine Dipstick - Negative Ketones Urine Dipstick - Negative Leukocytes Urine Dipstick - Trace Nitrite Urine Dipstick - Negative Protein Urine Dipstick - Negative Specific [place] Urine Dipstick - 1.020 Urine Appearance Urine [...] pass (more content not included)... Normal [facility] Patient Educationon 05-12-20 Patient Education Urology Kidney [...] these instructions at home: Medicines ? Take wurs-vmy-jwzvraf and prescription medicines only as told by [...] 02/07/2009 Document Revised: 01/08/2020 Document Reviewed: 01/08/2020 [employer] Patient Education ? 2019 [employer]. Normal [facility] Provider Letteron 05-12-2022 Provider Letter May 12, 2022 [address]RA [address] [place] [address] [place] [address] AINSLEY PARRA 1985 To Whom It May Concern, Please excuse above patient from work. Date of Illness: From: 05/12/2022 May Return to Work On: 05/12/2022 Restrictions: Comments: Patient was seen in office for appointment and had further testing at hospital. Sincerely, Dr Martina Stephenson MD [facility] [address], [place] [address] Normal [facility] Urology Office/Clinic Noteon 05-12-2022 Urology [...] trace-lysed blood Pt was seen at the [facility] ER on 03/25/22 after an onset of dark red blood w/o pain that afternoon, pt states she had a similar occurrences beginning of the month. 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 The ER did a Micro UA showing > 100 RBC's, no culture indicated. Discussed differential including dehydration vs true gross hematuria. Pt states was Dr. Medina color but also red. GFR- 52, Creat 1.16 [...] Instructions: Rt. ESWL Patient Education Kidney Stones, Eoqb-og-Hkhe ILoreto, personally scribed for Dr. Stephenson on 05/12/2022 [...] Seasonal (Hives (more content not included)... Normal [facility] Comment on above: Result Comment: Elec tronically Signed By: Martina Stephenson MD\.br\Date and Time Signed: 05/12/22 08:38 EDT\.br\Electronically Co-Signed By: Loreto Herman.br\Date and Time Co-Signed: 05/12/22 08:26 EDT XR [...] by: EMILY MARSHALL Date: 2022-05-12 18:37 Normal [facility] CT ABD/PELV WO W CONon 05-07 CT [...] EMILY MARSHALL Date: 2022-05-07 09:17 Normal [facility] Coding Summary.on 04-27-2022 Coding Summary. CD:[id number] G h0bWw+PGhlYWQ+PV5DZDL yJ44ggXLrlX9NQ1bLMR4P MBDSVHPUUD0KPG5ieWB8U XqvB5HkqcKy TglqyZZtTV54TWr5IQE4d DmbFSnwoV8xqOFgN0o6Ea MoUC05pJ06SAvmUWYxHrO 3LjZpbjsgbWFy L9bkApPtrCNoGcu+PHRhY mxlIHdpZHRoPScxMDAlJy OjcFqqVE5eIz6iRPSeYJE vbGxhcHNlOiBj f1ovKSCeHMmsPM0wfOoaO 4TaaQU6KQYyy7m0Lu13iA I+QIIsOQD6gDqlRNcui66 8VwLvq0etMRU9 tXZgRWpoMYK0N74ll9T9H DQbKZGzOWG1yTG7cK9rgY ksicqaC5RgyRTiQsB7DSL 9xMDocN9dfFkm tpvljZ4iVjc+G88EVP4SQ WEQSN3MKsx9I7NgKiffyJ I+HQ63ENKcPJ66zEEjlJA zb4pxdId4MoHq USDjORI2yDvcSZyzw3WjY CEuM71giIOmb1Y9DAIuvM rdcERiYzFovGR9gS6eSNb sdonxb4vagamx Yxyev5ucdz07bS32L98gE LlbFLSgYVK0POVlGPLbeD kazy6zwJ2gFu8+VYxtb7i xz3ddqZd3TxMe JQPrbaMttFldGHC0p2PsP o58H5TpdXwrd6RhLlf5qr 85wXCcy2I6oOJ6ZHeuIOL utA9tQFkxXlU4 UIFaJaYgsW04hVIlRZipH r5bhMchlIffMW5tSOBlyj imFSMzkQ4sILFmpSAwoNf jBJ9cBKZjpdle w814XoMaNUS4ACVnfBAsB 8ZvrC8iZsQiRWVhZJTbU7 NyaJTlESizI775XBeoWyI 4LPVaeiHcE6Ei FXBczDpoPhE7t3B0Mr4Xp 3OxpcrtOUY9DHecVFO3Ib FlGkJdLrD5M4OnZfe0FNR ntIylZI7sB4Lw FBDhdnydbjlzfPA6SOScB WXipW12iQYnUDkyUr5jk7 P0c015IQGqXLTygP89Eb0 udDogMTBwdCBU bZ5pbydcm0ugfhsfFiStP RKuQDg3JSr0ECQvxYnnTg KgNME6YjE6QCD5zXLgiR8 fpYuvrgdyrO7w Oyc+M45ubH0iIBX5QCG8v dnuFCTfhjBaDS55NN45V4 RyPjwvdGFibGU+PGRpdiB cjJsyVK1lNnFq t1gqs7BhMVffM6PxBCHmL VewQta7WVSeBIC6gAV3cP 0rFCBmZUpyn2K0rLJ9X3M ttvEbod8zh8dp FCPhMQmlD33gbKWhd6B6N GIjoDE2TOIktIqbAuCjbE 93Oyc+CGFneKrlo8ZsNxw sf9ptd7jwvUw3 DdTeIXZrnmHydGajZKT6j 8MeZp65W18hOBrvOFQeXQ KfQBDfAABppBlxut5eeU3 wIi8+PGNvbCB3 sYL8vB0mGEKrZfM7YBqrX 470KcLbvEJqUqxnh1dpu9 rfbMs4LvXgJXCthmWkxDt tMRZ5z4MjNu98 Q06wRHpiPSSiTOPxFRIpQ IDbeSlgfb2ckR4wSu4+PC 3gt8mmym86bW74cLN+PHR hFUB4mXqoIPvu XFVsrK5oNRihGtG9UAJcP dGgnJ27hJRqEYvsYv2mcB kwgYayKQ2pMKRbaxuxs48 4JcWxj2pkGONn eNOsRWlcVGN6H79im7B1Q BUfBUOsMXO0iCK8tY9ycT lnbjogbGVmdDsgdmVydGl qZWfxOSofS351 IHRvcDsnPlBhdGllbnQgT hAoGJx9N5YgXqt8GFXkwJ hsBK2msVZbODdfCc5kbDd llMcqKC2uVIEl jrcnm891KvLjg3tgDCRju OEgZJdyJPT6E29fu8T8EL OmHKZtGLQ6rEW2mL9wfGo nbjogbGVmdDsg suXbwMkmLVlaLGhwW302O HRvcDsnPkJpcnRoIERhdG L7MF62HL35sRPob9P1nDY 6Y3IkMEMiwvrj yfgklRQ8MIPtOHXbnV04E d7mmJeyEu3nUIRcCWK9RM ScaWNaU2VdcQ2oHyPaAJY xADMjI0JywOQz COcwV148FTfeShD6TQTxh oXuE6VsXLNxjTfmHiF0e9 Q3Bm8QZ8E3RD39JC07xFS ev4A7dKG2Y4Ve IVJrqmwbrifdzUZ2PUFgA PJwnF57Dt7exOxmJa9vRZ FfDAI4RSKmcPDuD0KltG0 yOiAjMDAwMDAw Q1MjeWEeIRmvN753JKkyJ uN2SZJtecVuY9TpDHPlfQ fcEeP8g4A9Bs9FXEm7YJ9 7TH42fCZbg9A0 jHC3D0InHZWucfodtuvzj OA7DAUyNBZoqP85Op7hbR ptQf0hOJVbDEF3JGQfiUY iJ8UdrE7iGfVo LAPaCAVpM2OunPWyNYviG 665PActTkW9KIDeksFcS7 DoLIGnkJetOoP8j3K1Cy1 JNCZwNS97JSM7 xBB7VL19HB15A4SkYgzmk GFibGU+PHRhYmxlIHdpZH RoPScxMDAlJyBzdHlsZT0 cNy5oIXCbJTQq lWdwpLHaJdKzm6gcCJOqC VgdJE1hwYuaK9ZgpOS7BF Baq4f1Jx21N43aM6LeaTO +OGZiqBB1lUU9 kO2yYjNrPkV9JEijY354R wOhkOMuVywqq6mvd9ggtF s2MnM7CBPyivWjcWnrETN 6v9ZvUo08T18c IHdpZHRoPSIxNSUiIHZhb Feclf9aoI8sFz2+PGNvbC V4eIH6iU6gLuYgPxZ4ZZt gF719ApBqwELk Jirkl3nuk3xtjUc9MoGjM HWxnfHevIrgPHW0r9LnYu 23W2MaxZjtv0HtIgw4lu8 0sFCaj8D0uAF1 S8BdOBVsnjtfeNQbwNsiE W7rHPPtccroEUFedZ0xSL AbY7l7FuSlLnQ5FPsvM8N lyaC9TOEpbZDh RBntPKX7C09vv9Y3GZJvC VKwFBK5rEZ7gI2pvFbtev ogbGVmdDsgdmVydGljYWw dNBziX599JFHs xGtfLLJigM3nCXXlfKOih IzgZU7yZBWlwqlrWjtQXP RILCBLRUFSQTwvdGQ+PHR kSHY0wGlxQJih YSZjyK1qXQCfH5c3GzSwO iQ8QLomZ1EuVQGdqmoiVd 66wZ1rSyHzIpJ5HXjlN6P biiF9AZTzgPAv VNsuQBQ9E51be1I6DWOiP HSvBJF3wOZ6dS3axJnbyx ogbGVmdDsgdmVydGljYWw fQThgE875NTEj xBlqAtZ6HaJ7UzL5YVU1P 2DwCaj4HOMdyBfzKM8ekH YsWMwzAs4ldVjjkObvQV2 wNTBpbjtwYWRk rX8tZVGsoXJwrAxgTS9oL TZezysnj228GyJrOIB5DY CwjLCsV3JwkQ7vYnQgLTE tOKLgR4OvsPHk JMbaF210BKoiAuY2QYShz kBgH8MsMYTolUoaLnE7q3 D5Vg8vISGGFERcydfvxBQ +OCSqPYF7iYxl IDkaNBYlfP4qYZEiI4s3P eHiKlV5MCucV8QaWMErps psKm74eD3iGoDoPhI4NMl lW5TeeiA8CAWx pGLmLAxrTCM3F25sn5Z0M OPmWRDrAUV3rFB3gM6zoJ lnbjogbGVmdDsgdmVydGl bZIaxYKswV391 IHRvcDsnPkZlbWFsZTwvd GQ+FNMvDVM5gKggOQyhEB RtyD3pLMDoJ7o5HlOiWyH 6LLfdW2CwPKLh tuicWj76gI7sFsPiQmH4I TaaW9CdyhM0YAToeDNrUZ jyGTY7G51ra2M4KRHiQZL eNQZ3bTF1bS7c bGlnbjogbGVmdDsgdmVyd ZlnMYjxCKfxE197YEWacV phOe94qWAdeXhhqoG5Q0Z kPjwvdHI+PC90 QXNkJX48vJIixKLeo5jsk Ou6LtFkRULuWXE4zCuwPS xpc7HdCGLrP81ecMVnp7J 6IGNvbGxhcHNl MyGunSI5xO6vRPqvixpnx 1kldipoHwbac9srja33tN 89S47hHPogTYClQPNlKGP aOTEgjAorsi8s rB6hPx2+YFYklSG9vEZ3l V4xRzZpQhL8QDndC796Ha FskYOdGwrao2ywm9hixNu 9IjIwJSIgdmFs zImhQRZ3r8XuOq13C45pB HdpZHRoPSIyMCUiIHZhbG uanx9cbS5jDn9+TZ5jc5k sho08uS51qEX+ TXOqVFY2lWulGXsjIGXre N1bSUeoCjK8UJHwUaOooF 34wZTwMLteJv9whKdbkWl wCM4zBBPzrivi t717SkBix0jnXPFwjNEuH GyrBVC5R41ys8Q1OFOzVA LlRZW0gSC5lZ9ryTdzxbn gbGVmdDsgdmVy lXxpFKvuTVcvW805ZXFpb MuySiHkxGRrC4uaivDAZM 1lOjwvdGQ+AEUdHKM1sLy fEHrnECWdoF8m XGPsI4r8KlQuIdY7ZXwgC 7WjfgF1PBCjfOGnTSNrvC HJpJ5dyxgif2drvvxtJjJ tJNXaOMz2MUb5 KVXtrJoaLbFkJGD6MiH4M HL9lEYruK6jiAdglktieZ 9wOyc+RklOOjwvdGQ+PHR aWXF0zXqxWIka HSJcdS3yXPOrH8t8GwIoG xF2BGptG0UpbaF3ZUNwdP JgNVXaaBJNoX7skffby4u vcjogIzAwMDAw DDb3AVf6JFWtcByeTxCxR WA8WbS3BFI0fDVhnK2ebO wxfukdvC2cOdd+TVJOOjw vdGQ+PHRkIHN0 rNawEYidZSObtK5tNVZqP 0r9QpXkShX8HYcyE5Jpng J0BXUriONrRMAidIPGrE1 cmemax1zgrdkx UqZvXYJpILa9FQg3KKBhw GqyPhHvAMR5MkK0OAA0uW IufN5fwXytwsatjC6mHoa +IOR0LMZ9OY47 ZK69D5UcEpesnWJwrBT+P HRhYmxlIHdpZHRoPScxMD CeJnSbkUjqOJ4jGd1jWOI yLWNvbGxhcHNl OiBj (more content not included)... Normal [facility] Consent for Procedure/Surger yon 04-26-2022 Consent for Procedure/Surgery [id number]# 1.00CD:127 Normal [facility] Consent for Treatmenton 04-06 Consent for Treatment [id number]#1 .00CD:127 Normal [facility] Inpatient Patient Summaryon 04-26-2022 Inpatient Patient Summary [address] [address] Clinical Summary Person Information Name: AINSLEY PARRA Age: 37 Years : 1985 Sex: Female PCP: SANIA GILMORE DO Marital Status: Single Race: White Ethnicity: Non- or Language: Japanese Visit Id: Visit Reason: GROSS HEMATURIA Speciality: Acuity: Enc Type: Outpatient Med Service: Surgery Arrival: 04/26/2022 08:23:40 Discharge: Dispo Type: Address: [address] [place] [address] [address]Z [place] [id number] Provider Notes: Diagnosis: Gross hematuria Problems Active [...] Follow up: With: Address: When: Martina Stephenson [address] [place] [address], [place] [address], [place] [phone] [facility] (1) Comments: Call for followup appointment in [address] scan With: Address: When: Martina Stephenson Patient Education Information: EU - Cystoscopy Discharge Instructions (CUSTOM) [facility] IntraOperative Documentson 0 04-26-2022 IntraOperative Documents [id number]# 1.00CD:127 [facility] Main OR Intraoperative Recor don 04-26-2022 Main OR Intraoperative Record IntraOp Document Type FTURO Summary Primary Physician: Martina Stephenson MD Finalized Date/Time: 04/26/22 09:29:52 Pt. Name: AINSLEY PARRA/Sex: 1985 Female Med Rec #: [id number] Physician: Martina Stephenson MD Financial #: [id number] Pt. Type: O Room/Bed: / Admit/Disch: 04/26/22 08:23:40 - Institution: Case Times FTURO Entry 1 Patient Times In Room 04/26/22 09:20:00 Out Room 04/26/22 09:29:00 Procedure Times Start 04/26/22 09:23:00 Stop 04/26/22 09:28:00 Anesthesia Times Last Modified By: Juliana Hills RN 04/26/22 09:29:47 Case Attendance FTURO Entry 1 Entry 2 Entry 3 Case Attendee Sachin PANTOJA, Martina Neal SAFETY TEACHER, Juliana Hills RN, Juliana Corrales Role Performed Surgeon - Primary Scrub - Primary Stage Electrician - Primary Time In 04/26/22 09:20:00 04/26/22 09:20:00 04/26/22 09:20:00 Time Out 04/26/22 09:29:00 04/26/22 09:29:00 04/26/22 09:29:00 Procedure CYSTOSCOPY LOCAL(.) CYSTOSCOPY LOCAL(.) CYSTOSCOPY LOCAL(.) Comments Last Modified By: Juliana Hills RN, RN, Juliana Vizcaino RN 04/26/22 09:29:48 04/26/22 09:29:48 04/26/22 09:29:48 Surgical Procedures FTURO Entry 1 Procedure Description Procedure CYSTOSCOPY LOCAL Modifiers . Surgeon Description CYSTOSCOPY LOCAL Primary Procedure Yes Primary Surgeon Martina Stephenson MD Start 04/26/22 09:23:00 Stop 04/26/22 09:28:00 Anesthesia Type [...] By: Juliana Hills RN 04/26/22 09:29 Normal [facility] Main OR Preoperative Recordo n 04-26-2022 Main OR Preoperative Record Holding Area Document Type FTURO Summary Primary Physician: Martina Stephenson MD Finalized Date/Time: 04/26/22 08:49:24 Pt. Name: AINSLEY PARRA/Sex: 1985 Female Med Rec #: [id number] Physician: Martina Stephenson MD Financial #: [id number] Pt. Type: O Room/Bed: / Admit/Disch: 04/26/22 [...] CHRISTIANO Cramer RN, Ruthann 04/26/22 08:49 Normal [facility] Operative Reporton Operative Report Patient: AWAIS PARRA Age: 37 years Sex: Female : 1985 Associated Diagnoses: None Author: Martina Stephenson MD Procedure Operative Information Details: Date/ Time: 04/26/2022 09:32:00. Pre-Op Dx: Gross hematuria (POK03-KC R31.0, Discharge, Medical). Post-Op Dx: Same. Anesthesia [...] up after CTU completed (scheduled 05/07/22).. Normal [facility] Comment on above: Result Comment: Elec tronically Signed By: Martina Stephenson MD\.br\Date and Time Signed: 04/26/22 09:35 EDT Outpatient Surgery Discharge Instructionon 04-26-2022 Outpatient Surgery Discharge Instruction [place] [id number] Patient Discharge Instructions PERSON INFORMATION Name: AINSLEY [...] Follow up: With: Address: When: Martina Stephenson [address] [place] [address], [place] [phone] Business (1) Comments: Call for followup appointment in [address] scan With: Address: When: Martnia Stephenson Comment: PATIENT EDUCATION INFORMATION Instructions: Cystoscopy [...] you have a fever over 100 degrees. IANDREAS KEARA, have received the attached patient education materials/instruction s and have verbalized understanding: May we do a follow up call? Yes No I was present when discharge instructions were given Patient Signature Date Clinican/Nurse Signature Date You may receive a survey from [employer] asking you to rate your care experience. Your feedback is important and will help us understand what we do well and how we can improve the quality of care we provide to you, your loved ones and our community. It?s an honor to serve you. Thank you for choosing [facility] Normal [facility] Formson 04-19-2022 Forms [id number] .00CD:127 Normal [facility] Urine Cytology ([facility])on 0 04-19-2022 Urine Cytology Diagnosis Info Invalid Interpretation Code [facility] Comment on above: Result Comment: A:Ur ine,Urine:Voided Interpretation - Adequate cellularity for evaluation. MicroScopic Description - Adequacy - Adequate cellularity for evaluation. Gross Description Site ID:A color Yellow fixative Alcohol Specimen designated Urine received in alcohol preservative and labeled with the patient?s name, consists of 60ml slightly cloudy yellow fluid. One non-bank vault attendant cytology slide prepared. Electronically signed by : on: 04/19/2022 10:28:17 Performed By: #### 1 [id number] ####[facility] [address] [place] [address] Patient Educationon 04-14-20 Patient Education Urology Hematuria, [...] these instructions at home: Medicines ? Take pfco-znc-rfkytex and prescription medicines only as told by [...] the blood stops without treatment. ? Take dtrj-pqq-qitgqlj and prescription medicines only as told by [...] Reviewed: 09/24/2017 Elsevier Patient Education ? 2019 [employer] Normal [facility] Urine Cytology ([facility])on 0 04-14-2022 Method of Extraction Voided Normal [facility] Comment on above: Performed By: #### 1 [id number] ####[facility] [address] [place] [address] Number of Jars 1 Invalid Interpretation Code [facility] Comment on above: Performed By: #### 1 [id number] ####[facility] [address] [place] [address] Specimen Clean Catch Normal [facility] Comment on above: Performed By: #### 1 [id number] ####[facility] [address] [place] [address] Type of Service Technical Only Normal [facility] Comment on above: Performed By: #### 1 [id number] ####[facility] [address] [place] [address] Urology Office/Clinic Noteon 04-14-2022 Urology Office/Clinic Note Chief Complaint Follow up from [facility] ER HPI Staff Ainsley is here today as anew patient follow up from [facility] ER for hematuria. Pt was seen [...] of Present Illness Tests Reviewed: Reviewed UA, [facility] ER paperwork labs and external records [...] Gross hematuria) Pt was seen at the [facility] ER on 03/25/22 after an onset [...] infection, malignancy, renal dysfunction. Never seen a facilities operations technician before. -Discussed appropriate hydration and behavioral modifications. [...] 04/14/2022 12:08:48. . Documentation recorded by the scribPatsy barraza, accurately reflects the services(s) I performed and de (more content not included)... Normal [facility] Comment on above: Result Comment: Elec tronically Signed By: Martina Stephenson MD\.br\Date and Time Signed: 04/14/22 13:26 EDT\.br\Electronically Co-Signed By: Patsy Sheffield.br\Date and Time Co-Signed: 04/14/22 12:09 EDT CBC AUTO DIFFon 03-25-2022 BASO # 0.0 103/ul Normal 0.0-0.1 [facility] Comment on above: Performed By: #### C BC #### [facility] [address] [place] [address] [address] Gabo Perez Basophils/100 WBC (Bld) 0.4 % Normal 0.2-2.0 [facility] Comment on above: Performed By: #### C BC #### [facility] [address] [place] [address] Dr. Gabo Perez EO # 0.4 103/ul Normal 0.0-0.7 [facility] Comment on above: Performed By: #### C BC #### [facility] [address] [place] [address] Dr. Gabo Perez Eosinophils/100 WBC (Bld) 3.5 % Normal 0.9-7.0 [facility] Comment on above: Performed By: #### C BC #### [facility] [address] [place] [address] Dr. Gabo Perez Erythrocyte distribution width (RBC) [Ratio] 12.1 % Normal 11.0-15.0 [facility] Comment on above: Performed By: #### C BC #### [facility] [address] [place] [address] Dr. Gabo Perez Hematocrit (Bld) [Volume fraction] 39.0 % Normal 36.0-48.0 [facility] Comment on above: Performed By: #### C BC #### [facility] [address] [place] [address] Dr. Gabo Perez Hemoglobin (Bld) [Mass/Vol] 13.2 g/dL Normal 12.0-16.0 [facility] Comment on above: Performed By: #### C BC #### [facility] [address] [place] [address] Dr. Gabo Perez IG # 0.03 10e3/ul Normal 0.00-0.03 [facility] Comment on above: Performed By: #### C BC #### [facility] [address] [place] [address] Dr. Gabo Perez IG % 0.3 % Normal 0.0-0.5 [facility] Comment on above: Performed By: #### C BC #### [facility] [address] [place] [address] Dr. Gabo Perez LYMPH # 2.8 103/ul Normal 1.2-3.8 [facility] Comment on above: Performed By: #### C BC #### [facility] [address] [place] [address] Dr. Gabo Perez Lymphocytes/100 WBC (Bld) 24.3 % Normal 20.5-60.0 [facility] Comment on above: Performed By: #### C BC #### [facility] [address] [place] [address] Dr. Gabo Perez MANUAL DIFF REQ NO Normal [facility] Comment on above: Performed By: #### C BC #### [facility] [address] [place] [address] Dr. Gabo Perez MCH (RBC) [Entitic mass] 30.1 pg Normal 26.7-34.0 [facility] Comment on above: Performed By: #### C BC #### [facility] [address] [place] [address] Dr. Gabo Perez MCHC (RBC) [Mass/Vol] 33.8 g/dL Normal 29.9-35.2 [facility] Comment on above: Performed By: #### C BC #### [facility] [address] [place] [address] Dr. Gabo Perez MCV (RBC) [Entitic vol] 88.8 fL Normal 81.0-99.0 [facility] Comment on above: Performed By: #### C BC #### [facility] [address] [place] [address] Dr. Gabo Perez MONO # 0.8 103/ul Normal 0.3-0.8 [facility] Comment on above: Performed By: #### C BC #### [facility] [address] [place] [address] Dr. Gabo Perez Monocytes/100 WBC (Bld) 6.6 % Normal 1.7-12.0 [facility] Comment on above: Performed By: #### C BC #### [facility] [address] [place] [address] Dr. Gabo Perez NEUT # 7.4 103/ul Critically high 1.4-6.5 [facility] Comment on above: Performed By: #### C BC #### [facility] [address] [place] [address] Dr. Gabo Perez Neutrophils/100 WBC (Bld) 64.9 % Normal 43.0-75.0 [facility] Comment on above: Performed By: #### C BC #### [facility] [address] [place] [address] Dr. Gabo Perez Platelet mean volume (Bld) [Entitic vol] 12.0 fL Normal 9.5-13.5 [facility] Comment on above: Performed By: #### C BC #### [facility] [address] [place] [address] Dr. Gabo Perez PLT 229 103/ul Normal 150-450 [facility] Comment on above: Performed By: #### C BC #### [facility] [address] [place] [address] Dr. Gabo Perez RBC 4.39 106/ul Normal 4.20-5.40 [facility] Comment on above: Performed By: #### C BC #### [facility] [address] [place] [address] Dr. Gabo Perez WBC 11.4 103/ul Critically high 4.0-11.0 [facility] Comment on above: Performed By: #### C BC #### [facility] [address] [place] [address] Dr. Gabo Perez ER URINE PROFILEon 2 Bilirubin Ql (U) Negative Normal NEGATIVE [facility] Comment on above: Performed By: #### P REGQNT #### [facility] [address] [place] [address] Dr. Gabo Perez Clarity (U) CLEAR Normal CLEAR [facility] Comment on above: Performed By: #### P REGQNT #### [facility] [address] [place] [address] Dr. Gabo Perez Color (U) RED Abnormal YELLOW [facility] Comment on above: Performed By: #### P REGQNT #### [facility] [address] [place] [address] Dr. Gabo REED A micrscopic examination will be performed if indicated. Normal [facility] Comment on above: Performed By: #### P REGQNT #### [facility] [address] [place] [address] [address] Gabo Perez Glucose Ql (U) Negative Normal NEGATIVE [facility] Comment on above: Performed By: #### P REGQNT #### [facility] [address] [place] [address] Dr. Gabo Perez Hemoglobin Ql (U) LARGE Abnormal NEGATIVE [facility] Comment on above: Performed By: #### P REGQNT #### [facility] [address] [place] [address] Dr. Gabo Perez Ketones Ql (U) TRACE Abnormal NEGATIVE [facility] Comment on above: Performed By: #### P REGQNT #### [facility] [address] [place] [address] Dr. Gabo Perez LEUKOCYTES TRACE Abnormal NEGATIVE [facility] Comment on above: Performed By: #### P REGQNT #### [facility] [address] [place] [address] Dr. Gabo Perez Nitrite Ql (U) Negative Normal NEGATIVE [facility] Comment on above: Performed By: #### P REGQNT #### [facility] [address] [place] [address] Dr. Gabo Perez pH (U) 8.0 [pH] Normal 5-9 [facility] Comment on above: Performed By: #### P REGQNT #### [facility] [address] [place] [address] Dr. Gabo Perez Protein (U) [Mass/Vol] 30 mg/dL Abnormal NEGATIVE/ TRACE [facility] Comment on above: Performed By: #### P REGQNT #### [facility] [address] [place] [address] Dr. Gabo Perez SPEC GRAVITY 1.015 Normal 1.005-<=1.02 5 [facility] Comment on above: Performed By: #### P REGQNT #### [facility] [address] [place] [address] Dr. Gabo Perez UR MICRO IND INDICATED Normal [facility] Comment on above: Performed By: #### P REGQNT #### [facility] [address] [place] [address] Dr. Gabo Perez Urobilinogen Qn (U) 1.0 {Lucas'U}/dL Normal 0.2 - 1. 0 [facility] Comment on above: Performed By: #### P REGQNT #### [facility] [address] [place] [address] Dr. Gabo Perez URon 03-25-2022 , QUAL Negative Normal NEGATIVE [facility] Comment on above: Performed By: #### P REGQNT #### [facility] [address] [place] [address] Dr. Gabo Perez PROF CHEM 8 (BAS METB)on Anion gap [Moles/Vol] 15.1 mmol/L Normal [facility] Comment on above: Performed By: #### B MP #### [facility] [address] [place] [address] Dr. Gabo Perez Calcium [Mass/Vol] 8.5 mg/dL Normal 8.5-10.[address] [facility] Comment on above: Performed By: #### B MP #### [facility] [address] [place] [address] Dr. Gabo Perez Chloride [Moles/Vol] 106 mmol/L Normal 98-107 [facility] Comment on above: Performed By: #### B MP #### [facility] [address] [place] [address] Dr. Gabo Perez CO2 [Moles/Vol] 23.8 mmol/L Normal 21.0-32.0 [facility] Comment on above: Performed By: #### B MP #### [facility] [address] [place] [address] Dr. Gabo Perez Creatinine [Mass/Vol] 1.16 mg/dL Critically high 0.55-1.02 [facility] Comment on above: Performed By: #### B MP #### [facility] [facility] [address] [address] [address] Gabo Perez EGFR-AF PAKISTANI >60 Normal >=60 [facility] Comment on above: Performed By: #### B MP #### [facility] [address] [address] [address] Gabo Perez EGFR-NON AF PAKISTANI 52 mL/min/1.73m2 Critically low >=60 [facility] Comment on above: Performed By: #### B MP #### [facility] [address] [address] [address] Gabo Perez Glucose [Mass/Vol] 84 mg/dL Normal 74-[address] [facility] Comment on above: Performed By: #### B MP #### [facility] [address] [address] [address] Gabo Perez Potassium [Moles/Vol] 3.9 mmol/L Normal 3.5-5.1 [facility] Comment on above: Performed By: #### B MP #### [facility] [address] [address] [address] Gabo Perez Sodium [Moles/Vol] 141 mmol/L Normal 136-[address] [facility] Comment on above: Performed By: #### B MP #### [facility] [address] [address] [address] Gabo Perez Urea nitrogen [Mass/Vol] 15.0 mg/dL Normal 7.0-18.0 [facility] Comment on above: Performed By: #### B MP #### [facility] [address] [address] [address] Gabo Perez Urea nitrogen/Creatinine [Mass ratio] 12.9 mg/mg Normal [facility] Comment on above: Performed By: #### B MP #### [facility] [address] [address] [address] Gabo Peerz URINE MICROSCOPIC ONLYon BACTERIA TRACE Abnormal NONE SEEN [facility] Comment on above: Performed By: #### P REGQNT #### [facility] [address] [place] [address] Dr. Gabo Perez Bacteria identified Cx Nom (U) NOT INDICATED Normal [facility] Comment on above: Performed By: #### P REGQNT #### [facility] [address] [place] [address] Dr. Gabo Perez CAST NONE SEEN Normal NONE SEEN [facility] Comment on above: Performed By: #### P REGQNT #### [facility] [address] [place] [address] Dr. Gabo Perez Crystals LM Nom (Urine sed) NONE SEEN Normal NONE SEEN [facility] Comment on above: Performed By: #### P REGQNT #### [facility] [address] [place] [address] Dr. Gabo Perez Epithelial cells LM Ql (Urine sed) RARE Normal NONE SEEN /RARE [facility] Comment on above: Performed By: #### P REGQNT #### [facility] [address] [place] [address] Dr. Gabo Perez MUCOUS NONE SEEN Normal NONE SEEN [facility] Comment on above: Performed By: #### P REGQNT #### [facility] [address] [place] [address] Dr. Gabo Perez RBC (U) [#/Vol] /uL Abnormal 0-2 [facility] Comment on above: Performed By: #### P REGQNT #### [facility] [address] [place] [address] Dr. Gabo Perez WBC 0-2 Abnormal NONE SEEN [facility] Comment on above: Performed By: #### P REGQNT #### [facility] [address] [place] [address] Dr. Gabo Perez COVID Quick Testingon 2021 Result Positive [employer] Other GLUCOSE, BLOOD (POC)on 03-09 Glucose [Mass/Vol] 108 mg/dL Abnormal 74 - 99 mg/dL [facility] FREE T4on 01-18-2022 Free T4 [Mass/Vol] 0.30 ng/dL Critically low 0.76-1.46 [facility] Comment on above: Performed By: #### P REGQNT #### [facility] [address] [place] [address] Dr. Gabo Perez LIPID PROFILEon 01-18-2022 CHOL-HDL RATIO NORM SEE BELOW Normal [facility] Comment on above: Result Comment: 3.3 - 4.4 LOW RISK 4.4 - 7.1 AVERAGE RISK 7.1 - 11.0 MODERATE RISK >11.0 HIGH RISK Performed By: #### C MP, LIPID, TSH #### [facility] [address] [place] [address] Dr. Gabo Perez Cholesterol [Mass/Vol] 238 mg/dL Critically high <=200 [facility] Comment on above: Performed By: #### C MP, LIPID, TSH #### [facility] [address] [place] [address] Dr. Gabo Perez Cholesterol in HDL [Mass/Vol] 61 mg/dL Critically high 40-60 [facility] Comment on above: Performed By: #### C MP, LIPID, TSH #### [facility] [address] [place] [address] Dr. Gabo Perez Cholesterol in LDL [Mass/Vol] 161.4 mg/dL Normal [facility] Comment on above: Performed By: #### C MP, LIPID, TSH #### [facility] [address] [place] [address] Dr. Gabo Perez Cholesterol.total/Ch olesterol in HDL [Mass ratio] 3.9 {ratio} Normal [facility] Comment on above: Performed By: #### C MP, LIPID, TSH #### [facility] [address] [place] [address] Dr. Gabo Perez HDL NORMAL > or = 60 mg/dl - LO W CARDIOVASCULAR RISK <40 mg/dl - HIGH CARDIOVASCULAR RISK Normal [facility] Comment on above: Performed By: #### C MP, LIPID, TSH #### [facility] [address] [place] [address] Dr. Gabo Perez LDL CALC NORMAL SEE BELOW Normal [facility] Comment on above: Result Comment: <100 mg/dl OPTIMAL 100 - 129 mg/dl NEAR OR ABOVE OPTIMAL 130 - 159 mg/dl BORDERLINE HIGH 160 - 189 mg/dl HIGH >190 mg/dl VERY HIGH Performed By: #### C MP, LIPID, TSH #### [facility] [address] [address] [address] Gabo Perez Triglyceride [Mass/Vol] 78 mg/dL Normal <=150 [facility] Comment on above: Performed By: #### C MP, LIPID, TSH #### [facility] [address] [address] [address] Gabo Perez VLDL CALC 15.6 mg/dL Normal [facility] Comment on above: Performed By: #### C MP, LIPID, TSH #### [facility] [address] [place] [address] Dr. Gabo Perez PROF 14(COMP METB)on 022 Albumin [Mass/Vol] 3.6 g/dL Normal 3.4-5.[address] [facility] Comment on above: Performed By: #### C MP, LIPID, TSH #### [facility] [address] [address] [address] Gabo Perez Albumin/Globulin [Mass ratio] 1.0 {ratio} Normal [facility] Comment on above: Performed By: #### C MP, LIPID, TSH #### [facility] [address] [address] [address] Gabo Perez ALP [Catalytic activity/Vol] 56 U/L Normal 46-116 [facility] Comment on above: Performed By: #### C MP, LIPID, TSH #### [facility] [address] [address] [address] Gabo Perez ALT [Catalytic activity/Vol] 25 U/L Normal 14-59 [facility] Comment on above: Performed By: #### C MP, LIPID, TSH #### [facility] [address] [address] [address] Gabo Perez Anion gap [Moles/Vol] 11.3 mmol/L Normal [facility] Comment on above: Performed By: #### C MP, LIPID, TSH #### [facility] [address] [address] [address] Gabo Perez AST [Catalytic activity/Vol] 13 U/L Critically low 15-37 [facility] Comment on above: Performed By: #### C MP, LIPID, TSH #### [facility] [address] [place] [address] Dr. Gabo Perez Bilirubin [Mass/Vol] 0.5 mg/dL Normal 0.2-1.0 [facility] Comment on above: Performed By: #### C MP, LIPID, TSH #### [facility] [address] [place] [address] Dr. Gabo Perez Calcium [Mass/Vol] 8.7 mg/dL Normal 8.5-10.[address] [facility] Comment on above: Performed By: #### C MP, LIPID, TSH #### [facility] [address] [place] [address] Dr. Gabo Perez Chloride [Moles/Vol] 103 mmol/L Normal 98-107 [facility] Comment on above: Performed By: #### C MP, LIPID, TSH #### [facility] [address] [place] [address] Dr. Gabo Perez CO2 [Moles/Vol] 28.8 mmol/L Normal 21.0-32.0 [facility] Comment on above: Performed By: #### C MP, LIPID, TSH #### [facility] [address] [place] [address] Dr. Gabo Perez Creatinine [Mass/Vol] 0.83 mg/dL Normal 0.55-1.02 [facility] Comment on above: Performed By: #### C MP, LIPID, TSH #### [facility] [address] [place] [address] Dr. Gabo Perez EGFR-AF PAKISTANI >60 Normal >=60 [facility] Comment on above: Performed By: #### C MP, LIPID, TSH #### [facility] [address] [place] [address] Dr. Gabo Perez EGFR-NON AF PAKISTANI >60 Normal >=60 [facility] Comment on above: Performed By: #### C MP, LIPID, TSH #### [facility] [address] [place] [address] Dr. Gabo Perez Globulin (S) [Mass/Vol] 3.6 g/dL Normal [facility] Comment on above: Performed By: #### C MP, LIPID, TSH #### [facility] [address] [place] [address] Dr. Gabo Perez Glucose [Mass/Vol] 95 mg/dL Normal 74-106 [facility] Comment on above: Performed By: #### C MP, LIPID, TSH #### [facility] [address] [place] [address] Dr. Gabo Perez Potassium [Moles/Vol] 4.1 mmol/L Normal 3.5-5.1 [facility] Comment on above: Performed By: #### C MP, LIPID, TSH #### [facility] [address] [place] [address] Dr. Gabo Perez Protein [Mass/Vol] 7.2 g/dL Normal 6.4-8.2 [facility] Comment on above: Performed By: #### C MP, LIPID, TSH #### [facility] [address] [place] [address] Dr. Gabo Perez Sodium [Moles/Vol] 139 mmol/L Normal 136-145 [facility] Comment on above: Performed By: #### C MP, LIPID, TSH #### [facility] [address] [place] [address] Dr. Gabo Perez Urea nitrogen [Mass/Vol] 9.0 mg/dL Normal 7.0-18.0 [facility] Comment on above: Performed By: #### C MP, LIPID, TSH #### [facility] [address] [place] [address] Dr. Gabo Perez Urea nitrogen/Creatinine [Mass ratio] 10.8 mg/mg Normal [facility] Comment on above: Performed By: #### C MP, LIPID, TSH #### [facility] [address] [place] [address] Dr. Gabo Perez TSHon 01-18-2022 TSH 111.464 uIU/mL Critically high 0.358-3.740 [facility] Comment on above: Result Comment: REPE ATED FOR VERIFICATION Performed By: #### C MP, LIPID, TSH #### [facility] [address] [address] [address] Gabo Perez TSH RANGE SEE BELOW Normal [facility] Comment on above: Result Comment: <0.3 4 UIU/ml HYPERTHYROID 0.34-5.60 UIU/ml EUTHYROID >5.60 UIU/ml HYPOTHYROID Performed By: #### C MP, LIPID, TSH #### [facility] [address] [address] [address] Gabo Perez Urinalysis - AUTOMATEDon Appearance (U) cloudy [employer] Other Bilirubin Ql (U) Negative [employer] Other Color (U) dark yellow [employer] Other Glucose Ql (U) Negative [employer] Other Hemoglobin Ql (U) large [employer] Other Ketones Ql (U) trace [employer] Other Leukocyte esterase Test strip Ql (U) large [employer] Other Nitrite Ql (U) Positive [employer] Other pH (U) 6.5 [pH] [employer] Other Protein Ql (U) 100 [employer] Other Specific gravity (U) [Rel density] >1.030 [employer] Other Urobilinogen (U) [Mass/Vol] 1.0 mg/dL [employer] Other Urinalysis - AUTOMATED [employer] Other Urine Cultureon 12-02-2021 Bacteria identified Cx Nom (U) Reason for Exam Dysuria Urine ORGANISM: Escherichia coli (O:ESCCOL) Bryant Count >100,000 Aerobic CECE Charge (NUC86) ---- [...] RESISTANT TO ALL B-LACTAM DRUGS. PERFORMED BY: [id number] PATHOLOGIST FISCAL SPECIALIST BARAK ARRIAZA M.D. [facility] Comment on above: Performed By: #### C UU #### [address] Vital Signs Date Time Vital Sign Value Performing Clinician Facility 01-12-2023 08:46-0400 Blood Pressure Location Martina Stephenson [facility] 01-12-2023 08:46-0400 Diastolic blood pressure 74 mm[Hg] Martina Stephenson [facility] 01-12-2023 08:46-0400 Heart rate 68 /min Martina Lue [facility] 01-12-2023 08:46-0400 Respiratory rate 16 /min Martina Lue [facility] 01-12-2023 08:46-0400 Systolic blood pressure 128 mm[Hg] Martina Lue [facility] 06-02-2022 16:55-0400 Diastolic blood pressure 86 mm[Hg] DO Sania Rumschlag Work Phone: [facility] 06-02-2022 16:55-0400 Heart rate 73 /min DO Sania Rumschlag Work Phone: [facility] 06-02-2022 16:55-0400 Respiratory rate 16 /min DO Sania Rumschlag Work Phone: [facility] 06-02-2022 16:55-0400 SaO2% (BldA) [Mass fraction] 100 % DO Sania Rumschlag Work Phone: [facility] 06-02-2022 16:55-0400 Systolic blood pressure 114 mm[Hg] DO Sania Rumschlag Work Phone: [facility] 06-02-2022 16:10-0400 Inhaled oxygen flow rate 6 L/min DO Sania Rumschlag Work Phone: [facility] 06-02-2022 15:16-0400 Body mass index (BMI) [Ratio] 37.3 kg/m2 DO Sania Rumschlag Work Phone: [facility] 06-02-2022 13:55-0400 Body height 153.67 cm DO Sania Rumschlag Work Phone: [facility] 06-02-2022 13:55-0400 Body weight 87.99 kg DO Sania Rumschlag Work Phone: [facility] 06-02-2022 12:12-0400 Body temperature 97.9 [degF] DO Sania Rumschlag Work Phone: [facility] 05-12-2022 08:06-0400 Blood Pressure Location Martina Lue [facility] 05-12-2022 08:06-0400 Diastolic blood pressure 65 mm[Hg] Martina Lue [facility] 05-12-2022 08:06-0400 Heart rate 71 /min Martina Lue [facility] 05-12-2022 08:06-0400 Respiratory rate 16 /min Martina Lue [facility] 05-12-2022 08:06-0400 Systolic blood pressure 108 mm[Hg] Martina Lue [facility] 04-14-2022 11:31-0400 Blood Pressure Location Martina Lue [facility] 04-14-2022 11:31-0400 Diastolic blood pressure 76 mm[Hg] Martina Lue [facility] 04-14-2022 11:31-0400 Heart rate 71 /min Martina Lue [facility] 04-14-2022 11:31-0400 Respiratory rate 16 /min Martina Lue [facility] 04-14-2022 11:31-0400 Systolic blood pressure 113 mm[Hg] Martina Stephenson [facility] 03-15-2022 11:10-0400 Body height 153.67 cm Sherine Renee Other [employer] Other 03-15-2022 11:10-0400 Body mass index (BMI) [Ratio] 37.26 kg/m2 Sherine Barrientosault Other [employer] Other 03-15-2022 11:10-0400 Body temperature 98 [degF] Sherine Barrientosault Other [employer] Other 03-15-2022 11:10-0400 Body weight 88 kg Sherine Barrientosault Other [employer] Other 03-15-2022 11:10-0400 Respiratory rate 18 /min Sherine Barrientosault Other [employer] Other 03-15-2022 11:10-0400 SaO2% (BldA) [Mass fraction] 98 % Sherine Barrientosault Other [employer] Other 03-09-2022 10:49-0400 Body weight 88 kg Patti Vences MD Work Phone: [facility] 03-09-2022 10:49-0400 Diastolic blood pressure 68 mm[Hg] Patti Vences MD Work Phone: [facility] 03-09-2022 10:49-0400 Heart rate 76 /min Patti Vences MD Work Phone: [facility] 03-09-2022 10:49-0400 Systolic blood pressure 100 mm[Hg] Patti Vences MD Work Phone: [facility] 12-02-2021 17:00-0400 Body height 153.67 cm Linda Valentemond Other [employer] Other 12-02-2021 17:00-0400 Body mass index (BMI) [Ratio] 37.64 kg/m2 Linda Valentemond Other [employer] Other 12-02-2021 17:00-0400 Body temperature 97.9 [degF] Linda Valentemond Other [employer] Other 12-02-2021 17:00-0400 Body weight 88.91 kg Linda Valentemond Other [employer] Other 12-02-2021 17:00-0400 Diastolic blood pressure 85 mm[Hg] Linda Valentemond Other [employer] Other 12-02-2021 17:00-0400 Respiratory rate 18 /min Linda Carolyn Other [employer] Other 12-02-2021 17:00-0400 SaO2% (BldA) [Mass fraction] 99 % Linda Valentemond Other [employer] Other 12-02-2021 17:00-0400 Systolic blood pressure 120 mm[Hg] Linda Carolyn Other [employer] Other Encounters Encounter Date Encounter Type Care Provider Facility Start: 09-12-2023 End: 09-12-2023 ambulatory VLADIMIR JOHNSON Not Available Start: 08-23-2023 End: 08-23-2023 ambulatory VLADIMIR JOHNSON Not Available Start: 08-05-2023 ambulatory Patti clark MD Work Phone: Endocrinology Comment on above: labs Start: 08-05-2023 E-mail encounter fro m caregiver Patti Vences MD Work Phone: [facility] Start: 08-04-2023 End: 08-04-2023 ambulatory PATTI VENCES Facility:[facility] Start: 04-20-2023 ambulatory Martina Stephenson Facility:[facility] Start: 04-15-2023 End: 04-15-2023 ambulatory Patti Vences MD Work Phone: Endocrinology Comment on above: 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 Start: 01-03-2023 End: 01-04-[address] PASQUALE WILKES Facility:[facility] Start: 01-03-2023 End: 01-04-2023 ambulatory SANIA GILMORE Facility:[facility] Start: 11-26-2022 End: 11-26-[address] VLADIMIR JOHNSON . Facility: Start: 11-16-2022 Encounter for preprocedural cardiovascular examination DR VLADIMIR JOHNSON . [facility] Start: 11-16-2022 Encounter for preprocedural respiratory examination DR VLADIMIR JOHNSON . [facility] Start: 11-12-2022 End: 11-13-2022 ambulatory SANIA DEIRDRE Facility:[facility] Start: 11-12-2022 End: 11-13-2022 Encounter for preprocedural cardiovascular examination SANIA GILMORE Facility:[facility] Start: 09-23-2022 End: 09-24-2022 ambulatory SANIA GILMORE Facility: Start: 09-20-[address] DOCTOR VILLAFUERTE Facility :[facility] Start: 09-01-2022 End: 09-01-[address] VLADIMIR JOHNSON . Facility:[facility] Start: 07-14-2022 End: 07-15-2022 ambulatory SANIA GILMORE Facility:[facility] Start: 07-09-2022 End: 07-10-[address] EMILY MARSHALL Facility:[facility] Start: 07-05-2022 End: 07-06-[address] EMILY MARSHALL Facility:[facility] Start: 06-07-2022 End: 06-08-2022 ambulatory SANIA GILMORE Facility:[facility] Start: 06-07-2022 End: 06-07-2022 Patient encounter procedure Martina Stephenson [facility] Start: 06-02-2022 Encounter for preprocedural laboratory examination MARTINA STEPHENSON . [facility] Start: 06-02-2022 End: 06-02-2022 ambulatory Martina Stephenson Facility:[facility] Start: 06-02-2022 End: 06-02-2022 Admission to same day surgery center DO Sania Rumschlag Work Phone: [facility] Start: 06-02-2022 End: 06-03-2022 ambulatory DO Sania Rumschlag Work Phone: [facility] Work Phone: Start: 05-31-2022 End: 06-01-2022 ambulatory MARTINA STEPHENSON . Facility:[facility] Start: 05-31-2022 End: 06-01-2022 Encounter for preprocedural laboratory examination MARTINA STEPHENSON . Facility:[facility] Start: 05-12-2022 End: 05-13-[address] EMILY MARSHALL Facility: Start: 05-12-2022 End: 05-12-2022 Patient encounter procedure Martina Stephenson [facility] Start: 05-07-2022 End: 05-08-2022 ambulatory Patti Vences MD Work Phone: Endocrinology Comment on above: Labs Start: 04-26-2022 End: 04-27-2022 ambulatory SANIA RUMSCHLAG Facility:[facility] Start: 04-26-2022 End: 04-26-2022 Patient encounter procedure Martina Stephenson [facility] Start: 04-14-2022 End: 04-15-2022 ambulatory SANIA BUITRAGOLAG Facility:[facility] Start: 04-14-2022 End: 04-14-2022 Patient encounter procedure Martina Stephenson [facility] Start: 03-25-2022 End: 03-25-2022 ambulatory RAMAN RIVASBILLY . Facility: Start: 03-15-2022 End: 03-15-2022 ambulatory Sherine Renee Other [employer] Other Start: 03-15-2022 Office outpatient vi sit 15 minutes Sherine Renee [facility] Start: 03-10-2022 ambulatory Patti clark MD Work Phone: Endocrinology Comment on above: labs Start: 03-10-2022 E-mail encounter fro m caregiver Patti Vences MD Work Phone: [facility] Start: 03-09-2022 Telephone encounter Patti Vences MD Work Phone: Endocrinology Comment on above: Patient Update Start: 03-09-2022 End: 03-09-2022 Patient encounter procedure Patti Vences MD Work Phone: Endocrinology Comment on above: 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); Impaired fasting glucose Start: 01-18-2022 End: 01-19-[address] DOCTOR VILLAFUERTE Facility: Start: 12-04-2021 End: 12-04-2021 ambulatory Linda Leon Other [employer] Other Start: 12-04-2021 Telephone encounter Linda MARQUEZ [facility] Start: 12-02-2021 End: 12-02-2021 ambulatory Linda Leon [employer] Other Start: 12-02-2021 Office outpatient vi sit [...] P,Tdap,Td Vaccine (2 - Td or Tdap) [facility] Start: 09-16-2023 End: 02-01-2024 Thyrotropin [Units/volume] in Serum or Plasma TSH BLD Lab Routine 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 Expected: 09/16/2023, Expires: 02/01/2024 [facility] Work Phone: Comment on above: Expected: 09/16/2023 , Expires: 02/01/2024 Start: 09-16-2023 End: 12-16-2023 Thyroxine (T4) free [Mass/volume] in Serum or Plasma T4 FREE/FREE THYROX Lab Routine 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 Expected: 09/16/2023, Expires: 12/16/2023 [facility] Work Phone: Comment on above: Expected: 09/16/2023 , Expires: 12/16/2023 Start: 06-15-2023 End: 10-12-2023 Thyrotropin [Units/volume] in Serum or Plasma TSH BLD Lab Routine 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 Expected: 06/15/2023, Expires: 10/12/2023 [facility] Work Phone: Comment on above: Expected: 06/15/2023 , Expires: 10/12/2023 Start: 06-15-2023 End: 08-15-2023 Thyroxine (T4) free [Mass/volume] in Serum or Plasma T4 FREE/FREE THYROX Lab Routine 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 Expected: 06/15/2023, Expires: 08/15/2023 [facility] Work Phone: Comment on above: Expected: 06/15/2023 , Expires: 08/15/2023 Start: 05-06-2023 Influenza vaccination [facility] Start: 09-05-2022 DEPRESSION ASSESSMENT DEPRESSION ASS ESSMENT [facility] Start: 06-10-2022 End: 08-10-2022 Thyrotropin [Units/volume] in Serum or Plasma TSH BLD Lab Routine 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 Expected: 06/10/2022, Expires: 08/10/2022 [facility] Work Phone: Comment on above: Expected: 06/10/2022 , Expires: 08/10/2022 Start: 06-10-2022 End: 08-10-2022 Thyroxine (T4) free [Mass/volume] in Serum or Plasma T4 FREE/FREE THYROX Lab Routine 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 Expected: 06/10/2022, Expires: 08/10/2022 [facility] Work Phone: Comment on above: Expected: 06/10/2022 , Expires: 08/10/2022 Start: 06-02-2022 End: 06-02-2022 [facility] Start: 05-11-2022 End: 07-11-2022 Thyrotropin [Units/volume] in Serum or Plasma TSH BLD Lab Routine 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 Expected: 05/11/2022, Expires: 07/11/2022 [facility] Work Phone: Comment on above: Expected: 05/11/2022 , Expires: 07/11/2022 Start: 05-11-2022 End: 07-11-2022 Thyroxine (T4) free [Mass/volume] in Serum or Plasma T4 FREE/FREE THYROX Lab Routine 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 Expected: 05/11/2022, Expires: 07/11/2022 [facility] Work Phone: Comment on above: Expected: 05/11/2022 , Expires: 07/11/2022 Start: 05-06-2022 Influenza vaccination INFLUENZA (#1) [facility] Start: 03-09-2022 End: 05-09-2022 Thyrotropin [Units/volume] in Serum or Plasma [facility] Work Phone: Comment on above: Expected: 03/09/2022 , Expires: 05/09/2022 Start: 03-09-2022 End: 05-09-2022 Thyroxine (T4) free [Mass/volume] in Serum or Plasma [facility] Work Phone: Comment on above: Expected: 03/09/2022 , Expires: 05/09/2022 Start: 03-09-2022 End: 05-09-2022 Triiodothyronine (T3) Free [Mass/volume] in Serum or Plasma [facility] Work Phone: Comment on above: Expected: 03/09/2022 , Expires: 05/09/2022 Start: 02-08-2014 HPV TESTING HPV TESTING [facility] Start: 02-08-2005 PAP TESTING PAP TESTING [facility] Start: 02-08-2003 Urine microalbumin profile DTAP,TDAP ,TD (1 - Tdap) [facility] Start: 02-08-2002 ANNUAL PCP TEAM FISH CAKE MAKER JOSE MIGUEL DISEASE VISIT ANNUAL PCP TEAM CHRONIC DISEASE VISIT [facility] Start: 02-08-2002 HEPATITIS C SCREENING HEPATITIS C SC REENING [facility] Start: 02-08-2002 HIV SCREENING HIV SCREENING [facility] Start: 1996 Adult depression scr eening assessment DEPRESSION SCREENING [facility] Start: 1984 COVID-19 VACCINE (#1) COVID-19 VACCI NE (#1) [facility] Start: 1984 HEPATITIS B (1 of 3 - 3-dose series) HEPATITIS B (1 of 3 - 3-dose series) [facility] Start: 1984 Hepatitis B Vaccine (1 of 3 - 3-dose series) Hepatitis B Vaccine (1 of 3 - 3-dose series) [facility] Patient Education Ureteroscopy U reteral Stent (DC) Kidney Stone Diet [facility] Work Phone: Patient referral [facility] Work Phone: Immunizations Immunization Date Immunization Notes Care Provider Marisol joyner 10-26-2021 tetanus toxoid, reduced diphtheria toxoid, and acellular pertussis vaccine, adsorbed Martina Stephenson [facility] NEGATED: Highlighted row has not occurred!05-12-2022 SARS-CoV-2 mRNA (tozinameran 5y-11y) vaccine Martina Luchristi [facility] Payers Date Payer Category Payer Medicaid [id number] 2022 Unknown [id number] 2021 Medicaid [employer]ICA[employer] [id number] 2021-Present [phone] [address] [place] [address] Medicaid [id number] 2021 Medicaid [id number] [id number] 1984 Unknown [id number] 2.16.840.1.660258.3.579.2.593 1984 Unknown [id number] 2.16.840.1.755072.3.579.2.593 1984 Unknown [id number] 2.16.840.1.686361.3.579.2.593 1984 Unknown [id number] 2.16.840.1.127922.3.579.2.593 1984 Unknown [id number] 2.16.840.1.539423.3.579.2.593 1984 Unknown [id number] 2.16.840.1.330991.3.579.2.593 1984 Unknown [id number] 2.16.840.1.894858.3.579.2.593 1984 Unknown [id number] 2.16.840.1.307752.3.579.2.593 1984 Unknown [id number] 2.16.840.1.414228.3.579.2.593 1984 Unknown [id number] 2.16.840.1.218857.3.579.2.593 1984 Unknown [id number] 2.16.840.1.844856.3.579.2.593 1984 Unknown [id number] 2.16.840.1.077472.3.579.2.593 1984 Unknown [id number] 2.16.840.1.181313.3.579.2.593 1984 Unknown [id number] 2.16.840.1.464804.3.579.2.593 1984 Unknown [id number] 2.16.840.1.704440.3.579.2.727 1984 Unknown [id number] 2.16.840.1.617093.3.579.2.727 1984 Unknown [id number] 2.16.840.1.840562.3.579.2.727 1984 Unknown [id number] 2.16.840.1.068147.3.579.2.727 1984 Unknown [id number] 2.16.840.1.978125.3.579.2.727 1984 Unknown [id number] 2.16.840.1.021431.3.579.2.727 1984 Unknown [id number] 2.16.840.1.306546.3.579.2.727 1984 Unknown [id number] 2.16.840.1.295936.3.579.2.727 1984 Unknown [id number] 2.16.840.1.636083.3.579.2.1259 1984 Unknown [id number] 2.16.840.1.720924.3.579.2.1259 1959 Self-pay [id number] 1959 Unknown [id number] 2.16.840.1.842373.19 Unknown [id number] 2.16.840.1.063131.3.579.2.531 Unknown [id number] 2.16.840.1.116454.3.579.2.531 Social History Date Type Detail Facility Unknown if ever smoked [facility] Other Start: 03-09-2022 End: 04-15-2023 Sex Assigned At [facility] Start: 03-09-2022 End: 01-12-2023 Tobacco smoking status NHIS Ex-smoker [facility] Start: 03-09-2022 Tobacco use and exposure Former smokeless tobacco user [facility] Start: 1985 Sex Assigned At Female [facility] Start: 02-27-2022 End: 05-07-2022 Exposure to SARS-CoV-2 (event) Not sure [facility] History of tobacco use Current smoker [facility] Start: 03-09-2022 End: 04-15-2023 History of Social function [facility] National Score (1-10 0), lower number is lower risk 74 [facility] Start: 03-02-2022 Gender identity Identifies as female gender (finding) [facility] Start: 03-02-2022 Sexual orientation Heterosexual (finding) [facility] Goals Date Patient Goal Desired Activity /State Functional Status Date Assessment Result Facility 01-12-2023 Functional Status N/A [facility] 06-03-2022 Functional Status N/A [facility] 05-12-2022 Functional Status N/A [facility] 04-14-2022 Functional Status N/A [facility] Clinical Notes 12-02-2021 to 08-05-2023 Addendum Note - Patti Vences MD - 08/05/2023 1:37 PM Patti Cook MD - 04/15/2023 11:53 AM EDTTelephone Encounter - Mohini Soto RN - 05/11/2022 8:06 AM EDT Note Date & Type Note Facility 08-05-2023 Miscellaneous Notes Addended by: PATTI VENCES on: 08/05/2023 01:37 PM Modules accepted: Orders documented in this encounter [facility] 04-15-2023 Note HNO ID: [id number] Author: Patti Vences MD Service: ? Author Type: Physician Type: Progress Notes Filed: 04/15/2023 12:08 PM Note Text: I have communicated my name and active licensure. The patient's identity and physical location were verified at the time of this visit. Either the patient or their legal wireless sales representative has been informed of the [...] and edited as necessary for today's visit. [facility] 04-15-2023 History of Presen t illness Narrative I have communicated my name and active licensure. The patient's identity and physical location were verified at the time of this visit. Either the patient or their legal wireless sales representative has been informed of the [...] for today's visit. documented in this encounter [facility] 01-12-2023 Hospital Discharg e instructions Patient Education [...] include: ?8 oz (237 mL) of milk, jrhtakf-ppmvotxylkik-oosgx milk, and calcium-fortifiedfruit juice. Calcium-fortified means that [...] ?Spinach (cooked), rhubarb, beets, sweet potatoes, and Eritrean chard. ?Peanuts. ?Potato chips, central african fries, and baked potatoes with skin on. ?Nuts and nut products. ?Chocolate. If you regularly take a diuretic medicine, make sure to eat at least 1 or 2 servings of fruits or vegetables that are high in potassium each day. These include: ?Avocado. ?Banana. ?[place], prune, carrot, or tomato juice. ?Baked potato. [...] magnesium, fish oil, or vitamin B6. Take jflz-sse-opzdfyh and prescription medicines only as told by [...] Casseroles. Pizza. Lasagna. Frozen meals. Potato chips. Puerto Rican fries. The items listed above may not [...] provider. Document Revised: 05/03/2022 Document Reviewed: 05/03/2022 y prime Patient Education 2022 [employer]. Follow Up Care 07/14/2022 10:05:42 With:Sachin PANTOJA, MELLISSA Anand, URO Address: When: Unknown [facility] 11-26-2022 Note OPERATIVE NOTE OPERATION DATE: 11/26/2022 PROCEDURE: Yamileth endometrial ablation with hysteroscopy with endometrial biopsy. PREOPERATIVE DIAGNOSIS: Menorrhagia. POSTOPERATIVE DIAGNOSIS: Menorrhagia. ANESTHESIA: General. SURGEON: Vladimir Johnson D.O. ADVERTISING SOLICITOR: None. BLOOD LOSS: 5 mL URINE OUTPUT: [...] identified, and endometrial curettings were obtained. [facility] 11-26-2022 Note OP Note OPERATION DATE: 11/26/2022 ADDENDUM: Please note that prior to the ablation that the endometrial pipette was used and endometrial biopsy was performed. [facility] 06-07-2022 Note [id number]:127 [facility] 06-07-2022 Note Cystoscopy with Sten [...] you have a fever over 100 degrees. [facility] 06-07-2022 Hospital Discharg e instructions [...] Up Care 06/03/2022 14:45:09 With:Martina Stephenson Address: [facility] [address] [address] [phone] Business (1) When: Unknown Comments:Call for followup appointment in 1 month with renal US and KUB With:Martina Stephenson Address:Unknown When: Unknown [facility] 05-12-2022 Hospital Discharg e instructions Patient Education 05/12/2022 08:19:09 Kidney Stones, Jycp-re-Nlnp Kidney Stones Kidney stones are rock-like masses [...] Follow these instructions at home: Medicines Take cnrw-lda-aahqggl and prescription medicines only as told by [...] 02/07/2009 Document Revised: 01/08/2020 Document Reviewed: 01/08/2020 y prime Patient Education 2020 [employer]. Follow Up Care 04/26/2022 09:37:55 With:Sachin PANTOJA, MELLISSA Anand, URO Address: When: Unknown [facility] 05-11-2022 Miscellaneous Notes Formattin g of this note might be different from the original. Please see message and advise. documented in this encounter [facility] 04-26-2022 Note [id number]:127 [facility] 04-26-2022 Note Cystoscopy ? Voiding [...] you have a fever over 100 degrees. [facility] 04-26-2022 [facility] Discharg e instructions Patient Education 04/26/2022 [...] Up Care 04/14/2022 14:07:08 With:Martina Stephenson Address: [facility] [address] [address] [phone] Business (1) When: Unknown Comments:Call for followup appointment in [address] scan With:Martina Stephenson Address:Unknown When: Unknown [facility] 04-14-2022 [facility] Discharg e instructions Patient Education 04/14/2022 [...] Follow these instructions at home: Medicines Take nbne-xic-tdrxlmz and prescription medicines only as told by [...] or the blood stops without treatment. Take ppeq-gwm-etagkfr and prescription medicines only as told by your health care provider. Drink enough fluid to keep your urine clear or pale yellow. This information is not intended to replace advice given to you by your health care provider. Make sure you discuss any questions you have with your health care provider. Document Released: 08/22/2006 Document Revised: 01/16/2020 Document Reviewed: 09/24/2017 y prime Patient Education 2020 [employer]. Follow Up Care 03/29/2022 15:23:33 With:Sachin PANTOJA, MELLISSA Anand, URO Address: When: Unknown [facility] 03-15-2022 Evaluation note Encounter Date Diagnosis Assessment [...] UP AND WHEN TO SEEK EMERGENCY TREATMENT [facility] Other 07-06-2022 Miscellaneous Notes* Telephone Encounter - Patti Vences MD - 03/10/2022 2:59 PM EDT TFTs hyperthyroid, will have her skip LT4 completely for 4 days and then resume at 137mcg daily, repeat labs in 2 months, sent [employer] message [facility] Miscellaneous Notes* Telephone Encounter - Aleksandar Sanders MA - 03/09/2022 11:39 AM EDT Referral notes from 03/09/[address] Sania Gilmore office at [phone]. Confirmation received. documented in this encounter[facility]22 Instructions* Patient Instructions* Patti Vences MD - [...] bread or 35-45 calories per slice Claire Mcdonnell or [employer]'s Own Sugar- Free are some examples of low carb/light bread), or try low carb tortilla/wraps (such as Thomas Carb Balance) Do not drink juice or [...] Stevia, Splenda, Equal, or Sweet-N-Low, use plain feur-qk-lpez or a sugar- free flavored creamer, or just drink it black if you like it that way Please get blood test today documented in this encounterHol[facility]22 History of Present illness Narrative* Patti Vences [...] Level: 4 - Moderate documented in this encounterHol[facility] System03-30-2022 Evaluation note* Encounter Date Diagnosis Assessment Notes Treatment Notes Treatment Clinical Notes Nov, Dysuria (ICD-10 - R30.0) Nov, Urinary tract infection, site not specified (ICD-10 - N39.0) Drink plenty fluids, get plenty of rest. Take the Pyridium and Macrobid as prescribed until gone. Follow-up with your family physician if no improvement in 2 to 3 days. Nov, Hematuria, unspecified (ICD-10 - R31.9) [facility] Other Evaluation + Plan note Future Appointments Appointment Date:04/19/2022 08:15:00 AM Scheduled Provider: Location:[facility] Appointment Type:Urology [facility] Appointment Date:04/26/2022 09:00:00 AM Scheduled Provider: Location:[facility] Appointment Type:Urology FT Diagnostic Tests Pending * Urine Cytology ([facility]) 04/14/22 [facility] [employer] evaluation + Plan note Future Appointments Appointment Date:05/12/2022 08:00:00 AM Scheduled Provider:Martina Stephenson MD Location:[facility] App[facility]ments Appointment Date:07/14/2022 08:00:00 AM Scheduled Provider:Martina Stephenson MD Location:[facility] App[facility]ments Appointment Date:04/20/2023 08:00:00 AM Scheduled Provider:Martina Stephenson MD Location:[facility] Appointment Type:URO Office Visit Diagnostic Tests Pending * PTH Intact 01/12/23 * Uric Acid 01/12/[address] [facility] evaluation noteNo InformationNort [employer] Other Evaluation note* Diagnosis 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 Impaired fasting glucose [facility] Diagnosis 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 [facility] noteNo assessment information [facility] Work Phone: evaluation note* Diagnosis 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 documented in this encounter [facility] note* Diagnosis 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 documented in this encounter [facility] general Narrative - Reported* Type Description Date Medical History Depression with anxiety Medical History Meniere disease Medical History Darrell's thyroiditis Surgical History tubal ligation Surgical History D&C Surgical History bone spur on left foot, 5th met atarsal Surgical History D&C with leep Hospitalization History see above [facility] Other Hospital course Narrative No data available for this section [facility] Hospital Discharge instructions Additional Instructions Take [...] Take stool softeners. You can buy AZO zawi-ici-zswhhvd (pyridium) and use as needed for burning with urination. This will make your urine orange. Drink plenty of water and fluids You must follow up to ensure your stent is removed. Failure to do so may result in recurrent infections and renal failure. Activity as tolerated. Limit heavy lifting > 15 lbs if you are developing hematuria or flank pain.[facility] Work Phone: Progress note No data available for this section [facility] Chief Complaint and Reason for Visit Chief [...] or prosecute any alcohol or drug abuse patient.[facility] the event this information is protected by the Federal Confidentiality of Alcohol and Drug Abuse Patient Records regulations: The Federal rules restrict any use of the information to criminally investigate or prosecute any alcohol or drug abuse patient.[facility] SystemIn the event this information is protected by the Federal Confidentiality of Alcohol and Drug Abuse Patient Records regulations: The Federal rules restrict any use of the information to criminally investigate or prosecute any alcohol or drug abuse patient.[facility] System[facility] the event this information is protected by the Federal Confidentiality of Alcohol and Drug Abuse Patient Records regulations: The Federal rules restrict any use of the information to criminally investigate or prosecute any alcohol or drug abuse patient.[facility] SystemIn the event this information is protected by the Federal Confidentiality of Alcohol and Drug Abuse Patient Records regulations: The Federal rules restrict any use of the information to criminally investigate or prosecute any alcohol or drug abuse patient.[facility] SystemIn the event this information is protected by the Federal Confidentiality of Alcohol and Drug Abuse Patient Records regulations: The Federal rules restrict any use of the information to criminally investigate or prosecute any alcohol or drug abuse patient.[facility] Care Teams (unrecognized sec tion and content) Book Jacket Cover Machine Operator Relationship Specialty Start Date End Date Sania Gilmore [address] [place] [address] Referring [facility] 01/06/22 Book Jacket Cover Machine Operator Relationship Specialty Start Date End Date Sania Gilmore [address] [place] [address] Referring [facility] 01/06/22 Book Jacket Cover Machine Operator Relationship Specialty Start Date End Date Sania Gilmore [address] [place] [address] Referring [facility] 01/06/22 Team Status: Inactive Member Role Status Dates Martina Stephenson MD Attending Provider Active Sania Gilmore DO Primary Care Provider Active Team Status: Active Member Role Status Dates Sania Gilmore DO Primary Care Provider Active Book Jacket Cover Machine Operator Relationship Specialty Start Date End Date Sania Gilmore [address] [place] [address] Referring [facility] 01/06/22 Book Jacket Cover Machine Operator Relationship Specialty Start Date End Date Deirdre SaniaDO [address] [place] [address] Referring [facility] 01/06/22 INFORMATION SOURCE (unrecogn ized section and content) DATE CREATED AUTHOR 06/10/2022 [facility] DATE CREATED AUTHOR AUTHOR'S ORGANIZ ATION 01/08/2023 [facility] DATE CREATED AUTHOR AUTHOR'S ORGANIZ ATION 04/13/2023 [facility] DATE CREATED AUTHOR AUTHOR'S ORGANIZ ATION 08/07/2023 [facility] CREATED AUTHOR AUTHOR'S PERRY DAVE 09/13/2023 [facility] dical Specialists [facility] FOR RECORDS PERTAINING TO PATIENTS WHO ARE [...] BE BASED ON THE PRIMARY CLINICAL RECORDS. [facility] [employer] [facility]. provides no warranty or guarantee of the accuracy or completeness of information in this document.
[2023-09-15 11:17] LABS: Basophils Absolute Auto 0.1 10^3/uL (0.0-0.1); Basophils Percent Auto 0.7 % (0.2-2.0); Eosinophils Absolute Auto 0.1 10^3/uL (0.0-0.7); Eosinophils Percent Auto 1.1 % (0.9-7.0); Hematocrit 41.8 % (36.0-48.0); Hemoglobin 13.9 g/dL (12.0-16.0); Immature Granulocytes Abs Auto 0.02 10^3/uL (0.00-0.03); Immature Granulocytes Pct Auto 0.2 % (0.0-0.5); Lymphocytes Absolute Auto 2.6 10^3/uL (1.2-3.8); Lymphocytes Percent Auto 28.9 % (20.5-60.0); Mean Corpuscular HGB Conc 33.3 g/dL (29.9-35.2); Mean Corpuscular Hemoglobin 31.4 pg (26.7-34.0); Mean Corpuscular Volume 94.6 fL (81.0-99.0); Mean Platelet Volume 12.3 fL (9.5-13.5); Monocytes Absolute Auto 0.5 10^3/uL (0.3-0.8); Monocytes Percent Auto 5.8 % (1.7-12.0); Neutrophils Absolute Auto 5.7 10^3/uL (1.4-6.5); Neutrophils Percent Auto 63.3 % (43.0-75.0); Platelet Count 228 10^3/uL (150-450); Red Blood Count 4.42 10^6/uL (4.20-5.40); Red Cell Distribution Width 13.2 % (11.0-15.0)
[2023-09-15 11:34] LABS: HCG Quantitative <1 mIU/mL
[2023-09-15] MEDS: LACTATED RINGER'S SOLUTION 1,000 ML 75 ML IV (11:46)
[2023-09-15] MEDS: LACTATED RINGER'S SOLUTION 1,000 ML 50 ML IV ×2 (11:47→13:41)
[2023-09-15] MEDS: CEFAZOLIN SODIUM/DEXTROSE,ISO 2 GM/50 ML PIGGYBACK IV ×2 (12:44→17:14)
--- NOTE | 2023-09-15 14:57 | PM.ONB ---
Brief Operative Note Date of procedure: 09/15/23 Pre-op diagnosis: pelvic pain, menorrhagia, dysparuenia, dysmenorrhea Post-op diagnosis: same as pre-op Procedure: NAME OF PROCEDURE: ? Robotic assisted laparoscopic hysterectomy with cystoscopy, bilateral salpingectomy PROCEDURE:? The patient was taken back to the operating room, where she was prepped and draped in the normal sterile fashion after being placed in the dorsal lithotomy position.? Patient?s anesthesia was found to be adequate.? Surgical timeout was performed using two patient identifiers.? SCDs were on and in place.? Two grams of Ancef were given prior to the surgery.? Sterile Wright catheter was inserted.? Standard size VCare was secured to the uterine cervix and the surgeon changed gloves.? Attention then was turned to the patient's abdomen, where a supraumbilical incision was then made.? Two S retractors were used to identify the patient?s fascia.? The fascia was then tented up using Barnt clamps and the patient?s fascia was incised sharply.? Patient?s abdomen was identified and entered bluntly.? The patient had the trocar placed and a pneumoperitoneum was obtained.? Approximately 4 liters of CO2 gas was used.? The camera was then placed through the trocar.? At this time, two robot trocars were placed in the patient?s left and right side, two hand widths from the midline, and this was placed under direct visualization.? The patient?s tube on the right side was tented up and the vessel sealer was then used to come across the mesosalpinx, and this was carried down to the uterine ovarian ligament.? The vessel sealer was carried down serially to the broad ligament, to the area of the bladder flap, which was then created anteriorly, and the uterine arteries were skeletonized and sealed using the vessel sealer.? The colpotomy was made using the monopolar cautery on cut, and this was carried circumferentially, posteriorly to anteriorly, until the uterus was amputated.? The specimen was then removed intact through the vagina, without difficulty.? The vagina was then closed using two running V-Loc in a non-lock fashion.? The robot was undocked.? The abdomen was desufflated.? The skin defects were closed using 4-0 Vicryl.? Please note, the fascia was closed using 0 Vicryl.? Sponge, lap and needle counts were correct x2.? Patient was taken to recovery room in stable condition.? The patient was awakened by Anesthesia first.? Patient tolerated procedure well.?? Anesthesia: SUELLEN Surgeon: Vladimir Johnson Commercial Baking Teacher: Gloria Osborne Estimated blood loss (mL): 200 Pathology: other (uterus, tubes and cervix) Condition: stable Disposition: PACU Urinary Catheter Management Urinary Catheter Management Urethral: Cath placed during this visit: no
[2023-09-15] MEDS: HYDROMORPHONE HCL 0.5 MG/0.5 ML SYRINGE IV (15:39)
[2023-09-15] MEDS: ONDANSETRON PF 4 MG/2 ML VIAL IV (17:14)
[2023-09-15] MEDS: LACTATED RINGER'S SOLUTION 1,000 ML 125 ML IV (17:14)
[2023-09-15 21:30] LABS: Basophils Percent Auto 0.2 % (0.2-2.0); Hematocrit 40.5 % (36.0-48.0); Hemoglobin 13.6 g/dL (12.0-16.0); Immature Granulocytes Pct Auto 0.5 % (0.0-0.5); Lymphocytes Absolute Auto 0.8 10^3/uL (1.2-3.8); Mean Corpuscular HGB Conc 33.6 g/dL (29.9-35.2); Mean Corpuscular Hemoglobin 31.9 pg (26.7-34.0); Mean Corpuscular Volume 95.1 fL (81.0-99.0); Mean Platelet Volume 12.1 fL (9.5-13.5); Monocytes Absolute Auto 0.4 10^3/uL (0.3-0.8); Monocytes Percent Auto 2.1 % (1.7-12.0); Neutrophils Absolute Auto 18.6 10^3/uL (1.4-6.5); Neutrophils Percent Auto 93.2 % (43.0-75.0); Platelet Count 220 10^3/uL (150-450); Red Blood Count 4.26 10^6/uL (4.20-5.40); Red Cell Distribution Width 13.1 % (11.0-15.0)
[2023-09-16] MEDS: CEFAZOLIN SODIUM/DEXTROSE,ISO 2 GM/50 ML PIGGYBACK IV (00:10)
[2023-09-16] MEDS: IBUPROFEN 400 MG TABLET 800 MG PO ×2 (00:45→07:41)
[2023-09-16 05:29] VITALS: BP 111/75; PULSE 68; RESP 18; TEMP 36.7; O2SAT 94
[2023-09-16] MEDS: SIMETHICONE 80 MG TAB.CHEW PO (07:41)
== END 2023-09-16 09:03 | disposition home or self-care (01) ==
LOC: SURGOUT 15:01 → MS 16:27
PROVIDERS: Anesthesiology; PCP Family Medicine; Visit Provider Obstetrics & Gynecology
PROC: (CPT 840; principal; 2023-09-15 12:30)
DX: N92.0 Excessive and frequent menstruation with regular cycle (principal); R10.2 Pelvic and perineal pain; N94.6 Dysmenorrhea, unspecified; N94.10 Unspecified dyspareunia; Z98.890 Other specified postprocedural states; N80.03 Adenomyosis of the uterus; N72 Inflammatory disease of cervix uteri; E03.9 Hypothyroidism, unspecified; E66.9 Obesity, unspecified; E55.9 Vitamin D deficiency, unspecified; Z87.891 Personal history of nicotine dependence; Z98.51 Tubal ligation status; Z68.39 Body mass index [BMI] 39.0-39.9, adult; F41.9 Anxiety disorder, unspecified; F32.A Depression, unspecified; Z86.16 Personal history of COVID-19
CPT/HCPCS: 58571; 36415; 84702; 85025; 88307; 94667; J0131; J0330; J0690; J1100; J1170; J1885; J2405; J2704; J3010

== ENCOUNTER 2023-12-27 08:19 | Outpatient (OUT) | payer MEDICAID, SELFPAY ==
[2023-12-27 08:54] LABS: Alanine Aminotransferase 19 U/L (14-59); Albumin Globulin Ratio 0.9; Albumin Level 3.5 g/dL (3.4-5.0); Alkaline Phosphatase 70 U/L (46-116); Aspartate Amino Transferase 12 U/L (15-37); BUN Creatinine Ratio 10.8; Bilirubin Total 0.4 mg/dL (0.2-1.0); Calcium 9.3 mg/dL (8.5-10.1); Chloride 106 mmol/L (98-107); Chol HDL Ratio 2.5; Cholesterol 155 mg/dL (<=200); Estimated GFR (African America >60 (>=60); Estimated GFR (Non-African Ame >60 (>=60); Globulin 3.8 g/dL; Glucose 100 mg/dL (74-106); HDL Cholesterol 62 mg/dL (40-60); Sodium 144 mmol/L (136-145); Total Protein 7.3 g/dL (6.4-8.2); Triglycerides 38 mg/dL (<=150); VLDL CHOLESTEROL 7.6 mg/dL
== END 2023-12-27 08:20 | disposition home or self-care (01) ==
LOC: LAB 08:19
PROVIDERS: PCP Family Medicine; Visit Provider Family Medicine
DX: Z00.00 Encounter for general adult medical examination without abnormal findings (principal)
CPT/HCPCS: 36415; 80053; 80061

== ENCOUNTER 2024-04-04 15:29 | Outpatient (OUT) | payer MEDICAID, SELFPAY | END 2024-04-04 15:30 | disposition home or self-care (01) | LOC: LAB 15:32 | PROVIDERS: PCP Family Medicine | DX: F12.90 Cannabis use, unspecified, uncomplicated (principal) | CPT/HCPCS: 80326; 80331; 80334; 80337; 80338; 80341; 80344; 80346; 80348; 80353; 80354; 80355; 80357; 80358; 80359; 80360; 80361; 80364; 80365; 80366; 80367; 80368; 80370; 80371; 80372; 80373; 80377; 82570; 83992 ==

== ENCOUNTER 2024-05-15 13:32 | Emergency (ER) | payer MEDICAID, SELFPAY ==
[2024-05-15 13:34] VITALS: BP 130/94; TEMP 36.8; O2SAT 98; BMI 39.8
[2024-05-15 13:38] VITALS: PULSE 83
--- NOTE | 2024-05-15 13:46 | ED.GENADUL1 ---
HPI HPI - General Adult General Chief complaint: Recheck/Abnormal Lab/Rx Stated complaint: TREMORS Time Seen by Provider: 05/15/24 13:44 Source: patient Mode of arrival: ambulance Limitations: no limitations History of Present Illness HPI narrative: Patient brought by squad to the emergency room from her home. She is here for shakiness. She says she is felt like this for the last several days. Her medication history suggest that she has anxiety disorder and a thyroid disorder. She tells the nurse that she has been compliant with her thyroid meds recently. She was to of gotten her injection of her ariprazole today but came to the hospital instead. She is afebrile, her vital signs are normal. She has not had nausea vomiting or diarrhea or fever, muscle aches and pains or influenza type symptoms. Her blood sugar was checked and it is normal. She has not noticed any difficulty with her speech but she says when she tries to eat food it feels funny like she does not control her tongue. She also says that occasionally both her hands have a tremor. She is not being treated for any CLINICAL TRIAL HEAD infection or neuromuscular disease or parkinsonism at this time. Does not have neck pain or severe headache. Does not have diplopia or dysarthria Related Data Home Medications ?Medication ?Instructions ?Recorded ?Confirmed ergocalciferol (vitamin D2) 50 mcg 50 mcg PO DAILY 08/31/23 05/15/24 (2,000 unit) capsule levothyroxine 150 mcg tablet 150 mcg PO DAILY 08/31/23 05/15/24 rosuvastatin 5 mg tablet 10 mg PO QDAY 08/31/23 05/15/24 aripiprazole 10 mg tablet 15 mg PO .QHS 05/15/24 05/15/24 aripiprazole 5 mg tablet mg 05/15/24 aripiprazole lauroxil 1,064 mg/3.9 1,064 mg IM .EVERY 2 MONTHS 05/15/24 05/15/24 mL suspension,ext.rel IM syringe (Mihaistada) escitalopram oxalate 10 mg tablet 10 mg PO DAILY 05/15/24 05/15/24 hydroxyzine pamoate 25 mg capsule 25 mg PO BID 05/15/24 05/15/24 Allergies Allergy/AdvReac Type Severity Reaction Status Date / Time fentanyl Allergy combative Verified 05/15/24 13:37 lamotrigine Allergy Rash Verified 05/15/24 13:37 Opioid HPI Opioid Management Most Recent Opioid Data: Last Pain Scale 2 09/16/23 08:41 Urine Drug Screen Interp Final (.) 04/04/24 15:56 PFSH PFS Medical History (Updated 05/15/24 @ 15:48 by Elder Pitts MD) 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 and conversion disorder, unspecified (ICD-10) Panic attacks ?F41.0 - Panic disorder [episodic paroxysmal anxiety] (ICD-10) Pneumonia ?J18.9 - Pneumonia, unspecified organism (ICD-10) 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) Attention deficit disorder (ADD) ?F98.8 - Other specified behavioral and emotional disorders with onset usually occurring in childhood and adolescence (ICD-10) Depression ?F32.A - Depression, unspecified (ICD-10) Anxiety ?F41.9 - Anxiety disorder, unspecified (ICD-10) COVID-19 ?U07.1 - COVID-19 (ICD-10) Electronic cigarette use ?Z78.9 - Other specified health status (ICD-10) Cluster headache ?G44.009 - Cluster headache syndrome, unspecified, not intractable (ICD-10) Sleep deprivation ?Z72.820 - Sleep deprivation (ICD-10) Kidney stones ?N20.0 - Calculus of kidney (ICD-10) Heartburn ?R12 - Heartburn (ICD-10) Meniere disease ?H81.09 - Meniere's disease, unspecified ear (ICD-10) Hypothyroidism ?E03.9 - Hypothyroidism, unspecified (ICD-10) Prediabetes ?R73.03 - Prediabetes (ICD-10) Seasonal allergies ?J30.2 - Other seasonal allergic rhinitis (ICD-10) Dyspareunia Dysmenorrhea ?N94.6 - Dysmenorrhea, unspecified (ICD-10) Pelvic pain ?R10.2 - Pelvic and perineal pain (ICD-10) Menorrhagia ?N92.0 - Excessive and frequent menstruation with regular cycle (ICD-10) ?O03.9 - Complete or unspecified spontaneous without complication (ICD-10) Surgical History (Updated 08/31/23 @ 12:58 by Ksenia Stiles NP) History of foot surgery ?Z98.890 - Other specified postprocedural states (ICD-10) History of dilation and curettage ?Z98.890 - Other specified postprocedural states (ICD-10) History of endometrial ablation ?Z98.890 - Other specified postprocedural states (ICD-10) History of tubal ligation ?Z98.51 - Tubal ligation status (ICD-10) S/P ureteral stent placement ?Z96.0 - Presence of urogenital implants (ICD-10) S/P cystoscopy ?Z98.890 - Other specified postprocedural states (ICD-10) H/O LEEP ?Z98.890 - Other specified postprocedural states (ICD-10) Family History (Updated 08/31/23 @ 12:58 by Ksenia Stiles NP) Other Delayed recovery from anesthesia Family history of heart disease Family history of hypertension Family history of myocardial infarction Family history of stroke Social History (Updated 09/15/23 @ 11:27 by Leah Edwards) Within the past year, how often did you have a drink containing alcohol: monthly or less Do you use any of these nicotine containing products: vaping products Non-prescribed substance use: denies use Non-prescribed substance use details: [employer] Highest level of school completed/degree received: high school graduate Little interest or pleasure in doing things: not at all Feeling down, depressed, or hopeless: not at all Exam Narrative Exam Narrative: Awake alert no apparent distress , somewhat anxious. Vital signs are stable with normal pulse oximetry. Neurological examination shows spontaneous unrestricted complete movement of all the extremities. There is no intention tremor or other tremor or motor deficit. Cranial nerves II through XII are essentially normal. She does have some horizontal nystagmus with lateral gaze but no vertical component. She denies any active vertiginous or dizziness type complaints. Her speech is completely normal with no slurring of her words. Tongue protrudes in the midline. There is no facial asymmetry pupils are 4 to 5 mm bilaterally. She has no tremor.. Has spontaneous movement on the cart with no problems. Skin is warm and dry she is not clammy or diaphoretic. Reflexes are normal. Heart sounds are normal and her lungs are clear. Constitutional Vital Signs, click to edit/add: Last Vital Signs Temp 98.2 F 05/15/24 13:34 Pulse 83 05/15/24 13:38 Resp 18 05/15/24 13:34 BP 130/94 H 05/15/24 13:34 Pulse Ox 98 05/15/24 13:34 O2 Del Method Room Air 05/15/24 13:34 Course Vital Signs Vital signs: Vital Signs Temperature 98.2 F 05/15/24 13:34 Respiratory Rate 18 05/15/24 13:34 Blood Pressure 130/94 H 05/15/24 13:34 Pulse Oximetry 98 05/15/24 13:34 Oxygen Delivery Method Room Air 05/15/24 13:34 Temperature 98.2 F 05/15/24 13:34 Pulse Rate 83 05/15/24 13:38 Respiratory Rate 18 05/15/24 13:34 Blood Pressure 130/94 H 05/15/24 13:34 Pulse Oximetry 98 05/15/24 13:34 Oxygen Delivery Method Room Air 05/15/24 13:34 Medical Decision Making MDM Narrative Medical decision making narrative: Patient presents with a normal neurological examination. EKG is normal sinus rhythm with no ST segment elevation, no arrhythmia and no tachycardia. Lab test including thyroid testing is also normal. This patient is able to speak clearly in cohesively with no evidence of dysarthria or any cranial nerve abnormality. Some of her symptoms may be accounted for as a side effect of aripiprazole so I advised her to take that in consideration with the physician prescribing it. I do not believe she has need for Benadryl at this. I see no indication of CLINICAL TRIAL HEAD stroke or infection. Lab Data Labs: Lab Results 05/15/24 Range/Units 13:56 WBC 10.5 (4.0-11.0) 10^3/uL RBC 4.78 (4.20-5.40) 10^6/uL Hgb 14.8 (12.0-16.0) g/dL Hct 44.3 (36.0-48.0) % MCV 92.7 (81.0-99.0) fL MCH 31.0 (26.7-34.0) pg MCHC 33.4 (29.9-35.2) g/dL RDW 12.0 (11.0-15.0) % Plt Count 270 (150-450) 10^3/uL MPV 11.3 (9.5-13.5) fL Neut % (Auto) 74.6 (43.0-75.0) % Lymph % (Auto) 18.2 L (20.5-60.0) % [place] % (Auto) 5.3 (1.7-12.0) % Eos % (Auto) 1.1 (0.9-7.0) % Baso % (Auto) 0.5 (0.2-2.0) % Neut # (Auto) 7.8 H (1.4-6.5) 10^3/uL Lymph # (Auto) 1.9 (1.2-3.8) 10^3/uL [place] # (Auto) 0.6 (0.3-0.8) 10^3/uL Eos # (Auto) 0.1 (0.0-0.7) 10^3/uL Baso # (Auto) 0.1 (0.0-0.1) 10^3/uL Abs Immat Gran (auto) 0.03 (0.00-0.03) 10^3/uL Imm/Tot Granulo (auto) 0.3 (0.0-0.5) % Sodium 140 (136-145) mmol/L Potassium 3.8 (3.5-5.1) mmol/L Chloride 104 (98-107) mmol/L Carbon Dioxide 27.9 (21.0-32.0) mmol/L Anion Gap 11.9 BUN 10.0 (7.0-18.0) mg/dL Creatinine 0.85 (0.55-1.02) mg/dL Est GFR ( Amer) >60 (>=60) Est GFR (Non-Af Amer) >60 (>=60) BUN/Creatinine Ratio 11.8 Glucose 90 (74-106) mg/dL Lactate 1.0 (0.4-2.0) mmol/L Calcium 9.1 (8.5-10.1) mg/dL Magnesium 1.9 (1.8-2.4) mg/dL Total Bilirubin 0.6 (0.2-1.0) mg/dL AST 11 L (15-37) U/L ALT 18 (14-59) U/L Alkaline Phosphatase 80 (46-116) U/L Troponin I High Sens <4.0 L (4.0-51.3) pg/mL Total Protein 7.3 (6.4-8.2) g/dL Albumin 3.6 (3.4-5.0) g/dL Globulin 3.7 g/dL Albumin/Globulin Ratio 1.0 TSH 1.030 (0.358-3.740) uIU/mL Discharge Plan Discharge Chief Complaint: Recheck/Abnormal Lab/Rx Clinical Impression: Movement disorder Patient Disposition: Home, Self-Care Time of Disposition Decision: 15:48 Prescriptions / Home Meds: No Action levothyroxine 150 mcg tablet 150 mcg PO DAILY rosuvastatin 5 mg tablet 10 mg PO QDAY ergocalciferol (vitamin D2) 50 mcg (2,000 unit) capsule 50 mcg PO DAILY escitalopram oxalate 10 mg tablet 10 mg PO DAILY aripiprazole 10 mg tablet 15 mg PO .QHS hydroxyzine pamoate 25 mg capsule 25 mg PO BID Aristada 1,064 mg/3.9 mL suspension,extended rel syring 1,064 mg IM .EVERY 2 MONTHS aripiprazole 5 mg tablet Print Language: Liberian Additional Instructions: Talk to your physician who is prescribing these medications as you may be having some side effects Referrals: Sania Leach [Primary Care Provider] - 1 week
--- NOTE | 2024-05-15 13:47 | ECG_ITS ---
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
--- OUTSIDE RECORDS SUMMARY | 2024-05-15 13:55 | XMS_ITS | CCD ---
Author Organization [facility] CliniSyva Care Team Providers Care Slitting Machine Feeder Name Role Phone Linda Leon Unavailable Rumschlag, Sania Unavailable Sherine Renee Unavailable RUMSCHBONG SANIA K Primary Care Physician Rumschlag, Sania Unavailable MD Martina Stephenson Attending Provider DO Sania Gilmore Primary Care Provider Lue, Martina M Admitting Unavailable Rumschlag, Sania Primary Care Unavailable Lue, Martina M Attending Unavailable Carolyn, Linda Attending Unavailable Linda Leon Admitting Unavailable NO FAMILY, PHYSICIAN Primary Care Unavailable JOANNA, DR EMILY Kohli Consulting Unavailable MISC, DR DOMINGUEZ Primary Care Unavailable LUE ., MARTINA M Attending Unavailable LUE ., MARTINA M Admitting Unavailable LUE ., MARTINA M Consulting Unavailable LUE ., MARTINA M Consulting Unavailable [facility] Primary Care Unava ilable LUE ., MARTINA M Attending Unavailable LUE ., MARTINA M Admitting Unavailable MISC, DR DOMINGUEZ Consulting Unavailable [facility] Primary Care Unava ilable MISC, DR DOMINGUEZ Attending Unavailable MISC, DR DOMINGUEZ Admitting Unavailable DR PASQUALE WILKES Consulting Unavailable RUMSCHLAG, SANIA Primary Care Unavailable LUE ., MARTINA M Attending Unavailable LUE ., MARTINA M Admitting Unavailable LUE ., MARTINA M Consulting Unavailable RUMSCHLAG, SANIA Consulting Unavailable RUMSCHLAG, SANIA Primary Care Unavailable RUMSCHLAG, SANIA Attending Unavailable CESARG, SANIA Admitting Unavailable CHRISTO, DR DOMINGUEZ Primary Care Unavailable KETAN .DR MINOR Attending Unavailable KETAN ., DR MINOR Admitting Unavailable KETAN ., DR MINOR Consulting Unavailable RUMSCHLAG, SANIA Primary Care Unavailable KETAN ., DR MINOR Attending Unavailable KETAN ., DR MINOR Admitting Unavailable REGLA II, ESTRADA Consulting Unavailable FILUTZEGOMEZLEAH Consulting Unavailable RUMSCHLAG, SANIA Primary Care Unavailable KETAN ., DR MINOR Consulting Unavailable KETAN ., DR MINOR Attending Unavailable KETAN ., DR MINOR Admitting Unavailable HENRRY SALMERON Consulting Unavailable YAROSH ., RAMAN Consulting Unavailable LISA, DR HENRRY Castanon Attending Unavailable LISA, DR HENRRY Castanon Admitting Unavailable [facility] Primary Care Unava ilable RUMSCHLAG, SANIA Primary Care Unavailable KETAN ., DR MINOR Consulting Unavailable KETAN ., DR MINOR Attending Unavailable KETAN ., DR MINOR Admitting Unavailable EMILY CANDELARIA Consulting Unavailable JOANNA, DR EMILY Kohli Consulting Unavailable [facility] Primary Care Unava ilable [facility] Attending Unava ilable [facility] Admitting Unava ilable LUE ., MARTINA M Consulting Unavailable WEST, DR EMILY Kohli Consulting Unavailable [facility] Primary Care Unava ilable LUE ., MARTINA [...] Unavailable Lue, Martina M. Attending Unavailable Lue, Martian M. Attending Unavailable RUMSCHLAG, SANIA Primary Care Unavailable RUMSCHLAG, SANIA Primary Care Unavailable Lue, Martina M. Attending Unavailable RUMSCHLAG, SANIA Primary Care Unavailable Lue, Martina M. Attending Unavailable Lue, Martina M. Referring Unavailable RUMSCHLAG, SANIA Primary Care Unavailable Martina Stephenson Attending Unavailable Martina Stephenson Referring Unavailable RUMSCHLAG, SANIA Primary Care Unavailable Martina Stephenson Attending Unavailable Martina Stephenson Referring Unavailable Martina Stephenson Admitting Unavailable Rumschlag, Sania Unavailable Rumschlawhit DO, Sania Unavailable VLADIMIR JOHNSON Attending Unavailable SANA KOEHLER Attending Unavailable SANA KOEHLER Attending Unavailable VLADIMIR JOHNSON Attending Unavailable PATTI VENCES Attending Unavailable Allergies Allergy Classification Reported Allergen(s) Allergy Type Date of Onset Reaction(s) Facility Anti-Epileptic Agents (1 source) lamoTRIgine Drug Allergy 2 Hives, Itching, Rash [facility] Dust (1 source) Dust Substance Allergy 2 Hives, Itching, Rash [facility] Feathers (1 source) Feather Substance Allergy 2 Itching [facility] (8 sources) Dust; Translations: [DUST] Allergy to substance 2 Hives, Itching, Rash [facility] (8 sources) Feather; Translations: [FEATHERS] Drug Allergy 2 Itching [facility] (16 sources) lamoTRIgine; Translations: [lamotrigine] Drug Allergy 2 Hives, Itching, Rash, Eruption of skin (disorder) [facility] (9 sources) Mold Spores; Translations: [MOLD SPORES] Allergy to substance 2 Hives [facility] (6 sources) Seasonal allergy; Translations: [Seasonal] Drug allergy Weal (disorder) [facility] (1 source) lamoTRIgine Drug Allergy 2 [facility] Repository (1 source) lamoTRIgine Drug Allergy 2 [facility] Repository Medications Current Medications Medication Drug Class(es) Dates Sig (Normalized) Sig (Original) 24 hr buPROPion hydrochloride 300 mg extended release oral tablet (17 sources) Aminoketone Start: 04-14-2022 buPROPion 300 mg [...] procedure, # 2 tab(s), Refills(s) 0, Pharmacy: [facility]/pharmacy #[id number], 154, cm, 06/03/22 15:43:00 EDT, Height/Length Dosing, 88, kg, 05/12/22 8:09:00 EDT, Weight Dosing Start Date: 06/03/22 Status: Ordered Start: 06-02-2022 End: 06-02-2022 Cephalexin Discontinued MG S [facility] 2021 12:00am June 02, 2022 11:46am Start: 04-14-2022 Keflex 500 mg Cap See Instructions, Take 1 tablet 1 day prior to procedure, and then 1 tab day of procedure, # 2 tab(s), Refills(s) 0, Pharmacy: [facility]/pharmacy #[id number], 154, cm, 04/14/22 11:36:00 EDT, Height/Length [...] Ordered levothyroxine sodium 0.15 mg oral tablet (20 sources) l-Thyroxine Start: 01-05-2023 End: 04-14-2024 take [...] a day for 2 day(s) Nov, Active rosuvastatin calcium 5 mg oral tablet (15 sources) HMG-CoA Reductase Inhibitor Start: 02-23-2022 take 1 tablet by mouth once daily rosuvastatin (CRESTOR) 5 mg tablet TAKE 1 TABLET BY MOUTH EVERY DAY FOR 90 DAYS 0 02/23/2022 Active Rosuvastatin Paul cium Active Comment on above: TAKE 1 TABLET BY ROX TH EVERY DAY FOR 90 DAYS tamsulosin hydrochloride 0.4 mg oral capsule (1 source) alpha-Adrenergic Kaz Start: 06-02-20 take 0.4 mg by mouth once daily Tamsulosin Active 0.4 MG PO Daily June 02, 2022 12:00am triamcinolone acetonide 0.055 mg/actuat metered dose nasal spray (4 sources) Corticosteroid Start: 06-02-20 Triamcinolone Acetonide (Nasal Allergy) 55 mcg aerosol,spray Active 55 MCG INTRANASAL As Directed June 02, 2022 12:00am Start: 11-27-2020 KENALOG - 10 m g Nov, 40 mg Completed/Discontinued Medications Medication Drug Class(es) Dates Sig (Normalized) Sig (Original) [id number] 200 actuat albuterol 0.09 mg/actuat metered dose [...] 30 mg oral tablet (3 sources) Uncompetitive D-stjggo-W-aspartat e Receptor Antagonist, Sigma-1 Agonist Start: 09-30-2019 Jackson DMT 30-30 MG 1 tablet Orally every [...] directed Orally for 6 days Nov, Not-Taking Problems Active Problems Problem Classification Problem Date [...] PROD UNCOMP] Onset: 11-16-2022 Chronic Thyroid disorders (16 sources) 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980 mIU/L Third Trimester: 0.480-4.710 mIU/L Turner Junior et al. A Practical Approach for the Verifications and Determination of Site- and Trimester-Specific Reference Intervals for Thyroid Function tests in . Thyroid, 2019:29:3:412-420. Tereso E, et al. 2017 Guidelines of the Citizen Of [place] Thyroid Association for the Diagnosis and Management of Thyroid Disease during and the . Thyroid, 2017:27:3:315-389. Performed By: #### 3 016-3 #### [facility] CLIA [id number] [address] [place] [address] [place] T4 Free SerPl-mCncon 023 Free T4 [Mass/Vol] 1.2 ng/dL Normal 0.9-1.7 [facility] Comment on above: Order Comment: Speci men Type: BLOOD SPECIMEN Ordering Facility: [facility] Address: [address] [address] Performed By: #### 3 016-3, 3024-7 #### [facility] CLIA [id number] [facility] [place] [address] [place] TSH SerPl-aCncon 08-04-2023 TSH Qn 40.500 m[IU]/L High 0.270-4.200 [facility] Comment on above: Order Comment: Abdirahman burgess Type: BLOOD SPECIMEN Ordering Facility: [facility] Address: [place] [address] Result Comment: If t he patient is , TSH reference range varies by gestational period: First Trimester (weeks 9-12): 0.180-2.990 mIU/L Second Trimester: 0.110-3.980 mIU/L Third Trimester: 0.480-4.710 mIU/L Turner Junior et al. A Practical Approach for the Verifications and Determination of Site- and Trimester-Specific Reference Intervals for Thyroid Function tests in . Thyroid, 2019:29:3:412-420. Tereso Tran, et al. 2017 Guidelines of the Citizen Of [place] Thyroid Association for the Diagnosis and Management of Thyroid Disease during and the . Thyroid, 2017:27:3:315-389. Performed By: #### 3 016-3, 3024-7 #### [facility] CLIA [id number] [address] [place] [address] [place] Lab Reportson 04-13-2023 Lab Reports [id number] .[id number]:127 Normal [facility] Reportson 04-12-2023 Lab Reports [id number] .[id number]:127 Normal [facility] T4 Free SerPl-ncon 023 Free T4 [Mass/Vol] 1.6 ng/dL Normal 0.9-1.7 [facility] Comment on above: Order Comment: Abdirahman burgess Type: BLOOD SPECIMEN Ordering Facility: [facility] Address: [place] [address] Performed By: #### 3 016-3, 3024-7 #### [facility] CLIA [id number] [address] [place] [address] [place] TSH SerPl-aCncon 04-11-2023 TSH Qn 0.177 m[IU]/L Low 0.270-4.200 [facility] Comment on above: Order Comment: Speci men Type: BLOOD SPECIMEN Ordering Facility: [facility] Address: [place] [address] Result Comment: If t he patient is , TSH reference range varies by gestational period: First Trimester (weeks 9-12): 0.180-2.990 mIU/L Second Trimester: 0.110-3.980 mIU/L Third Trimester: 0.480-4.710 mIU/L Turner Junior et al. A Practical Approach for the Verifications and Determination of Site- and Trimester-Specific Reference Intervals for Thyroid Function tests in . Thyroid, 2019:29:3:412-420. Tereso Tran, et al. 2017 Guidelines of the Citizen [place] Thyroid Association for the Diagnosis and Management of Thyroid Disease during and the . Thyroid, 2017:27:3:315-389. Performed By: #### 3 016-3, 3024-7 #### [facility] CLIA [id number] [address] [id number] [place] RAD - MISCon 01-22-2023 RAD - MISC [id number] .[id number]:127 Normal [facility] RAD - Ultrasound Reporton RAD - Ultrasound Report [id number] .[id number]:127 Normal [facility] Ambulatory Visit Summaryon 0 01-12-2023 Ambulatory Visit Summary AINSLEY PARRA :1985 Visit Date:01/12/2023 Ambulatory Visit Instructions Your Diagnosis Kidney stone Gross hematuria Former smoker Tests Performed Urnls Dip Stick Auto w/o Microscopy POC 10152 Your Care Team Attending Physician - Martina [...] Follow-Up Appointments Tuesday 8:00 AM EDT With: Martina Stephenson MD Where: [facility] Formson 01-12-2023 Forms [id number] .[id number]:127 [facility] Patient Educationon 01-13-20 23 Patient Education Nephrology [...] Spinach (cooked), rhubarb, beets, sweet potatoes, and Malaysian chard. ? Peanuts. ? Potato chips, upper sorbian fries, and baked potatoes with skin on. ? Nuts and nut products. ? Chocolate. ? If you regularly take a diuretic medicine, make sure to eat at least 1 or 2 servings of fruits or vegetables that are high in potassium each day. These include: ? Avocado. ? Banana. ? [place], prune, carrot, or tomato juice. ? Baked [...] fish oil, or vitamin B6. ? Take dmsr-cvi-tbthavd and prescription medicines only as told by your health care provider. These include supplements. What foods should I limit? Limit your in (more content not included)... Normal [facility] Urology Office/Clinic Noteon 01-12-2023 Urology Office/Clinic [...] 4 mm nonobstructing stone in LLP. 01/03/23 (TB blood work PCP) - Ca 8.7. TSH [...] Dipstick: Negative (more content not included)... Normal [facility] Comment on above: Result Comment: Elec tronically [...] by: PASQUALE WILKES Date: 2023-01-04 06:57 Normal [facility] FREE T4on 01-03-2023 Free T4 [Mass/Vol] 0.83 ng/dL Normal 0.76-1.46 [facility] Comment on above: Performed By: #### P REGQNT #### [facility] [address] [address] [address] Gabo Perez LIPID PROFILEon 01-03-2023 CHOL-HDL RATIO NORM SEE BELOW Normal [facility] Comment on above: Result Comment: 3.3 - 4.4 LOW RISK 4.4 - 7.1 AVERAGE RISK 7.1 - 11.0 MODERATE RISK >11.0 HIGH RISK Performed By: #### P REGQNT #### [facility] [address] [address] [address] Gabo Perez Cholesterol [Mass/Vol] 161 mg/dL Normal <=200 [facility] Comment on above: Performed By: #### P REGQNT #### [facility] [address] [address] [address] Gabo Perez Cholesterol in HDL [Mass/Vol] 57 mg/dL Normal 40-60 [facility] Comment on above: Performed By: #### P REGQNT #### [facility] [address] [address] [address] Gabo Perez Cholesterol in LDL [Mass/Vol] 85.6 mg/dL Normal [facility] Comment on above: Performed By: #### P REGQNT #### [facility] [address] [address] [address] Gabo Perez Cholesterol.total/Ch olesterol in HDL [Mass ratio] 2.8 {ratio} Normal [facility] Comment on above: Performed By: #### P REGQNT #### [facility] [address] [address] [address] Gabo Perez HDL NORMAL > or = 60 mg/dl - LO W CARDIOVASCULAR RISK <40 mg/dl - HIGH CARDIOVASCULAR RISK Normal [facility] Comment on above: Performed By: #### P REGQNT #### [facility] [address] [address] [address] Gabo Perez LDL CALC NORMAL SEE BELOW Normal [facility] Comment on above: Result Comment: <100 mg/dl OPTIMAL 100 - 129 mg/dl NEAR OR ABOVE OPTIMAL 130 - 159 mg/dl BORDERLINE HIGH 160 - 189 mg/dl HIGH >190 mg/dl VERY HIGH Performed By: #### P REGQNT #### [facility] [address] [address] [address] Gabo Perez Triglyceride [Mass/Vol] 92 mg/dL Normal <=150 [facility] Comment on above: Performed By: #### P REGQNT #### [facility] [address] [address] [address] Gabo Perez VLDL CALC 18.4 mg/dL Normal [facility] Comment on above: Performed By: #### P REGQNT #### [facility] [address] [address] [address] Gabo Perez PROF 14(COMP METB)on 023 Albumin [Mass/Vol] 3.6 g/dL Normal 3.4-5.0 [facility] Comment on above: Performed By: #### P REGQNT #### [facility] [address] [place] [address] Dr. Gabo Perez Albumin/Globulin [Mass ratio] 0.9 {ratio} Normal [facility] Comment on above: Performed By: #### P REGQNT #### [facility] [address] [place] [address] Dr. Gabo Perez ALP [Catalytic activity/Vol] 71 U/L Normal 46-116 [facility] Comment on above: Performed By: #### P REGQNT #### [facility] [address] [place] [address] Dr. Gabo Perez ALT [Catalytic activity/Vol] 21 U/L Normal 14-59 [facility] Comment on above: Performed By: #### P REGQNT #### [facility] [address] [place] [address] Dr. Gabo Perez Anion gap [Moles/Vol] 9.4 mmol/L Normal [facility] Comment on above: Performed By: #### P REGQNT #### [facility] [address] [place] [address] Dr. Gabo Perez AST [Catalytic activity/Vol] 14 U/L Critically low 15-37 [facility] Comment on above: Performed By: #### P REGQNT #### [facility] [address] [address] [address] Gabo Perez Bilirubin [Mass/Vol] 0.7 mg/dL Normal 0.2-1.0 [facility] Comment on above: Performed By: #### P REGQNT #### [facility] [address] [address] [address] Gabo Perez Calcium [Mass/Vol] 8.7 mg/dL Normal 8.5-10.1 [facility] Comment on above: Performed By: #### P REGQNT #### [facility] [address] [address] [address] Gabo Perez Chloride [Moles/Vol] 109 mmol/L Critically high 98-107 [facility] Comment on above: Performed By: #### P REGQNT #### [facility] [address] [place] [address] Dr. Gabo Perez CO2 [Moles/Vol] 27.6 mmol/L Normal 21.0-32.0 [facility] Comment on above: Performed By: #### P REGQNT #### [facility] [address] [place] [address] Dr. Gabo Perez Creatinine [Mass/Vol] 0.92 mg/dL Normal 0.55-1.02 [facility] Comment on above: Performed By: #### P REGQNT #### [facility] [address] [place] [address] Dr. Gabo Perez EGFR-AF ALBANIAN >60 Normal >=60 [facility] Comment on above: Performed By: #### P REGQNT #### [facility] [address] [place] [address] Dr. Gabo Perez EGFR-NON AF ALBANIAN >60 Normal >=60 [facility] Comment on above: Performed By: #### P REGQNT #### [facility] [address] [place] [address] Dr. Gabo Perez Globulin (S) [Mass/Vol] 4.0 g/dL Normal [facility] Comment on above: Performed By: #### P REGQNT #### [facility] [address] [address] [address] Gabo Perez Glucose [Mass/Vol] 92 mg/dL Normal 74-106 [facility] Comment on above: Performed By: #### P REGQNT #### [facility] [address] [address] [address] Gabo Perez Potassium [Moles/Vol] 4.0 mmol/L Normal 3.5-5.1 [facility] Comment on above: Performed By: #### P REGQNT #### [facility] [address] [address] [address] Gabo Perez Protein [Mass/Vol] 7.6 g/dL Normal 6.4-8.2 [facility] Comment on above: Performed By: #### P REGQNT #### [facility] [address] [place] [address] Dr. Gabo Perez Sodium [Moles/Vol] 142 mmol/L Normal 136-145 [facility] Comment on above: Performed By: #### P REGQNT #### [facility] [address] [address] [address] aGbo Perez Urea nitrogen [Mass/Vol] 6.0 mg/dL Critically low 7.0-18.0 [facility] Comment on above: Performed By: #### P REGQNT #### [facility] [address] [place] [address] Dr. Gabo Perez Urea nitrogen/Creatinine [Mass ratio] 6.5 mg/mg Normal [facility] Comment on above: Performed By: #### P REGQNT #### [facility] [address] [address] [address] Gabo Perez TSHon 01-03-2023 TSH 19.588 uIU/mL Critically high 0.358-3.[address] [facility] Comment on above: Performed By: #### P REGQNT #### [facility] [address] [address] [address] Gabo Perez US KIDNEYSon 01-03-2023 US [...] PASQUALE WILKES Date: 2023-01-03 15:32 Normal [facility] CBC AUTO DIFFon 11-26-2022 BASO # 0.0 103/ul Normal 0.0-0.1 [facility] Comment on above: Performed By: #### C BC #### [facility] [address] [place] [address] Dr. Gabo Perez Basophils/100 WBC (Bld) 0.4 % Normal 0.2-2.0 [facility] Comment on above: Performed By: #### C BC #### [facility] [address] [place] [address] Dr. Gabo Perez EO # 0.1 103/ul Normal 0.0-0.7 [facility] Comment on above: Performed By: #### C BC #### [facility] [address] [place] [address] Dr. Gabo Perez Eosinophils/100 WBC (Bld) 1.7 % Normal 0.9-7.0 [facility] Comment on above: Performed By: #### C BC #### [facility] [address] [place] [address] Dr. Gabo Perez Erythrocyte distribution width (RBC) [Ratio] 12.7 % Normal 11.0-15.0 [facility] Comment on above: Performed By: #### C BC #### [facility] [address] [place] [address] Dr. Gabo Perez Hematocrit (Bld) [Volume fraction] 43.6 % Normal 36.0-48.0 [facility] Comment on above: Performed By: #### C BC #### [facility] [address] [place] [address] Dr. Gabo Perez Hemoglobin (Bld) [Mass/Vol] 14.4 g/dL Normal 12.0-16.0 [facility] Comment on above: Performed By: #### C BC #### [facility] [address] [place] [address] Dr. Gabo Perez IG # 0.01 10e3/ul Normal 0.00-0.03 [facility] Comment on above: Performed By: #### C BC #### [facility] [address] [place] [address] Dr. Gabo Perez IG % 0.1 % Normal 0.0-0.5 [facility] Comment on above: Performed By: #### C BC #### [facility] [address] [place] [address] Dr. Gabo Perez LYMPH # 1.7 103/ul Normal 1.2-3.8 [facility] Comment on above: Performed By: #### C BC #### [facility] [address] [place] [address] Dr. Gabo Perez Lymphocytes/100 WBC (Bld) 22.3 % Normal 20.5-60.0 [facility] Comment on above: Performed By: #### C BC #### [facility] [address] [place] [address] Dr. Gabo Perez MANUAL DIFF REQ NO Normal [facility] Comment on above: Performed By: #### C BC #### [facility] [address] [place] [address] Dr. Gabo Perez MCH (RBC) [Entitic mass] 30.1 pg Normal 26.7-34.0 [facility] Comment on above: Performed By: #### C BC #### [facility] Laboratory [address] [place] [address] Dr. Gabo Perez MCHC (RBC) [Mass/Vol] 33.0 g/dL Normal 29.9-35.2 [facility] Comment on above: Performed By: #### C BC #### [facility] [address] [address] [address] Gabo Perez MCV (RBC) [Entitic vol] 91.0 fL Normal 81.0-99.0 [facility] Comment on above: Performed By: #### C BC #### [facility] [address] [address] [address] Gabo Perez MONO # 0.5 103/ul Normal 0.3-0.8 [facility] Comment on above: Performed By: #### C BC #### [facility] [address] [address] [address] Gabo Perez Monocytes/100 WBC (Bld) 7.1 % Normal 1.7-12.0 [facility] Comment on above: Performed By: #### C BC #### [facility] [address] [place] [address] Dr. Gabo Perez NEUT # 5.2 103/ul Normal 1.4-6.5 [facility] Comment on above: Performed By: #### C BC #### [facility] [address] [place] [address] Dr. Gabo Perez Neutrophils/100 WBC (Bld) 68.4 % Normal 43.0-75.0 [facility] Comment on above: Performed By: #### C BC #### [facility] [address] [address] [address] Gabo Perez Platelet mean volume (Bld) [Entitic vol] 11.6 fL Normal 9.5-13.5 [facility] Comment on above: Performed By: #### C BC #### [facility] [address] [address] [address] Gabo Perez PLT 253 103/ul Normal 150-450 [facility] Comment on above: Performed By: #### C BC #### [facility] [address] [address] [address] Gabo Perez RBC 4.79 106/ul Normal 4.20-5.40 [facility] Comment on above: Performed By: #### C BC #### [facility] [address] [place] [address] Dr. Gabo Perez WBC 7.6 103/ul Normal 4.0-11.0 [facility] Comment on above: Performed By: #### C BC #### [facility] [address] [place] [address] Dr. Gabo Perez PREG QUANT HCGon 11-26-2022 HCG QUANT <1 Normal [facility] Comment on above: Performed By: #### P REGQNT #### [facility] [address] [place] [address] Dr. Gabo Perez HCG RANGE SEE BELOW Normal [facility] Comment on above: Result Comment: 5-50 0.2-1 WEEK 50-500 1-2 WEEKS 100-5,000 2-3 WEEKS 500-10,000 3-4 WEEKS 1,000-50,000 4-5 WEEKS 10,000-100,000 5-6 WEEKS 15,000-200,000 6-8 WEEKS 10,000-100,000 2-3 MONTHS Performed By: #### P REGQNT #### [facility] [address] [place] [address] Dr. Gabo Perez XR CHEST 2 Von [...] by: HENRRY SALMERON Date: 2022-11-12 13:23 Normal [facility] Pre-Certification Formon Pre-Certification Form [id number]#1 .00CD:127 Normal [facility] Pre-Certification Formon Pre-Certification Form [id number] #1.00CD:127 Normal [facility] US PELVIS AND TRANSVAGon US PELVIS AND [...] by: EMILY CANDELARIA Date: 2022-09-24 07:44 Normal [facility] PAP ACOG PANEL 2: 30 to 65on 09-10-2022 . . Normal [facility] Comment on above: Result Comment: Perf ormed at: BA Performed By: #### 4 [id number] #### [facility] [address] [address] [address] Gabo Perez Age Gdln ACOG Testing 30-65 Normal [facility] Comment on above: Performed By: #### 4 [id number] #### [facility] [address] [address] [address] Gabo Perez DIAGNOSIS: Comment Normal [facility] Comment on above: Result Comment: NEGA TIVE FOR INTRAEPITHELIAL LESION OR MALIGNANCY. Performed at: BA Performed By: #### 4 [id number] #### [facility] [address] [address] [address] Gabo Perez HPV Aptima Negative Normal Negative [facility] Comment on above: Result Comment: This nucleic acid amplification test detects fourteen high-risk HPV types (16,18,31,33,35,39,45,51,52,56,58,59,66,68) without differentiation. Performed at: =G Performed By: #### 4 [id number] #### [facility] [address] [address] [address] Gabo Perez HPV Genotype Reflex Comment Normal [facility] Comment on above: Result Comment: Crit eria not met, HPV Genotype not performed. Performed at: BA Performed By: #### 4 [id number] #### [facility] [address] [address] [address] Gabo Perez Methodology: Comment Normal [facility] Comment on above: Result Comment: This liquid based ThinPrep(R) pap test was screened with the use of an image guided system. Performed at: WB Performed By: #### 4 [id number] #### [facility] [address] [address] [address] Gabo Perez Note: Comment Normal [facility] Comment on above: Result Comment: The Pap smear is a screening test designed to aid in the detection of premalignant and malignant conditions of the uterine cervix. It is not a diagnostic procedure and should not be used as the sole means of detecting cervical cancer. Both false-positive and false-negative reports do occur. . Performed at: WB Performed By: #### 4 [id number] #### [facility] [address] [place] [address] Dr. Gabo Perez Performed by: Comment Normal [facility] Comment on above: Result Comment: Rekha Henderson, Lightout Examiner (ASCP) Performed at: BA Performed By: #### 4 [id number] #### [facility] [address] [place] [address] Dr. Gabo Perez Specimen adequacy: Comment Normal [facility] Comment on above: Result Comment: Sati sfactory for evaluation. No endocervical component is identified. Performed at: BA Performed By: #### 4 [id number] #### [facility] [address] [place] [address] Dr. Gabo Perez Screenson 07-15-2022 Screens [id number] .00CD:127 Normal [facility] Ambulatory Visit Summaryon 1 09-13-2021 Ambulatory Visit Summary ANDREASAINSLEY Ayala :1985 Visit Date:07/14/2022 Ambulatory Visit Instructions Your Diagnosis Ureteral stone Gross hematuria Former smoker Kidney stone Tests Performed Urnls Dip Stick Auto w/o Microscopy POC [id number] US Renal -- Results Pending -- XR [...] Martina Stephenson MD Where: [facility] Patient Educationon 07-14-20 Patient Education Urology Kidney [...] these instructions at home: Medicines ? Take xrms-vsm-aogpfoq and prescription medicines only as told by [...] 02/07/2009 Document Revised: 01/08/2020 Document Reviewed: 01/08/2020 Elsevier Patient Education ? 2019 [employer] Normal [facility] Urology Office/Clinic Noteon 07-14-2022 Urology Office/Clinic [...] Calculus of kidney) LESA done 07/09/22 at [place] shows possible left nonobstructing 4mm stone. Pt [...] mos w/KUB, LESA Patient Education Kidney Stones, Vcwl-ef-Slaj ISandra, personally scribed for Dr. Stephenson on 07/14/2022 [...] Heart disease: (more content not included)... Normal [facility] Comment on above: Result Comment: Elec tronically Signed By: Martina Stephenson MD\.br\Date and Time Signed: 07/14/22 10:07 EST\.br\Electronically Co-Signed By: Sandra Carmen\.br\Date and Time Co-Signed: 07/14/22 10:02 EST RAD - MISCon 07-10-2022 RAD - MIS [id number] .00CD:127 Normal [facility] US KIDNEYSon 07-09-2022 US KIDNEYS EXAMINATION: US [...] by: EMILY MARSHALL Date: 2022-07-09 17:11 Normal [facility] XR KUB 1 VIEWon 07-05-2022 XR [...] by: EMILY MARSHALL Date: 2022-07-05 13:12 Normal [facility] Lab Reportson 06-09-2022 Lab Reports [id number] .00CD:127 Normal [facility] Coding Summary.on 06-08-2022 Coding Summary. CD:[id number]:[id number] G h0bWw+PGhlYWQ+KR4CGGS eD88xpVQuiT2WK7bCDY9W FBSFLKOHDC1FQX0ieNA4T VxpP8NsqgRd QsswpNIhVQ39PAo6VGZ1j NihRGjknY8bwRHsV9f9Pa SbVV00uQ66OQbeMRVvPyW 3LjZpbjsgbWFy C6tdFaAknMGyUbj+PHRhY mxlIHdpZHRoPScxMDAlJy MgyGtqZI4yFe5xSZVfHMU vbGxhcHNlOiBj b8htXGAlVEdkRT6kwSohM 8WlbGT7MWHxi2p1Yp76sY I+RBBwHNK5hXplZYkdr33 5XdHhr6cwUUT4 kIObWAmmDBX5Z71fk5U6V QIzXTDlUBW8nMA3cN7yjN nfdcwxC7AewBEzYoA1TPS 0tKDtfG0nsUop hyqccF7iPmi+T06CZI6KM HFSNX9AMsh6G4NcZybcuI I+EE45SXNpLM63sWFojGM py6iygYn0UmGh AQAbOSN4tJocAUszz2WnJ WZoD57kmGPsb9M6BCLryW bydQLmBmEisUA3sD8oRLj zhrrcl3odrbjo Oojgp6gxus62gG64A99xL YvbWIFgZEP7KOFcOFSwuQ vdvn7czX6uPq2+QKxyf5d xq9qjeQn0IuVa ZTNuikOjnHctJAG5e5GuV x93F2ZlnPlcy0CnItj6fn 21dLCzi1P8dSD9DSopHNT vzX1lKCtiCjM8 HHSbLlRdoU95aPYzXNpeM x6lzRzpySwaNY3mCYUspa pjNKKfiK7yUIZplIVloVm yPU0uODRufnou z801EhTcGLN3JWNreLMqK 0AvfR8wVrJxPIZmHAXdV8 XktSSlOZxhL477DVnnRlW 3OXLsldRjG0Nf ERMzqIauQcG8l6Q5We0Rq 9UmwxzhWBS6EYseUYIkJm D8GtEiQdD1I4GzPxc6YSV alRkkLE9yI6Qw FQZqlclxnvdaxNJ9ERBwW ZCzzM24bPRvIFrjIr3qx8 Z7a765OHHkRNSsoK73Wt2 udDogMTBwdCBU bE2setvjw8kfovdyEwFyI FMvWOk1JOl7HJLatDnbBe OsRZS3BaW8TZF7nROtuK8 llPkfkciqzM3g Oyc+I70vqO0qMMB6MDD8b xqxYMOcyfNfOT34JI52H9 RyPjwvdGFibGU+PGRpdiB ycVtyTZ2hClKj l5cgf9OzLGmeY6KbCWDeS OfkDmv2RWBiTPK1kSE1xE 3oKUZrFMvaz3B8hHE2I7G gchUxgz8yf4jz ZXZoMDmdM42ggMQja5D1B YDgmIT4YGWvaJygOhHikO 93Oyc+MOMkdZdhc4GzLpd xy9oxb2rfbYf5 EkGjWXPlxdYruKksFTN7w 7AgLa93T00iNMplYYGhNJ OqQHMtGPYuuCjjyh6pjE9 wIi8+PGNvbCB3 wQW5jX7lXVCwPyB2BEvjW 604NyJdqRFvPewnc9mem6 octVu4DyCrYMSfoxCxyBf rGUU7t3KjMm80 Z04gRYgkTLTzQAScPNGtM VOhpFhkle2kcL6kIr0+PC 6cx3jonu68mQ06mYF+PHR sSUW5iFmdOPxh NMWmtP4cYRpjGyL4CCYeK vOfpM35qMYiUIraLw6tvU kstZveWL8jQERdljkii45 2OlJcy8goNJYx fCRvLYzxNQB8J48td6K8I XKdJXAuDOW4pYD2uE2pjL lnbjogbGVmdDsgdmVydGl lGZsdKHxpY961 IHRvcDsnPlBhdGllbnQgT kKaEWy8K1XfQeb0DAQvmL vbTL6edTNiMQpxCp1exUx ysNfyWG4uXVZv bstec897KzZhk3kmIMUaq FKaSOncDBC9A33go5L0TT VhRFLnZZY7gBY7fN5mnVh nbjogbGVmdDsg upDamWemFXkbZYeiG878N HRvcDsnPkJpcnRoIERhdG B5GF75AY92vVJmw0L9xRO 9X3PnJLZcmqyo xmxrzXK6QHRfZSTcbG93Z o7ifJhvPv7dSQRkQIV4WF WdrKIqZ5YmhA0vGeOeRQJ cPDEfD0TktFDr ITzzB051DLqiEfK1JRApf oFaC8CdTLJngIybKwY3n2 S9Vw8HE4P3XF13GN41rHX nd3T8pZL7U1Kd VCSjlssahqjrwAQ1FTVzD ZNciB80Fj4tqQfeZr4qNA VmUTQ9RNGdlLElE9ZdvD4 yOiAjMDAwMDAw M1GgtXHtFGjsC473JDcvG sK4SECwadGkT1PcHWSvuC hiSnK6u1O3Dr4JJPj8PG1 3RQ22kCSrt3M0 gLO2A1TgTKLkzmlwuzioz JU9ZGCoUTFpmG73Am3fiQ vcMw7yAAIzDGZ4XKCqlMS xN5EgsI3wYoQl FBCwBAAeL0FjvLMlRUkqU 714BCwlAjU1KKOtlzLfY5 ClRZUzyYdpXfM4l2D6Sx2 CRGEvBJ28KEN7 tAW5RL52UI87I5WhKovxx GFibGU+PHRhYmxlIHdpZH RoPScxMDAlJyBzdHlsZT0 iGv4qPQFjUAFh fCfeyZKsRpXrt7shCPRfN CcxRK0mqGurI9PllCZ5XX Mli3e9Af24O95wH2BkuFP +NESvmCK0kLR4 qD4hJsLsAsX3YRlgN151T yFbfAYyIsqka9ris9unnI s4DhE3ACBiccAspKyvKLR 8l9SxKj03Z73s IHdpZHRoPSIxNSUiIHZhb Xckyh0xxG0pOg6+PGNvbC V6cLH1sD4pAeDkXpC0VGr rL616YcRwhCHr Hibkq0byw1obbZi0KqMeW IVnivYgwIpjANX4g1HrCr 48W2QfpSmgx1FaTrw9xj6 2nNKkt2Q4uYN7 Z7JrULNjlefisYQkdDktO P6sFXAhblbqLPPrzX0aFQ KtP1n4BeGsKiV0STazB3X kwxK3SDRghCUo YAijCUR3T45oz7Z4CLYyP OSmYYX6oXU7pB7reRsfrw ogbGVmdDsgdmVydGljYWw oTRpvN440VPPp uDdmEWYdsL0tNLQhkLZjr KnqRW9uMPTmeroqYchRLP RILCBLRUFSQTwvdGQ+PHR lGIQ5wUetZWaq LCAhsI0bRNLuL2a5SlJkQ dN3OKrxS5RiPNHckbqlBv 46qF8dEaGeFoQ1BXbmH3R dcyS8DUPkiQAx FKizWZV1T65md3P6AYGxN HYoKCQ6gKK5bK2prRpczy ogbGVmdDsgdmVydGljYWw xUFgqN577GUDz fTvpJfQ6BrO1HiF4UAW9F 8MdBqu5BDFitOjnVN6veM YmEJurHt0rqMirtKvoRM7 wNTBpbjtwYWRk oH0aSXSklIKrqLkvRR7lF TDgvtcyc599TmQvFJG5FQ VzjZPlC3EnpS8fMrSvMGN iAPAqY2LqbDEl UUkdA731DDbyWbY0IJAqp gJbU5XoMPCceUfdUdH6y2 Y9Xk7rKCVSQMXfzewxgPQ +KTRoPCH6hIih WYhpSTWsuB7wSMFiV2t3J aUsCzG6BHovR8VeYBSjhn rhYu87eJ0wArCgEsR7XJb gV5SfvtD6HWRj mXLvDSkhINB1A28co4V5Q XKfJKCnXMS7rKG5qF6hnC lnbjogbGVmdDsgdmVydGl vILchKBhvN451 IHRvcDsnPkZlbWFsZTwvd GQ+AGXtLXS2iSfoSRrkAV RzyZ1rFVFvL4i1OvLvJlM 7KQwhW1WlBFIm zpkuEk78iY7oLhAlMhK4V YmaP0ZvwuK8RLZqhKAhPK wgUSJ5T58lv0I6WRKuTVQ xQCU7wDW7xA4t bGlnbjogbGVmdDsgdmVyd OnqRAdwDFplA222LFUgnS efDo94oIBguHudzqO6T8N kPjwvdHI+PC90 QDTsAI53rDTigQAqk5nlv Ui1LqTsSHLxZWS3pUjmHX bzv8EmSSOsJ96asWKse6A 6IGNvbGxhcHNl YfCzyCP0oX6gUKyiyuhvu 7nwsybiVorxe7rvtm74iS 35C56wPBfnPRLxZXKxDHG qJNQljOpwth3i tD1xMn3+ZIOlcWG5rXP2o Z3gZyIkLxH3QRddE517Cq SjwAIsTjdcs5alc2gfwBh 9IjIwJSIgdmFs mKjuDIQ3m3GkWf50N30jB HdpZHRoPSIyMCUiIHZhbG wecx1mlO1dNg5+ZL1ms6n moh12cW20hRX+ QCMpDVL2iPxzVLhmWHGbr R3hAYikQbE4ZMMtRyHlkO 10nJWzMHznXl6bwZeawNr hLF5vCFXjfuqv o787MdJmg6tuOBIsdTOkY SjuZQE7I52yn5J5NLNxBX TdUQC0cYH7vP2rlBrwacn gbGVmdDsgdmVy pWmpGPthKGzrI700VZXmg GrdEpUigYSpA5alsaBIYR 1lOjwvdGQ+WYYrQHM7yZb sNKmoXOYzhQ7k CVSsM6l5CwGuDlF4YVjaY 5ZlslQ6ZTAsgMGxKXNxxW JFtC9dioqra1vcpsehYiH tHATkNMy8YSs9 PQGlqGqkJhCdFQW6YuY0N NL6gKHsrX2lzKiubbikeG 9wOyc+RklOOjwvdGQ+PHR cNMH5fMskUPzn FUGmhR5tFAJrU2o6WdAcL qK1WAhdG8RsiiF0WAIsvZ BgVHJueFIElJ7mxozyq4y vcjogIzAwMDAw QDy0MKp3GOXybYzoJcFoE GF3PfK1LBW8tZImvS9udJ cqyqhgnT5qEkg+TVJOOjw vdGQ+PHRkIHN0 mHfmUWniNVVuzI3uYVEhA 1m1TcBgMyW3ZGjcR9Lqfm M2BEWmmLLvXULnqBCFwG0 kblcak4zxnhxw WsQnMHPbGOq6JGd4BZXvw HofYhPoWNK8EbC4KUV3xM ZybZ4kfLnhpktoxQ8mUkr +CIL8NRR4UR97 LV24N0HyQwhnmQWgyGW+P HRhYmxlIHdpZHRoPScxMD EsQxWxbXfuLE6lBe7fYEM yLWNvbGxhcHNl OiBj (more content not included)... Normal [facility] Consent for Procedure/Surger yon 06-07-2022 Consent for Procedure/Surgery [id number] .00CD:127 Normal [facility] Consent for Treatmenton Consent for Treatment [id number] .00CD:127 Normal [facility] Inpatient Patient Summaryon 06-07-2022 Inpatient Patient Summary [address] [address] Clinical Summary Person Information Name: AINSLEY PARRA Age: 37 Years : 1985 Sex: Female PCP: SANIA GILMORE DO Marital Status: Single Race: White Ethnicity: Non- or Language: Frisian Visit Id: Visit Reason: URETERAL STONE Speciality: Acuity: Enc Type: Outpatient Med Service: Surgery Arrival: 06/07/2022 08:48:08 Discharge: Dispo Type: Address: [address] [place] [address] [address] [id number] Provider Notes: Diagnosis: Ureteral stone Problems Active [...] Follow up: With: Address: When: Martina Stephenson [address] [place], [place] [address], [place] [address], [place] [id number] [phone] Business (1) Comments: Call for followup appointment in 1 month with renal US and KUB With: Address: When: Martina Stephenson Patient Education Information: EU - Cystoscopy with Stent Removal Discharge Instructions (CUSTOM) [facility] IntraOperative Documentson 1 IntraOperative Documents [id number] .00CD:127 [facility] Main OR Intraoperative Recor don 06-07-2022 Main OR Intraoperative Record IntraOp Document Type FTURO Summary Primary Physician: Martina Stephenson MD Finalized Date/Time: 06/07/22 09:18:28 Pt. Name: ANDREASAINSLEY/Sex: 1985 Female Med Rec #: [id number] Physician: Martina Stephenson MD Financial #: [id number] Pt. Type: O Room/Bed: / Admit/Disch: 06/07/22 08:48:08 - Institution: Case Times FTURO Entry 1 Patient Times In Room 06/07/22 09:05:00 Out Room 06/07/22 09:23:00 Procedure Times Start 06/07/22 09:13:00 Stop 06/07/22 09:18:00 Anesthesia Times Last Modified By: Shoaib TIRADO, Liliana ALVARADO 06/07/22 09:16:32 Case Attendance FTURO Entry 1 Entry 2 Entry 3 Case Attendee Sachin PANTOJA, Martina Cramer RN, CARLOS MANUELOR, Val ACUÑA, Juliana Ford Role Performed Surgeon - Primary Rn Prior Authorization - Primary Scrub - Primary Time In 06/07/22 09:05:00 06/07/22 09:05:00 06/07/22 09:05:00 Time Out 06/07/22 09:23:00 06/07/22 09:23:00 06/07/22 09:23:00 Procedure CYSTOSCOPY LOCAL WITH CYSTOSCOPY LOCAL WITH CYSTOSCOPY LOCAL WITH STENT REMOVAL(Right) STENT REMOVAL(Right) STENT REMOVAL(Right) Comments Last Modified By: Shoaib RN, CNOR, Shoaib RN, CARLOS MANUELOR, Shoaib TIRADO, Liliana ALVARADO 06/07/22 Liliana 06/07/22 Liliana 06/07/22 09:16:34 09:16:34 [...] insertion Last Modified By: CHRISTIANO Cramer RN, Ruthann 06/07/22 09:10:12 Post-Care Text: The patient is [...] Out Martina Stephenson MD, Verified (If Participants Shoaib TIRADO, CARLOS MANUELOR, Applicable) Val Ford CST, Kimberly A Time Out Complete 06/07/22 09:11:00 Allergies [...] CHRISTIANO Cramer RN, Ruthann 06/07/22 09:18 Normal [facility] Main OR Preoperative Recordo n 06-07-2022 Main OR Preoperative Record Holding Area Document Type FTURO Summary Primary Physician: Martina Stephenson MD Finalized Date/Time: 06/07/22 09:13:10 Pt. Name: ANDREASAINSLEY/Sex: 1985 Female Med Rec #: [id number] Physician: Martina Stephenson MD Financial #: [id number] Pt. Type: O Room/Bed: / Admit/Disch: 06/07/22 [...] right flank, bladder area Skin Integrity Intact, Basalt, Warm, & Dry Vitals - EU Blood Pressure 142/77 Pulse 70 bpm Respirations 16 br/min SPO2 98 % RN Reviewed Yes Last Modified By: CHRISTIANO Cramer RN, Ruthann 06/07/22 09:13:09 General Comments: Temp 36.4 Temporal Finalized By: CHRISTIANO Cramer RN, Ruthann Document Signatures Signed By: Savannah Priest LPN 06/07/22 08:58 CHRISTIANO Cramer RN, Ruthann 06/07/22 09:13 Normal [facility] Operative Reporton Operative Report Patient: AWAIS PARRA Age: 37 years Sex: Female : 1985 Associated Diagnoses: None Author: Martina Stephenson MD Procedure Operative Information Details: Date/ Time: 06/07/2022 09:20:00. Pre-Op Dx: Ureteral stone (SMP31-KV N20.1, Discharge, Medical), Foreign Body in Bladder [...] US and to review stone analysis. Normal [facility] Comment on above: Result Comment: Elec tronically Signed By: Martina Stephenson MD\.br\Date and Time Signed: 06/07/22 09:21 EDT Outpatient Surgery Discharge Instructionon 06-07-2022 Outpatient Surgery Discharge Instruction [id number] .00CD:127 Normal [facility] Outpatient Surgery Discharge Instruction [place] [id number] Patient Discharge Instructions PERSON INFORMATION Name: AINSLEY PARRA Date of : 1985 Current Date: 06/07/2022 09:19:52 PHYSICIANS Admitting Physician: aMrtina Stephenson MD Comment: Discharge Diagnosis: Ureteral stone AINSLEY PARRA has been given the following list of follow-up instructions, prescriptions, and patient education materials: IF UNABLE TO CONTACT YOUR PHYSICIAN AND YOU FEEL IT IS AN EMERGENCY, GO TO THE NEAREST EMERGENCY ROOM OR CALL 911 Follow up: With: Address: When: Martina Stephenson [address] [place], [place] [phone] [facility] (1) Comments: Call for followup appointment [...] you have a fever over 100 degrees. I, AINSLEY PARRA, have received the attached patient education materials/instruction s and have verbalized understanding: May we do a follow up call? Yes No I was present when discharge instructions were given Patient Signature Date Clinican/Nurse Signature Date You may receive a survey from [employer] asking you to rate your care experience. Your feedback is important and will help us understand what we do well and how we can improve the quality of care we provide to you, your loved ones and our community. It?s an honor to serve you. Thank you for choosing [facility] Normal [facility] Pathology Noteon 06-04-2022 Pathology Note [id number] .00CD:127 Normal [facility] Operative Reporton 2 Operative Report [id number] .00CD:127 Normal [facility] RAD - MISCon 06-03-2022 [facility] [id number] .00CD:127 Normal [facility] Calculi, Urinaryon 2 Ca Oxalate Dihydrate 100 % Normal . [facility] Comment on above: Performed By: #### C ALCULI #### [facility] , Color (U) Mathur Normal . [facility] Comment on above: Performed By: #### C ALCULI #### [facility] , Comment2 Normal . [facility] Comment on above: Result Comment: Calc ulus received in liquid. Wet calculi must be dried before analysis, which delays reporting of results. Leaving calculi in liquid (such as water, saline, blood, urine) may lead to changes in composition. Performed By: #### C ALCULI #### [facility] , Comment: Normal . [facility] Comment on above: Result Comment: Giuliano zayas questions regarding Calculi Analysis [facility] at: [phone]. Performed By: #### C ALCULI #### [facility] , Composition Normal . [facility] Comment on above: Result Comment: Perc entage (Represents the % composition) Performed By: #### C ALCULI #### [facility] , Disclaimer: Normal . [facility] Comment on above: Result Comment: This test was developed and its performance characteristics determined by [employer]. It has not been cleared or approved by the Food and Drug Administration. Performed at: [facility] [address] [place] [address] [address], [place], [place] [id number] Director Appointment: Jarett Reynoso PhD, Phone: [phone] Performed By: #### C ALCULI #### [facility] , Note Normal . [facility] Comment on above: Result Comment: Calc danae report will follow via computer, mail or outside collector delivery. PERFORMED BY: [facility] [address] [place] [address] PATHOLOGIST BEEF BONER BARAK ARRIAZA M.D. Performed By: #### C ALCULI #### [facility] , Photo Normal . [facility] Comment on above: Result Comment: Phot ograph will follow under a separate cover Performed By: #### C ALCULI #### [facility] , Size 4x3 Normal . [facility] Comment on above: Result Comment: Mult iple pieces received. Dimensions of the largest piece reported. Performed By: #### C ALCULI #### [facility] , Source Normal . [facility] Comment on above: Result Comment: Righ t Ureter Performed By: #### C ALCULI #### [facility] , Weight 21.0 Normal . [facility] Comment on above: Performed By: #### C ALCULI #### [facility] , [place] urethrocystogram retroon 06-02-2022 [place] urethrocystogram retro [facility] [place] [address] Fluoroscopy Report Signed Patient: Ainsley Parra MR#: [id number] 1 : 1985 Acct:[id number] Age/Sex: 37 / F ADM Date: 06/02/22 Loc: [place] Room: Type: [facility] Attending Dr: Martina Stephenson MD [...] Artemio Greene M.D.06/02/2022 4:43 PM Dictation Location: [place] [address] Transcribed By: [facility] 06/02/22 1643 Dictated By: Atremio Greene DO 06/02/22 1636 Signed By: 06/02/22 1643 Normal [facility] HCG ( test) IA.rapi d Ql (U)Ordered By: EMILY LYNN on 06-02-2022 HCG ( test) Ql (U) Negative [facility] HCG,Urineon 06-02-2022 Beta HCG ( test) Ql (U) Negative Normal [facility] Comment on above: Result Comment: PERF ORMED BY: [facility] [place] [id number] PATHOLOGIST BEEF BONER BARAK ARRIAZA M.D. Performed By: #### U HCG #### [place] [id number] [facility] Valeriy 06-02-2022 L - -------- Specimen: [id number] Received: 06/03/22 Status: AXEL Mcintyre Num: [id number] Spec Type: Surgical Subm Dr: Martina Stephenson MD Tissues: A Urinary Calculus (RT URETERAL STONE) Procedures: Level 1 Gross -------- Age/ Patient Sex Location Account Attending Physician -------- Ainsley Parra 37/F [place] [id number] Martina Stephenson MD -------- SPEC NUM: [id number] RECD: 06/03/22 STATUS: AXEL GRACE NUM: [id number] MARCIA: 06/02/[address]: Martina Stephenson MD ENTERED: 06/03/[address] [facility] [address]: SPEC TYPE: Surgical DEPT: S ORDERED: Level 1 Gross ORDERED: Level 1 Gross Pathological Diagnosis Right ureteral stone, extraction: - Consistent with urinary calculus, see Gross Description Clinical Information Ureteral stone Gross Description Received fresh labeled with the patient's name, number and right ureteral stone is one stone measuring 0.6 cm. Entirely submitted for chemical analysis. Gross examination only. CPT Codes 62479 -------- -------- Specimen: [id number] Received: 06/03/22 Status: AXEL Mcintyre Num: [id number] Spec Type: Surgical Subm Dr: Martina Stephenson MD Tissues: A Urinary Calculus (RT URETERAL STONE) Procedures: Level 1 Gross -------- Patient: Ainsley Parra [id number] (Continued) -------- Signed (signature on file) Gogo Bailey MD 06/03/22 1515 [facility] 06-02-2022 Lab Reports [id number]#1 .00CD:127 Normal [facility] Covid-19 PCR (CVDTB)on 05-07 SARS-CoV-2 (COVID-19) RNA ANDREW+probe Ql (Unsp spec) Not detected Normal NOT DETECTED [facility] Comment on above: Result Comment: This test is not yet approved or cleared by the [place] FDA. When there are no FDA-approved or cleared tests available, and other criteria are met, FDA can make tests available under an emergency access mechanism called an Emergency Use Authorization (EUA). The EUA for this test is supported by the [place] of Health and Human Service's (HHS's) declaration [...] consistent with SARS-CoV-2. Performed By: #### [facility] #### [facility] [address] [place] [address] Dr. Gabo Perez Consent for COVID Vaccineon 05-20-2022 SARS-CoV-2 (COVID-19) RNA ANDREW+probe Ql (Unsp spec) [id number]#1 .00CD:127 Normal [facility] RAD - MISCon 05-19-2022 RAD - MISC [id number]#1 .00CD:127 [facility] RAD - MISC [id number] .00CD:127 [facility] RAD - CT Reporton 05-17-[address]22 RAD - CT Report [id number]#1 .00CD:127 [facility] RAD - CT Report [id number]#1 .00CD:127 [facility] Ambulatory Visit Summaryon 0 05-12-2022 Ambulatory Visit Summary AINSLEY PARRA :1985 Visit Date:05/12/2022 Ambulatory Visit Instructions Your Diagnosis Gross hematuria Ureteral stone Former smoker Tests Performed Urnls Dip Stick Auto w/o Microscopy POC 52217 XR Abdomen 1 View -- Results Pending [...] Urnls Dip Stick Auto w/o Microscopy POC 10926 (05/12/2022) Bilirubin Urine Dipstick - Negative Blood Urine Dipstick - Trace-lysed Glucose Urine Dipstick - Negative Ketones Urine Dipstick - Negative Leukocytes Urine Dipstick - Trace Nitrite Urine Dipstick - Negative Protein Urine Dipstick - Negative Specific [place] Urine Dipstick - 1.020 Urine Appearance Urine [...] pass (more content not included)... Normal [facility] Patient Educationon 05-12-20 Patient Education Urology [...] these instructions at home: Medicines ? Take atrd-pdf-qvpcfoz and prescription medicines only as told by [...] 02/07/2009 Document Revised: 01/08/2020 Document Reviewed: 01/08/2020 Elsevier Patient Education ? 2019 [email or web address]. Normal [facility] Provider Letteron 05-12-2022 Provider Letter May 12, 2022 AINSLEY PARRA [address] [place] [address] AINSLEY PARRA 1985 To Whom It May Concern, Please excuse above patient from work. Date of Illness: From: 05/12/2022 May Return to Work On: 05/12/2022 Restrictions: Comments: Patient was seen in office for appointment and had further testing at hospital. Sincerely, Dr Martina Stephenson MD [facility] [address], [place] [address] Normal [facility] Urology Office/Clinic Noteon 05-12-2022 Urology Office/Clinic [...] trace-lysed blood Pt was seen at the [facility] ER on 03/25/22 after an onset of dark red blood w/o pain that afternoon, pt states she had a similar occurrences beginning of the month. 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 The ER did a Micro UA showing > 100 RBC's, no culture indicated. Discussed differential including dehydration vs true gross hematuria. Pt states was DrDemario Medina color but also red. GFR- 52, [...] Workup neg Follow-up With When Contact Information Martina Stephenson MD, URL, URO Additional Instructions: Rt. ESWL Patient Education Kidney Stones, Ijx[place]kh[place]ze [place], personally scribed for Dr. Stephenson on [...] Seasonal (Hives (more content not included)... Normal [facility] Comment on above: Result Comment: Elec tronically [...] by: EMILY MARSHALL Date: 2022-05-12 18:37 Normal [facility] CT ABD/PELV WO W CONon [...] by: EMILY MARSHALL Date: 2022-05-07 09:17 Normal [facility] Coding Summary.on 04-27-2022 Coding Summary. CD:[id number]:[id number] G h0bWw+PGhlYWQ+SL9PLRI iP18zzNFsrC2AL7mEAI0Z JTKQDXZKGX7NMM0ipAB9I AdnG1VqhbDi NcdzpPOrPX58BBi1KPX9g OuuVPcikD1bgZEoL6z6Eq ZgTD97eH42RGcyJAZjDxG 3LjZpbjsgbWFy E9uaFiNdiIShVlk+PHRhY mxlIHdpZHRoPScxMDAlJy LpuOhtPZ5hNm3dRWAbVHD vbGxhcHNlOiBj m3vaFAFjJWhmMY2fbXmxV 3XxhRF5KRSod7t0Qb44hI I+VFJsSQE9zBpgBNbcn32 4BpAyq5lbBJH1 oJTnJLurQNK4M99qb5S0G TZsWOMuJBE9iCS3fQ8lmG xgwyqaT7IuaARmRmY6HUE 5oHSotH9omQwu tsqquU2hGxw+C98NSV8JZ URBMJ8XWnz0N1LqIaciqZ I+HJ17GLJiAA30xEQulJJ us7tcmPe7UtPu SOPbMVL3gUafMVjyg3TbD QWtH13yaMOjt7T8CYUpfW hijVNoLxLzjJY4hG8hAEu azpfqs5rmthvz Juokl4uwmc31jF92B31nY VlvIJOyRWP5UGFvONEorE kctu7cwF2lLa8+JAgay3w zz1lgbXf6QiDd EQTgonSjoFejCOZ0o3TgQ i54G8MccIugk0KnMwe0qf 59fIGhr1U0sRN5AIasYNX syR3hDScvVzS8 EWUkCvArgU44jTWrMBxkL u6nzQwuoUreJW0xBWMeqb spXWSxoT8hFTJuqBQseWi wOD8sASTrcbqr i778AeSeAWC0CUUxsFHqO 7KfeZ4nViLnJOHnELXaJ8 DvjZUcYWojE523DKafZuS 5HBJqerEkE4Ao MXUnzSdcRoB3i3O1Dl0Ui 6OkqrozKHF0FRvsGJS1Fx MuWdUiNlC6O1UgRto3IGK oiOqcYK3oX9Ib BHJjvyydinltzTQ9PBThI HAuxD58cBAhGZdsQm3uk4 E6j631UEBdSZTveL19Df2 udDogMTBwdCBU lK7jondwy5oyivwiBxIhD IIlUBy3OCq0HAGiqUhyTh IvVIT7GkP9DPR8nAQenM9 zzLeaqfmqoJ8f Oyc+O14ieA4vYIQ2AAI8s tbgXFUlilEzVE64VM23B7 RyPjwvdGFibGU+PGRpdiB otOwlLI3eVsBl a6xxd5BcEDtmM6XmMWToY BsuHxv1ONKfZNS2kBR1pG 1sHERjSZlmv5C2hBB7X9Z mzfDulu1vi9mb ECEiKDslL59hxRJnv9Z0I FHgeOW5ENAwzTguXqJmzR 93Oyc+RNYwxFqcz8MqLkm ou8uhs8tdrFv3 WgDhZVLbmjNraNgcDJL0u 1CyXs15Q39vNHmsPOBsDK PtPWRaWPBctCwvud8xbZ6 wIi8+PGNvbCB3 vPE6jF0aZDBjVgK8IYslC 621WyOapUGmByhcx3mei1 hwfIe6OvHsACMpndPmqXq hIAI2u0XeBt72 U31hHNmnQWFyYQZcVPUnC OFtcLpqqg4mgE6rWx8+PC 0yo1jrtq27oM66tHH+PHR dFLW4sPxsEHbp DSEygX7cIOyzKlW8HSWuL pBxuR28aQHxZKuuOu1gwH cyzFyaUU5zEQDobfzdh12 7TlLvx5oxZKUs wXEiTOenHFT1A62me9E0B DLwJCXwAKN9vGQ7cK8fyM lnbjogbGVmdDsgdmVydGl eTYqoLQwsH204 IHRvcDsnPlBhdGllbnQgT uQhCPs0Y9HzIpk2ZIDxdC vfHC6upWEwNUpuMz3fpOv mqBvhQY2wBKZh seprf917JgYnq3fdXXFbs AUyIQvtWSM4X91fh1Q7SP AeYXMlGAP2jZZ9kK2xuEz nbjogbGVmdDsg vfDptEdmWKtxKKwlM346Z HRvcDsnPkJpcnRoIERhdG L5AA23JP22iJIvq4I5bEY 4Z8FvABMrpppw mbgpkLY7RBHdVIUjyP07V u2liAkwOj6gJPGlMOY0QT WkuZXsS2AcaC2nHvMlEYG lRFOmE6FpsBVs WXfuI391CDmjXaV0TNZhy uMiQ3ScZYZtqNurGoL1e9 A8Sp1PF2S2EK54UJ34jWA fe0K8aUM4B6Qp GUYvobdyzoiqiQQ0IVRcQ ZEasE49Cg6pjTdzXb4hLD AxOLK4XSJmpQUuR3OmeT1 yOiAjMDAwMDAw C2QshYUrAHsqP058ZTmsO pC5EGDgjxGoS4KhUVCpvB ljGmU8c5V8Hz2PDHi9FR8 1QH12dQApo5E3 oAW5A0UbCCZkzbcdorwbv TI4MGOmYVVfdF67Kn7gaG jgKp7vGDHnEYI0QGEreUG tV0KtbL7wUiIo MTTnGFLuO9PswYSvHHnuZ 708EGitZhT8SLNnouEjO7 DjLJZweRpcCdV0o5N5Vf6 XPBDkWP18VFE2 eBF2QU90GZ92W1LbDcnxx GFibGU+PHRhYmxlIHdpZH RoPScxMDAlJyBzdHlsZT0 zUc1aOPPsJBLx zVptfUJlAtTby1sfXQLiQ LuoXY2ehKtzF8PieEW8JW Cxg7u8Ge89W73cB6BmeFY +NPFxnGQ3vGB5 tD5tOqGuRvQ7PXxgN035J fAxeRRvHllgg9gvh9pikV p4BpK7BPEvqrExpRdoGAN 2x5YlNp46B45w IHdpZHRoPSIxNSUiIHZhb Hqfbt4xdY5xKm6+PGNvbC Z1tQX6eT7gTxYySkR7ZGc dS778QiSjqENa Tceox2glx0bauDb8XbBvZ WSflxIhtMxdDVJ6c9EgAs 29J5RryCvxd2GtJfl8ja0 1hKQkb7D0hAV5 H7GbCJUoiatwzEJtgKoiG D7xJSWoyfobTHSgjE4oSQ XcK9s9CqNwQkD9OGugY4O ajhL5AKPupOLj YLjiHWX6F50fb2A3DULcE TWtCWA7xHL3lB4agQpgay ogbGVmdDsgdmVydGljYWw eRBlgI722EXBo xOgqDRWxaL0pVRIvkELlx CdrPI5eHADtckgpPxzXIA RILCBLRUFSQTwvdGQ+PHR qUXJ2gZniNDxl OWShyG4pHULqE9h2LnTuE zL1KJcmM2FcTMUqlqggIv 37mB6sTfFdGbY4YAnfO5A zbjM2YYYgmEAi ESaoMWB6U64qz9T8WONiS PXlAQA9qFT4jC7vnMccps ogbGVmdDsgdmVydGljYWw bPEvhQ338XXYk nVeqTpF6ViU9VvI3JOQ1Y 4XcEmv2USKibUtuPQ0zsU WdNPpfHb9noAsqnAocIO7 wNTBpbjtwYWRk nF3yDINkhAYljWlmAS4gA BEufbjmk137GrAbMVE6PE VonAWyW5PpnX4jMxMiVAN tNVTpM4LhxAHl VZiwJ637TYqkZsU3RSCfj mIzW6MtIFBhjVigKjO9a7 E9Tn0aWQZLAZQbjeliqIX +FVYwSED1lDrw YTcpTJFwuM9lNKTfV7f5Y zShOlX7FJjnF2OzSEHhoc apAd99bA9cLvAjErX0MJt nV5TcixF8KXJd bVOjIKqbXMV0W30vn3Z4K AKyTBCdFZG7xVD2dX4ufT lnbjogbGVmdDsgdmVydGl wYCecUBiwU273 IHRvcDsnPkZlbWFsZTwvd GQ+JITmHIC3xDrwYHyoUD MmnE7eHQJfC9r6WkBiHeI 7PEcyZ5NsASVk njyoHs55zW8cQkCiDoF5A IbyV9XpteA8DIZzvALlTT wvLBN4I69tg7P0ASEvUSW oRZC4mQR3mG6i bGlnbjogbGVmdDsgdmVyd AaeCLrhXCycJ395WMVjmA syJu73tLNutXiuquA8Y8G kPjwvdHI+PC90 ESXlVV23zHKdkXZvh3rxc Rg9XjQeMLLuYLH6pJtdCE yke2CbCZEdH67iaIOtv8G 6IGNvbGxhcHNl TjGsrBW6gF5oRNykizszn 7ithjorKqeco5lskt54xT 57M02gLAhyREWwWNHaKGE aMTHxyLdude9e wG3wOz3+HVZdkEL6hBD4o X1nEnSmSiM2CNkxZ328Il TrsRLcObaad3rzw7xdxJf 9IjIwJSIgdmFs bGnwOKG6r1TgOu80A09zF HdpZHRoPSIyMCUiIHZhbG cthp5upK6nZg6+BM8uq9w iiz34xT17qIK+ XIBmQVK5gPkkBWyiZTWdn C6mNLdzLoJ0HHAzGfSiuM 89pJDkUAqnZh0mbBkuyXt sOL9vLJHuisqv g782KxMgf1fmKQVpuUFxD EymWBC6H15zj9I4FKOqMP MhGFJ2jSF8xU2kqWdtier gbGVmdDsgdmVy iEctIHfoOEjbB734LLEzh EbgGgQnhGKuM0ayqmHVXH 1lOjwvdGQ+HNJpSCT5wUr oIJliBVYvwV5j QUEdZ4a2ZuByFcM7YWveY 4FzvsZ1VUXfyWTwHBVfdY ALsX1nqithd2veuoquSaP mSPMqMGh6JHo8 TRNfwIlvGzMhTDR0ZpY5H HQ1dMYnsJ7fkNjpmzqeqB 9wOyc+RklOOjwvdGQ+PHR mYWU5oOfgZKvu MQYocO2jSKCaB6t4UcYhX sB9ZIsrZ8KuchF3OEEqrG EmXMOhrYWUzH1syvkjx2m vcjogIzAwMDAw CWn6WOx8PWIwaQqeWkRvN DW2ElF1BGZ0wVSatF1avY hwyunzzX8zGwl+TVJOOjw vdGQ+PHRkIHN0 aIphIIoyNUXtbL5mVZMqR 8t4IqRkZjB4JCmcP4Tusd K6VZYroJBmVPHioEIQtJ2 hropqh4gwhqif CwZvLMIpGZw0OFl9MMGwa MekLaOfWZP9YoP6ZWD0qB EuiM3htZunhyieaI0oSao +BLO5VJG2GS81 AA02I4XhCxdlpDKfgDR+P HRhYmxlIHdpZHRoPScxMD YtSrCimWlaRS1yAn5qJMZ yLWNvbGxhcHNl OiBj (more content not included)... Normal [facility] Consent for Procedure/Surger yon 04-26-2022 Consent for Procedure/Surgery [id number]# 1.00CD:127 Normal [facility] Consent for Treatmenton 04-06 Consent for Treatment [id number]#1 .00CD:127 Normal [facility] Inpatient Patient Summaryon 04-26-2022 Inpatient Patient Summary [address] [address] Clinical Summary Person Information Name: AINSLEY PARRA Age: 37 Years : 1985 Sex: Female PCP: SANIA GILMORE DO Marital Status: Single Race: White Ethnicity: Non- or Language: Frisian Visit Id: Visit Reason: GROSS HEMATURIA Speciality: Acuity: Enc Type: Outpatient Med Service: Surgery Arrival: 04/26/2022 08:23:40 Discharge: Dispo Type: Address: [address] [place] [address] [facility] [phone] Provider Notes: Diagnosis: Gross hematuria Problems Active [...] up: With: Address: When: Martina Stephenson [address], [address], [facility] [address] [place] [phone] Business (1) Comments: Call for followup appointment in [address] scan With: Address: When: Martina Stephenson Patient Education Information: EU - Cystoscopy Discharge Instructions (CUSTOM) Normal [facility] IntraOperative Documentson 0 04-26-2022 IntraOperative Documents [id number]# 1.00CD:127 [facility] Main OR Intraoperative Recor don 04-26-2022 Main OR Intraoperative Record IntraOp Document Type FTURO Summary Primary Physician: aMrtina Stephenson MD Finalized Date/Time: 04/26/22 09:29:52 Pt. Name: AINSLEY PARRA/Sex: 1985 Female Med Rec #: [id number] Physician: Martina Stephenson MD Financial #: [id number] Pt. Type: O Room/Bed: / Admit/Disch: 04/26/22 08:23:40 - Institution: Case Times FTURO Entry 1 Patient Times In Room 04/26/22 09:20:00 Out Room 04/26/22 09:29:00 Procedure Times Start 04/26/22 09:23:00 Stop 04/26/22 09:28:00 Anesthesia Times Last Modified By: Juliana Hills RN 04/26/22 09:29:47 Case Attendance FTURO Entry 1 Entry 2 Entry 3 Case Attendee Martina Stephenson MD [facility], Juliana Rose RN Role Performed Surgeon - Primary Scrub - Primary Rn Prior Authorization - Primary Time In 04/26/22 09:20:00 04/26/22 [...] Class 2 - Clean-Contaminated Last Modified By: Juilana Hills RN 04/26/22 09:28:18 General Case Data [...] By: Juliana Hills RN 04/26/22 09:29 Normal [facility] Main OR Preoperative Recordo n 04-26-2022 Main OR Preoperative Record Holding Area Document Type FTURO Summary Primary Physician: Martina Stephenson MD Finalized Date/Time: 04/26/22 08:49:24 Pt. Name: ANDREASAINSLEY/Sex: 1985 Female Med Rec #: [id number] Physician: Martina Stephenson MD Financial #: [id number] Pt. Type: O Room/Bed: / Admit/Disch: 04/26/22 08:23:40 - Institution: Case Times Holding FTURO Pre-Care Text: Verifies consent for planned procedure, identifies individual values and wishes concerning care, includes family members in perioperative teaching Secures patient's records' belongings, and valuables, maintains patient's dignity and privacy, and maintains patient confidentiality Entry 1 In Holding 04/26/22 08:47:00 Outcomes Met? Yes Last Modified By: Shoaib TIRADO, Liliana ALVARADO 04/26/22 08:47:52 Post-Care Text: The patient participates [...] CHRISTIANO Cramer RN, Ruthann 04/26/22 08:49 Normal [facility] Operative Reporton Operative Report Patient: AWAIS PARRA Age: 37 years Sex: Female : 1985 Associated Diagnoses: None Author: Martina Stephenson MD Procedure Operative Information Details: Date/ Time: 04/26/2022 09:32:00. Pre-Op Dx: Gross hematuria (PDI18-EE R31.0, Discharge, Medical). Post-Op Dx: Same. Anesthesia [...] up after CTU completed (scheduled 05/07/22).. Normal [facility] Comment on above: Result Comment: Elec tronically Signed By: Martina Stephenson MD\.br\Date and Time Signed: 04/26/22 09:35 EDT Outpatient Surgery Discharge Instructionon 04-26-2022 Outpatient Surgery Discharge Instruction [place] [id number] Patient Discharge Instructions PERSON INFORMATION Name: AINLSEY PARRA Date of : 1985 Current Date: [...] Follow up: With: Address: When: Martina Stephenson [address] [place] [phone] [facility] (1) Comments: Call for followup appointment [...] you have a fever over 100 degrees. I, AINSLEY PARRA, have received the attached patient education materials/instruction s and have verbalized understanding: May we do a follow up call? Yes No I was present when discharge instructions were given Patient Signature Date Clinican/Nurse Signature Date You may receive a survey from [employer] asking you to rate your care experience. Your feedback is important and will help us understand what we do well and how we can improve the quality of care we provide to you, your loved ones and our community. It?s an honor to serve you. Thank you for choosing [facility] Normal [facility] Formson 04-19-2022 Forms [id number]#1 .00CD:127 Normal [facility] Urine Cytology ([facility])on 0 04-19-2022 Urine Cytology Diagnosis Info Invalid Interpretation Code [facility] Comment on above: Result Comment: A:Ur ine,Urine:Voided Interpretation - Adequate cellularity for evaluation. MicroScopic Description - Adequacy - Adequate cellularity for evaluation. Gross Description Site ID:A color Yellow fixative Alcohol Specimen designated Urine received in alcohol preservative and labeled with the patient?s name, consists of 60ml slightly cloudy yellow fluid. One non-product applications scientist cytology slide prepared. Electronically signed by : on: 04/19/2022 10:28:17 Performed By: #### 1 [id number] ####[facility] [address] [place] [address] Patient Educationon 04-14-20 Patient Education Urology Hematuria, [...] these instructions at home: Medicines ? Take bpam-hko-fwxevkt and prescription medicines only as told by [...] the blood stops without treatment. ? Take desv-kpv-usaexkz and prescription medicines only as told by [...] Reviewed: 09/24/2017 Elsevier Patient Education ? 2019 [employer] Normal [facility] Urine Cytology ([facility])on 0 04-14-2022 Method of Extraction Voided Normal [facility] Comment on above: Performed By: #### 1 [id number] ####[facility] [address] [place] [address] Number of Jars 1 Invalid Interpretation Code [facility] Comment on above: Performed By: #### 1 [id number] ####[facility] [address] [place] [address] Specimen Clean Catch Normal [facility] Comment on above: Performed By: #### 1 [id number] ####[facility] [address] [place] [address] Type of Service Technical Only Normal [facility] Comment on above: Performed By: #### 1 [id number] ####[facility] [address] [place] [address] Urology Office/Clinic Noteon 04-14-2022 Urology Office/Clinic Note Chief Complaint Follow up from [facility] ER HPI Staff Ainsley is here today as anew patient follow up from [facility] ER for hematuria. Pt was seen [...] of Present Illness Tests Reviewed: Reviewed UA, [facility] ER paperwork labs and external records [...] Gross hematuria) Pt was seen at the [facility] ER on 03/25/22 after an onset of dark red blood w/o pain that afternoon, pt states she had a similar occurrences beginning of the month. 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 The ER did a Micro UA showing > 100 RBC's, no culture indicated. Discussed differential including dehydration vs true gross hematuria. Pt states was DrDemario Medina color but also red. Pt did state she has had urinary infections in the past, usually after sexual intercourse, or when she doesn't properly wipe after urinating. Overall not frequent. GFR- 52, Creatinine 1.16 UA today shows trace intact blood today Discussed potential etiologies and implications of micro and gross hematuria including stones, infection, malignancy, renal dysfunction. Never seen a jerker before. -Discussed appropriate hydration and behavioral modifications. [...] and de (more content not included)... Normal [facility] Comment on above: Result Comment: Elec tronically Signed By: Martina Stephenson MD\.br\Date and Time Signed: 04/14/22 13:26 EDT\.br\Electronically Co-Signed By: Patsy Sheffield\.br\Date and Time Co-Signed: 04/14/22 12:09 EDT CBC AUTO DIFFon 03-25-2022 BASO # 0.0 103/ul Normal 0.0-0.1 [facility] Comment on above: Performed By: #### C BC #### [facility] [address] [place] [address] Dr. Gabo Perez Basophils/100 WBC (Bld) 0.4 % Normal 0.2-2.0 [facility] Comment on above: Performed By: #### C BC #### [facility] [address] [place] [address] Dr. Gabo Perez EO # 0.4 103/ul Normal 0.0-0.7 [facility] Comment on above: Performed By: #### C BC #### [facility] [address] [place] [address] Dr. Gabo Perez Eosinophils/100 WBC (Bld) 3.5 % Normal 0.9-7.0 [facility] Comment on above: Performed By: #### C BC #### [facility] [address] [place] [address] Dr. Gabo Perez Erythrocyte distribution width (RBC) [Ratio] 12.1 % Normal 11.0-15.0 [facility] Comment on above: Performed By: #### C BC #### [facility] [address] [place] [address] Dr. Gabo Perez Hematocrit (Bld) [Volume fraction] 39.0 % Normal 36.0-48.0 [facility] Comment on above: Performed By: #### C BC #### [facility] [address] [place] [address] Dr. Gabo Perez Hemoglobin (Bld) [Mass/Vol] 13.2 g/dL Normal 12.0-16.0 [facility] Comment on above: Performed By: #### C BC #### [facility] [address] [place] [address] Dr. Gabo Perez IG # 0.03 10e3/ul Normal 0.00-0.03 [facility] Comment on above: Performed By: #### C BC #### [facility] [address] [place] [address] Dr. Gabo Perez IG % 0.3 % Normal 0.0-0.5 [facility] Comment on above: Performed By: #### C BC #### [facility] [address] [place] [address] Dr. Gabo Perez LYMPH # 2.8 103/ul Normal 1.2-3.8 [facility] Comment on above: Performed By: #### C BC #### [facility] [address] [place] [address] Dr. Gabo Perez Lymphocytes/100 WBC (Bld) 24.3 % Normal 20.5-60.0 [facility] Comment on above: Performed By: #### C BC #### [facility] [address] [place] [address] Dr. Gabo Perez MANUAL DIFF REQ NO Normal [facility] Comment on above: Performed By: #### C BC #### [facility] [address] [place] [address] Dr. Gabo Perez MCH (RBC) [Entitic mass] 30.1 pg Normal 26.7-34.0 [facility] Comment on above: Performed By: #### C BC #### [facility] [address] [place] [address] Dr. Gabo ePrez MCHC (RBC) [Mass/Vol] 33.8 g/dL Normal 29.9-35.2 [facility] Comment on above: Performed By: #### C BC #### [facility] [address] [place] [address] Dr. Gabo Perez MCV (RBC) [Entitic vol] 88.8 fL Normal 81.0-99.0 [facility] Comment on above: Performed By: #### C BC #### [facility] [address] [place] [address] Dr. Gabo Perez MONO # 0.8 103/ul Normal 0.3-0.8 [facility] Comment on above: Performed By: #### C BC #### [facility] [address] [place] [address] Dr. Gabo Perez Monocytes/100 WBC (Bld) 6.6 % Normal 1.7-12.0 [facility] Comment on above: Performed By: #### C BC #### [facility] [address] [place] [address] Dr. Gabo Perez NEUT # 7.4 103/ul Critically high 1.4-6.5 [facility] [place] Comment on above: Performed By: #### C BC #### [facility] [address] [place] [address] Dr. Gabo Perez Neutrophils/100 WBC (Bld) 64.9 % Normal 43.0-75.0 [facility] Comment on above: Performed By: #### C BC #### [facility] [address] [place] [address] Dr. Gabo Perez Platelet mean volume (Bld) [Entitic vol] 12.0 fL Normal 9.5-13.5 [facility] Comment on above: Performed By: #### C BC #### [facility] [address] [place] [address] Dr. Gabo Perez PLT 229 103/ul Normal 150-450 [facility] Comment on above: Performed By: #### C BC #### [facility] [address] [place] [address] Dr. Gabo Perez RBC 4.39 106/ul Normal 4.20-5.40 [facility] Comment on above: Performed By: #### C BC #### [facility] [address] [place] [address] Dr. Gabo Perez WBC 11.4 103/ul Critically high 4.0-11.0 [facility] Comment on above: Performed By: #### C BC #### [facility] [address] [place] [address] Dr. Gabo Perez ER URINE PROFILEon 2 Bilirubin Ql (U) Negative Normal NEGATIVE [facility] Comment on above: Performed By: #### P REGQNT #### [facility] [address] [place] [address] Dr. Gabo Perez Clarity (U) CLEAR Normal CLEAR [facility] Comment on above: Performed By: #### P REGQNT #### [facility] [address] [place] [address] Dr. Gabo Perez Color (U) RED Abnormal YELLOW [facility] Comment on above: Performed By: #### P REGQNT #### [facility] [address] [place] [address] Dr. Gabo Perez ERUAHD A micrscopic examination will be performed if indicated. Normal [facility] Comment on above: Performed By: #### P REGQNT #### [facility] [address] [place] [address] Dr. Gabo Perez Glucose Ql (U) Negative Normal NEGATIVE [facility] Comment on above: Performed By: #### P REGQNT #### [facility] [address] [address] [address] Gabo Perez Hemoglobin Ql (U) LARGE Abnormal NEGATIVE The [facility] Comment on above: Performed By: #### P REGQNT #### [facility] [address] [place] [address] Dr. Gabo Perez Ketones Ql (U) TRACE Abnormal NEGATIVE [facility] Comment on above: Performed By: #### P REGQNT #### [facility] [address] [place] [address] Dr. Gabo Perez LEUKOCYTES TRACE Abnormal NEGATIVE [facility] Comment on above: Performed By: #### P REGQNT #### [facility] [address] [place] [address] Dr. Gabo Perez Nitrite Ql (U) Negative Normal NEGATIVE [facility] Comment on above: Performed By: #### P REGQNT #### [facility] [address] [place] [address] Dr. Gabo Perez pH (U) 8.0 [pH] Normal 5-9 [facility] Comment on above: Performed By: #### P REGQNT #### [facility] [address] [place] [address] Dr. Gabo Perez Protein (U) [Mass/Vol] 30 mg/dL Abnormal NEGATIVE/ TRACE [facility] Comment on above: Performed By: #### P REGQNT #### [facility] [address] [place] [address] Dr. Gabo Perez SPEC GRAVITY 1.015 Normal 1.005-<=1.02 5 [facility] Comment on above: Performed By: #### P REGQNT #### [facility] [address] [place] [address] Dr. Gabo Perez UR MICRO IND INDICATED Normal [facility] Comment on above: Performed By: #### P REGQNT #### [facility] [address] [place] [address] Dr. Gabo Perez Urobilinogen Qn (U) 1.0 {Lucas'U}/dL Normal 0.2 - 1. 0 [facility] Comment on above: Performed By: #### P REGQNT #### [facility] [address] [address] [address] Gabo Perez URon 03-25-2022 , QUAL Negative Normal NEGATIVE The [facility] Comment on above: Performed By: #### P REGQNT #### [facility] [address] [address] [address] Gabo Perez PROF CHEM 8 (BAS METB)on Anion gap [Moles/Vol] 15.1 mmol/L Normal [facility] Comment on above: Performed By: #### B MP #### [facility] [address] [address] [address] Gabo Perez Calcium [Mass/Vol] 8.5 mg/dL Normal 8.5-10.1 [facility] Comment on above: Performed By: #### B MP #### [facility] [address] [address] [address] Gabo Perez Chloride [Moles/Vol] 106 mmol/L Normal 98-107 [facility] Comment on above: Performed By: #### B MP #### [facility] [address] [address] [address] Gabo Perez CO2 [Moles/Vol] 23.8 mmol/L Normal 21.0-32.0 [facility] Comment on above: Performed By: #### B MP #### [facility] [address] [address] [address] Gabo Perez Creatinine [Mass/Vol] 1.16 mg/dL Critically high 0.55-1.02 [facility] Comment on above: Performed By: #### B MP #### [facility] [address] [address] [address] Gabo Perez EGFR-AF ALBANIAN >60 Normal >=60 [facility] Comment on above: Performed By: #### B MP #### [facility] [address] [address] [address] Gabo Perez EGFR-NON AF ALBANIAN 52 mL/min/1.73m2 Critically low >=60 [facility] Comment on above: Performed By: #### B MP #### [facility] [address] [place] [address] Dr. Gabo Perez Glucose [Mass/Vol] 84 mg/dL Normal 74-106 [facility] Comment on above: Performed By: #### B MP #### [facility] [address] [place] [address] Dr. Gabo Perez Potassium [Moles/Vol] 3.9 mmol/L Normal 3.5-5.1 [facility] Comment on above: Performed By: #### B MP #### [facility] [address] [place] [address] Dr. Gabo Perez Sodium [Moles/Vol] 141 mmol/L Normal 136-145 [facility] Comment on above: Performed By: #### B MP #### [facility] [address] [place] [address] Dr. Gabo Perez Urea nitrogen [Mass/Vol] 15.0 mg/dL Normal 7.0-18.0 [facility] Comment on above: Performed By: #### B MP #### [facility] [address] [place] [address] Dr. Gabo Perez Urea nitrogen/Creatinine [Mass ratio] 12.9 mg/mg Normal [facility] Comment on above: Performed By: #### B MP #### [facility] [address] [place] [address] Dr. Gabo Perez URINE MICROSCOPIC ONLYon BACTERIA TRACE Abnormal NONE SEEN [facility] Comment on above: Performed By: #### P REGQNT #### [facility] [address] [place] [address] Dr. Gabo Perez Bacteria identified Cx Nom (U) NOT INDICATED Normal [facility] Comment on above: Performed By: #### P REGQNT #### [facility] [address] [place] [address] Dr. Gabo Perez CAST NONE SEEN Normal NONE SEEN [facility] Comment on above: Performed By: #### P REGQNT #### [facility] [address] [place] [address] Dr. Gabo Perez Crystals LM Nom (Urine sed) NONE SEEN Normal NONE SEEN [facility] Comment on above: Performed By: #### P REGQNT #### [facility] [address] [address] [address] Gabo Perez Epithelial cells LM Ql (Urine sed) RARE Normal NONE SEEN /RARE [facility] Comment on above: Performed By: #### P REGQNT #### [facility] [address] [address] [address] Gabo Perez MUCOUS NONE SEEN Normal NONE SEEN [facility] Comment on above: Performed By: #### P REGQNT #### [facility] [address] [address] [address] Gabo Perez RBC (U) [#/Vol] /uL Abnormal 0-2 [facility] Comment on above: Performed By: #### P REGQNT #### [facility] [address] [address] [address] Gabo Perez WBC 0-2 Abnormal NONE SEEN [facility] Comment on above: Performed By: #### P REGQNT #### [facility] [address] [place] [address] Dr. Gabo Perez COVID Quick Testingon 2021 Result Positive [employer] Other GLUCOSE, BLOOD (POC)on 03-09 Glucose [Mass/Vol] 108 mg/dL Abnormal 74 - 99 mg/dL [facility] FREE T4on 01-18-2022 Free T4 [Mass/Vol] 0.30 ng/dL Critically low 0.76-1.46 [facility] Comment on above: Performed By: #### P REGQNT #### [facility] [address] [address] [address] Gabo Perez LIPID PROFILEon 01-18-2022 CHOL-HDL RATIO NORM SEE BELOW Normal [facility] Comment on above: Result Comment: 3.3 - 4.4 LOW RISK 4.4 - 7.1 AVERAGE RISK 7.1 - 11.0 MODERATE RISK >11.0 HIGH RISK Performed By: #### C MP, LIPID, TSH #### [facility] [address] [address] [address] Gabo Perez Cholesterol [Mass/Vol] 238 mg/dL Critically high <=200 [facility] Comment on above: Performed By: #### C MP, LIPID, TSH #### [facility] [address] [address] [address] Gabo Perez Cholesterol in HDL [Mass/Vol] 61 mg/dL Critically high 40-60 [facility] Comment on above: Performed By: #### C MP, LIPID, TSH #### [facility] [address] [address] [address] Gabo Perez Cholesterol in LDL [Mass/Vol] 161.4 mg/dL Normal [facility] Comment on above: Performed By: #### C MP, LIPID, TSH #### [facility] [address] [address] [address] Gabo Perez Cholesterol.total/Ch olesterol in HDL [Mass ratio] 3.9 {ratio} Normal [facility] Comment on above: Performed By: #### C MP, LIPID, TSH #### [facility] [address] [address] [address] Gabo Perez HDL NORMAL > or = 60 mg/dl - LO W CARDIOVASCULAR RISK <40 mg/dl - HIGH CARDIOVASCULAR RISK Normal [facility] Comment on above: Performed By: #### C MP, LIPID, TSH #### [facility] [address] [address] [address] Gabo Perez LDL CALC NORMAL SEE BELOW Normal [facility] Comment on above: Result Comment: <100 mg/dl OPTIMAL 100 - 129 mg/dl NEAR OR ABOVE OPTIMAL 130 - 159 mg/dl BORDERLINE HIGH 160 - 189 mg/dl HIGH >190 mg/dl VERY HIGH Performed By: #### C MP, LIPID, TSH #### [facility] [address] [address] [address] Gabo Perez Triglyceride [Mass/Vol] 78 mg/dL Normal <=150 [facility] Comment on above: Performed By: #### C MP, LIPID, TSH #### [facility] [address] [address] [address] Gabo Perez VLDL CALC 15.6 mg/dL Normal [facility] Comment on above: Performed By: #### C MP, LIPID, TSH #### [facility] [address] [address] [address] Gabo Perez PROF 14(COMP METB)on 022 Albumin [Mass/Vol] 3.6 g/dL Normal 3.4-5.0 [facility] Comment on above: Performed By: #### C MP, LIPID, TSH #### [facility] [address] [place] [address] Dr. Gabo Perez Albumin/Globulin [Mass ratio] 1.0 {ratio} Normal [facility] Comment on above: Performed By: #### C MP, LIPID, TSH #### [facility] [address] [place] [address] Dr. Gabo Perez ALP [Catalytic activity/Vol] 56 U/L Normal 46-116 [facility] Comment on above: Performed By: #### C MP, LIPID, TSH #### [facility] [address] [place] [address] Dr. Gabo Perez ALT [Catalytic activity/Vol] 25 U/L Normal 14-59 [facility] Comment on above: Performed By: #### C MP, LIPID, TSH #### [facility] [address] [place] [address] Dr. Gabo Perez Anion gap [Moles/Vol] 11.3 mmol/L Normal [facility] Comment on above: Performed By: #### C MP, LIPID, TSH #### [facility] [address] [place] [address] Dr. Gabo Perez AST [Catalytic activity/Vol] 13 U/L Critically low 15-37 [facility] Comment on above: Performed By: #### C MP, LIPID, TSH #### [facility] [address] [place] [address] Dr. Gabo Perez Bilirubin [Mass/Vol] 0.5 mg/dL Normal 0.2-1.0 [facility] Comment on above: Performed By: #### C MP, LIPID, TSH #### [facility] [address] [address] [address] Gabo Perez Calcium [Mass/Vol] 8.7 mg/dL Normal 8.5-10.1 [facility] Comment on above: Performed By: #### C MP, LIPID, TSH #### [facility] [address] [address] [address] Gabo Perez Chloride [Moles/Vol] 103 mmol/L Normal 98-107 [facility] Comment on above: Performed By: #### C MP, LIPID, TSH #### [facility] [address] [place] [address] Dr. Gabo Perez CO2 [Moles/Vol] 28.8 mmol/L Normal 21.0-32.0 [facility] Comment on above: Performed By: #### C MP, LIPID, TSH #### [facility] [address] [place] [address] Dr. Gabo Perez Creatinine [Mass/Vol] 0.83 mg/dL Normal 0.55-1.02 [facility] Comment on above: Performed By: #### C MP, LIPID, TSH #### [facility] [address] [place] [address] Dr. Gabo Perez EGFR-AF ALBANIAN >60 Normal >=60 [facility] Comment on above: Performed By: #### C MP, LIPID, TSH #### [facility] [address] [place] [address] Dr. Gabo Perez EGFR-NON AF ALBANIAN >60 Normal >=60 [facility] Comment on above: Performed By: #### C MP, LIPID, TSH #### [facility] [address] [place] [address] Dr. Gabo Perez Globulin (S) [Mass/Vol] 3.6 g/dL Normal [facility] Comment on above: Performed By: #### C MP, LIPID, TSH #### [facility] [address] [place] [address] Dr. Gabo Perez Glucose [Mass/Vol] 95 mg/dL Normal 74-106 [facility] Comment on above: Performed By: #### C MP, LIPID, TSH #### [facility] [address] [address] [address] Gabo Perez Potassium [Moles/Vol] 4.1 mmol/L Normal 3.5-5.1 [facility] Comment on above: Performed By: #### C MP, LIPID, TSH #### [facility] [address] [address] [address] Gabo Perez Protein [Mass/Vol] 7.2 g/dL Normal 6.4-8.2 [facility] Comment on above: Performed By: #### C MP, LIPID, TSH #### [facility] [address] [place] [address] Dr. Gabo Perez Sodium [Moles/Vol] 139 mmol/L Normal 136-145 [facility] Comment on above: Performed By: #### C MP, LIPID, TSH #### [facility] [address] [place] [address] Dr. Gabo Perez Urea nitrogen [Mass/Vol] 9.0 mg/dL Normal 7.0-18.0 [facility] Comment on above: Performed By: #### C MP, LIPID, TSH #### [facility] [address] [place] [address] Dr. Gabo Perez Urea nitrogen/Creatinine [Mass ratio] 10.8 mg/mg Normal [facility] Comment on above: Performed By: #### C MP, LIPID, TSH #### [facility] [address] [place] [address] Dr. Gabo Perez TSHon 01-18-2022 TSH 111.464 uIU/mL Critically high 0.358-3.740 [facility] Comment on above: Result Comment: REPE ATED FOR VERIFICATION Performed By: #### C MP, LIPID, TSH #### [facility] [address] [place] [address] Dr. Gabo Perez TSH RANGE SEE BELOW Normal [facility] Comment on above: Result Comment: <0.3 4 UIU/ml HYPERTHYROID 0.34-5.60 UIU/ml EUTHYROID >5.60 UIU/ml HYPOTHYROID Performed By: #### C MP, LIPID, TSH #### [facility] [address] [address] [address] Gabo Perez Urinalysis - AUTOMATEDon Appearance (U) cloudy [employer] Other Bilirubin Ql (U) Negative [employer] Other Color (U) dark yellow [employer] Other Glucose Ql (U) Negative [employer] Other Hemoglobin Ql (U) large [employer] Other Ketones Ql (U) trace [employer] Other Leukocyte esterase Test strip Ql (U) large [employer] Other Nitrite Ql (U) Positive [employer] Other pH (U) 6.5 [pH] [employer] Other Protein Ql (U) 100 [employer] Other Specific gravity (U) [Rel density] >1.030 [employer] Other Urobilinogen (U) [Mass/Vol] 1.0 mg/dL [employer] Other Urinalysis - AUTOMATED [employer] Other Urine Cultureon 12-02-2021 Bacteria identified Cx Nom (U) Reason for Exam Dysuria Urine ORGANISM: Escherichia coli (O:ESCCOL) [place] Count >100,000 Aerobic CECE Charge (NUC86) ---- [...] RESISTANT TO ALL B-LACTAM DRUGS. PERFORMED BY: [place] [id number] PATHOLOGIST BEEF BONER BARAK ARRIAZA M.D. [facility] Comment on above: Performed By: #### C UU #### [address] Vital Signs Date Time Vital Sign Value Performing Clinician Facility 01-12-2023 08:46-0400 Blood Pressure Location Martina [facility] 01-12-2023 08:46-0400 Diastolic blood pressure 74 mm[Hg] Martina L[facility] 01-12-2023 08:46-0400 Heart rate 68 /min Martina Lue [facility] 01-12-2023 08:46-0400 Respiratory rate 16 /min Martina Lue [facility] 01-12-2023 08:46-0400 Systolic blood pressure 128 mm[Hg] Martina Lue [facility] 06-02-2022 16:55-0400 Diastolic blood pressure 86 mm[Hg] DO Sania Rumschlag Work Phone: [facility] 06-02-2022 16:55-0400 Heart rate 73 /min DO Sania Rumschlag Work Phone: [facility] 06-02-2022 16:55-0400 Respiratory rate 16 /min DO Sania Rumschlag Work Phone: [facility] 06-02-2022 16:55-0400 SaO2% (BldA) [Mass fraction] 100 % DO Sania Rumschlag Work Phone: [facility] 06-02-2022 16:55-0400 Systolic blood pressure 114 mm[Hg] DO Sania Rumschlag Work Phone: [facility] 06-02-2022 16:10-0400 Inhaled oxygen flow rate 6 L/min DO Sania Rumschlag Work Phone: [facility] 06-02-2022 15:16-0400 Body mass index (BMI) [Ratio] 37.3 kg/m2 DO Sania Rumschlag Work Phone: [facility] 06-02-2022 13:55-0400 Body height 153.67 cm DO Sania Rumschlag Work Phone: [facility] 06-02-2022 13:55-0400 Body weight 87.99 kg DO Sania Rumschlag Work Phone: [facility] 06-02-2022 12:12-0400 Body temperature 97.9 [degF] DO Sania Rumschlag Work Phone: [facility] 05-12-2022 08:06-0400 Blood Pressure Location Martina [facility] 05-12-2022 08:06-0400 Diastolic blood pressure 65 mm[Hg] Martina Lue [facility] 05-12-2022 08:06-0400 Heart rate 71 /min Martina Lue [facility] 05-12-2022 08:06-0400 Respiratory rate 16 /min Martina Lue [facility] 05-12-2022 08:06-0400 Systolic blood pressure 108 mm[Hg] Martina Lue [facility] 04-14-2022 11:31-0400 Blood Pressure Location Martina Lue [facility] 04-14-2022 11:31-0400 Diastolic blood pressure 76 mm[Hg] Martina Lue [facility] 04-14-2022 11:31-0400 Heart rate 71 /min Martina Lue [facility] 04-14-2022 11:31-0400 Respiratory rate 16 /min Martina Lue [facility] 04-14-2022 11:31-0400 Systolic blood pressure 113 mm[Hg] Martina Lue [facility] 03-15-2022 11:10-0400 Body height 153.67 cm Sherine Renee Other [facility] [employer] Other 03-15-2022 11:10-0400 Body mass index (BMI) [Ratio] 37.26 kg/m2 Sherine Renee Other [facility] [employer] Other 03-15-2022 11:10-0400 Body temperature 98 [degF] Sherine Renee Other [facility] [employer] Other 03-15-2022 11:10-0400 Body weight 88 kg Sherine Renee Other [facility] [employer] Other 03-15-2022 11:10-0400 Respiratory rate 18 /min Sherine Renee Other [facility] [employer] Other 03-15-2022 11:10-0400 SaO2% (BldA) [Mass fraction] 98 % Sherine Renee Other [facility] [employer] Other 03-09-2022 10:49-0400 Body weight 88 kg Patti Vences MD Work Phone: [facility] 03-09-2022 10:49-0400 Diastolic blood pressure 68 mm[Hg] Patti Vences MD Work Phone: [facility] 03-09-2022 10:49-0400 Heart rate 76 /min Patti Vences MD Work Phone: [facility] 03-09-2022 10:49-0400 Systolic blood pressure 100 mm[Hg] Patti Vences MD Work Phone: [facility] 12-02-2021 17:00-0400 Body height 153.67 cm Linda Leon Other [facility] [employer] Other 12-02-2021 17:00-0400 Body mass index (BMI) [Ratio] 37.64 kg/m2 Linda Leon Other [employer] Other 12-02-2021 17:00-0400 Body temperature 97.9 [degF] Linda Leon Other [facility] [employer] Other 12-02-2021 17:00-0400 Body weight 88.91 kg Linda Leon Other [facility] [employer] Other 12-02-2021 17:00-0400 Diastolic blood pressure 85 mm[Hg] Linda Leon Other [facility] [employer] Other 12-02-2021 17:00-0400 Respiratory rate 18 /min Linda Leon Other [facility] [employer] Other 12-02-2021 17:00-0400 SaO2% (BldA) [Mass fraction] 99 % Linda Leon Other [facility] [employer] Other 12-02-2021 17:00-0400 Systolic blood pressure 120 mm[Hg] Linda Leon Other [employer] Other Encounters Encounter Date Encounter Type Care Provider Facility Start: 02-01-2024 ambulatory Patti clark MD Work Phone: Endocrinology Comment on above: labs High tsh results Start: 02-01-2024 E-mail encounter fro m caregiver Patti Vences MD Work Phone: Endocrinology Start: 01-31-2024 End: 01-31-2024 ambulatory PATTI VENCES Facility:[facility] Start: 10-26-2023 End: 10-26-2023 ambulatory SANA KOEHLER Not Available Start: 09-22-2023 End: 09-22-2023 ambulatory SANA KOEHLER Not Available Start: 09-12-2023 End: 09-12-2023 ambulatory VLADIMIR JOHNSON Not Available Start: 08-23-2023 End: 08-23-2023 ambulatory VLADIIMR JOHNSON Not Available Start: 08-05-2023 ambulatory Patti clark MD Work Phone: Endocrinology Comment on above: labs Start: 08-05-2023 E-mail encounter fro m caregiver Patti Vences MD Work Phone: [facility] Start: 08-04-2023 End: 08-04-2023 ambulatory PATTI VENCES Facility:[facility] Start: 04-20-2023 ambulatory Martina Stephenson Facility:[facility] Start: 04-15-2023 End: 04-15-2023 ambulatory Patti Vences MD Work Phone: Endocrinology Comment on above: 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) Start: 04-15-2023 End: 04-15-2023 Telemedicine consultation with patient Patti Vences MD Work Phone: [facility] Start: 04-11-2023 End: 04-11-2023 ambulatory PATTI VENCES Facility:[facility] Start: 01-12-2023 End: 01-13-2023 ambulatory Martina Stephenson Facility:[facility] Start: 01-12-2023 End: 01-12-2023 Patient encounter procedure Martina Stephenson [facility] Start: 01-03-2023 End: 01-04-[address] PASQUALE WILKES Facility:[facility] Start: 01-03-2023 End: 01-04-2023 ambulatory SANIA GILMORE Facility:[facility] Start: 11-26-2022 End: 11-26-[address] VLADIMIR JOHNSON . Facility:[facility] Start: 11-16-2022 Encounter for preprocedural cardiovascular examination DR VLADIMIR JOHNSON . [facility] Start: 11-16-2022 Encounter for preprocedural respiratory examination DR VLADIMIR JOHNSON . [facility] Start: 11-12-2022 End: 11-13-2022 ambulatory SANIA RUMSCHLAG Facility:[facility] Start: 11-12-2022 End: 11-13-2022 Encounter for preprocedural cardiovascular examination SANIA DEIRDRE Facility:[facility] Start: 09-23-2022 End: 09-24-2022 ambulatory SANIA IFTIKHARLAG Facility: Start: 09-20-[address] DOCTOR VILLAFUERTE Facility :[facility] Start: 09-01-2022 End: 09-01-2022 ambulatory DR VLADIMIR JOHNSON . Facility: Start: 07-14-2022 End: 07-15-2022 ambulatory SANIA GILMORE Facility:[facility] Start: 07-09-2022 End: 07-10-[address] EMILY MARSHALL Facility:[facility] Start: 07-05-2022 End: 07-06-[address] EMILY MARSHALL Facility:[facility] Start: 06-07-2022 End: 06-08-2022 ambulatory SANIA GILMORE Facility[place] Start: 06-07-2022 End: 06-07-2022 Patient encounter procedure Martina Stephenson [facility] Start: 06-02-2022 Encounter for preprocedural laboratory examination MARTINA STEPHENSON . [facility] Start: 06-02-2022 End: 06-02-2022 ambulatory Martina Stephenson Facility:[facility] Start: 06-02-2022 End: 06-02-2022 Admission to same day surgery center DO Sania Rumschlag Work Phone: [facility] [place] Start: 06-02-2022 End: 06-03-2022 ambulatory DO Sania Rumschlag Work Phone: [facility] Work Phone: Start: 05-31-2022 End: 06-01-2022 ambulatory MARTINA STEPHENSON . Facility:[facility] Start: 05-31-2022 End: 06-01-2022 Encounter for preprocedural laboratory examination MARTINA STEPHENSON . Facility:[facility] Start: 05-12-2022 End: 05-13-[address] EMILY MARSHALL Facility: Start: 05-12-2022 End: 05-12-2022 Patient encounter procedure Martina Stephenson [facility] [place] Start: 05-07-2022 End: 05-08-2022 ambulatory Patti Vences MD Work Phone: Endocrinology Comment on above: Labs Start: 04-26-2022 End: 04-27-2022 ambulatory SANIA RUMSCHLAG Facility:[facility] Start: 04-26-2022 End: 04-26-2022 Patient encounter procedure Martina Stephenson [facility] Start: 04-14-2022 End: 04-15-2022 ambulatory SANIA RUMSCHLAG Facility:[facility] Start: 04-14-2022 End: 04-14-2022 Patient encounter procedure Martina Stephenson [facility] [place] Start: 03-25-2022 End: 03-25-2022 ambulatory RAMAN HASTINGS . Facility: Start: 03-15-2022 End: 03-15-2022 ambulatory Sherine Renee Other [facility] [employer] Other Start: 03-15-2022 Office outpatient vi sit 15 minutes Sherine Renee [facility] Start: 03-10-2022 ambulatory Patti clark MD Work Phone: Endocrinology Comment on above: labs Start: 03-10-2022 E-mail encounter fro m caregiver Patti Vences MD Work Phone: [facility] Start: 03-09-2022 Telephone encounter Patti Vences MD Work Phone: Endocrinology Comment on above: Patient Update Start: 03-09-2022 End: 03-09-2022 Patient encounter procedure Patti Vences MD Work Phone: Endocrinology Comment on above: 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); Impaired fasting glucose Start: 01-18-2022 End: 01-19-[address] DOCTOR VILLAFUERTE Facility: Start: 12-04-2021 End: 12-04-2021 ambulatory Linda Leon Other [facility] Other Start: 12-04-2021 Telephone encounter Linda [facility] Start: 12-02-2021 End: 12-02-2021 ambulatory Linda Leon [facility] Other Start: 12-02-2021 Office outpatient vi [...] P,Tdap,Td Vaccine (2 - Td or Tdap) [facility] Start: 05-06-2024 Influenza vaccination Influenz a Vaccine (Season Ended) [facility] Start: 04-02-2024 End: 07-30-2024 Thyrotropin [Units/volume] in Serum or Plasma THYROID STIMULATING HORMONE Lab Routine 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 Expected: 04/02/2024, Expires: 07/30/2024 [facility] Work Phone: Comment on above: Expected: 04/02/2024 , Expires: 07/30/2024 Start: 04-02-2024 End: 07-02-2024 Thyroxine (T4) free [Mass/volume] in Serum or Plasma T4 FREE/FREE THYROXINE Lab Routine 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 Expected: 04/02/2024, Expires: 07/02/2024 [facility] Comment on above: Expected: 04/02/2024 , Expires: 07/02/2024 Start: 09-16-2023 End: 02-01-2024 Thyrotropin [Units/volume] in Serum or Plasma TSH BLD Lab Routine 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 Expected: 09/16/2023, Expires: 02/01/2024 [facility] Work Phone: Comment on above: Expected: 09/16/2023 , Expires: 02/01/2024 Start: 09-16-2023 End: 12-16-2023 Thyroxine (T4) free [Mass/volume] in Serum or Plasma T4 FREE/FREE THYROX Lab Routine 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 Expected: 09/16/2023, Expires: 12/16/2023 [facility] Work Phone: Comment on above: Expected: 09/16/2023 , Expires: 12/16/2023 Start: 09-05-2023 Behavioral Health Screening Behavioral Health Screening [facility] Start: 06-15-2023 End: 10-12-2023 Thyrotropin [Units/volume] in Serum or Plasma TSH BLD Lab Routine 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 Expected: 06/15/2023, Expires: 10/12/2023 [facility] Work Phone: Comment on above: Expected: 06/15/2023 , Expires: 10/12/2023 Start: 06-15-2023 End: 08-15-2023 Thyroxine (T4) free [Mass/volume] in Serum or Plasma T4 FREE/FREE THYROX Lab Routine 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 Expected: 06/15/2023, Expires: 08/15/2023 [facility] Work Phone: Comment on above: Expected: 06/15/2023 , Expires: 08/15/2023 Start: 05-06-2023 Covid-19 Vaccine () Covid-19 Vaccine () [facility] Start: 05-06-2023 Influenza vaccination C [facility] Start: 09-05-2022 DEPRESSION ASSESSMENT DEPRESSION ASS ESSMENT [facility] Start: 06-10-2022 End: 08-10-2022 Thyrotropin [Units/volume] in Serum or Plasma TSH BLD Lab Routine 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 Expected: 06/10/2022, Expires: 08/10/2022 [facility] Work Phone: Comment on above: Expected: 06/10/2022 , Expires: 08/10/2022 Start: 06-10-2022 End: 08-10-2022 Thyroxine (T4) free [Mass/volume] in Serum or Plasma T4 FREE/FREE THYROX Lab Routine 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 Expected: 06/10/2022, Expires: 08/10/2022 [facility] Work Phone: Comment on above: Expected: 06/10/2022 , Expires: 08/10/2022 Start: 06-02-2022 End: 06-02-2022 [facility] Start: 05-11-2022 End: 07-11-2022 Thyrotropin [Units/volume] in Serum or Plasma TSH BLD Lab Routine 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 Expected: 05/11/2022, Expires: 07/11/2022 [facility] Work Phone: Comment on above: Expected: 05/11/2022 , Expires: 07/11/2022 Start: 05-11-2022 End: 07-11-2022 Thyroxine (T4) free [Mass/volume] in Serum or Plasma T4 FREE/FREE THYROX Lab Routine 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 Expected: 05/11/2022, Expires: 07/11/2022 [facility] Work Phone: Comment on above: Expected: 05/11/2022 , Expires: 07/11/2022 Start: 05-06-2022 Influenza vaccination INFLUENZA (#1) [facility] Start: 03-09-2022 End: 05-09-2022 Thyrotropin [Units/volume] in Serum or Plasma [facility] Work Phone: Comment on above: Expected: 03/09/2022 , Expires: 05/09/2022 Start: 03-09-2022 End: 05-09-2022 Thyroxine (T4) free [Mass/volume] in Serum or Plasma [facility] Work Phone: Comment on above: Expected: 03/09/2022 , Expires: 05/09/2022 Start: 03-09-2022 End: 05-09-2022 Triiodothyronine (T3) Free [Mass/volume] in Serum or Plasma [facility] Work Phone: Comment on above: Expected: 03/09/2022 , Expires: 05/09/2022 Start: 02-08-2014 HPV TESTING HPV TESTING [facility] Start: 02-08-2014 Screening for malign ant neoplasm of cervix HPV Testing [facility] Start: 02-08-2005 PAP TESTING PAP TESTING [facility] Start: 02-08-2005 Screening for malign ant neoplasm of cervix Pap Testing [facility] Start: 02-08-2003 Hepatitis B Vaccine (1 of 3 - 19+ 3-dose series) Hepatitis B Vaccine (1 of 3 - 19+ 3-dose series) [facility] Start: 02-08-2003 Urine microalbumin profile DTAP,TDAP ,TD (1 - Tdap) [facility] Start: 02-08-2002 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 Start: 02-08-2002 Hepatitis C screening Hepatitis C [facility] Start: 02-08-2002 HIV SCREENING HIV SCREENING [facility] Start: 02-08-2002 HIV screening HIV Screening [facility] Start: 1996 [facility] DEPRESSION SCREENING [facility] Start: 1984 COVID-19 VACCINE (#1) COVID-19 VACCI NE (#1) [facility] Start: 1984 HEPATITIS B (1 of 3 - 3-dose series) HEPATITIS B (1 of 3 - 3-dose series) [facility] Start: 1984 Hepatitis B Vaccine (1 of 3 - 3-dose series) Hepatitis B Vaccine (1 of 3 - 3-dose series) [facility] Patient Education Ureteroscopy U reteral Stent (DC) Kidney Stone Diet [facility] Work Phone: Patient referral [facility] Work Phone: Immunizations Immunization Date Immunization Notes Care Provider Marisol joyner 10-26-2021 tetanus toxoid, reduced diphtheria toxoid, and acellular pertussis vaccine, adsorbed Martina Stephenson [facility] NEGATED: Highlighted row has not occurred!05-12-2022 SARS-CoV-2 mRNA (tozinameran 5y-11y) vaccine Martina Lue [facility] Payers Date Payer Category Payer Medicaid [id number] 2022 Unknown [id number] 2021 Medicaid [employer]ICA[employer] [id number] 2021-Present [phone] [address] [place] [address] Medicaid [id number] 2021 Medicaid [id number] [id number] 1984 Unknown [id number] 2.16.840.1.075885.3.579.2.593 1984 Unknown [id number] 2.16.840.1.057771.3.579.2.593 1984 Unknown [id number] 2.16.840.1.953525.3.579.2.593 1984 Unknown [id number] 2.16.840.1.367627.3.579.2.593 1984 Unknown [id number] 2.16.840.1.174552.3.579.2.593 1984 Unknown [id number] 2.16.840.1.680457.3.579.2.593 1984 Unknown [id number] 2.16.840.1.428286.3.579.2.593 1984 Unknown [id number] 2.16.840.1.225615.3.579.2.593 1984 Unknown [id number] 2.16840.1.787118.3.579.2.593 1984 Unknown [id number] 2.16.840.1.980015.3.579.2.593 1984 Unknown [id number] 2.16.840.1.525882.3.579.2.593 1984 Unknown [id number] 2.16.840.1.051548.3.579.2.593 1984 Unknown [id number] 2.16.840.1.339204.3.579.2.593 1984 Unknown [id number] 2.16.840.1.903559.3.579.2.593 1984 Unknown [id number] 2.16.840.1.928241.3.579.2.727 1984 Unknown [id number] 2.16.840.1.356863.3.579.2.727 1984 Unknown [id number] 2.16.840.1.658906.3.579.2.727 1984 Unknown [id number] 2.16.840.1.294481.3.579.2.727 1984 Unknown [id number] 2.16.840.1.796947.3.579.2.727 1984 Unknown [id number] 2.16.840.1.411408.3.579.2.727 1984 Unknown [id number] 2.16.840.1.745524.3.579.2.7 1984 Unknown [id number] 2.16.840.1.532214.3.579.2.727 1984 Unknown [id number] 2.16.840.1.910607.3.579.2.9 1984 Unknown [id number] 2.16.840.1.591183.3.579.2.9 1984 Unknown [id number] 2.16.840.1.373815.3.579.2.9 1984 Unknown [id number] 2.16.840.1.945463.3.579.2.1259 1959 Self-pay [id number] 1959 Unknown [id number] 2.16.840.1.021299.19 Unknown [id number] 2.16.840.1.914169.3.579.2.531 Unknown [id number] 2.16.840.1.769787.3.579.2.531 Social History Date Type Detail Facility Unknown if ever smoked [facility] Other Start: 03-09-2022 End: 04-15-2023 Sex Assigned At [facility] Other Start: 03-09-2022 End: 01-12-2023 Tobacco smoking status MEIS Ex-smoker [facility] Start: 03-09-2022 Tobacco use and exposure Former smokeless tobacco user [facility] Start: 1985 Sex Assigned At Female [facility] Start: 02-27-2022 End: 05-07-2022 Exposure to SARS-CoV-2 (event) Not sure [facility] History of tobacco use Current smoker [facility] Start: 03-09-2022 End: 04-15-2023 History of Social function [facility] National Score (1-10 0), lower number is lower risk 74 [facility] Start: 03-02-2022 Gender identity Identifies as female gender (finding) [facility] Start: 03-02-2022 Sexual orientation Heterosexual (finding) [facility] Goals Date Patient Goal Desired Activity /State Functional Status Date Assessment Result Facility 01-12-2023 Functional Status N/A [facility] 06-03-2022 Functional Status N/A [facility] 05-12-2022 Functional Status N/A [facility] 04-14-2022 Functional Status N/A [facility] Clinical Notes 12-02-2021 to 02-01-2024 Telephone Encounter - Breanne Mahan RN - 02/01/2024 10:13 AM EDTTelephone Encounter - Breanne Mahan RN - 02/01/2024 10:13 AM EDTAddendum Note - Patti Vences MD - 08/05/2023 1:37 PM EST Note Date & Type Note Facility 02-01-2024 Telephone encount er Note See below. [facility] 02-01-2024 Miscellaneous Notes Formattin g of this note might be different from the original. See below. documented in this encounter [facility] 08-05-2023 Miscellaneous Notes Addended by: PATTI VENCES on: 08/05/2023 01:37 PM Modules accepted: Orders documented in this encounter [facility] 04-15-2023 Note HNO ID: [id number] Author: Patti Vences MD Service: ? Author Type: Physician Type: Progress Notes Filed: 04/15/2023 12:08 PM Note Text: I have communicated my name and active licensure. The patient's identity and physical location were verified at the time of this visit. Either the patient or their legal enrollment eligibility representative has been informed of the risks [...] and edited as necessary for today's visit. [facility] 04-15-2023 History of Presen t illness Narrative I have communicated my name and active licensure. The patient's identity and physical location were verified at the time of this visit. Either the patient or their legal enrollment eligibility representative has been informed of the risks [...] for today's visit. documented in this encounter [facility] 01-12-2023 Hospital Discharg e instructions Patient Education [...] include: ?8 oz (237 mL) of milk, fvcuisk-hruztghrjeji-szmrh milk, and calcium-fortifiedfruit juice. Calcium-fortified means that [...] ?Spinach (cooked), rhubarb, beets, sweet potatoes, and Malaysian chard. ?Peanuts. ?Potato chips, upper sorbian fries, and baked potatoes with skin on. ?Nuts and nut products. ?Chocolate. If you regularly take a diuretic medicine, make sure to eat at least 1 or 2 servings of fruits or vegetables that are high in potassium each day. These include: ?Avocado. ?Banana. ?[place], prune, carrot, or tomato juice. ?Baked potato. [...] magnesium, fish oil, or vitamin B6. Take wgjy-bgx-rlkfuma and prescription medicines only as told by [...] provider. Document Revised: 05/03/2022 Document Reviewed: 05/03/2022 [employer] Patient Education 2022 [email or web address]. Follow Up Care 07/14/2022 10:05:42 With:Sachin PANTOJA, Martina Martinez, MELLISSA, URO Address: When: Unknown [facility] 11-26-2022 Note OPERATIVE NOTE OPERATION DATE: 11/26/2022 PROCEDURE: Yamileth endometrial ablation with hysteroscopy with endometrial biopsy. PREOPERATIVE DIAGNOSIS: Menorrhagia. POSTOPERATIVE DIAGNOSIS: Menorrhagia. ANESTHESIA: General. SURGEON: Vladimir Johnson D.O. DRY ROLLER: None. BLOOD LOSS: 5 mL URINE OUTPUT: [...] identified, and endometrial curettings were obtained. [facility] 11-26-2022 Note OP Note OPERATION DATE: 11/26/2022 ADDENDUM: Please note that prior to the ablation that the endometrial pipette was used and endometrial biopsy was performed. [facility] 06-07-2022 Note [id number]:127 [facility] 06-07-2022 Note Cystoscopy with Sten t Removal [...] you have a fever over 100 degrees. [facility] 06-07-2022 Hospital Discharg e instructions Patient Education [...] Up Care 06/03/2022 14:45:09 With:Martina Stephenson Address: [facility] [address] [address]- [phone] Business (1) When: Unknown Comments:Call for followup appointment in 1 month with renal US and KUB With:Martina Stephenson Address:Unknown When: Unknown [facility] 05-12-2022 Hospital Discharg e instructions Patient Education 05/12/2022 08:19:09 Kidney Stones, Ybrk-oi-Lwbj Kidney Stones Kidney stones are rock-like masses [...] Follow these instructions at home: Medicines Take nemd-cvp-wymxfxz and prescription medicines only as told by [...] 02/07/2009 Document Revised: 01/08/2020 Document Reviewed: 01/08/2020 [employer] Patient Education 2020 [email or web address]. Follow Up Care 04/26/2022 09:37:55 With:Sachin PANTOJA, MELLISSA Anand, URO Address: When: Unknown [facility] 05-11-2022 Miscellaneous Notes Formattin g of this note might be different from the original. Please see message and advise. documented in this encounter [facility] 04-26-2022 Note [id number]:127 [facility] 04-26-2022 Note Cystoscopy ? Voiding after the [...] you have a fever over 100 degrees. [facility] 04-26-2022 [facility] Discharg e instructions Patient Education 04/26/2022 [...] Up Care 04/14/2022 14:07:08 With:Martina Stephenson Address: [address] [place] [address]- [phone] Business (1) When: Unknown Comments:Call for followup appointment in [address] scan With:Martina Stephenson Address:Unknown When: Unknown [facility] 04-14-2022 [facility] Discharg e instructions Patient Education 04/14/2022 [...] Follow these instructions at home: Medicines Take glme-hmn-qsfjcgo and prescription medicines only as told by [...] or the blood stops without treatment. Take nrym-nfz-khsttxm and prescription medicines only as told by your health care provider. Drink enough fluid to keep your urine clear or pale yellow. This information is not intended to replace advice given to you by your health care provider. Make sure you discuss any questions you have with your health care provider. Document Released: 08/22/2006 Document Revised: 01/16/2020 Document Reviewed: 09/24/2017 [employer] Patient Education 2020 [email or web address] Follow Up Care 03/29/2022 15:23:33 With:Sachin PANTOJA, MELLISSA Anand, URO Address: When: Unknown [facility] 03-15-2022 Evaluation note Encounter Date Diagnosis Assessment [...] UP AND WHEN TO SEEK EMERGENCY TREATMENT [facility] Other 07-06-2022 Miscellaneous Notes* Telephone Encounter - Patti Vences MD - 03/10/2022 2:59 PM EDT TFTs hyperthyroid, will have her skip LT4 completely for 4 days and then resume at 137mcg daily, repeat labs in 2 months, sent MyChart message [facility] Miscellaneous Notes* Telephone Encounter - Aleksandar Sanders MA - 03/09/2022 11:39 AM EDT Referral notes from 03/09/[address] Sania Gilmore office at [phone]. Confirmation received. [facility] Instructions* Patient Instructions* Patti Vences MD - [...] or try low carb tortilla/wraps (such as [place] Carb Balance) Do not drink juice or [...] Stevia, Splenda, Equal, or Sweet-N-Low, use plain coev-yg-aisz or a sugar- free flavored creamer, or just drink it black if you like it that way Please get blood test today [facility] History of Present illness Narrative* Patti Vences [...] 45 minutes ago, did also have a aeyrs Coke last night. POC BG in clinic [...] Level: 4 - Moderate [facility] Evaluation note* Encounter Date Diagnosis Assessment Notes Treatment Notes Treatment Clinical Notes Nov, Dysuria (ICD-10 - R30.0) Nov, Urinary tract infection, site not specified (ICD-10 - N39.0) Drink plenty fluids, get plenty of rest. Take the Pyridium and Macrobid as prescribed until gone. Follow-up with your family physician if no improvement in 2 to 3 days. Nov, Hematuria, unspecified (ICD-10 - R31.9) [facility] Other Evaluation + Plan note Future Appointments Appointment Date:04/19/2022 08:15:00 AM Scheduled Provider: Location:[facility] Appointment Type:Urology CALL [facility] Appointment Date:04/26/2022 09:00:00 AM Scheduled Provider: Location:[facility] Appointment Type:Urology FT Diagnostic Tests Pending * Urine Cytology ([facility]) 04/14/22 [facility] evaluation + Plan note Future Appointments Appointment Date:05/12/2022 08:00:00 AM Scheduled Provider:Martina Stephenson MD Location:[facility] Future Appointments Appointment Date:07/14/2022 08:00:00 AM Scheduled Provider:Martina Stephenson MD Location:[facility] Appointment [facility] Future Appointments Appointment Date:04/20/2023 08:00:00 AM Scheduled Provider:Martina Stephenson MD Location:[facility] Appointment Type:URO Office Visit Diagnostic Tests Pending * PTH Intact 01/12/23 * Uric Acid 01/12/23 [facility] evaluation [facility]No [facility] Other Evaluation note* Diagnosis 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 Impaired fasting glucose documented in this encounter [facility] note* Diagnosis 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 documented in this encounter [facility] noteNo assessment information [facility] Work Phone: evaluation note* Diagnosis 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 documented in this encounter [facility] note* Diagnosis 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 documented in this encounter [facility] note* Diagnosis 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 documented in this encounter [facility] general Narrative - Reported* Type Description Date Medical History Depression with anxiety Medical History Meniere disease Medical History Darrell's thyroiditis Surgical History tubal ligation Surgical History D&C Surgical History bone spur on left foot, 5th met atarsal Surgical History D&C with leep Hospitalization History see above [facility] [employer] Other Hospital course Narrative No data available for this section [facility] Hospital Discharge instructions Additional Instructions Take [...] Take stool softeners. You can buy AZO [id number] (pyridium) and use as needed for burning with urination. This will make your urine orange. Drink plenty of water and fluids You must follow up to ensure your stent is removed. Failure to do so may result in recurrent infections and renal failure. Activity as tolerated. Limit heavy lifting > 15 lbs if you are developing hematuria or flank pain.[facility] Work Phone: Progress note No data available for this section [facility] Chief Complaint and Reason for Visit Chief Complaint Ureteral Stone Family History Relationship Condition Age at Onset Recorded Date/T libia father Alcohol abuse Unknown Not Specified Arthritis Unknown Advance Directives Advance Directive Response Recorded Date/ Time Advance [...] or prosecute any alcohol or drug abuse patient.[facility] the event this information is protected by the Federal Confidentiality of Alcohol and Drug Abuse Patient Records regulations: The Federal rules restrict any use of the information to criminally investigate or prosecute any alcohol or drug abuse patient.[facility] the event this information is protected by the Federal Confidentiality of Alcohol and Drug Abuse Patient Records regulations: The Federal rules restrict any use of the information to criminally investigate or prosecute any alcohol or drug abuse patient.[facility] the event this information is protected by the Federal Confidentiality of Alcohol and Drug Abuse Patient Records regulations: The Federal rules restrict any use of the information to criminally investigate or prosecute any alcohol or drug abuse patient.[facility] the event this information is protected by the Federal Confidentiality of Alcohol and Drug Abuse Patient Records regulations: The Federal rules restrict any use of the information to criminally investigate or prosecute any alcohol or drug abuse patient.[facility] the event this information is protected by the Federal Confidentiality of Alcohol and Drug Abuse Patient Records regulations: The Federal rules restrict any use of the information to criminally investigate or prosecute any alcohol or drug abuse patient.[facility] the event this information is protected by the Federal Confidentiality of Alcohol and Drug Abuse Patient Records regulations: The Federal rules restrict any use of the information to criminally investigate or prosecute any alcohol or drug abuse patient.[facility] the event this information is protected by the Federal Confidentiality of Alcohol and Drug Abuse Patient Records regulations: The Federal rules restrict any use of the information to criminally investigate or prosecute any alcohol or drug abuse patient.[facility] Care Teams (unrecognized sec tion and content) Slitting Machine Feeder Relationship Specialty Start Date End Date Sania Gilmore [address] [place] [address] Referring Family Practice 01/06/22 Slitting Machine Feeder Relationship Specialty Start Date End Date Sania Gilmore [address] [place] [address] Referring Family Practice 01/06/22 Slitting Machine Feeder Relationship Specialty Start Date End Date Sania Gilmore [address] [place] [address] Referring Family Practice 01/06/22 Team Status: Inactive Member Role Status Dates Martina Stephenson MD Attending Provider Active Sania Gilmore DO Primary Care Provider Active Team Status: Active Member Role Status Dates Sania Gilmore DO Primary Care Provider Active Slitting Machine Feeder Relationship Specialty Start Date End Date Awilda Gilmorety [address] [place] [address] Referring Family Medicine 01/06/22 Slitting Machine Feeder Relationship Specialty Start Date End Date Sania Gilmore DO [address] [place] [address] Referring Family Medicine 01/06/22 Slitting Machine Feeder Relationship Specialty Start Date End Date Sania Gilmore DO [address] [place] [address] Referring Family Medicine 01/06/22 Slitting Machine Feeder Relationship Specialty Start Date End Date Awilda GilmoretyDO [address] [place] [address] Referring Family Medicine 01/06/22 INFORMATION SOURCE (unrecogn ized section and content) DATE CREATED AUTHOR 06/10/2022 [facility] DATE CREATED AUTHOR AUTHOR'S ORGANIZ ATION 01/08/2023 [facility] DATE CREATED AUTHOR AUTHOR'S ORGANIZ ATION 04/13/2023 [facility] DATE CREATED AUTHOR AUTHOR'S ORGANIZ ATION 11/02/2023 [facility] DATE CREATED AUTHOR AUTHOR'S ORGANIZ ATION 02/01/2024 [facility] FOR RECORDS PERTAINING TO PATIENTS WHO [...] BE BASED ON THE PRIMARY CLINICAL RECORDS. [employer] [facility]. provides no warranty or guarantee of the accuracy or completeness of information in this document.
[2024-05-15 14:02] LABS: Basophils Absolute Auto 0.1 10^3/uL (0.0-0.1); Basophils Percent Auto 0.5 % (0.2-2.0); Eosinophils Absolute Auto 0.1 10^3/uL (0.0-0.7); Eosinophils Percent Auto 1.1 % (0.9-7.0); Hematocrit 44.3 % (36.0-48.0); Hemoglobin 14.8 g/dL (12.0-16.0); Immature Granulocytes Abs Auto 0.03 10^3/uL (0.00-0.03); Immature Granulocytes Pct Auto 0.3 % (0.0-0.5); Lymphocytes Absolute Auto 1.9 10^3/uL (1.2-3.8); Lymphocytes Percent Auto 18.2 % (20.5-60.0); Mean Corpuscular HGB Conc 33.4 g/dL (29.9-35.2); Mean Corpuscular Volume 92.7 fL (81.0-99.0); Mean Platelet Volume 11.3 fL (9.5-13.5); Monocytes Absolute Auto 0.6 10^3/uL (0.3-0.8); Monocytes Percent Auto 5.3 % (1.7-12.0); Neutrophils Absolute Auto 7.8 10^3/uL (1.4-6.5); Neutrophils Percent Auto 74.6 % (43.0-75.0); Platelet Count 270 10^3/uL (150-450); Red Blood Count 4.78 10^6/uL (4.20-5.40); White Blood Count 10.5 10^3/uL (4.0-11.0)
--- NOTE | 2024-05-15 14:17 | PC.NURSE ---
pt states she's been feeling shaky on and off for last 4 days. States she's been recently compliant with her levothyroxine -- she admitted to not being compliant with it until recently. denies any other symptoms BS 99
[2024-05-15 14:20] LABS: Alanine Aminotransferase 18 U/L (14-59); Albumin Level 3.6 g/dL (3.4-5.0); Alkaline Phosphatase 80 U/L (46-116); Anion Gap 11.9; Aspartate Amino Transferase 11 U/L (15-37); BUN Creatinine Ratio 11.8; Bilirubin Total 0.6 mg/dL (0.2-1.0); Calcium 9.1 mg/dL (8.5-10.1); Carbon Dioxide 27.9 mmol/L (21.0-32.0); Chloride 104 mmol/L (98-107); Estimated GFR (African America >60 (>=60); Estimated GFR (Non-African Ame >60 (>=60); Globulin 3.7 g/dL; Glucose 90 mg/dL (74-106); Potassium 3.8 mmol/L (3.5-5.1); Sodium 140 mmol/L (136-145); Total Protein 7.3 g/dL (6.4-8.2)
[2024-05-15 14:27] LABS: Magnesium 1.9 mg/dL (1.8-2.4); Troponin I High Sensitivity <4.0 pg/mL (4.0-51.3)
[2024-05-15 15:16] LABS: Bilirubin Urine NEGATIVE (NEGATIVE); Blood Urine NEGATIVE (NEGATIVE); Clarity Urine CLEAR (CLEAR); Color Urine YELLOW (YELLOW); Glucose Urine UA NEGATIVE (NEGATIVE); Ketones Urine TRACE mg/dL (NEGATIVE); Leukocyte Esterase Urine MODERATE (NEGATIVE); Nitrite Urine NEGATIVE (NEGATIVE); Protein Urine TRACE mg/dL (NEG/TRACE); Specific Gravity Urine >=1.030 (1.005-1.025)
[2024-05-15 15:40] LABS: Urine Microscopic Indicated YES
[2024-05-15 15:43] LABS: Bacteria Urine MODERATE #/HPF (NONE SEEN); Calcium Oxalate Crystals Urine MANY; Cast Seen? NONE SEEN #/LPF (NONE SEEN); Crystals Seen? Seen #/HPF (None Seen); Mucus Urine TRACE (NONE SEEN); RBC Urine NONE SEEN #/HPF (0-2); Squamous Epithelial Cell Urine FEW #/LPF (NONE/RARE)
[2024-05-15 15:44] LABS: Urine Culture Indicated YES
== END 2024-05-15 16:02 | disposition home or self-care (01) ==
PROVIDERS: Emergency Provider Emergency Medicine Emergency Medical Services; PCP Family Medicine
DX: G25.9 Extrapyramidal and movement disorder, unspecified (principal); F17.290 Nicotine dependence, other tobacco product, uncomplicated; E07.9 Disorder of thyroid, unspecified
CPT/HCPCS: 36415; 80053; 81001; 83605; 83735; 84443; 84484; 85025; 87086; 93005; 99284

== ENCOUNTER 2024-10-17 10:43 | Outpatient (OUT) | payer MEDICAID, SELFPAY ==
--- NOTE | 2024-10-17 10:45 | XR_ITS ---
The [address] [address] Patient Name: AINSLEY JOHNS MRN: [id number] date: 1985 Sex: F Assigned Patient Location: [place] Current Patient Location: [place] Accession/Order Number: [id number] Exam Date: 10/17/2024 11:07 Report Date: 10/17/2024 13:18 At the request of: LAVON LOVE Procedure: XR abdomen 1V EXAMINATION: XR abdomen 1V HISTORY: Kidney stone, N20.0 COMPARISON: No relevant comparison available. FINDINGS: KIDNEY/URETER - RIGHT: No visible renal or ureteral calcifications. KIDNEY/URETER - LEFT: No visible renal or ureteral calcifications. PELVIS: No visible ureteral calcifications. Any visible calcifications favor phleboliths. BOWEL: No abnormal dilation or deviation. BONES: No acute abnormality. OTHER: Single surgical clip. No abnormal gaseous collections. XR/XR abdomen 1V IMPRESSION: No urinary tract calculi Electronically authenticated by: EMILY MARSHALL Date: 10/17/2024 13:18
--- NOTE | 2024-10-17 10:46 | US_ITS ---
[place] [id number] Patient Name: AINSLEY JOHNS MRN: [id number] date: 1985 Sex: F Assigned Patient Location: Current Patient Location: [place] Accession/Order Number: [id number] Exam Date: 10/17/2024 10:50 Report Date: 10/17/2024 11:39 At the request of: LAVON LOVE Procedure: US renal BI EXAMINATION: US renal BI HISTORY: Kidney stone, N20.0 COMPARISON: No relevant comparison available. TECHNIQUE: Ultrasound examination was performed of the bladder. FINDINGS: Right Kidney: Normal in size, contour and echotexture. The cortex measures 1 cm. No solid cortical mass, hydronephrosis or obstructing nephrolithiasis Height: 5.26 cm Length: 9.45 cm Width: 4.96 cm Left Kidney: Normal in size, contour and echotexture. The cortex measures 1 cm. No solid cortical mass, hydronephrosis or obstructing nephrolithiasis. 5 mm lower pole nephrolith Height: 3.81 cm Length: 10.39 cm Width: 4.10 cm Urinary bladder is normal with a volume of 97 mL 6 No ascites US/US renal BI IMPRESSION: 5 mm left nonobstructing nephrolith Electronically authenticated by: EMILY MARSHALL Date: 10/17/2024 11:39
--- OUTSIDE RECORDS SUMMARY | 2024-10-17 10:52 | XMS_ITS | CCD ---
Author Organization [facility] Care Team Providers Care Consultant Nurse Name Role Phone Linda Leon Unavailable Rummerlinlawhit, Sania Unavailable Sherine Renee Unavailable SANIA GILMORE Primary Care Physician Rumdebrag Snaia Unavailable MD Martina Stephenson Attending Provider DO [...] Unavailable LUE ., MARTINA M Consulting Unavailable [facility] Primary Care Unava ilable LUE ., MARTINA Steiner Attending Unavailable LUE ., MARTINA M Admitting Unavailable MISC, DR DOMINGUEZ Consulting Unavailable [facility] Primary Care Unava ilable MISC, DR DOMINGUEZ Attending Unavailable MISC, DR DOMINGUEZ Admitting Unavailable DR PASQUALE WILKES Consulting Unavailable SHADESCHLAG, SANIA Primary Care Unavailable LUE ., MARTINA M Attending Unavailable LUE ., MARTINA M Admitting Unavailable LUE ., MARTINA M Consulting Unavailable IFTIKHARLAG, SANIA Consulting Unavailable SHADESCHLAG, SANIA Primary Care Unavailable SANIA GILMORE Attending Unavailable DENILSON GILMORETY Admitting Unavailable TRINAC, DR DOMINGUEZ Primary Care Unavailable KETAN ., DR MINOR Attending Unavailable KETAN ., DR MINOR Admitting Unavailable KETAN ., DR MINOR Consulting Unavailable RUMSCHLAG, SANIA Primary Care Unavailable KETAN ., DR MINOR Attending Unavailable KETAN ., DR MINOR Admitting Unavailable REGLA II, ESTRADA Consulting Unavailable FILLEAH THIBODEAUX Consulting Unavailable RUMSCHLAG, SANIA Primary Care Unavailable KETAN ., DR MINOR Consulting Unavailable KETAN ., DR MINOR Attending Unavailable KETAN ., DR MINOR Admitting Unavailable HENRRY SALMERON Consulting Unavailable YAROSH ., RAMAN Consulting Unavailable LISA, DR HENRRY Castanon Attending Unavailable GONZALEZ, DR HENRRY Castanon Admitting Unavailable [facility] Primary Care Unava ilable RUMSCHLAG, SANIA Primary Care Unavailable KETAN ., DR MINOR Consulting Unavailable KETAN ., DR MINOR Attending Unavailable KETAN ., DR MINOR Admitting Unavailable EMILY CANDELARIA Consulting Unavailable JOANNA, DR EMILY Kohli Consulting Unavailable [facility] Primary [facility] Unava ilable [facility] Attending Unava ilable [facility] Admitting Unava ilable LUE ., MARTINA M Consulting Unavailable JOANNA, DR EMILY Kohli Consulting Unavailable [facility] Primary Care Unava ilable LUE ., MARTINA [...] Unavailable KETAN ., DR MINOR Admitting Unavailable Rumschlag, Sanai Unavailable Rumschlag DO, Sania Unavailable VLADIMIR JOHNSON Attending Unavailable SANA KOEHLER Attending Unavailable SANA KOEHLER Attending Unavailable VLADIMIR JOHNSON Attending Unavailable PATTI HAIDER Attending Unavailable Lue, Martina M. Attending Unavailable RUMSCHLAG, SANIA Primary Care Unavailable Allergies Allergy Classification Reported Allergen(s) Allergy Type Date of Onset Reaction(s) Facility Anti-Epileptic Agents (1 source) lamoTRIgine Drug Allergy 2 Hives, Itching, Rash [facility] Dust (1 source) Dust Substance Allergy 2 Hives, Itching, Rash [facility] Feathers (1 source) Feather Substance Allergy 2 Itching [facility] (8 sources) Dust; Translations: [DUST] Allergy to substance 2 Hives, Itching, Rash [facility] (8 sources) Feather; Translations: [FEATHERS] Drug Allergy 2 Itching [facility] (16 sources) lamoTRIgine; Translations: [lamotrigine] Drug Allergy 2 Hives, Itching, Rash, Eruption of skin (disorder) [facility] (9 sources) Mold Spores; Translations: [MOLD SPORES] Allergy to substance 2 Hives [facility] (6 sources) Seasonal allergy; Translations: [Seasonal] Drug allergy Weal (disorder) [facility] (1 source) lamoTRIgine Drug Allergy 2 [facility] (1 source) lamoTRIgine Drug Allergy 2 [facility] Rep[facility] Medications Current Medications Medication Drug [...] # 2 tab(s), Refills(s) 0, Pharmacy: [facility]/pharmacy #[id number], 154, cm, 06/03/22 15:43:00 EDT, Height/Length Dosing, 88, kg, 05/12/22 8:09:00 EDT, Weight Dosing Start Date: 06/03/22 Status: Ordered Start: 06-02-2022 End: 06-02-2022 Cephalexin Discontinued MG S [email or web address] 2021 12:00am June 02, 2022 11:46am Start: 04-14-2022 Keflex 500 mg Cap See Instructions, Take 1 tablet 1 day prior to procedure, and then 1 tab day of procedure, # 2 tab(s), Refills(s) 0, Pharmacy: [facility]/pharmacy #[id number], 154, cm, 04/14/22 11:36:00 EDT, Height/Length Dosing, 88, kg, 04/14/22 11:36:00 EDT, Weight Dosing Start Date: 04/14/22 Status: Ordered ciprofloxacin 500 mg oral tablet (1 source) Quinolone Antimicrobial Start: 12-04-2021 take 1 tablet by mouth every twelve hours Cipro 500 MG 1 tablet Orally BID for 5 days Dec, Active [facility] NASAL ALLERGY SPRAY 55MCG/AC SPR (4 sources) [...] Directed June 02, 2022 12:00am Start: 11-27-2020 KENDEEPAK - 10 m g Nov, 40 mg Completed/Discontinued Medications Medication Drug Class(es) Dates Sig (Normalized) Sig (Original) [id number] 200 actuat albuterol 0.09 mg/actuat metered dose [...] 30 mg oral tablet (3 sources) Uncompetitive B-gikbbs-C-aspartat e Receptor Antagonist, Sigma-1 Agonist Start: 09-30-2019 Rudolph DMT 30-30 MG 1 tablet Orally every [...] 03-15-2022 Episodic Other aftercare (1 source) 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 A Practical Approach for the Verifications and Determination of Site- and Trimester-Specific Reference Intervals for Thyroid Function tests in . Thyroid, 2019:29:3:412-420. Tereso Barraza et al. 2017 Guidelines of the [place] Thy[employer] Association for the Diagnosis and Management of Thyroid Disease during and the . Thyroid, 2017:27:3:315-389. Performed By: #### 3 016-3 #### [facility] CLIA [id number] [address] [place] [address] [place] T4 Free SerPl-mCncon 023 Free T4 [Mass/Vol] 1.2 ng/dL Normal 0.9-1.7 [facility] Comment on above: Order Comment: Abdirahman burgess Type: BLOOD SPECIMEN Ordering Facility: [facility] Address: [address] [place] [address] Performed By: #### 3 016-3, 3024-7 #### [facility] CLIA [id number] [address] [place] [address] [place] TSH SerPl-aCncon 08-04-2023 TSH Qn 40.500 m[IU]/L High 0.270-4.200 [facility] Comment on above: Order Comment: Abdirahman burgess Type: BLOOD SPECIMEN Ordering Facility: [facility] Address: [address] [place] [address] Result Comment: If t he patient is , TSH reference range varies by gestational period: First Trimester (weeks 9-12): 0.180-2.990 mIU/L Second Trimester: 0.110-3.980 mIU/L Third Trimester: 0.480-4.710 mIU/L Turner Junior et al. A Practical Approach for the Verifications and Determination of Site- and Trimester-Specific Reference Intervals for Thyroid Function tests in . Thyroid, 2019:29:3:412-420. Tereso Barraza et al. 2017 Guidelines of the [place] Thy[employer] Association for the Diagnosis and Management of Thyroid Disease during and the . Thyroid, 2017:27:3:315-389. Performed By: #### 3 016-3, 3024-7 #### [facility] CLIA [id number] [facility] [place] [address] [place] T4 Free SerPl-mCncon 023 Free T4 [Mass/Vol] 1.6 ng/dL Normal 0.9-1.7 [facility] Comment on above: Order Comment: Speci men Type: BLOOD SPECIMEN Ordering Facility: [facility] Address: [address] [place] [address] Performed By: #### 3 016-3, 7 #### [facility] CLIA [id number] [address] [place] [address] OF [facility] TSH SerPl-aCncon 04-11-2023 TSH Qn 0.177 m[IU]/L Low 0.270-4.200 [facility] Comment on above: Order Comment: Speci aditya Type: BLOOD SPECIMEN Ordering Facility: [facility] Address: [address] [place] [address] Result Comment: If t he patient is , TSH reference range varies by gestational period: First Trimester (weeks 9-12): 0.180-2.990 mIU/L Second Trimester: 0.110-3.980 mIU/L Third Trimester: 0.480-4.710 mIU/L Turner Junior et al. A Practical Approach for the Verifications and Determination of Site- and Trimester-Specific Reference Intervals for Thyroid Function tests in . Thyroid, 2019:29:3:412-420. Tereso E, et al. 2017 Guidelines of the [place] Thyroid Association for the Diagnosis and Management of Thyroid Disease during and the . Thyroid, 2017:27:3:315-389. Performed By: #### 3 016-3, 3024-7 #### [facility] CLIA [id number] [facility] [place] [address] [place] XR KUB 1 VIEWon 01-04-2023 XR KUB [...] by: PASQUALE WILKES Date: 2023-01-04 06:57 Normal [facility] FREE T4on 01-03-2023 Free T4 [Mass/Vol] 0.83 ng/dL Normal 0.76-1.46 [facility] Comment on above: Performed By: #### P REGQNT #### [facility] [address] [place] [address] Dr. Gabo Perez LIPID PROFILEon 01-03-2023 CHOL-HDL RATIO NORM SEE BELOW Normal [facility] Comment on above: Result Comment: 3.3 - 4.4 LOW RISK 4.4 - 7.1 AVERAGE RISK 7.1 - 11.0 MODERATE RISK >11.0 HIGH RISK Performed By: #### P REGQNT #### [facility] [address] [address] [address] Gabo Perez Cholesterol [Mass/Vol] 161 mg/dL Normal <=200 [facility] Comment on above: Performed By: #### P REGQNT #### [facility] [address] [address] [address] Gabo Perez Cholesterol in HDL [Mass/Vol] 57 mg/dL Normal 40-60 [facility] Comment on above: Performed By: #### P REGQNT #### [facility] [address] [address] [address] Gabo Perez Cholesterol in LDL [Mass/Vol] 85.6 mg/dL Normal [facility] Comment on above: Performed By: #### P REGQNT #### [facility] [address] [address] [address] Gabo Perez Cholesterol.total/Ch olesterol in HDL [Mass ratio] 2.8 {ratio} Normal [facility] Comment on above: Performed By: #### P REGQNT #### [facility] [address] [address] [address] Gabo Perez HDL NORMAL > or = 60 mg/dl - LO W CARDIOVASCULAR RISK <40 mg/dl - HIGH CARDIOVASCULAR RISK Normal [facility] Comment on above: Performed By: #### P REGQNT #### [facility] [address] [address] [address] Gabo Perez LDL CALC NORMAL SEE BELOW Normal [facility] Comment on above: Result Comment: <100 mg/dl OPTIMAL 100 - 129 mg/dl NEAR OR ABOVE OPTIMAL 130 - 159 mg/dl BORDERLINE HIGH 160 - 189 mg/dl HIGH >190 mg/dl VERY HIGH Performed By: #### P REGQNT #### [facility] [address] [address] [address] Gabo Perez Triglyceride [Mass/Vol] 92 mg/dL Normal <=150 [facility] Comment on above: Performed By: #### P REGQNT #### [facility] [address] [place] [address] Dr. Gabo Perez VLDL CALC 18.4 mg/dL Normal [facility] Comment on above: Performed By: #### P REGQNT #### [facility] [address] [place] [address] Dr. Gabo Perez PROF 14(COMP METB)on 023 Albumin [Mass/Vol] 3.6 g/dL Normal 3.4-5.0 [facility] Comment on above: Performed By: #### P REGQNT #### [facility] [address] [place] [address] Dr. Gabo Perez Albumin/Globulin [Mass ratio] 0.9 {ratio} Normal [facility] Comment on above: Performed By: #### P REGQNT #### [facility] [address] [place] [address] Dr. Gabo Perez ALP [Catalytic activity/Vol] 71 U/L Normal 46-116 [facility] Comment on above: Performed By: #### P REGQNT #### [facility] [address] [place] [address] Dr. Gabo Perez ALT [Catalytic activity/Vol] 21 U/L Normal 14-59 [facility] Comment on above: Performed By: #### P REGQNT #### [facility] [address] [address] [address] Gabo Perez Anion gap [Moles/Vol] 9.4 mmol/L Normal [facility] Comment on above: Performed By: #### P REGQNT #### [facility] [address] [place] [address] Dr. Gabo Perez AST [Catalytic activity/Vol] 14 U/L Critically low 15-37 [facility] Comment on above: Performed By: #### P REGQNT #### [facility] [address] [place] [address] Dr. Gabo Perez Bilirubin [Mass/Vol] 0.7 mg/dL Normal 0.2-1.0 [facility] Comment on above: Performed By: #### P REGQNT #### [facility] [address] [place] [address] Dr. Gabo Perez Calcium [Mass/Vol] 8.7 mg/dL Normal 8.5-10.1 [facility] Comment on above: Performed By: #### P REGQNT #### [facility] [address] [place] [address] Dr. Gabo Perez Chloride [Moles/Vol] 109 mmol/L Critically high 98-107 [facility] Comment on above: Performed By: #### P REGQNT #### [facility] [address] [place] [address] Dr. Gabo Perez CO2 [Moles/Vol] 27.6 mmol/L Normal 21.0-32.0 [facility] Comment on above: Performed By: #### P REGQNT #### [facility] [address] [place] [address] Dr. Gabo Perez Creatinine [Mass/Vol] 0.92 mg/dL Normal 0.55-1.02 [facility] Comment on above: Performed By: #### P REGQNT #### [facility] [address] [address] [address] Gabo Perez EGFR-AF PORTUGUESE >60 Normal >=60 [facility] Comment on above: Performed By: #### P REGQNT #### [facility] [address] [address] [address] Gabo Perez EGFR-NON AF PORTUGUESE >60 Normal >=60 [facility] Comment on above: Performed By: #### P REGQNT #### [facility] [address] [address] [address] Gabo Perez Globulin (S) [Mass/Vol] 4.0 g/dL Normal [facility] Comment on above: Performed By: #### P REGQNT #### [facility] [address] [place] [address] Dr. Gabo Perez Glucose [Mass/Vol] 92 mg/dL Normal 74-106 [facility] Comment on above: Performed By: #### P REGQNT #### [facility] [address] [address] [address] Gabo Perez Potassium [Moles/Vol] 4.0 mmol/L Normal 3.5-5.1 [facility] Comment on above: Performed By: #### P REGQNT #### [facility] [address] [address] [address] Gabo Perez Protein [Mass/Vol] 7.6 g/dL Normal 6.4-8.2 [facility] Comment on above: Performed By: #### P REGQNT #### [facility] [address] [place] [address] Dr. Gabo Perez Sodium [Moles/Vol] 142 mmol/L Normal 136-145 [facility] Comment on above: Performed By: #### P REGQNT #### [facility] [address] [address] [address] Gabo Perez Urea nitrogen [Mass/Vol] 6.0 mg/dL Critically low 7.0-18.0 [facility] Comment on above: Performed By: #### P REGQNT #### [facility] [address] [place] [address] Dr. Gabo Perez Urea nitrogen/Creatinine [Mass ratio] 6.5 mg/mg Normal [facility] Comment on above: Performed By: #### P REGQNT #### [facility] [address] [place] [address] Dr. Gabo Perez TSHon 01-03-2023 TSH 19.588 uIU/mL Critically high 0.358-3.740 [facility] Comment on above: Performed By: #### P REGQNT #### [facility] [address] [place] [address] Dr. Gabo Perez US KIDNEYSon 01-03-2023 US [...] by: PASQUALE WILKES Date: 2023-01-03 15:32 Normal [facility] CBC AUTO DIFFon 11-26-2022 BASO # 0.0 103/ul Normal 0.0-0.1 [facility] Comment on above: Performed By: #### C BC #### [facility] [address] [place] [address] Dr. Gabo Perez Basophils/100 WBC (Bld) 0.4 % Normal 0.2-2.0 [facility] Comment on above: Performed By: #### C BC #### [facility] [address] [place] [address] Dr. Gabo Perez EO # 0.1 103/ul Normal 0.0-0.7 [facility] Comment on above: Performed By: #### C BC #### [facility] [address] [place] [address] Dr. Gabo Perez Eosinophils/100 WBC (Bld) 1.7 % Normal 0.9-7.0 [facility] Comment on above: Performed By: #### C BC #### [facility] [address] [place] [address] Dr. Gabo Perez Erythrocyte distribution width (RBC) [Ratio] 12.7 % Normal 11.0-15.0 [facility] Comment on above: Performed By: #### C BC #### [facility] [address] [place] [address] Dr. Gabo Perez Hematocrit (Bld) [Volume fraction] 43.6 % Normal 36.0-48.0 [facility] Comment on above: Performed By: #### C BC #### [facility] [address] [place] [address] Dr. Gabo Perez Hemoglobin (Bld) [Mass/Vol] 14.4 g/dL Normal 12.0-16.0 [facility] Comment on above: Performed By: #### C BC #### [facility] [address] [place] [address] Dr. Gabo Perez IG # 0.01 10e3/ul Normal 0.00-0.03 [facility] Comment on above: Performed By: #### C BC #### [facility] [address] [place] [address] Dr. Gabo Perez IG % 0.1 % Normal 0.0-0.5 [facility] Comment on above: Performed By: #### C BC #### [facility] [address] [place] [address] Dr. Gabo Perez LYMPH # 1.7 103/ul Normal 1.2-3.8 [facility] Comment on above: Performed By: #### C BC #### [facility] [address] [place] [address] Dr. Gabo Perez Lymphocytes/100 WBC (Bld) 22.3 % Normal 20.5-60.0 [facility] Comment on above: Performed By: #### C BC #### [facility] [address] [place] [address] Dr. Gabo Perez MANUAL DIFF REQ NO Normal [facility] Comment on above: Performed By: #### C BC #### [facility] [address] [place] [address] Dr. Gabo Perez MCH (RBC) [Entitic mass] 30.1 pg Normal 26.7-34.0 [facility] Comment on above: Performed By: #### C BC #### [facility] [address] [place] [address] Dr. Gabo Perez MCHC (RBC) [Mass/Vol] 33.0 g/dL Normal 29.9-35.2 [facility] Comment on above: Performed By: #### C BC #### [facility] [address] [place] [address] Dr. Gabo Perez MCV (RBC) [Entitic vol] 91.0 fL Normal 81.0-99.0 [facility] Comment on above: Performed By: #### C BC #### [facility] [address] [place] [address] Dr. Gabo Perez MONO # 0.5 103/ul Normal 0.3-0.8 [facility] Comment on above: Performed By: #### C BC #### [facility] [address] [place] [address] Dr. Gabo Perez Monocytes/100 WBC (Bld) 7.1 % Normal 1.7-12.0 [facility] Comment on above: Performed By: #### C BC #### [facility] [address] [place] [address] Dr. Gabo Perez NEUT # 5.2 103/ul Normal 1.4-6.5 [facility] Comment on above: Performed By: #### C BC #### [facility] [address] [place] [address] Dr. Gabo Perez Neutrophils/100 WBC (Bld) 68.4 % Normal 43.0-75.0 [facility] Comment on above: Performed By: #### C BC #### [facility] [address] [place] [address] Dr. Gabo Perez Platelet mean volume (Bld) [Entitic vol] 11.6 fL Normal 9.5-13.5 [facility] Comment on above: Performed By: #### C BC #### [facility] [address] [place] [address] Dr. Gabo Perez PLT 253 103/ul Normal 150-450 [facility] Comment on above: Performed By: #### C BC #### [facility] [address] [place] [address] Dr. Gabo Perez RBC 4.79 106/ul Normal 4.20-5.40 [facility] Comment on above: Performed By: #### C BC #### [facility] [address] [place] [address] Dr. Gabo Perez WBC 7.6 103/ul Normal 4.0-11.0 [facility] Comment on above: Performed By: #### C BC #### [facility] [address] [place] [address] Dr. Gabo Perez PREG QUANT HCGon 11-26-2022 HCG QUANT <1 Normal [facility] Comment on above: Performed By: #### P REGQNT #### [facility] [address] [place] [address] Dr. Gabo Perez HCG RANGE SEE BELOW Normal [facility] Comment on above: Result Comment: 5-50 0.2-1 WEEK 50-500 1-2 WEEKS 100-5,000 2-3 WEEKS 500-10,000 3-4 WEEKS 1,000-50,000 4-5 WEEKS 10,000-100,000 5-6 WEEKS 15,000-200,000 6-8 WEEKS 10,000-100,000 2-3 MONTHS Performed By: #### P REGQNT #### [facility] [address] [place] [address] Dr. Gabo Perez XR CHEST 2 Von [...] by: HENRRY SALMERON Date: 2022-11-12 13:23 Normal [facility] US PELVIS AND TRANSVAGon US PELVIS [...] by: EMILY CANDELARIA Date: 2022-09-24 07:44 Normal [facility] PAP ACOG PANEL 2: 30 to 65on 09-10-2022 . . Normal [facility] Comment on above: Result Comment: Perf ormed at: BA Performed By: #### [id number] #### [facility] [address] [address] [address] Gabo Perez Age Gdln ACOG Testing 30-65 Normal [facility] Comment on above: Performed By: #### [id number] #### [facility] [address] [place], [place] [address] Dr. Gabo Perez DIAGNOSIS: Comment Normal [facility] Comment on above: Result Comment: NEGA TIVE FOR INTRAEPITHELIAL LESION OR MALIGNANCY. Performed at: [facility] Performed By: #### [id number] #### [facility] [address] [address] [address] Gabo Perez HPV Aptima Negative Normal Negative [facility] Comment on above: Result Comment: This nucleic acid amplification test detects fourteen high-risk HPV types (16,18,31,33,35,39,45,51,52,56,58,59,66,68) without differentiation. Performed at: =G Performed By: #### [id number] #### [facility] [address] [address] [address] Gabo Perez HPV Genotype Reflex Comment Normal [facility] Comment on above: Result Comment: Crit eria not met, HPV Genotype not performed. Performed at: BA Performed By: #### [id number] #### [facility] [address] [place] [address] Dr. Gabo Perez Methodology: Comment Normal [facility] Comment on above: Result Comment: This liquid based ThinPrep(R) pap test was screened with the use of an image guided system. Performed at: WB Performed By: #### [id number] #### [facility] [address] [place] [address] Dr. Gabo Perez Note: Comment Normal [facility] Comment on above: Result Comment: The Pap smear is a screening test designed to aid in the detection of premalignant and malignant conditions of the uterine cervix. It is not a diagnostic procedure and should not be used as the sole means of detecting cervical cancer. Both false-positive and false-negative reports do occur. . Performed at: WB Performed By: #### [id number] #### [facility] [address] [address] [address] Gabo Perez Performed by: Comment Normal [facility] Comment on above: Result Comment: Rekha Henderson, Head Tennis Coach (ASCP) Performed at: BA Performed By: #### [id number] #### [facility] [address] [place] [address] Dr. Gabo Perez Specimen adequacy: Comment Normal [facility] Comment on above: Result Comment: Sati sfactory for evaluation. No endocervical component is identified. Performed at: Performed By: #### [id number] #### [facility] [address] [address] [address] Gabo Perez US KIDNEYSon 07-09-2022 US KIDNEYS EXAMINATION: US [...] EMILY MARSHALL Date: 2022-07-09 17:11 Normal [facility] XR KUB 1 VIEWon 07-05-2022 [...] by: EMILY MARSHALL Date: 2022-07-05 13:12 Normal [facility] Calculi, Urinaryon 2 Ca Oxalate Dihydrate 100 % Normal . [facility] Comment on above: Performed By: #### C ALCULI #### [facility] , Color (U) Mathur Normal . [facility] Comment on above: Performed By: #### C ALCULI #### [facility] , Comment2 Normal . [facility] Comment on above: Result Comment: Calc ulus received in liquid. Wet calculi must be dried before analysis, which delays reporting of results. Leaving calculi in liquid (such as water, saline, blood, urine) may lead to changes in composition. Performed By: #### C ALCULI #### [facility] , Comment: Normal . [facility] Comment on above: Result Comment: Giuliano zayas questions regarding Calculi Analysis [facility] at: [phone]. Performed By: #### C ALCULI #### [facility] , Composition Normal . [facility] Comment on above: Result Comment: Perc entage (Represents the % composition) Performed By: #### C ALCULI #### [facility] , Disclaimer: Normal . [facility] Comment on above: Result Comment: This test was developed and its performance characteristics determined by [facility]. It has not been cleared or approved by the Food and Drug Administration. Performed at: [facility] [address] [place] [address] [place] [id number] Building Cleaner: Jarett Reynoso PhD, Phone: [phone] Performed By: #### C ALCULI #### [facility] , Note Normal . [facility] Comment on above: Result Comment: Calc danae report will follow via computer, mail or collection systems administrator delivery. PERFORMED BY: [address] [address] PATHOLOGIST RN GYN BARAK ARRIAZA M.D. Performed By: #### C ALCULI #### [facility] , Photo Normal . [facility] Comment on above: Result Comment: Phot ograph will follow under a separate cover Performed By: #### C ALCULI #### [facility] , Size 4x3 Normal . [facility] Comment on above: Result Comment: Mult iple pieces received. Dimensions of the largest piece reported. Performed By: #### C ALCULI #### [facility] , Source Normal . [facility] Comment on above: Result Comment: Righ t Ureter Performed By: #### C ALCULI #### [facility] , Weight 21.0 Normal . [facility] Comment on above: Performed By: #### C ALCULI #### [facility] , [place] urethrocystogram retroon 06-02-2022 [place] urethrocystogram retro [facility] Main [place] [address] [place] [id number] Fluoroscopy Report Signed Patient: Ainsley Parra MR#: [id number] [birth year] : 1985 Acct:[id number] Age/Sex: 37 / F ADM Date: 06/02/22 Loc: [place] Room: Type: [facility] Attending Dr: Martina Stephenson MD Copies [...] Artemio Greene M.D.06/02/2022 4:43 PM Dictation Location: [place] [address] Transcribed By: [facility] 06/02/22 1643 Dictated By: Artemio Greene DO 06/02/22 1636 Signed By: 06/02/22 1643 Normal [facility] HCG ( test) IA.rapi d Ql (U)Ordered By: EMILY LYNN on 06-02-2022 HCG ( test) Ql (U) Negative [facility] HCG,Urineon 06-02-2022 Beta HCG ( test) Ql (U) Negative Normal [facility] Comment on above: Result Comment: PERF ORMED BY: [address] [address] PATHOLOGIST RN GYN BARAK ARRIAZA M.D. Performed By: #### U HCG #### [address] [place] [address] [facility] 06-02-2022 L - -------- Specimen: [id number] Received: 06/03/22 Status: AXEL Mcintyre Num: [id number] Spec Type: Surgical Subm Dr: Martina Stephenson MD Tissues: A Urinary Calculus (RT URETERAL STONE) Procedures: Level 1 Gross -------- Age/ Patient Sex Location Account Attending Physician -------- Ainsley Parra 37/F [place] [id number] Martina Stephenson MD -------- SPEC NUM: [id number] RECD: 06/03/22 STATUS: AXLE MCINTYRE NUM: [id number] MARCIA: 06/02/22-[address] [facility] [address]: Martina Stephenson MD ENTERED: 06/03/22 [facility] [address]: SPEC TYPE: Surgical DEPT: S ORDERED: Level 1 Gross ORDERED: Level 1 Gross Pathological Diagnosis Right ureteral stone, extraction: - Consistent with urinary calculus, see Gross Description Clinical Information Ureteral stone Gross Description Received fresh labeled with the patient's name, number and right ureteral stone is one stone measuring 0.6 cm. Entirely submitted for chemical analysis. Gross examination only. CPT Codes 74100 -------- -------- Specimen: [id number] Received: 06/03/22 Status: AXEL Mcintyre Num: [id number] Spec Type: Surgical Subm Dr: Martina Stephenson MD Tissues: A Urinary Calculus (RT URETERAL STONE) Procedures: Level 1 Gross -------- Patient: Ainsley Parra [id number] (Continued) -------- Signed (signature on file) Gogo Bailey MD 06/03/22 1515 [facility]07 SARS-CoV-2 (COVID-19) RNA ANDREW+probe Ql (Unsp spec) Not detected Normal NOT DETECTED [facility] Comment on above: Result Comment: This test is not yet approved or cleared by the [place] FDA. When there are no FDA-approved or cleared tests available, and other criteria are met, FDA can make tests available under an emergency access mechanism called an Emergency Use Authorization (EUA). The EUA for this test is supported by the Embedded Software Engineer of Health and Human Service's (HHS's) declaration [...] consistent with SARS-CoV-2. Performed By: #### C [facility] #### [facility] [address] [place] [address] Dr. Gabo Perez XR KUB 1 VIEWon 05-12-2022 XR KUB [...] by: EMILY MARSHALL Date: 2022-05-12 18:37 Normal [facility] CT ABD/PELV WO W CONon [...] EMILY MARSHALL Date: 2022-05-07 09:17 Normal [facility] CBC AUTO DIFFon 03-25-2022 BASO # 0.0 103/ul Normal 0.0-0.1 [facility] Comment on above: Performed By: #### C BC #### [facility] [address] [address] [address] Gabo Perez Basophils/100 WBC (Bld) 0.4 % Normal 0.2-2.0 [facility] Comment on above: Performed By: #### C BC #### [facility] [address] [address] [address] Gabo Perez EO # 0.4 103/ul Normal 0.0-0.7 [facility] Comment on above: Performed By: #### C BC #### [facility] [address] [place] [address] Dr. Gabo Perez Eosinophils/100 WBC (Bld) 3.5 % Normal 0.9-7.0 [facility] Comment on above: Performed By: #### C BC #### [facility] [address] [place] [address] Dr. Gabo Perez Erythrocyte distribution width (RBC) [Ratio] 12.1 % Normal 11.0-15.0 [facility] Comment on above: Performed By: #### C BC #### [facility] [address] [place] [address] Dr. Gabo Perez Hematocrit (Bld) [Volume fraction] 39.0 % Normal 36.0-48.0 [facility] Comment on above: Performed By: #### C BC #### [facility] [address] [place] [address] Dr. Gabo Perez Hemoglobin (Bld) [Mass/Vol] 13.2 g/dL Normal 12.0-16.0 [facility] Comment on above: Performed By: #### C BC #### [facility] [address] [place] [address] Dr. Gabo Perez IG # 0.03 10e3/ul Normal 0.00-0.03 [facility] Comment on above: Performed By: #### C BC #### [facility] [address] [place] [address] Dr. Gbao Perez IG % 0.3 % Normal 0.0-0.5 [facility] Comment on above: Performed By: #### C BC #### [facility] [address] [place] [address] Dr. Gabo Perez LYMPH # 2.8 103/ul Normal 1.2-3.8 [facility] Comment on above: Performed By: #### C BC #### [facility] [address] [place] [address] Dr. Gabo Perez Lymphocytes/100 WBC (Bld) 24.3 % Normal 20.5-60.0 [facility] Comment on above: Performed By: #### C BC #### [facility] [address] [place] [address] Dr. Gabo Perez MANUAL DIFF REQ NO Normal [facility] Comment on above: Performed By: #### C BC #### [facility] [address] [place] [address] Dr. Gabo Perez MCH (RBC) [Entitic mass] 30.1 pg Normal 26.7-34.0 [facility] Comment on above: Performed By: #### C BC #### [facility] [address] [place] [address] Dr. Gabo Perez MCHC (RBC) [Mass/Vol] 33.8 g/dL Normal 29.9-35.2 [facility] Comment on above: Performed By: #### C BC #### [facility] [address] [place] [address] Dr. Gabo Perez MCV (RBC) [Entitic vol] 88.8 fL Normal 81.0-99.0 [facility] Comment on above: Performed By: #### C BC #### [facility] [address] [place] [address] Dr. Gabo Perez MONO # 0.8 103/ul Normal 0.3-0.8 [facility] Comment on above: Performed By: #### C BC #### [facility] [address] [place] [address] Dr. Gabo Perez Monocytes/100 WBC (Bld) 6.6 % Normal 1.7-12.0 [facility] Comment on above: Performed By: #### C BC #### [facility] [address] [place] [address] Dr. Gabo Perez NEUT # 7.4 103/ul Critically high 1.4-6.5 [facility] Comment on above: Performed By: #### C BC #### [facility] [address] [place] [address] Dr. Gabo Perez Neutrophils/100 WBC (Bld) 64.9 % Normal 43.0-75.0 [facility] Comment on above: Performed By: #### C BC #### [facility] [address] [place] [address] Dr. Gabo Perez Platelet mean volume (Bld) [Entitic vol] 12.0 fL Normal 9.5-13.5 [facility] Comment on above: Performed By: #### C BC #### [facility] [address] [place] [address] Dr. Gabo Perez PLT 229 103/ul Normal 150-450 [facility] Comment on above: Performed By: #### C BC #### [facility] [address] [place] [address] Dr. Gabo Perez RBC 4.39 106/ul Normal 4.20-5.40 [facility] Comment on above: Performed By: #### C BC #### [facility] [address] [place] [address] Dr. Gabo Perez WBC 11.4 103/ul Critically high 4.0-11.0 [facility] Comment on above: Performed By: #### C BC #### [facility] [address] [place] [address] Dr. Gabo Perez ER URINE PROFILEon 2 Bilirubin Ql (U) Negative Normal NEGATIVE [facility] [place] [facility] Comment on above: Performed By: #### P REGQNT #### [facility] [address] [place] [address] Dr. Gabo Perez Clarity (U) CLEAR Normal CLEAR [facility] Comment on above: Performed By: #### P REGQNT #### [facility] [address] [place] [address] Dr. Gabo Perez Color (U) RED Abnormal YELLOW [facility] Comment on above: Performed By: #### P REGQNT #### [facility] [address] [place] [address] Dr. Gabo REED A micrscopic examination will be performed if indicated. Normal [facility] Comment on above: Performed By: #### P REGQNT #### [facility] [address] [address] [address] Gabo Perez Glucose Ql (U) Negative Normal NEGATIVE [facility] Comment on above: Performed By: #### P REGQNT #### [facility] [address] [address] [address] Gabo Perez Hemoglobin Ql (U) LARGE Abnormal NEGATIVE [facility] Comment on above: Performed By: #### P REGQNT #### [facility] [address] [address] [address] Gabo Perez Ketones Ql (U) TRACE Abnormal NEGATIVE [facility] Comment on above: Performed By: #### P REGQNT #### [facility] [address] [place] [address] Dr. Gabo Perez LEUKOCYTES TRACE Abnormal NEGATIVE [facility] Comment on above: Performed By: #### P REGQNT #### [facility] [address] [place] [address] Dr. Gabo Perez Nitrite Ql (U) Negative Normal NEGATIVE [facility] Comment on above: Performed By: #### P REGQNT #### [facility] [address] [place] [address] Dr. Gabo Perez pH (U) 8.0 [pH] Normal 5-9 [facility] Comment on above: Performed By: #### P REGQNT #### [facility] [address] [place] [address] Dr. Gabo Perez Protein (U) [Mass/Vol] 30 mg/dL Abnormal NEGATIVE/ TRACE [facility] Comment on above: Performed By: #### P REGQNT #### [facility] [address] [address] [address] Gabo Perez SPEC GRAVITY 1.015 Normal 1.005-<=1.025 [facility] Comment on above: Performed By: #### P REGQNT #### [facility] [address] [address] [address] Gabo Perez UR MICRO IND INDICATED Normal [facility] Comment on above: Performed By: #### P REGQNT #### [facility] [address] [address] [address] Gabo Perez Urobilinogen Qn (U) 1.0 {Lucas'U}/dL Normal 0.2 - 1. 0 [facility] Comment on above: Performed By: #### P REGQNT #### [facility] [address] [address] [address] Gabo Perez URon 03-25-2022 , QUAL Negative Normal NEGATIVE [facility] Comment on above: Performed By: #### P REGQNT #### [facility] [address] [place] [address] Dr. Gabo Perez PROF CHEM 8 (BAS METB)on Anion gap [Moles/Vol] 15.1 mmol/L Normal [facility] Comment on above: Performed By: #### B MP #### [facility] [address] [place] [address] Dr. Gabo Perez Calcium [Mass/Vol] 8.5 mg/dL Normal 8.5-10.1 [facility] Comment on above: Performed By: #### B MP #### [facility] [address] [address] [address] Gabo Perez Chloride [Moles/Vol] 106 mmol/L Normal 98-107 [facility] Comment on above: Performed By: #### B MP #### [facility] [address] [place] [address] Dr. Gabo Perez CO2 [Moles/Vol] 23.8 mmol/L Normal 21.0-32.0 [facility] [place] [facility] Comment on above: Performed By: #### B MP #### [facility] [address] [place] [address] Dr. Gabo Perez Creatinine [Mass/Vol] 1.16 mg/dL Critically high 0.55-1.02 [facility] Comment on above: Performed By: #### B MP #### [facility] [address] [place] [address] Dr. Gabo Perez EGFR-AF PORTUGUESE >60 Normal >=60 [facility] [facility] Comment on above: Performed By: #### B MP #### [facility] [address] [address] [address] Gabo Perez EGFR-NON AF PORTUGUESE 52 mL/min/1.73m2 Critically low >=60 [facility] Comment on above: Performed By: #### B MP #### [facility] [address] [address] [address] Gabo Perez Glucose [Mass/Vol] 84 mg/dL Normal 74-106 [facility] Comment on above: Performed By: #### B MP #### [facility] [address] [address] [address] Gabo Perez Potassium [Moles/Vol] 3.9 mmol/L Normal 3.5-5.1 [facility] Comment on above: Performed By: #### B MP #### [facility] [address] [address] [address] Gabo Perez Sodium [Moles/Vol] 141 mmol/L Normal 136-145 [facility] Comment on above: Performed By: #### B MP #### [facility] [address] [address] [address] Gabo Perez Urea nitrogen [Mass/Vol] 15.0 mg/dL Normal 7.0-18.0 [facility] Comment on above: Performed By: #### B MP #### [facility] [address] [address] [address] Gabo Perez Urea nitrogen/Creatinine [Mass ratio] 12.9 mg/mg Normal [facility] Comment on above: Performed By: #### B MP #### [facility] [address] [address] [address] Gabo Perez URINE MICROSCOPIC ONLYon BACTERIA TRACE Abnormal NONE SEEN [facility] Comment on above: Performed By: #### P REGQNT #### [facility] [address] [address] [address] Gabo Perez Bacteria identified Cx Nom (U) NOT INDICATED Normal [facility] Comment on above: Performed By: #### P REGQNT #### [facility] [address] [address] [address] Gabo Perez CAST NONE SEEN Normal NONE SEEN [facility] Comment on above: Performed By: #### P REGQNT #### [facility] [address] [address] [address] Gabo Perez Crystals LM Nom (Urine sed) NONE SEEN Normal NONE SEEN [facility] Comment on above: Performed By: #### P REGQNT #### [facility] [address] [address] [address] Gabo Perez Epithelial cells LM Ql (Urine sed) RARE Normal NONE SEEN /RARE [facility] Comment on above: Performed By: #### P REGQNT #### [facility] [address] [address] [address] Gabo Perez MUCOUS NONE SEEN Normal NONE SEEN [facility] Comment on above: Performed By: #### P REGQNT #### [facility] [address] [place] [address] Dr. Gabo Perez RBC (U) [#/Vol] /uL Abnormal 0-2 [facility] Comment on above: Performed By: #### P REGQNT #### [facility] [address] [address] [address] Gabo Perez WBC 0-2 Abnormal NONE SEEN [facility] Comment on above: Performed By: #### P REGQNT #### [facility] [address] [address] [address] Gabo Perez COVID Quick Testingon 2021 Result Positive [facility] Other GLUCOSE, BLOOD (POC)on 03-09 Glucose [Mass/Vol] 108 mg/dL Abnormal 74 - 99 mg/dL [facility] FREE T4on 01-18-2022 Free T4 [Mass/Vol] 0.30 ng/dL Critically low 0.76-1.46 [facility] Comment on above: Performed By: #### P REGQNT #### [facility] [address] [place] [address] Dr. Gabo Perez LIPID PROFILEon 01-18-2022 CHOL-HDL RATIO NORM SEE BELOW Normal [facility] Comment on above: Result Comment: 3.3 - 4.4 LOW RISK 4.4 - 7.1 AVERAGE RISK 7.1 - 11.0 MODERATE RISK >11.0 HIGH RISK Performed By: #### C MP, LIPID, TSH #### [facility] [address] [address] [address] Gabo Perez Cholesterol [Mass/Vol] 238 mg/dL Critically high <=200 [facility] Comment on above: Performed By: #### C MP, LIPID, TSH #### [facility] [address] [address] [address] Gabo Perez Cholesterol in HDL [Mass/Vol] 61 mg/dL Critically high 40-60 [facility] Comment on above: Performed By: #### C MP, LIPID, TSH #### [facility] [address] [address] [address] Gabo Perez Cholesterol in LDL [Mass/Vol] 161.4 mg/dL Normal [facility] Comment on above: Performed By: #### C MP, LIPID, TSH #### [facility] [address] [address] [address] Gabo Perez Cholesterol.total/Ch olesterol in HDL [Mass ratio] 3.9 {ratio} Normal [facility] Comment on above: Performed By: #### C MP, LIPID, TSH #### [facility] [address] [address] [address] Gabo Perez HDL NORMAL > or = 60 mg/dl - LO W CARDIOVASCULAR RISK <40 mg/dl - HIGH CARDIOVASCULAR RISK Normal [facility] Comment on above: Performed By: #### C MP, LIPID, TSH #### [facility] [address] [address] [address] Gabo Perez LDL CALC NORMAL SEE BELOW Normal [facility] Comment on above: Result Comment: <100 mg/dl OPTIMAL 100 - 129 mg/dl NEAR OR ABOVE OPTIMAL 130 - 159 mg/dl BORDERLINE HIGH 160 - 189 mg/dl HIGH >190 mg/dl VERY HIGH Performed By: #### C MP, LIPID, TSH #### [facility] [address] [address] [address] Gabo Perez Triglyceride [Mass/Vol] 78 mg/dL Normal <=150 [facility] Comment on above: Performed By: #### C MP, LIPID, TSH #### [facility] [address] [place] [address] Dr. Gabo Perez VLDL CALC 15.6 mg/dL Normal [facility] Comment on above: Performed By: #### C MP, LIPID, TSH #### [facility] [address] [place] [address] Dr. Gabo Perez PROF 14(COMP METB)on 022 Albumin [Mass/Vol] 3.6 g/dL Normal 3.4-5.0 [facility] Comment on above: Performed By: #### C MP, LIPID, TSH #### [facility] [address] [place] [address] Dr. Gabo Perez Albumin/Globulin [Mass ratio] 1.0 {ratio} Normal [facility] Comment on above: Performed By: #### C MP, LIPID, TSH #### [facility] [address] [place] [address] Dr. Gabo Perez ALP [Catalytic activity/Vol] 56 U/L Normal 46-116 [facility] Comment on above: Performed By: #### C MP, LIPID, TSH #### [facility] [address] [place] [address] Dr. Gabo Perez ALT [Catalytic activity/Vol] 25 U/L Normal 14-59 [facility] Comment on above: Performed By: #### C MP, LIPID, TSH #### [facility] [address] [place] [address] Dr. Gabo Perez Anion gap [Moles/Vol] 11.3 mmol/L Normal [facility] Comment on above: Performed By: #### C MP, LIPID, TSH #### [facility] [address] [place] [address] Dr. Gabo Perez AST [Catalytic activity/Vol] 13 U/L Critically low 15-37 [facility] Comment on above: Performed By: #### C MP, LIPID, TSH #### [facility] [address] [place] [address] Dr. Gabo Perez Bilirubin [Mass/Vol] 0.5 mg/dL Normal 0.2-1.0 [facility] Comment on above: Performed By: #### C MP, LIPID, TSH #### [facility] [address] [address] [address] Gabo Perez Calcium [Mass/Vol] 8.7 mg/dL Normal 8.5-10.1 [facility] Comment on above: Performed By: #### C MP, LIPID, TSH #### [facility] [address] [address] [address] Gabo Perez Chloride [Moles/Vol] 103 mmol/L Normal 98-107 [facility] Comment on above: Performed By: #### C MP, LIPID, TSH #### [facility] [address] [address] [address] Gabo Perez CO2 [Moles/Vol] 28.8 mmol/L Normal 21.0-32.0 [facility] Comment on above: Performed By: #### C MP, LIPID, TSH #### [facility] [address] [address] [address] Gabo Perez Creatinine [Mass/Vol] 0.83 mg/dL Normal 0.55-1.02 [facility] Comment on above: Performed By: #### C MP, LIPID, TSH #### [facility] [address] [address] [address] Gabo Perez EGFR-AF PORTUGUESE >60 Normal >=60 [facility] Comment on above: Performed By: #### C MP, LIPID, TSH #### [facility] [address] [address] [address] Gabo Perez EGFR-NON AF PORTUGUESE >60 Normal >=60 [facility] Comment on above: Performed By: #### C MP, LIPID, TSH #### [facility] [address] [address] [address] Gabo Perez Globulin (S) [Mass/Vol] 3.6 g/dL Normal [facility] Comment on above: Performed By: #### C MP, LIPID, TSH #### [facility] [address] [address] [address] Gabo Perez Glucose [Mass/Vol] 95 mg/dL Normal 74-106 [facility] Comment on above: Performed By: #### C MP, LIPID, TSH #### [facility] [address] [address] [address] Gabo Perez Potassium [Moles/Vol] 4.1 mmol/L Normal 3.5-5.1 [facility] Comment on above: Performed By: #### C MP, LIPID, TSH #### [facility] [address] [address] [address] Gabo Perez Protein [Mass/Vol] 7.2 g/dL Normal 6.4-8.2 [facility] Comment on above: Performed By: #### C MP, LIPID, TSH #### [facility] [address] [place] [address] Dr. Gabo Perez Sodium [Moles/Vol] 139 mmol/L Normal 136-145 [facility] Comment on above: Performed By: #### C MP, LIPID, TSH #### [facility] [address] [address] [address] Gabo Perez Urea nitrogen [Mass/Vol] 9.0 mg/dL Normal 7.0-18.0 [facility] Comment on above: Performed By: #### C MP, LIPID, TSH #### [facility] [address] [address] [address] Gabo Perez Urea nitrogen/Creatinine [Mass ratio] 10.8 mg/mg Normal [facility] Comment on above: Performed By: #### C MP, LIPID, TSH #### [facility] [address] [place] [address] Dr. Gabo Perez TSHon 01-18-2022 TSH 111.464 uIU/mL Critically high 0.358-3.740 [facility] Comment on above: Result Comment: REPE ATED FOR VERIFICATION Performed By: #### C MP, LIPID, TSH #### [facility] [address] [place] [address] Dr. Gabo Perez TSH RANGE SEE BELOW Normal [facility] Comment on above: Result Comment: <0.3 4 UIU/ml HYPERTHYROID 0.34-5.60 UIU/ml EUTHYROID >5.60 UIU/ml HYPOTHYROID Performed By: #### C MP, LIPID, TSH #### [facility] [address] [address] [address] Gabo Perez Urinalysis - AUTOMATEDon Appearance (U) cloudy [employer] Other Bilirubin Ql (U) Negative [employer] Other Color (U) dark yellow [facility] Other Glucose Ql (U) Negative [facility] Other Hemoglobin Ql (U) large [employer] Other Ketones Ql (U) trace [facility] Other Leukocyte esterase Test strip Ql (U) large [facility] Other Nitrite Ql (U) Positive [employer] Other pH (U) 6.5 [pH] [facility] Other Protein Ql (U) 100 [employer] Other Specific gravity (U) [Rel density] >1.030 [facility] Other Urobilinogen (U) [Mass/Vol] 1.0 mg/dL [facility] Other Urinalysis - AUTOMATED [facility] Other Urine Cultureon 12-02-2021 Bacteria identified Cx Nom (U) Reason for Exam Dysuria Urine ORGANISM: Escherichia coli (O:ESCCOL) [place] Count >100,000 Aerobic CECE Charge (NUC86) ---- [...] RESISTANT TO ALL B-LACTAM DRUGS. PERFORMED BY: [place] [address] PATHOLOGIST RN GYN BARAK ARRIAZA M.D. [facility] Comment on above: Performed By: #### C UU #### [address] Vital Signs Date Time Vital Sign Value Performing Clinician Facility 01-12-2023 08:46-0400 Blood Pressure Location Martina Stephenson [facility] 01-12-2023 08:46-0400 Diastolic blood pressure 74 mm[Hg] Martina Stephenson [facility] 01-12-2023 08:46-0400 Heart rate 68 /min Martina Stephenson [facility] 01-12-2023 08:46-0400 Respiratory rate 16 /min Martina Stephenson [facility] 01-12-2023 08:46-0400 Systolic blood pressure 128 mm[Hg] Martina Lue [facility] 06-02-2022 16:55-0400 Diastolic blood pressure 86 mm[Hg] DO Sania Rumschlag Work Phone: [facility] 06-02-2022 16:55-0400 Heart rate 73 /min DO Sania Rumschlag Work Phone: [facility] 06-02-2022 16:55-0400 Respiratory rate 16 /min DO Sania Rumschlag Work Phone: [facility] 06-02-2022 16:55-0400 SaO2% (BldA) [Mass fraction] 100 % DO Sania Rumschlag Work Phone: [facility] 06-02-2022 16:55-0400 Systolic blood pressure 114 mm[Hg] DO Sania Rumschlag Work Phone: [facility] 06-02-2022 16:10-0400 Inhaled oxygen flow rate 6 L/min DO Sania Rumschlag Work Phone: [facility] 06-02-2022 15:16-0400 Body mass index (BMI) [Ratio] 37.3 kg/m2 DO Sania Rumschlag Work Phone: [facility] 06-02-2022 13:55-0400 Body height 153.67 cm DO Sania Rumschlag Work Phone: [facility] 06-02-2022 13:55-0400 Body weight 87.99 kg DO Sania Rumschlag Work Phone: [facility] 06-02-2022 12:12-0400 Body temperature 97.9 [degF] DO Sania Rumschlag Work Phone: [facility] 05-12-2022 08:06-0400 Blood Pressure Location Martina Lue [facility] 05-12-2022 08:06-0400 Diastolic blood pressure 65 mm[Hg] Martina Lue [facility] 05-12-2022 08:06-0400 Heart rate 71 /min Martina Lue [facility] 05-12-2022 08:06-0400 Respiratory rate 16 /min Martina Lue [facility] 05-12-2022 08:06-0400 Systolic blood pressure 108 mm[Hg] Martina Lue [facility] 04-14-2022 11:31-0400 Blood Pressure Location Martina Lue [facility] [place] 04-14-2022 11:31-0400 Diastolic blood pressure 76 mm[Hg] Martina Lue [facility] [place] 04-14-2022 11:31-0400 Heart rate 71 /min Martina Lue [facility] 04-14-2022 11:31-0400 Respiratory rate 16 /min Martina Lue [facility] 04-14-2022 11:31-0400 Systolic blood pressure 113 mm[Hg] Martina Lue [facility] 03-15-2022 11:10-0400 Body height 153.67 cm Sherine Renee Other [facility] Other 03-15-2022 11:10-0400 Body mass index (BMI) [Ratio] 37.26 kg/m2 Sherine Renee Other [facility] Other 03-15-2022 11:10-0400 Body temperature 98 [degF] Sherine Renee Other [facility] Other 03-15-2022 11:10-0400 Body weight 88 kg Sherine Renee Other [facility] Other 03-15-2022 11:10-0400 Respiratory rate 18 /min Sherine Renee Other [facility] Other 03-15-2022 11:10-0400 SaO2% (BldA) [Mass fraction] 98 % Sherine Renee Other [facility] Other 03-09-2022 10:49-0400 Body weight 88 kg Patti Haider MD Work Phone: [facility] 03-09-2022 10:49-0400 Diastolic blood pressure 68 mm[Hg] Patti Haider MD Work Phone: [facility] 03-09-2022 10:49-0400 Heart rate 76 /min Patti Haider MD Work Phone: [facility] 03-09-2022 10:49-0400 Systolic blood pressure 100 mm[Hg] Patti Haider MD Work Phone: [facility] 12-02-2021 17:00-0400 Body height 153.67 cm Linda Leon Other [facility] Other 12-02-2021 17:00-0400 Body mass index (BMI) [Ratio] 37.64 kg/m2 Linda Leon Other [facility] Other 12-02-2021 17:00-0400 Body temperature 97.9 [degF] Linda Leon Other [facility] Other 12-02-2021 17:00-0400 Body weight 88.91 kg Linda Leon Other [facility] Other 12-02-2021 17:00-0400 Diastolic blood pressure 85 mm[Hg] Linda Leon Other [facility] Other 12-02-2021 17:00-0400 Respiratory rate 18 /min Linda Leon Other [facility] Other 12-02-2021 17:00-0400 SaO2% (BldA) [Mass fraction] 99 % Linda Leon Other [facility] Other 12-02-2021 17:00-0400 Systolic blood pressure 120 mm[Hg] Linda Leon Other [facility] Other Encounters Encounter Date Encounter Type Care Provider Facility Start: 01-02-2025 ambulatory Martina Stephenson Facility:[facility] Start: 02-01-2024 ambulatory Patti clark MD Work Phone: Endocrinology Comment on above: labs High tsh results Start: 02-01-2024 E-mail encounter fro m caregiver Patti Haider MD Work Phone: Endocrinology Start: 01-31-2024 End: 01-31-2024 ambulatory PATTI HAIDER Facility:[facility] Start: 10-26-2023 End: 10-26-2023 ambulatory SANA KOEHLER Not Available Start: 09-22-2023 End: 09-22-2023 ambulatory SANA KOEHLER Not Available Start: 09-12-2023 End: 09-12-2023 ambulatory VLADIMIR JOHNSON Not Available Start: 08-23-2023 End: 08-23-2023 ambulatory VLADIMIR JOHNSON Not Available Start: 08-05-2023 ambulatory Patti clark MD Work Phone: Endocrinology Comment on above: labs Start: 08-05-2023 E-mail encounter fro m caregiver Patti Haider MD Work Phone: [facility] Start: 08-04-2023 End: 08-04-2023 ambulatory PATTI HAIDER Facility:[facility] Start: 04-15-2023 End: 04-15-2023 ambulatory Patti Haider MD Work Phone: Endocrinology Comment on above: 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 Facility:[facility] Start: 11-16-2022 Encounter for preprocedural cardiovascular examination DR VLADIMIR JOHNSON . [facility] Start: 11-16-2022 Encounter for preprocedural respiratory examination DR VLADIMIR JOHNSON . [facility] Start: 11-12-2022 End: 11-13-2022 ambulatory SANIA RUMMERLINLAG Facility:[facility] Start: 11-12-2022 End: 11-13-2022 Encounter for preprocedural cardiovascular examination SANIA RUMMERLINLAG Facility:[facility] Start: 09-23-2022 End: 09-24-2022 ambulatory SANIA SHADEMERLINBONG Facility:[facility] Start: 09-20-[address] DOCTOR VILLAFUERTE Facility :[facility] Start: 09-01-2022 End: 09-01-[address] VLADIMIR JOHNSON . Facility:[facility] Start: 07-09-2022 End: 07-10-[address] EMILY MARSHALL Facility:[facility] Start: 07-05-2022 End: 07-06-[address] EMILY MARSHALL Facility:[facility] Start: 06-07-2022 End: 06-07-2022 Patient encounter procedure Martina Stephenson [facility] Start: 06-02-2022 Encounter for preprocedural laboratory examination MARTINA STEPHENSON . [facility] Start: 06-02-2022 End: 06-02-2022 ambulatory Martina Stephenson Facility:[facility] Start: 06-02-2022 End: 06-02-2022 Admission to same day surgery center DO Sania Rumschlag Work Phone: [facility] [place] Start: 06-02-2022 End: 06-02-2022 ambulatory DO Sania Rumschlag Work Phone: [facility] Work Phone: Start: 05-31-2022 End: 06-01-2022 ambulatory MARTINA STEPHENSON . Facility:[facility] Start: 05-31-2022 End: 06-01-2022 Encounter for preprocedural laboratory examination MARTINA STEPHENSON . Facility:[facility] Start: 05-12-2022 End: 05-13-[address] EMILY MARSHALL Facility:[facility] Start: 05-12-2022 End: 05-12-2022 Patient encounter procedure Martina Stephenson [facility] Start: 05-07-2022 End: 05-08-2022 ambulatory Patti Haider MD Work Phone: Endocrinology Comment on above: Labs Start: 04-26-2022 End: 04-26-2022 Patient encounter procedure Martina Stephenson [facility] Start: 04-14-2022 End: 04-14-2022 Patient encounter procedure Martina Stephenson [facility] Start: 03-25-2022 End: 03-25-2022 ambulatory RAMAN ROBKEENANLucy . Facility: Start: 03-15-2022 End: 03-15-2022 ambulatory Sherine Renee Other [facility] Other Start: 03-15-2022 Office outpatient vi sit 15 minutes Sherine Renee [facility] Start: 03-10-2022 ambulatory Patti clark MD Work Phone: Endocrinology Comment on above: labs Start: 03-10-2022 E-mail encounter fro m caregiver Patti Haider MD Work Phone: [facility] Start: 03-09-2022 Telephone encounter Patti Haider MD Work Phone: Endocrinology Comment on above: Patient Update Start: 03-09-2022 End: 03-09-2022 Patient encounter procedure Patti Haider MD Work Phone: Endocrinology Comment on above: 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); Impaired fasting glucose Start: 01-18-2022 End: 01-19-[address] DOCTOR VILLAFUERTE Facility:[facility] Start: 12-04-2021 End: 12-04-2021 ambulatory Linda Carolyn Other [facility] Other Start: 12-04-2021 Telephone encounter Linda MARQUEZ [facility] Start: 12-02-2021 End: 12-02-2021 ambulatory Linda Leon [facility] Other Start: 12-02-2021 Office outpatient vi sit [...] ev cleared fda spec home use Patti Haider MD Work Phone: Tubal ligation done Martina barraza Plan of Treatment Date Care Activity Detail Author Start: 10-26-2031 Urine microalbumin profile DTa P,Tdap,Td Vaccine (2 - Td or Tdap) [facility] Start: 05-06-2024 Influenza vaccination Influenz a Vaccine (Season Ended) [facility] Start: 04-02-2024 End: 07-30-2024 Thyrotropin [Units/volume] in Serum or Plasma THYROID STIMULATING HORMONE Lab Routine Hypothyroidism due to Darrlel's thyroiditis Expected: 04/02/2024, Expires: 07/30/2024 [facility] Work Phone: Comment on above: Expected: 04/02/2024 , Expires: 07/30/2024 Start: 04-02-2024 End: 07-02-2024 Thyroxine (T4) free [Mass/volume] in Serum or Plasma T4 FREE/FREE THYROXINE Lab Routine 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 Expected: 04/02/2024, Expires: 07/02/2024 [facility] Comment on above: Expected: 04/02/2024 , Expires: 07/02/2024 Start: 09-16-2023 End: 02-01-2024 Thyrotropin [Units/volume] in Serum or Plasma TSH BLD Lab Routine 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 Expected: 09/16/2023, Expires: 02/01/2024 [facility] Work Phone: Comment on above: Expected: 09/16/2023 , Expires: 02/01/2024 Start: 09-16-2023 End: 12-16-2023 Thyroxine (T4) free [Mass/volume] in Serum or Plasma T4 FREE/FREE THYROX Lab Routine 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 Expected: 09/16/2023, Expires: 12/16/2023 [facility] Work Phone: Comment on above: Expected: 09/16/2023 , Expires: 12/16/2023 Start: 09-05-2023 Behavioral Health Screening Behavioral Health Screening [facility] Start: 06-15-2023 End: 10-12-2023 Thyrotropin [Units/volume] in Serum or Plasma TSH BLD Lab Routine 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 Expected: 06/15/2023, Expires: 10/12/2023 [facility] Work Phone: Comment on above: Expected: 06/15/2023 , Expires: 10/12/2023 Start: 06-15-2023 End: 08-15-2023 Thyroxine (T4) free [Mass/volume] in Serum or Plasma T4 FREE/FREE THYROX Lab Routine 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 Expected: 06/15/2023, Expires: 08/15/2023 [facility] Work Phone: Comment on above: Expected: 06/15/2023 , Expires: 08/15/2023 Start: 05-06-2023 Covid-19 Vaccine () Covid-19 Vaccine () [facility] Start: 05-06-2023 Influenza vaccination C [facility] Start: 09-05-2022 DEPRESSION ASSESSMENT DEPRESSION ASS ESSMENT [facility] Start: 06-10-2022 End: 08-10-2022 Thyrotropin [Units/volume] in Serum or Plasma TSH BLD Lab Routine 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 Expected: 06/10/2022, Expires: 08/10/2022 [facility] Work Phone: Comment on above: Expected: 06/10/2022 , Expires: 08/10/2022 Start: 06-10-2022 End: 08-10-2022 Thyroxine (T4) free [Mass/volume] in Serum or Plasma T4 FREE/FREE THYROX Lab Routine 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 Expected: 06/10/2022, Expires: 08/10/2022 [facility] Work Phone: Comment on above: Expected: 06/10/2022 , Expires: 08/10/2022 Start: 06-02-2022 End: 06-02-2022 [facility] Start: 05-11-2022 End: 07-11-2022 Thyrotropin [Units/volume] in Serum or Plasma TSH BLD Lab Routine 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 Expected: 05/11/2022, Expires: 07/11/2022 [facility] Work Phone: Comment on above: Expected: 05/11/2022 , Expires: 07/11/2022 Start: 05-11-2022 End: 07-11-2022 Thyroxine (T4) free [Mass/volume] in Serum or Plasma T4 FREE/FREE THYROX Lab Routine 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 Expected: 05/11/2022, Expires: 07/11/2022 [facility] Work Phone: Comment on above: Expected: 05/11/2022 , Expires: 07/11/2022 Start: 05-06-2022 Influenza vaccination INFLUENZA (#1) [facility] Start: 03-09-2022 End: 05-09-2022 Thyrotropin [Units/volume] in Serum or Plasma [facility] Work Phone: Comment on above: Expected: 03/09/2022 , Expires: 05/09/2022 Start: 03-09-2022 End: 05-09-2022 Thyroxine (T4) free [Mass/volume] in Serum or Plasma [facility] Work Phone: Comment on above: Expected: 03/09/2022 , Expires: 05/09/2022 Start: 03-09-2022 End: 05-09-2022 Triiodothyronine (T3) Free [Mass/volume] in Serum or Plasma [facility] Work Phone: Comment on above: Expected: 03/09/2022 , Expires: 05/09/2022 Start: 02-08-2014 HPV TESTING HPV TESTING [facility] Start: 02-08-2014 Screening for malign ant neoplasm of cervix HPV Testing [facility] Start: 02-08-2005 PAP TESTING PAP TESTING [facility] Start: 02-08-2005 Screening for malign ant neoplasm of cervix Pap Testing [facility] Start: 02-08-2003 Hepatitis B Vaccine (1 of 3 - 19+ 3-dose series) Hepatitis B Vaccine (1 of 3 - 19+ 3-dose series) [facility] Start: 02-08-2003 Urine microalbumin profile DTAP,TDAP ,TD (1 - Tdap) [facility] Start: 02-08-2002 ANNUAL PCP TEAM AIR DRIER JOSE MIGUEL DISEASE VISIT ANNUAL PCP TEAM CHRONIC DISEASE VISIT [facility] Start: 02-08-2002 HEPATITIS C SCREENING HEPATITIS C [facility] Start: 02-08-2002 Hepatitis C screening Hepatitis C [facility] Start: 02-08-2002 HIV SCREENING HIV SCREENING [facility] Start: 02-08-2002 HIV screening HIV Screening [facility] Start: 1996 Adult depression [facility] DEPRESSION SCREENING [facility] Start: 1984 COVID-19 VACCINE (#1) COVID-19 VACCI NE (#1) [facility] Start: 1984 HEPATITIS B (1 of 3 - 3-dose series) HEPATITIS B (1 of 3 - 3-dose series) [facility] Start: 1984 Hepatitis B Vaccine (1 of 3 - 3-dose series) Hepatitis B Vaccine (1 of 3 - 3-dose series) [facility] Patient Education Ureteroscopy U reteral Stent (DC) Kidney Stone Diet [facility] Work Phone: Patient referral [facility] Work Phone: Immunizations Immunization Date Immunization Notes Care Provider Marisol joyner 10-26-2021 tetanus toxoid, reduced diphtheria toxoid, and acellular pertussis vaccine, adsorbed Martina Sachin [facility] NEGATED: Highlighted row has not occurred!05-12-2022 SARS-CoV-2 mRNA (tozinameran 5y-11y) vaccine Martina Stephenson [facility] Payers Date Payer Category Payer Medicaid [id number] 2021 Medicaid [employer] [place] [employer] [id number] 2021-Present [phone] [address] [place] [address] Medicaid [id number] 2021 Medicaid [id number] 1984 Unknown [id number] [id number]3 1984 Unknown [id number] 2.16.840.1.801830.3.579.2.593 1984 Unknown [id number] 2.16.840.1.092049.3.579.2.593 1984 Unknown [id number] 2.16.840.1.178450.3.579.2.593 1984 Unknown [id number] 2.16.840.1.507310.3.579.2.593 1984 Unknown [id number] 2.16.840.1.739500.3.579.2.593 1984 Unknown [id number] 2.16.840.1.553495.3.579.2.593 1984 Unknown [id number] 2.16.840.1.925511.3.579.2.593 1984 Unknown [id number] 2.16.840.1.464088.3.579.2.593 1984 Unknown [id number] 2.16.840.1.482962.3.579.2.593 1984 Unknown [id number] 2.16.840.1.680603.3.579.2.593 1984 Unknown [id number] 2.16.840.1.239792.3.579.2.593 1984 Unknown [id number] 2.16.840.1.641506.3.579.2.593 1984 Unknown [id number] 2.16.840.1.142668.3.579.2.593 1984 Unknown [id number] 2.16.840.1.092658.3.579.2.1259 1984 Unknown [id number] 2.16.840.1.684193.3.579.2.1259 1984 Unknown [id number] 2.16.840.1.606361.3.579.2.1259 1984 Unknown [id number] 2.16.840.1.449126.3.579.2.1259 1984 Unknown [id number] 2.16.840.1.896643.3.579.2.727 1959 Self-pay [id number] 1959 Unknown [id number] 2.16.840.1.695023.19 Unknown [id number] 2.16.840.1.359375.3.579.2.531 Unknown [id number] 2.16.840.1.659309.3.579.2.531 Social History Date Type Detail Facility Unknown if ever smoked [facility] Other Start: 03-09-2022 End: 04-15-2023 Sex Assigned At [facility] Other Start: 03-09-2022 End: 01-12-2023 Tobacco smoking status NHIS Ex-smoker [facility] Start: 03-09-2022 Tobacco use and exposure Former smokeless tobacco user [facility] Start: 1985 Sex Assigned At Female [facility] Start: 02-27-2022 End: 05-07-2022 Exposure to SARS-CoV-2 (event) Not sure [facility] History of tobacco use Current smoker [facility] Start: 03-09-2022 End: 04-15-2023 History of Social function [facility] National Score (1-10 0), lower number is lower risk 74 [facility] Start: 03-02-2022 Gender identity Identifies as female gender (finding) [facility] Start: 03-02-2022 Sexual orientation Heterosexual (finding) [facility] Goals Date Patient Goal Desired Activity /State Functional Status Date Assessment Result Facility 01-12-2023 Functional Status N/A [facility] 06-03-2022 Functional Status N/A [facility] 05-12-2022 Functional Status N/A [facility] 04-14-2022 Functional Status N/A [facility] Clinical Notes 12-02-2021 to 02-01-2024 Telephone Encounter - Breanne Mahan RN - 02/01/2024 10:13 AM EDTTelephone Encounter - Breanne Mahan RN - 02/01/2024 10:13 AM EDTAddendum Note - Patti Haider MD - 08/05/2023 1:37 PM EST Note Date & Type Note Facility 02-01-2024 Telephone encount er Note See below. [facility] 02-01-2024 Miscellaneous Notes Formattin g of this note might be different from the original. See below. documented in this encounter [facility] 08-05-2023 Miscellaneous Notes Addended by: PATTI HAIDER on: 08/05/2023 01:37 PM Modules accepted: Orders documented in this encounter [facility] 04-15-2023 Note HNO ID: [id number] Author: Patti Haider MD Service: ? Author Type: Physician Type: Progress Notes Filed: 04/15/2023 12:08 PM Note Text: I have communicated my name and active licensure. The patient's identity and physical location were verified at the time of this visit. Either the patient or their legal hobbies and crafts sales representative has been informed of the [...] for the 04/15/23 encounter (Appointment) with Patti Haider MD. PE: LMP 03/05/2022 (Exact Date) Last [...] and edited as necessary for today's visit. [facility] 04-15-2023 History of Presen t illness Narrative I have communicated my name and active licensure. The patient's identity and physical location were verified at the time of this visit. Either the patient or their legal hobbies and crafts sales representative has been informed of the [...] for the 04/15/23 encounter (Appointment) with Patti Haider MD. PE: LMP 03/05/2022 (Exact Date) Last [...] for today's visit. documented in this encounter [facility] 01-12-2023 Hospital Discharg e instructions [...] include: ?8 oz (237 mL) of milk, gkdmhsg-ypbfalanbcuy-zkari milk, and calcium-fortifiedfruit juice. Calcium-fortified means that [...] ?Spinach (cooked), rhubarb, beets, sweet potatoes, and Rwandan chard. ?Peanuts. ?Potato chips, frisian fries, and baked potatoes with skin on. ?Nuts and nut products. ?Chocolate. If you regularly take a diuretic medicine, make sure to eat at least 1 or 2 servings of fruits or vegetables that are high in potassium each day. These include: ?Avocado. ?Banana. ?Camuy, prune, carrot, or tomato juice. ?Baked potato. [...] magnesium, fish oil, or vitamin B6. Take tsgx-jgy-bsnozxs and prescription medicines only as told by [...] Casseroles. Pizza. Lasagna. Frozen meals. Potato chips. Spanish fries. The items listed above may not [...] provider. Document Revised: 05/03/2022 Document Reviewed: 05/03/2022 [employer] Patient Education 2022 [employer]. Follow Up Care 07/14/2022 10:05:42 With:Sachin PANTOJA, Martina Martinez URL, URO Address: When: Unknown [facility] 11-26-2022 Note OPERATIVE NOTE OPERATION DATE: 11/26/2022 PROCEDURE: Yamileth endometrial ablation with hysteroscopy with endometrial biopsy. PREOPERATIVE DIAGNOSIS: Menorrhagia. POSTOPERATIVE DIAGNOSIS: Menorrhagia. ANESTHESIA: General. SURGEON: Vladimir Johnson D.O. WAREHOUSE TEAM LEADER: None. BLOOD LOSS: 5 mL URINE OUTPUT: [...] identified, and endometrial curettings were obtained. [facility] 11-26-2022 Note OP Note OPERATION DATE: 11/26/2022 ADDENDUM: Please note that prior to the ablation that the endometrial pipette was used and endometrial biopsy was performed. [facility] 06-07-2022 Hospital Discharg e instructions [...] 06/03/2022 14:45:09 With:Martina Stephenson Address: [address] [address] [phone] Business (1) When: Unknown Comments:Call for followup appointment in 1 month with renal US and KUB With:Martina Stephenson Address:Unknown When: Unknown [facility] 05-12-2022 Hospital Discharg e instructions Patient Education 05/12/2022 08:19:09 Kidney Stones, Rhpr-gl-Nywp Kidney Stones Kidney stones are rock-like masses [...] Follow these instructions at home: Medicines Take lhqf-xgb-teihwtf and prescription medicines only as told by [...] 02/07/2009 Document Revised: 01/08/2020 Document Reviewed: 01/08/2020 [employer] Patient Education 2020 Mixers. Follow Up Care 04/26/2022 09:37:55 With:Sachin PANTOJA, MELLISSA Anand, URO Address: When: Unknown [facility] 05-11-2022 Miscellaneous Notes Formattin g of this note might be different from the original. Please see message and advise. documented in this encounter [facility] 04-26-2022 Hospital Discharg e instructions Patient Education [...] 04/14/2022 14:07:08 With:Martina Stephenson Address: [address], [address] [phone] Business (1) When: Unknown Comments:Call for followup appointment in [address] scan With:Martina Stephenson Address:Unknown When: Unknown [facility] 04-14-2022 Hospital Discharg e instructions Patient [...] Follow these instructions at home: Medicines Take ewtt-lqd-cytgkup and prescription medicines only as told by [...] or the blood stops without treatment. Take aixi-ivq-ucfgzhe and prescription medicines only as told by your health care provider. Drink enough fluid to keep your urine clear or pale yellow. This information is not intended to replace advice given to you by your health care provider. Make sure you discuss any questions you have with your health care provider. Document Released: 08/22/2006 Document Revised: 01/16/2020 Document Reviewed: 09/24/2017 Be[employer] Patient Education 2020 [employer] Follow Up Care 03/29/2022 15:23:33 With:Sachin PANTOJA, MELLISSA Anand, URO Address: When: Unknown [facility] 03-15-2022 Evaluation note Encounter Date Diagnosis Assessment [...] UP AND WHEN TO SEEK EMERGENCY TREATMENT [facility] Other [id number] Miscellaneous Notes* Telephone Encounter - Patti Haider MD - 03/10/2022 2:59 PM EDT TFTs hyperthyroid, will have her skip LT4 completely for 4 days and then resume at 137mcg daily, repeat labs in 2 months, sent KKBOXt message [facility] Miscellaneous Notes* Telephone Encounter - Aleksandar Sanders MA - 03/09/2022 11:39 AM EDT Referral notes from 03/09/[address] Sania Gilmore office at [phone]. Confirmation received. documented in [facility] Instructions* Patient Instructions* Patti Haider MD - 03/09/2022 11:11 AM EDT Try [...] or try low carb tortilla/wraps (such as Hume Carb Balance) Do not drink juice or [...] Stevia, Splenda, Equal, or Sweet-N-Low, use plain pmyt-xn-ekgn or a sugar- free flavored creamer, or just drink it black if you like it that way Please get blood test today documented in this encounter[facility] History of Present illness Narrative* Patti Haider MD - 03/09/2022 10:43 AM EDT 37yo [...] (age 16yo, 12yo, and 7yo), works in [employer], quit smoking 5 years ago, [...] Level: 4 - Moderate documented in this [facility]Bl[facility] Evaluation note* Encounter Date Diagnosis [...] days. Nov, Hematuria, unspecified (ICD-10 - R31.9) [facility] Other Evaluation + Plan note Future Appointments Appointment Date:04/19/2022 08:15:00 AM Scheduled Provider: Location:[facility] Appointment Type:Urology CALL PAT FT Appointment Date:04/26/2022 09:00:00 AM Scheduled Provider: Location:[facility] Appointment Type:Urology FT Diagnostic Tests Pending * Urine Cytology ([facility]) 04/14/22 [facility] evaluation + Plan note Future Appointments Appointment Date:05/12/2022 08:00:00 AM Scheduled Provider:Martina Stephenson MD Location:[facility] Appointment Type:URO Office Visit [facility] App[facility]ments Appointment Date:07/14/2022 08:00:00 AM Scheduled Provider:Martina Stephenson MD Location:[facility] Appointment Type:URO Office Visit [facility] Future Appointments Appointment Date:04/20/2023 08:00:00 AM Scheduled Provider:Martina Stephenson MD Location:[facility] Appointment Type:URO Office Visit Diagnostic Tests Pending * PTH Intact 01/12/23 * Uric Acid 01/12/23 [facility] evaluation noteNo InformationNortDepartment [facility] [employer] Other Evaluation note* Diagnosis 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 Impaired fasting glucose documented in this encounter [facility] note* Diagnosis 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 documented in this encounter [facility] noteNo assessment information availableMer[facility] Work Phone: Evaluation note* Diagnosis 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 documented in this encounter [facility] note* Diagnosis 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 documented in this encounter [facility] note* Diagnosis 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 documented in this encounter [facility] general Narrative - Reported* Type Description Date Medical History Depression with anxiety Medical History Meniere disease Medical History Darrell's thyroiditis Surgical History tubal ligation Surgical History D&C Surgical History bone spur on left foot, 5th met atarsal Surgical History D&C with leep Hospitalization History see above [facility] [employer] Other Hospital course Narrative No data available for this section [facility] Hospital Discharge instructions Additional Instructions Take [...] Take stool softeners. You can buy AZO cvhx-yux-rfbogmq (pyridium) and use as needed for burning with urination. This will make your urine orange. Drink plenty of water and fluids You must follow up to ensure your stent is removed. Failure to do so may result in recurrent infections and renal failure. Activity as tolerated. Limit heavy lifting > 15 lbs if you are developing hematuria or flank pain.[facility] Work Phone: Progress note No data available for this section [facility] Chief Complaint and Reason for Visit [...] or prosecute any alcohol or drug abuse patient.[facility] the event this information is protected by the Federal Confidentiality of Alcohol and Drug Abuse Patient Records regulations: The Federal rules restrict any use of the information to criminally investigate or prosecute any alcohol or drug abuse patient.[facility] the event this information is protected by the Federal Confidentiality of Alcohol and Drug Abuse Patient Records regulations: The Federal rules restrict any use of the information to criminally investigate or prosecute any alcohol or drug abuse patient.[facility] SystemIn the event this information is protected by the Federal Confidentiality of Alcohol and Drug Abuse Patient Records regulations: The Federal rules restrict any use of the information to criminally investigate or prosecute any alcohol or drug abuse patient.[facility] SystemIn the event this information is protected by the Federal Confidentiality of Alcohol and Drug Abuse Patient Records regulations: The Federal rules restrict any use of the information to criminally investigate or prosecute any alcohol or drug abuse patient.[facility] SystemIn the event this information is protected by the Federal Confidentiality of Alcohol and Drug Abuse Patient Records regulations: The Federal rules restrict any use of the information to criminally investigate or prosecute any alcohol or drug abuse patient.[facility] SystemIn the event this information is protected by the Federal Confidentiality of Alcohol and Drug Abuse Patient Records regulations: The Federal rules restrict any use of the information to criminally investigate or prosecute any alcohol or drug abuse patient.[facility] SystemIn the event this information is protected by the Federal Confidentiality of Alcohol and Drug Abuse Patient Records regulations: The Federal rules restrict any use of the information to criminally investigate or prosecute any alcohol or drug abuse patient.[facility] Care Teams (unrecognized sec tion and content) Consultant Nurse Relationship Specialty Start Date End Date Hany, Sania [address] [place] [address] Referring Family Practice 01/06/22 Consultant Nurse Relationship Specialty Start Date End Date Hany Sania [address] [place] [address] Referring Family Practice 01/06/22 Consultant Nurse Relationship Specialty Start Date End Date Hany Sania [address] [place] [address] Referring Family Practice 01/06/22 Team Status: Inactive Member Role Status Dates Martina Stephenson MD Attending Provider Active Sania Gilmore DO Primary Care Provider Active Team Status: Active Member Role Status Dates Sania Gilmore DO Primary Care Provider Active Consultant Nurse Relationship Specialty Start Date End Date Hany Sania [address] [place] [address] Referring Family Medicine 01/06/22 Consultant Nurse Relationship Specialty Start Date End Date Sania Gilmore DO [address] [place] [address] Referring Family Medicine 01/06/22 Consultant Nurse Relationship Specialty Start Date End Date Sania Gilmore DO [address] [place] [address] Referring Family Medicine 01/06/22 Consultant Nurse Relationship Specialty Start Date End Date Sania Gilmore DO [address] [place] [address] Referring Family Medicine 01/06/22 INFORMATION SOURCE (unrecogn ized section and content) DATE CREATED AUTHOR 06/10/2022 [facility] DATE CREATED AUTHOR AUTHOR'S ORGANIZ ATION 01/08/2023 [facility] DATE CREATED AUTHOR AUTHOR'S ORGANIZ ATION 11/02/2023 [facility] DATE CREATED AUTHOR AUTHOR'S ORGANIZ ATION 02/01/2024 [facility] DATE CREATED AUTHOR AUTHOR'S ORGANIZ ATION 10/14/2024 [facility] FOR RECORDS PERTAINING TO PATIENTS WHO ARE [...] BE BASED ON THE PRIMARY CLINICAL RECORDS. [employer] provides no warranty or guarantee of the accuracy or completeness of information in this document.
== END 2024-10-17 10:44 | disposition home or self-care (01) ==
LOC: US 10:43
PROVIDERS: PCP Family Medicine; Visit Provider Urology
DX: N20.0 Calculus of kidney (principal)
CPT/HCPCS: 74018; 76775